=== PATIENT | female | born 1935 | race Caucasian/White ===

== ENCOUNTER 2020-02-12 12:56 | Outpatient (CLI) | payer MEDICARE, SELFPAY ==
--- NOTE | 2020-02-12 13:07 | CT_ITS ---
WS: [id number] CT HEAD TECHNIQUE: Noncontrast CT of the head obtained from the skullbase to the vertex. CLINICAL INFORMATION: ACUTE WEAKNESS, CHRONIC HEADACHE, ARM NUMBNESS COMPARISON: June 16, 2018 DLP: 992.[address] scans at [facility] use at least one of these dose optimization techniques: automat ed exposure control; mA and/or kV adjustment per patient size (includes targeted exams where dose is matched to clinical indication); or iterative reconstruction. FINDINGS: No evidence of intracranial hemorrhage or mass effect. Ventricular system and basal cisterns are pierce nt. Moderate small vessel changes with moderate parenchymal volume loss. Chronic lacunar infarcts in basal ganglia bilaterally. No extra-axial fluid collections. No evidence of mass or mass effect. Norm al hernandez-white differentiation. Opacification right mastoid air cells. Opacification right middle ear. Left mastoid air cells are wel l aerated. Paranasal sinuses are well aerated. CT/CT head wo con* [id number] IMPRESSION: 1. No evidence of intracranial hemorrhage or mass effect. 2. Rllo-ka-eawybgse small vessel changes moderate parenchymal volume loss. 3. Opacification right mastoid air cells and right middle ear.
== END 2020-02-12 12:57 | disposition home or self-care (01) ==
LOC: RADWPI 13:03
PROVIDERS: Family Provider Nurse Practitioner; PCP Nurse Practitioner; Visit Provider Nurse Practitioner
DX: R53.1 Weakness (principal); R51 Headache; R20.0 Anesthesia of skin
CPT/HCPCS: 70450

== ENCOUNTER 2020-04-07 09:48 | Outpatient (CLI) | payer MEDICARE, SELFPAY ==
--- NOTE | 2020-04-07 09:54 | XR_ITS ---
WS: [id number] CERVICAL SPINE 3 VIEWS HISTORY: NUMBNESS OF FINGER COMPARISON: None available. Normal posterior cervical alignment. Moderate disc space narrowing at C5-6 and C6-7. Endplate osteoph ytes throughout the cervical spine. Lateral masses of C1 and C2 are aligned and the odontoid is intac t. Bilateral facet joint arthritis, most significant at the C5-6 and C6-7 levels. Soft tissues are normal. XR/XR cervical spine 3V* [id number] IMPRESSION: Advanced spondylosis, most significant at C5-6 and C6-7.
== END 2020-04-07 09:49 | disposition home or self-care (01) ==
PROVIDERS: PCP Nurse Practitioner; Visit Provider Radiology Diagnostic Radiology
DX: R20.0 Anesthesia of skin (principal); M47.892 Other spondylosis, cervical region
CPT/HCPCS: 72040

== ENCOUNTER 2020-04-14 18:22 | Inpatient (IN) | payer MEDICARE, SELFPAY ==
[2020-04-14] VITALS (7 sets, daily range): BP systolic 133–151; BP diastolic 65–77; PULSE 16–78; RESP 16–18; TEMP 36.8; O2SAT 93–97; BMI 25.4
--- NOTE | 2020-04-14 18:25 | XRR_ITS ---
PROCEDURE INFORMATION: Exam: XR Chest, 1 View Exam date and time: 04/14/2020 7:25 PM Age: 85 years old Clinical indication: Injury or trauma; Initial encounter; Blunt trauma (contusions or hematomas); Injury date: 04/14/20; Prior surgery; Surgery date: 6+ months; Surgery type: Pacemaker; Patient HX: Fall; C/O RT hip pain TECHNIQUE: Imaging protocol: XR of the chest Views: 1 view. COMPARISON: CR Chest 1 [place] [id number] 07/09/2019 2:17 PM FINDINGS: Lungs: Calcified granuloma in the right upper lobe. Pleural space: No pleural effusion or pneumothorax. Heart/Mediastinum: The cardiac silhouette is not enlarged. The mediastinal contours are normal. Calcified lymph nodes in the right hilum from prior granulomatous disease. Vasculature: There is a left subclavian dual chamber pacemaker. Bones/joints: No acute osseous abnormality. XR/XR chest 1V portable [id number] IMPRESSION: No acute abnormality.
--- NOTE | 2020-04-14 18:25 | XRR_ITS ---
PROCEDURE INFORMATION: Exam: XR Right Hip with Pelvis when Performed Exam date and time: 04/14/2020 7:29 PM Age: 85 years old Clinical indication: Injury or trauma; Initial encounter; Blunt trauma (contusions or hematomas); Right; Injury date: 04/14/20; Patient HX: Fall; RT hip pain injury; Additional info: Fall/injury TECHNIQUE: Imaging protocol: XR Right hip with pelvis when performed. Views: 1 view. COMPARISON: CT abdomen pelvis w con* [id number] 07/09/2019 6:00 PM FINDINGS: Bones/joints: No fracture. No dislocation. No hip joint space narrowing. Soft tissues: There are surgical clips in the right groin. XR/XR hip RT 2-3V wo/w pel* [id number] IMPRESSION: No acute osseous abnormality.
--- NOTE | 2020-04-14 18:45 | CTR_ITS ---
PROCEDURE INFORMATION: Exam: CT Head Without Contrast Exam date and time: 04/14/2020 6:54 PM Age: 85 years old Clinical indication: Injury or trauma; Fall; Initial encounter; Injury details: Passed out and fell. Loc. PT down for 7 hrs; Additional info: Trauma fall TECHNIQUE: Imaging protocol: Computed tomography of the head without contrast. Radiation optimization: All CT scans at this facility use at least one of these dose optimization techniques: automated exposure control; mA and/or kV adjustment per patient size (includes targeted exams where dose is matched to clinical indication); or iterative reconstruction. COMPARISON: CT head wo con* [id number] 02/12/2020 1:50 PM RADIATION DOSE METRICS: Total DLP (mGy-cm): 826.42 FINDINGS: Brain: Mild atrophy and mild white matter chronic microvascular changes are noted. No hemorrhage or CT evidence of acute infarction is seen. Ventricles: Normal. No ventriculomegaly. Bones/joints: Unremarkable. No acute fracture. Sinuses: Visualized sinuses are unremarkable. No fluid levels. 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 Soft tissues: Mild soft tissue swelling is present in the left occipital scalp CT/CT head wo con* [id number] IMPRESSION: No acute intracranial abnormality. 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
--- NOTE | 2020-04-14 18:52 | CTR_ITS ---
PROCEDURE INFORMATION: Exam: CT Cervical Spine Without Contrast Exam date and time: 04/14/2020 6:54 PM Age: 85 years old Clinical indication: Injury or trauma; Fall; Injury details: Loc. PT down for 7 hrs; Additional info: Fall/trauma/injury TECHNIQUE: Imaging protocol: Computed tomography images of the cervical spine without contrast. Radiation optimization: All CT scans at this facility use at least one of these dose optimization techniques: automated exposure control; mA and/or kV adjustment per patient size (includes targeted exams where dose is matched to clinical indication); or iterative reconstruction. COMPARISON: CT Cervical Spine wo* [id number] 06/16/2018 6:53 AM RADIATION DOSE METRICS: Total DLP (mGy-cm): 681.22 FINDINGS: Moderate to severe degenerative changes are observed in the cervical spine. Mild canal stenosis is present at C6-C7 secondary to chronic changes. No cervical spine fracture is seen. A 10 x 5 mm calcified extra-axial lesion is again seen at the T2 level, which is stable and may be a meningioma. Moderate canal stenosis is present at this level. Spinal alignment is normal. CT/CT cervical spin wo con* [id number] IMPRESSION: No cervical spine fracture. Radiation Dose CTDIVOL = (mGy): DLP = 681.22 (mGy-cm)
[2020-04-14] MEDS: sodium chloride 0.9% 1,000 ML 999 ML IV ×2 (19:29→22:12)
[2020-04-14] MEDS: morphine 4 mg/mL SDV 1 mL IVP (19:34)
[2020-04-14] MEDS: ondansetron 2 mg/ML SDV 2 mL 4 MG IVP (19:34)
--- NOTE | 2020-04-14 19:39 | ED_ITS ---
HPI - Extremity Problem General: Chief complaint: Extremity Injury, Lower Stated complaint: POSSIBLE FX R HIP Time Seen by Provider: 04/14/20 18:32 Source: patient Mode of arrival: ambulatory Limitations: no limitations History of Present Illness: HPI Narrative: Aide is a very nice 85-year-old female who comes in after she fell at home taking out the trash. The patient is uncertain what made her fall. She states she had pain in her right hip and so she was unable to get up. She was able to crawl to the shade and sat there for several hours before someone found her and was able to bring her to the hospital. When asked further she states it was really she just had weakness and pain all over more so than just isolated pain in her hip. The patient does not remember tripping or slipping she just knows that she woke up on the ground. She thinks it is very possible that she may have passed out. She believes that she was out for quite some time and then again she was unable to get up because of weakness and pain but was able to crawl into the shade and was there for several hours. She does not remember any preceding chest pain, shortness of breath, palpitations, lightheadedness or dizziness. She denies any preceding headache, back pain, abdominal pain or other type of pain. Patient denies taking any new medications and she denies any similar symptoms to this in the past. She does not remember a trip or losing balance causing a mechanical fall either. The patient states she just hurts all over but her greatest area of pain is her right hip. She states that her hip pain is minor and she is able to range of motion her hip without any increased pain. Associated symptoms: Deny chest pain, fever(s) or rash Review of Systems Const: Reports: body aches, fatigue and malaise; Denies: fever(s), chills or diaphoresis Eyes: Denies: change in vision, blurry vision, photophobia, eye discomfort, eye discharge or eye redness ENMT: Denies: throat pain, odynophagia, hoarseness, swelling of lips/tongue, ear or mastoid pain, ear discharge, change in hearing or nasal discharge Card: Denies: chest pain, palpitations, irregular heart rhythm, edema, lightheadedness, pre-syncope, dyspnea on exertion or orthopnea Resp: Denies: dyspnea, productive cough, non-productive cough, wheezing, hemoptysis or chest congestion GI: Denies: abdominal pain, nausea, vomiting, hematemesis, coffee ground emesis, heartburn, diarrhea, constipation, GI cramping, hematochezia or melena : Denies: flank pain, dysuria, urinary frequency, urinary urgency or hematuria Musc: Reports: extremity pain and joint pain; Denies: neck pain, back pain, extremity swelling, joint swelling, joint redness, joint warmth or joint stiffness Skin/Breast: Denies: rash, pruritus, erythema or skin tenderness Neuro: Denies: headache(s), numbness in extremities, weakness in extremities, sensory changes, lack of coordination, difficulty walking, dizziness, vertigo, confusion, Slurred speech present or seizure-like activity Jean-Claude/Lymph: Denies: easy bruising, easy bleeding, petechiae, purpura or enlarged lymph nodes All/Imm: Denies: urticaria, throat swelling, tongue swelling, facial swelling or acute wheezing PFSH ED PFSH: Medical History (Updated 04/14/20 @ 22:36 by Arabella Godoy) Anemia Aortic valve disease Bowel perforation CVA (cerebral vascular accident) Hypertension Hypothyroidism Pacemaker Surgical History (Updated 04/14/20 @ 22:36 by Arabella Godoy) H/O inguinal hernia repair H/O knee surgery History of esophagogastroduodenoscopy (EGD) S/P hernia surgery S/P TAVR (transcatheter aortic valve replacement) Social History (Updated 04/14/20 @ 18:34 by John Gil RN) Smoking and tobacco status: never smoked Alcohol intake: never Substance/Drug Use: never Physical Exam Const: COMMON NORMALS: no acute distress, patient oriented x3, no limitations, healthy appearing and well nourished GENERAL APPEARANCE: cooperative, well kempt and well developed HENMT: COMMON NORMALS: normocephalic, atraumatic, external ears normal, EAC's normal and Normal external nose present HEAD & SCALP: normal to inspection, normocephalic and atraumatic FACE & SINUS: normal facial exam and face symmetric NOSE: Normal external nose present and Normal nares present EXTERNAL EAR: Yes external ears normal EXTERNAL AUDITORY CANAL: EAC's normal MOUTH: Normal oral and palatal mucosa present, lip normal and tongue normal Eye: COMMON NORMALS: Equal, round and reactive pupils present and conjunctivae normal GENERAL EYE: appearance normal, both eyes and all related structures ALIGNMENT: Yes alignment normal PERIORBITAL: periorbital findings normal EYELID: eyelids normal CONJUNCTIVA: Yes conjunctivae normal SCLERA: sclerae normal PUPIL: Yes Equal, round and reactive pupils present Neck/C-Spine: COMMON NORMALS: full ROM, no lymphadenopathy, supple, no meningeal signs and no JVD GENERAL: Yes normal visual inspection and Yes trachea midline Chest: COMMONS NORMALS: normal inspection of the chest and normal palpation of entire chest wall Resp: COMMON NORMALS: normal respiratory effort, No retractions, No use of accessory muscles and clear to auscultation bilaterally EFFORT & INSPECTION: Yes able to speak in complete sentences and Yes symmetric chest movement AUSCULTATION: clear to auscultation bilaterally, no crackles, no rales, no rhonchi and no wheezes Cardio: COMMON NORMALS: no JVD, regular rate, regular rhythm, S1 normal heart sound present and S2 normal heart sound present RATE: regular rate RHYTHM: regular rhythm HEART SOUNDS: S1 normal heart sound present, S2 normal heart sound present, no click, no gallops, no murmurs, no rubs and abnormal split S2 GI: COMMON NORMALS: Soft to palpation and No hepatosplenomegaly present PALPATION: Yes Soft to palpation, No Tenderness to palpation present (GI), No Guarding due to palpation present (GI), No Rigid due to palpation, Yes No hepatosplenomegaly present, No Hernia present, No Palpable mass present and No Pulsatile mass present : COMMON NORMALS: Yes no CVA tenderness BLADDER/KIDNEY EXAM: Yes no CVA tenderness EXTERNAL FEMALE EXAM: No Hernia present Back/Pelvis: COMMON NORMALS: no CVA tenderness, thoracic and lumbar spine normal to inspection, no thoracic nor lumbar tenderness and thoraco-lumbar ROM normal Extremity: COMMON NORMALS: capillary refill normal, no joint enlargement, no clubbing, cyanosis or edema and no calf tenderness Neuro: COMMON NORMALS: patient oriented x3, CN's II-XII intact bilaterally, moves all extremities, no focal motor deficits and no sensory deficits noted MENINGEAL SIGNS: Yes no meningeal signs SPEECH: speech normal Psych: COMMON NORMALS: mental status grossly normal, Normal thought process present, cooperative, normal affect, speech normal and activity/motor behavior normal APPEARANCE: Yes well kempt SPEECH: Yes normal speech THOUGHT PROCESS: Normal thought process present Skin: COMMON NORMALS: no rashes or lesions noted, turgor normal, no jaundice, no petechiae and no mottling GENERAL SKIN EXAM: no rashes or lesions noted and turgor normal Course Vital Signs: Vital signs: Vital Signs Temperature 98.2 F 04/14/20 18:26 Pulse Rate 16 L 04/14/20 22:11 Respiratory Rate 18 04/14/20 19:34 Blood Pressure 142/70 04/14/20 22:10 Pulse Oximetry 93 04/14/20 22:11 MDM - Extremity (Nontraumatic) Lab Data: Labs: Lab Results 04/14/20 04/14/20 04/14/20 Range/Units 19:44 19:44 19:44 WBC 7.0 (4.0-10.0) 10^3/ uL RBC 3.96 L (4.1-5.3) 10^6/u L Hgb 11.8 (11.5-15.3) g/dL Hct 37.6 (37.0-47.0) % MCV 94.9 (81-99) fL MCH 29.8 (28.0-34.0) pg MCHC 31.4 (30.0-36.0) g/dL RDW 15.2 H (12.1-15.1) % Plt Count 161 (130-400) 10^3/c mm MPV 10.3 (7.4-10.4) fL Neut % (Auto) 77.4 % Lymph % (Auto) 13.9 % [place] % (Auto) 7.0 % Eos % (Auto) 1.0 % Baso % (Auto) 0.3 % Neut # (Auto) 5.40 (1.8-7.7) 10^3/u L Lymph # (Auto) 1.0 (0.8-4.8) 10^3/u L [place] # (Auto) 0.5 (0.2-0.9) 10^3/u L Eos # (Auto) 0.1 (0.0-0.8) 10^3/u L Baso # (Auto) 0.0 (0.0-0.1) 10^3/u L Nucleated RBC % (a uto) 0 % Nucleated RBCs # 0.0 /100WBC PT 14.00 (12.1-14.9) SECO NDS INR 1.05 (0.8-1.2) APTT 30.3 (23.9-36.7) SECO NDS Sodium 136 (136-145) mmol/L Potassium 2.9 L (3.5-5.1) mmol/L Chloride 101 (98-107) mmol/L Carbon Dioxide 26 (22-29) mmol/L Anion Gap 11.9 (5-19) BUN 12 (8-23) mg/dL Creatinine 0.4 L (0.5-0.9) mg/dL GFR Calculation Not Reportable Glucose 88 (65-115) mg/dL Calculated Osmolal ity 278 L (285-295) mOsm/k g Lactic Acid (0.5-2.2) mmol/L Calcium 8.6 (8.5-10.5) mg/dL Magnesium 1.5 L (1.7-2.3) mg/dL Total Bilirubin 0.5 (0.15-1.2) mg/dL AST 84 H (0-32) U/L ALT 76 H (0-33) U/L Alkaline Phosphata se 163 H (35-105) IU/L Creatine Kinase 136 (26-192) U/L Troponin T Baselin e (0-10) ng/L Total Protein 5.9 L (6.6-8.7) g/dL Albumin 3.5 (3.5-5.2) g/dL Globulin 2.4 (1.3-4.6) g/dL Urine Color (Yellow) Urine Appearance (CLEAR) Urine pH (5-7) Ur Specific Gravit y (1.005-1.030) Urine Protein (Negative) Urine Glucose (UA) (Normal) Urine Ketones (Negative) Urine Blood (Negative) Urine Nitrate (Negative) Urine Bilirubin (NEGATIVE) Urine Urobilinogen (Negative) mg/dL Ur Leukocyte Lanette ase (Negative) Urine RBC (0-2) /hpf Urine WBC (0-5) /hpf Ur Squamous Epith Cells (0-5) Ur Transition Epit h Cell /hpf Ur Renal Epithelia l Cell /hpf Amorphous Sediment Urine Bacteria (NONE) Serum Ketones Negative (Negative) 04/14/20 04/14/20 04/14/20 Range/Units 19:44 19:44 20:05 WBC (4.0-10.0) 10^3/ uL RBC (4.1-5.3) 10^6/u L Hgb (11.5-15.3) g/dL Hct (37.0-47.0) % MCV (81-99) fL MCH (28.0-34.0) pg MCHC (30.0-36.0) g/dL RDW (12.1-15.1) % Plt Count (130-400) 10^3/c mm MPV (7.4-10.4) fL Neut % (Auto) % Lymph % (Auto) % [place] % (Auto) % Eos % (Auto) % Baso % (Auto) % Neut # (Auto) (1.8-7.7) 10^3/u L Lymph # (Auto) (0.8-4.8) 10^3/u L [place] # (Auto) (0.2-0.9) 10^3/u L Eos # (Auto) (0.0-0.8) 10^3/u L Baso # (Auto) (0.0-0.1) 10^3/u L Nucleated RBC % (a uto) % Nucleated RBCs # /100WBC PT (12.1-14.9) SECO NDS INR (0.8-1.2) APTT (23.9-36.7) SECO NDS Sodium (136-145) mmol/L Potassium (3.5-5.1) mmol/L Chloride (98-107) mmol/L Carbon Dioxide (22-29) mmol/L Anion Gap (5-19) BUN (8-23) mg/dL Creatinine (0.5-0.9) mg/dL GFR Calculation Glucose (65-115) mg/dL Calculated Osmolal ity (285-295) mOsm/k g Lactic Acid 0.9 (0.5-2.2) mmol/L Calcium (8.5-10.5) mg/dL Magnesium (1.7-2.3) mg/dL Total Bilirubin (0.15-1.2) mg/dL AST (0-32) U/L ALT (0-33) U/L Alkaline Phosphata se (35-105) IU/L Creatine Kinase (26-192) U/L Troponin T Baselin e 21 H (0-10) ng/L Total Protein (6.6-8.7) g/dL Albumin (3.5-5.2) g/dL Globulin (1.3-4.6) g/dL Urine Color Yellow (Yellow) Urine Appearance Clear (CLEAR) Urine pH 5 (5-7) Ur Specific Gravit y 1.015 (1.005-1.030) Urine Protein Neg (Negative) Urine Glucose (UA) Norm (Normal) Urine Ketones Negative (Negative) Urine Blood Neg (Negative) Urine Nitrate Negative (Negative) Urine Bilirubin Neg (NEGATIVE) Urine Urobilinogen Norm (Negative) mg/dL Ur Leukocyte Lanette ase Negative (Negative) Urine RBC None (0-2) /hpf Urine WBC None (0-5) /hpf Ur Squamous Epith Cells None (0-5) Ur Transition Epit h Cell None /hpf Ur Renal Epithelia l Cell N /hpf Amorphous Sediment Not Reportable Urine Bacteria Trace (NONE) Serum Ketones (Negative) Imaging Data^: CT Head: Radiologist's impression: [place] [address] CT Scan Report Signed Patient: Aide Mitchell Unit #: [id number] : 1935 Age/Sex: 85 / F ADM Date: 04/14/20 Loc: ER Room/Bed: Attending Dr: Ordering Provider/Ordering MD: Arabella Godoy DO Date of Service: 04/14/20 Procedure(s): CT head wo con* [id number] Accession Number(s): [id number] Report Number: [id number] PROCEDURE INFORMATION: Exam: CT Head Without Contrast Exam date and time: 04/14/2020 6:54 PM Age: 85 years old Clinical indication: Injury or trauma; Fall; Initial encounter; Injury details: Passed out and fell. Loc. PT down for 7 hrs; Additional info: Trauma fall TECHNIQUE: Imaging protocol: Computed tomography of the head without contrast. Radiation optimization: All CT scans at this facility use at least one of these dose optimization techniques: automated exposure control; mA and/or kV adjustment per patient size (includes targeted exams where dose is matched to clinical indication); or iterative reconstruction. COMPARISON: CT head wo con* [id number] 02/12/2020 1:50 PM RADIATION DOSE METRICS: Total DLP (mGy-cm): 826.42 FINDINGS: Brain: Mild atrophy and mild white matter chronic microvascular changes are noted. No hemorrhage or CT evidence of acute infarction is seen. Ventricles: Normal. No ventriculomegaly. Bones/joints: Unremarkable. No acute fracture. Sinuses: Visualized sinuses are unremarkable. No fluid levels. 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 Soft tissues: Mild soft tissue swelling is present in the left occipital scalp CT/CT head wo con* [id number] IMPRESSION: No acute intracranial abnormality. 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 Radiation Dose CTDIVOL = (mGy): DLP = 826.42 (mGy-cm) Dictated By: Demetrio Brandon MD Signed By: Demetrio Brandon MD Signed Date/Time: 04/14/201925 DD/ 23 CT Cervical Spine: Radiologist's impression: [address] [address] [address] Scan Report Signed Patient: Aide Mitchell Unit #: [id number] : 1935 Age/Sex: 85 / F ADM Date: 04/14/20 Loc: ER Room/Bed: Attending Dr: Ordering Provider/Ordering MD: Arabella Godoy DO Date of Service: 04/14/20 Procedure(s): CT cervical spin wo con* [id number] Accession Number(s): [id number] Report Number: [id number] PROCEDURE INFORMATION: Exam: CT Cervical Spine Without Contrast Exam date and time: 04/14/2020 6:54 PM Age: 85 years old Clinical indication: Injury or trauma; Fall; Injury details: Loc. PT down for 7 hrs; Additional info: Fall/trauma/injury TECHNIQUE: Imaging protocol: Computed tomography images of the cervical spine without contrast. Radiation optimization: All CT scans at this facility use at least one of these dose optimization techniques: automated exposure control; mA and/or kV adjustment per patient size (includes targeted exams where dose is matched to clinical indication); or iterative reconstruction. COMPARISON: CT Cervical Spine wo* [id number] 06/16/2018 6:53 AM RADIATION DOSE METRICS: Total DLP (mGy-cm): 681.22 FINDINGS: Moderate to severe degenerative changes are observed in the cervical spine. Mild canal stenosis is present at C6-C7 secondary to chronic changes. No cervical spine fracture is seen. A 10 x 5 mm calcified extra-axial lesion is again seen at the T2 level, which is stable and may be a meningioma. Moderate canal stenosis is present at this level. Spinal alignment is normal. CT/CT cervical spin wo con* [id number] IMPRESSION: No cervical spine fracture. Radiation Dose CTDIVOL = (mGy): DLP = 681.22 (mGy-cm) Dictated By: Demetrio Brandon MD Signed By: Demetrio Brandon MD Signed Date/Time: 04/14/201928 DD/ 27 CXR: Attestation: I personally reviewed and interpreted this imaging study as follows: My impression: No acute cardiopulmonary findings. Implantable cardiac device with appropriate placement. Mediastinum normal. No pneumothorax, no hemothorax, no infiltrates. Pelvis: Attestation: I personally reviewed and interpreted this imaging study as follows: My impression: No acute fractures or dislocations Right Hip: Attestation: I personally reviewed and interpreted this imaging study as follows: My impression: No acute fractures or dislocations US: My impression: Ultrasound abdomen, technologist interpretation -gallbladder normal. Fatty liver present. No free fluid. No abdominal aortic aneurysm. All other findings unremarkable. EKG Data^: EKG 1: Attestation: I personally reviewed and interpreted this EKG as follows: EKG interpretation date: 04/14/20 EKG interpretation time: 21:40 Interpretation: Ventricular paced rhythm at 63 beats a minute, appropriate discordance. No acute findings. Discharge Plan Discharge Prescriptions: No Action levothyroxine 175 mcg tablet 175 mcg PO DAILY RF: 0 potassium chloride 20 mEq tablet,ER particles/crystals 20 meq PO BID RF: 0 magnesium oxide 400 mg (241.3 mg magnesium) tablet 400 mg PO DAILY RF: 0 cyanocobalamin (vitamin B-12) 1,000 mcg/mL solution See Rx Instructions .ROUTE .COMPLEX RF: 0 furosemide 20 mg tablet 20 mg PO DAILY RF: 0 fluticasone propionate 50 mcg/actuation spray,suspension 2 spray INTRANASAL DAILY RF: 0 Multiple Vitamin, Womens Tablet 1 tab PO DAILY RF: 0 Coding Level of Care Code ED Respiratory Care Instructor for Chg Fwd Exam Comprehensive
[2020-04-14 20:00] LABS: Basophils % 0.3 %; Eosinophils # 0.1 10^3/uL (0.0-0.8); Hematocrit 37.6 % (37.0-47.0); Hemoglobin 11.8 g/dL (11.5-15.3); Lymphocytes % 13.9 %; Mean Corpuscular HGB Conc 31.4 g/dL (30.0-36.0); Mean Corpuscular Hemoglobin 29.8 pg (28.0-34.0); Mean Corpuscular Volume 94.9 fL (81-99); Mean Platelet Volume 10.3 fL (7.4-10.4); Monocytes # 0.5 10^3/uL (0.2-0.9); Neutrophils % 77.4 %; Nucleated Red Blood Cells % 0 %; Platelet Count 161 10^3/cmm (130-400); Red Blood Count 3.96 10^6/uL (4.1-5.3); Red Cell Distribution Width 15.2 % (12.1-15.1)
[2020-04-14 20:12] LABS: INR 1.05 (0.8-1.2)
[2020-04-14 20:13] LABS: Ketone (Acetest) Serum Negative (Negative); Partial Thromboplastin Time 30.3 SECONDS (23.9-36.7)
[2020-04-14 20:20] LABS: Lactic Sepsis W/Reflex 0.9 mmol/L (0.5-2.2)
[2020-04-14 20:21] LABS: Albumin Level 3.5 g/dL (3.5-5.2); Alkaline Phosphatase 163 IU/L (35-105); Blood Urea Nitrogen 12 mg/dL (8-23); Calcium 8.6 mg/dL (8.5-10.5); Carbon Dioxide 26 mmol/L (22-29); Chloride 101 mmol/L (98-107); Creatine Phosphokinase 136 U/L (26-192); Globulin 2.4 g/dL (1.3-4.6); Glucose 88 mg/dL (65-115); Magnesium 1.5 mg/dL (1.7-2.3); Osmolality Calculated 278 mOsm/kg (285-295); Sodium 136 mmol/L (136-145); Total Bilirubin 0.5 mg/dL (0.15-1.2); Total Protein 5.9 g/dL (6.6-8.7)
[2020-04-14 20:59] LABS: Anion Gap 11.9 (5-19)
[2020-04-14 21:00] LABS: Alanine Aminotransferase 76 U/L (0-33); Aspartate Amino Transferase 84 U/L (0-32); Potassium 2.9 mmol/L (3.5-5.1)
[2020-04-14 21:04] LABS: Bilirubin Urine Neg (NEGATIVE); Blood Urine Neg (Negative); Glucose Urine UA Norm (Normal); Ketones Urine Negative (Negative); Leukocyte Esterase Urine Negative (Negative); Nitrate Urine Negative (Negative); Protein Urine Neg (Negative); Specific Gravity, Urine 1.015 (1.005-1.030); Urine Appearance Clear (CLEAR); Urine Color Yellow (Yellow); Urobilinogen Urine Norm (Negative); pH Urine 5 (5-7)
[2020-04-14 21:06] LABS: Add Urine Culture? No; Bacteria Urine TRACE; Renal Epithelial Cells Urine N /hpf
--- NOTE | 2020-04-14 21:11 | US_ITS ---
WS: [id number] ULTRASOUND ABDOMEN LIMITED CLINICAL INFORMATION: Abdominal Pain COMPARISON: None. FINDINGS: Liver Size: Normal. Craniocaudal length: 12.2 cm. Echogenicity: Fatty infiltration Surface nodularity: None. Mass (size and location): None. Bile ducts Intrahepatic ducts: Normal. Common bile duct diameter: 1.0 cm. Gallbladder Normal. Gallstones: None. Gallbladder sludge: None. Gallbladder wall thickening: None. Pericholecystic fluid: None. Sonographic Marina sign: Absent. Pancreas Not well seen Right kidney: Normal. Hydronephrosis: None. Size: 10.4 cm x 5.5 cm x 6.3 cm. Abdominal aorta and IVC Visualized portions are normal. Ascites: None. US/US gall bladder [id number] IMPRESSION: 1. Mild diffuse fatty infiltration of the liver. 2. Gallbladder is normal. 3. No hydronephrosis in right kidney.
[2020-04-14] MEDS: magnesium sulfate premix 2 GM/50 ML PIGGYBACK IV (21:31)
[2020-04-14] MEDS: potassium chloride oral liq 20 mEq/15 mL UDC 40 MEQ PO (21:31)
--- NOTE | 2020-04-14 21:35 | ECG_ITS ---
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 Measurements Intervals [place] Rate: 63 P: 236 NV: 262 QRS: -90 QRSD: 208 T: 70 QT: 500 QTc: 512 Interpretive Statements ELECTRONIC VENTRICULAR PACEMAKER ABNORMAL RHYTHM ECG Compared to ECG 07/09/2019 17:01:56 No significant changes Electronically Signed On 04-15-2020 20:31:26 CDT by Rachel Up M.D. [id number] f
[2020-04-14 21:58] LABS: Troponin(5th) Baseline 21 ng/L (0-10)
[2020-04-14 22:34] LABS: Troponin 5 2HR 18.28 ng/L (0-10)
[2020-04-14 22:35] LABS: Troponin 5 2HR Delta -2.72 ABS# (0-10)
--- NOTE | 2020-04-14 22:51 | XRR_ITS ---
PROCEDURE INFORMATION: Exam: XR Right Ankle Exam date and time: 04/14/2020 11:13 PM Age: 85 years old Clinical indication: Injury or trauma; Fall; Initial encounter; Blunt trauma; Ankle; Right; Additional info: Pain/fall TECHNIQUE: Imaging protocol: XR Right ankle. Views: 3 or more views. COMPARISON: CR Foot 3 views, RIGHT* [id number] 06/16/2018 6:56 AM FINDINGS: Bones/joints: The bones are osteoporotic. No fracture is detected a. Mild superior subluxation of the navicular bone is seen at the talonavicular joint. Tiny dorsal and plantar calcaneal spurs are noted. Tiny calcifications are also seen in the plantar soft tissues. Soft tissues: Mild soft tissue swelling is seen in the ankle. Arterial calcifications are noted. XR/XR ankle RT min 3V* [id number] IMPRESSION: 1. Osteoporosis. No fracture is seen. 2. Atherosclerosis.
--- NOTE | 2020-04-14 23:22 | XRR_ITS ---
PROCEDURE INFORMATION: Exam: XR Right Foot Complete Exam date and time: 04/15/2020 12:03 AM Age: 85 years old Clinical indication: Injury or trauma; Fall; Initial encounter; Blunt trauma; Foot; Right TECHNIQUE: Imaging protocol: XR Right foot. Views: 3 or more views. COMPARISON: CR Foot 3 views, RIGHT* [id number] 06/16/2018 6:56 AM FINDINGS: The bones are osteoporotic. [id number] degenerative changes are observed at the 1st metatarsophalangeal and multiple interphalangeal joints in the right foot. No acute fracture or dislocation. XR/XR foot RT min 3V* [id number] IMPRESSION: No acute fracture or dislocation.
--- NOTE | 2020-04-14 23:22 | XR_ITS ---
WS: [id number] Right leg including the tibia and fibula, 04/14/2020 Clinical Data: Injury Comparison: None. Findings: No fractures or dislocations are seen. The tibia and fibula are intact. The soft tissues show minimal vascular calcification.. The right knee arthroplasty components remain in good position. XR/XR tibia fibula RT 2V [id number] Impression: Negative for fracture.
--- NOTE | 2020-04-14 23:42 | ED_ITS ---
HPI - Extremity Problem General: Chief complaint: Extremity Injury, Lower Stated complaint: POSSIBLE FX R HIP Time Seen by Provider: 04/14/20 18:32 Source: patient Mode of arrival: ambulatory Limitations: no limitations History of Present Illness: HPI Narrative: Ms. Mitchell is a nice 85-year-old female who came in after she fell while taking her trash out this morning. The patient does not remember slipping, tripping or losing her balance to fall. She states that she was walking in the next thing she knew she was waking up on the ground. She feels like a good deal of time had passed from the time she was unconscious until she woke up. Since awakening she has had generalized weakness and diffuse pain although some increased pain in her right lower extremity. Because the patient was so weak she was only able to crawl and sit underneath a tree mostly scooting on her bottom during that time. The patient was there for several hours before she was found. She still feels weak, tired and has generalized discomfort. The patient specifically denies any preceding headache, neck pain, chest pain, shortness of breath, palpitations, abdominal pain or back pain. Patient denies any chest pain or shortness of breath at this time. The patient denies having any similar symptoms like this in the past. Associated symptoms: Deny chest pain, fever(s) or rash Review of Systems Const: Reports: body aches, fatigue and malaise; Denies: fever(s), chills or diaphoresis Eyes: Denies: change in vision, blurry vision, photophobia, eye discomfort, eye discharge or eye redness ENMT: Denies: throat pain, odynophagia, hoarseness, swelling of lips/tongue, ear or mastoid pain, ear discharge, change in hearing or nasal discharge Card: Reports: syncope; Denies: chest pain, palpitations, irregular heart rhythm, edema, lightheadedness, pre-syncope, dyspnea on exertion or orthopnea Resp: Denies: dyspnea, productive cough, non-productive cough, wheezing, hemoptysis or chest congestion GI: Denies: abdominal pain, nausea, vomiting, hematemesis, coffee ground emesis, heartburn, diarrhea, constipation, GI cramping, hematochezia or melena : Denies: flank pain, dysuria, urinary frequency, urinary urgency or hematuria Musc: Reports: extremity pain; Denies: neck pain, back pain, extremity swelling, joint pain, joint swelling, joint redness, joint warmth or joint stiffness Skin/Breast: Denies: rash, pruritus, erythema or skin tenderness Neuro: Reports: weakness in extremities; Denies: headache(s), numbness in extremities, sensory changes, lack of coordination, difficulty walking, dizziness, vertigo, confusion, Slurred speech present or seizure-like activity Jean-Claude/Lymph: Denies: easy bruising, easy bleeding, petechiae, purpura or enlarged lymph nodes All/Imm: Denies: urticaria, throat swelling, tongue swelling, facial swelling or acute wheezing PFSH ED PFSH: Medical History (Updated 04/15/20 @ 01:21 by Arabella Godoy) Anemia Aortic valve disease Bowel perforation CVA (cerebral vascular accident) Hypertension Hypothyroidism Pacemaker Surgical History (Updated 04/14/20 @ 22:36 by Arabella Godoy) H/O inguinal hernia repair H/O knee surgery History of esophagogastroduodenoscopy (EGD) S/P hernia surgery S/P TAVR (transcatheter aortic valve replacement) Social History (Updated 04/14/20 @ 18:34 by John Gil RN) Smoking and tobacco status: never smoked Alcohol intake: never Substance/Drug Use: never Physical Exam Const: COMMON NORMALS: no acute distress, patient oriented x3, no limitations, healthy appearing and well nourished GENERAL APPEARANCE: cooperative, well kempt and well developed HENMT: COMMON NORMALS: normocephalic, atraumatic, external ears normal, EAC's normal and Normal external nose present HEAD & SCALP: normal to inspection, normocephalic and atraumatic FACE & SINUS: normal facial exam and face symmetric NOSE: Normal external nose present and Normal nares present EXTERNAL EAR: Yes external ears normal EXTERNAL AUDITORY CANAL: EAC's normal MOUTH: Normal oral and palatal mucosa present, lip normal and tongue normal Eye: COMMON NORMALS: Equal, round and reactive pupils present and conjunctivae normal GENERAL EYE: appearance normal, both eyes and all related structures ALIGNMENT: Yes alignment normal PERIORBITAL: periorbital findings normal EYELID: eyelids normal CONJUNCTIVA: Yes conjunctivae normal SCLERA: sclerae normal PUPIL: Yes Equal, round and reactive pupils present Neck/C-Spine: COMMON NORMALS: full ROM, no lymphadenopathy, supple, no meningeal signs and no JVD GENERAL: Yes normal visual inspection and Yes trachea midline Chest: COMMONS NORMALS: normal inspection of the chest and normal palpation of entire chest wall Resp: COMMON NORMALS: normal respiratory effort, No retractions, No use of accessory muscles and clear to auscultation bilaterally EFFORT & INSPECTION: Yes able to speak in complete sentences and Yes symmetric chest movement AUSCULTATION: clear to auscultation bilaterally, no crackles, no rales, no rhonchi and no wheezes Cardio: COMMON NORMALS: no JVD, regular rate, regular rhythm, S1 normal heart sound present and S2 normal heart sound present RATE: regular rate RHYTHM: regular rhythm HEART SOUNDS: S1 normal heart sound present, S2 normal heart sound present, no click, no gallops, no murmurs, no rubs and abnormal split S2 GI: COMMON NORMALS: Soft to palpation and No hepatosplenomegaly present PALPATION: Yes Soft to palpation, No Tenderness to palpation present (GI), No Guarding due to palpation present (GI), No Rigid due to palpation, Yes No hepatosplenomegaly present, No Hernia present, No Palpable mass present and No Pulsatile mass present : COMMON NORMALS: Yes no CVA tenderness BLADDER/KIDNEY EXAM: Yes no CVA tenderness EXTERNAL FEMALE EXAM: No Hernia present Back/Pelvis: COMMON NORMALS: no CVA tenderness, thoracic and lumbar spine normal to inspection, no thoracic nor lumbar tenderness and thoraco-lumbar ROM normal Extremity: COMMON NORMALS: normal to inspection, full ROM, capillary refill normal, no joint enlargement, no clubbing, cyanosis or edema and no calf tenderness Neuro: COMMON NORMALS: patient oriented x3, CN's II-XII intact bilaterally, moves all extremities, no focal motor deficits and no sensory deficits noted MENINGEAL SIGNS: Yes no meningeal signs SPEECH: speech normal Psych: COMMON NORMALS: mental status grossly normal, Normal thought process present, cooperative, normal affect, speech normal and activity/motor behavior normal APPEARANCE: Yes well kempt SPEECH: Yes normal speech THOUGHT PROCESS: Normal thought process present Skin: COMMON NORMALS: no rashes or lesions noted, turgor normal, no jaundice, no petechiae and no mottling GENERAL SKIN EXAM: no rashes or lesions noted and turgor normal Course Vital Signs: Vital signs: Vital Signs Temperature 98.2 F 04/14/20 18:26 Pulse Rate 61 04/15/20 01:10 Respiratory Rate 18 04/14/20 19:34 Blood Pressure 129/63 04/15/20 01:10 Pulse Oximetry 95 04/15/20 01:10 MDM - Extremity (Nontraumatic) MDM Narrative: Medical decision making narrative: The case is reviewed with Dr. Xiong she is agreeable to admission. The patient had a syncopal spell while taking her trash out this morning. Pacemaker interrogation reveals she had a sinus tachycardia at that time but no evidence of bradycardia dysrhythmia, ventricular tachycardia or pauses. The patient since then has been too weak and had too much diffuse pain to get up and care for herself. It is possible a seizure could have caused her symptoms. Her radiologic work appears been unremarkable. Her laboratory work-up is not tremendously revealing either. The concern now is the patient cannot stand and bear weight for any length of time without becoming near syncopal again. We are hydrating her gently and will continue to do so. Further care be dictated by Dr. Xiong. Lab Data: Attestation: I reviewed the patient's lab results. Labs: Lab Results 04/14/20 04/14/20 04/14/20 Range/Units 19:44 19:44 19:44 WBC 7.0 (4.0-10.0) 10^3/ uL RBC 3.96 L (4.1-5.3) 10^6/u L Hgb 11.8 (11.5-15.3) g/dL Hct 37.6 (37.0-47.0) % MCV 94.9 (81-99) fL MCH 29.8 (28.0-34.0) pg MCHC 31.4 (30.0-36.0) g/dL RDW 15.2 H (12.1-15.1) % Plt Count 161 (130-400) 10^3/c mm MPV 10.3 (7.4-10.4) fL Neut % (Auto) 77.4 % Lymph % (Auto) 13.9 % Pershing % (Auto) 7.0 % Eos % (Auto) 1.0 % Baso % (Auto) 0.3 % Neut # (Auto) 5.40 (1.8-7.7) 10^3/u L Lymph # (Auto) 1.0 (0.8-4.8) 10^3/u L Pershing # (Auto) 0.5 (0.2-0.9) 10^3/u L Eos # (Auto) 0.1 (0.0-0.8) 10^3/u L Baso # (Auto) 0.0 (0.0-0.1) 10^3/u L Nucleated RBC % (a uto) 0 % Nucleated RBCs # 0.0 /100WBC PT 14.00 (12.1-14.9) SECO NDS INR 1.05 (0.8-1.2) APTT 30.3 (23.9-36.7) SECO NDS Sodium 136 (136-145) mmol/L Potassium 2.9 L (3.5-5.1) mmol/L Chloride 101 (98-107) mmol/L Carbon Dioxide 26 (22-29) mmol/L Anion Gap 11.9 (5-19) BUN 12 (8-23) mg/dL Creatinine 0.4 L (0.5-0.9) mg/dL GFR Calculation Not Reportable Glucose 88 (65-115) mg/dL Calculated Osmolal ity 278 L (285-295) mOsm/k g Lactic Acid (0.5-2.2) mmol/L Calcium 8.6 (8.5-10.5) mg/dL Magnesium 1.5 L (1.7-2.3) mg/dL Total Bilirubin 0.5 (0.15-1.2) mg/dL AST 84 H (0-32) U/L ALT 76 H (0-33) U/L Alkaline Phosphata se 163 H (35-105) IU/L Creatine Kinase 136 (26-192) U/L Troponin T Baselin e (0-10) ng/L Troponin T 120 Min yuhaaviatam (0-10) ng/L Delta Troponin T (0-10) ABS# Total Protein 5.9 L (6.6-8.7) g/dL Albumin 3.5 (3.5-5.2) g/dL Globulin 2.4 (1.3-4.6) g/dL Urine Color (Yellow) Urine Appearance (CLEAR) Urine pH (5-7) Ur Specific Gravit y (1.005-1.030) Urine Protein (Negative) Urine Glucose (UA) (Normal) Urine Ketones (Negative) Urine Blood (Negative) Urine Nitrate (Negative) Urine Bilirubin (NEGATIVE) Urine Urobilinogen (Negative) mg/dL Ur Leukocyte Lanette ase (Negative) Urine RBC (0-2) /hpf Urine WBC (0-5) /hpf Ur Squamous Epith Cells (0-5) Ur Transition Epit h Cell /hpf Ur Renal Epithelia l Cell /hpf Amorphous Sediment Urine Bacteria (NONE) Serum Ketones Negative (Negative) 04/14/20 04/14/20 04/14/20 Range/Units 19:44 19:44 20:05 WBC (4.0-10.0) 10^3/ uL RBC (4.1-5.3) 10^6/u L Hgb (11.5-15.3) g/dL Hct (37.0-47.0) % MCV (81-99) fL MCH (28.0-34.0) pg MCHC (30.0-36.0) g/dL RDW (12.1-15.1) % Plt Count (130-400) 10^3/c mm MPV (7.4-10.4) fL Neut % (Auto) % Lymph % (Auto) % Pershing % (Auto) % Eos % (Auto) % Baso % (Auto) % Neut # (Auto) (1.8-7.7) 10^3/u L Lymph # (Auto) (0.8-4.8) 10^3/u L Pershing # (Auto) (0.2-0.9) 10^3/u L Eos # (Auto) (0.0-0.8) 10^3/u L Baso # (Auto) (0.0-0.1) 10^3/u L Nucleated RBC % (a uto) % Nucleated RBCs # /100WBC PT (12.1-14.9) SECO NDS INR (0.8-1.2) APTT (23.9-36.7) SECO NDS Sodium (136-145) mmol/L Potassium (3.5-5.1) mmol/L Chloride (98-107) mmol/L Carbon Dioxide (22-29) mmol/L Anion Gap (5-19) BUN (8-23) mg/dL Creatinine (0.5-0.9) mg/dL GFR Calculation Glucose (65-115) mg/dL Calculated Osmolal ity (285-295) mOsm/k g Lactic Acid 0.9 (0.5-2.2) mmol/L Calcium (8.5-10.5) mg/dL Magnesium (1.7-2.3) mg/dL Total Bilirubin (0.15-1.2) mg/dL AST (0-32) U/L ALT (0-33) U/L Alkaline Phosphata se (35-105) IU/L Creatine Kinase (26-192) U/L Troponin T Baselin e 21 H (0-10) ng/L Troponin T 120 Min yuhaaviatam (0-10) ng/L Delta Troponin T (0-10) ABS# Total Protein (6.6-8.7) g/dL Albumin (3.5-5.2) g/dL Globulin (1.3-4.6) g/dL Urine Color Yellow (Yellow) Urine Appearance Clear (CLEAR) Urine pH 5 (5-7) Ur Specific Gravit y 1.015 (1.005-1.030) Urine Protein Neg (Negative) Urine Glucose (UA) Norm (Normal) Urine Ketones Negative (Negative) Urine Blood Neg (Negative) Urine Nitrate Negative (Negative) Urine Bilirubin Neg (NEGATIVE) Urine Urobilinogen Norm (Negative) mg/dL Ur Leukocyte Lanette ase Negative (Negative) Urine RBC None (0-2) /hpf Urine WBC None (0-5) /hpf Ur Squamous Epith Cells None (0-5) Ur Transition Epit h Cell None /hpf Ur Renal Epithelia l Cell N /hpf Amorphous Sediment Not Reportable Urine Bacteria Trace (NONE) Serum Ketones (Negative) 04/14/20 Range/Units 22:04 WBC (4.0-10.0) 10^3/ uL RBC (4.1-5.3) 10^6/u L Hgb (11.5-15.3) g/dL Hct (37.0-47.0) % MCV (81-99) fL MCH (28.0-34.0) pg MCHC (30.0-36.0) g/dL RDW (12.1-15.1) % Plt Count (130-400) 10^3/c mm MPV (7.4-10.4) fL Neut % (Auto) % Lymph % (Auto) % Pershing % (Auto) % Eos % (Auto) % Baso % (Auto) % Neut # (Auto) (1.8-7.7) 10^3/u L Lymph # (Auto) (0.8-4.8) 10^3/u L Pershing # (Auto) (0.2-0.9) 10^3/u L Eos # (Auto) (0.0-0.8) 10^3/u L Baso # (Auto) (0.0-0.1) 10^3/u L Nucleated RBC % (a uto) % Nucleated RBCs # /100WBC PT (12.1-14.9) SECO NDS INR (0.8-1.2) APTT (23.9-36.7) SECO NDS Sodium (136-145) mmol/L Potassium (3.5-5.1) mmol/L Chloride (98-107) mmol/L Carbon Dioxide (22-29) mmol/L Anion Gap (5-19) BUN (8-23) mg/dL Creatinine (0.5-0.9) mg/dL GFR Calculation Glucose (65-115) mg/dL Calculated Osmolal ity (285-295) mOsm/k g Lactic Acid (0.5-2.2) mmol/L Calcium (8.5-10.5) mg/dL Magnesium (1.7-2.3) mg/dL Total Bilirubin (0.15-1.2) mg/dL AST (0-32) U/L ALT (0-33) U/L Alkaline Phosphata se (35-105) IU/L Creatine Kinase (26-192) U/L Troponin T Baselin e (0-10) ng/L Troponin T 120 Min yuhaaviatam 18.28 H (0-10) ng/L Delta Troponin T -2.72 L (0-10) ABS# Total Protein (6.6-8.7) g/dL Albumin (3.5-5.2) g/dL Globulin (1.3-4.6) g/dL Urine Color (Yellow) Urine Appearance (CLEAR) Urine pH (5-7) Ur Specific Gravit y (1.005-1.030) Urine Protein (Negative) Urine Glucose (UA) (Normal) Urine Ketones (Negative) Urine Blood (Negative) Urine Nitrate (Negative) Urine Bilirubin (NEGATIVE) Urine Urobilinogen (Negative) mg/dL Ur Leukocyte Lanette ase (Negative) Urine RBC (0-2) /hpf Urine WBC (0-5) /hpf Ur Squamous Epith Cells (0-5) Ur Transition Epit h Cell /hpf Ur Renal Epithelia l Cell /hpf Amorphous Sediment Urine Bacteria (NONE) Serum Ketones (Negative) Imaging Data^: CXR: My impression: No acute cardiopulmonary findings CT Head: Radiologist's impression: [address] [address] [address] Scan Report Signed Patient: Aide Mitchell Unit #: [id number] : 1935 1173 Age/Sex: 85 / F ADM Date: 04/14/20 Loc: ER Room/Bed: Attending Dr: Ordering Provider/Ordering MD: Arabella Godoy DO Date of Service: 04/14/20 Procedure(s): CT head wo con* [id number] Accession Number(s): [id number] Report Number: [id number] PROCEDURE INFORMATION: Exam: CT Head Without Contrast Exam date and time: 04/14/2020 6:54 PM Age: 85 years old Clinical indication: Injury or trauma; Fall; Initial encounter; Injury details: Passed out and fell. Loc. PT down for 7 hrs; Additional info: Trauma fall TECHNIQUE: Imaging protocol: Computed tomography of the head without contrast. Radiation optimization: All CT scans at this facility use at least one of these dose optimization techniques: automated exposure control; mA and/or kV adjustment per patient size (includes targeted exams where dose is matched to clinical indication); or iterative reconstruction. COMPARISON: CT head wo con* [id number] 02/12/2020 1:50 PM RADIATION DOSE METRICS: Total DLP (mGy-cm): 826.42 FINDINGS: Brain: Mild atrophy and mild white matter chronic microvascular changes are noted. No hemorrhage or CT evidence of acute infarction is seen. Ventricles: Normal. No ventriculomegaly. Bones/joints: Unremarkable. No acute fracture. Sinuses: Visualized sinuses are unremarkable. No fluid levels. 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 Soft tissues: Mild soft tissue swelling is present in the left occipital scalp CT/CT head wo con* [id number] IMPRESSION: No acute intracranial abnormality. 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 Radiation Dose CTDIVOL = (mGy): DLP = 826.42 (mGy-cm) Dictated By: Demetrio Brandon MD Signed By: Demetrio Brandon MD Signed Date/Time: 04/14/201925 DD/ 23 CT Cervical Spine: Radiologist's impression: [place] [address] CT Scan Report Signed Patient: Aide Mitchell Unit #: [id number] : 1935 Age/Sex: 85 / F ADM Date: 04/14/20 Loc: ER Room/Bed: Attending Dr: Ordering Provider/Ordering MD: Arabella Goody DO Date of Service: 04/14/20 Procedure(s): CT cervical spin wo con* [id number] Accession Number(s): [id number] Report Number: [id number] PROCEDURE INFORMATION: Exam: CT Cervical Spine Without Contrast Exam date and time: 04/14/2020 6:54 PM Age: 85 years old Clinical indication: Injury or trauma; Fall; Injury details: Loc. PT down for 7 hrs; Additional info: Fall/trauma/injury TECHNIQUE: Imaging protocol: Computed tomography images of the cervical spine without contrast. Radiation optimization: All CT scans at this facility use at least one of these dose optimization techniques: automated exposure control; mA and/or kV adjustment per patient size (includes targeted exams where dose is matched to clinical indication); or iterative reconstruction. COMPARISON: CT Cervical Spine wo* [id number] 06/16/2018 6:53 AM RADIATION DOSE METRICS: Total DLP (mGy-cm): 681.22 FINDINGS: Moderate to severe degenerative changes are observed in the cervical spine. Mild canal stenosis is present at C6-C7 secondary to chronic changes. No cervical spine fracture is seen. A 10 x 5 mm calcified extra-axial lesion is again seen at the T2 level, which is stable and may be a meningioma. Moderate canal stenosis is present at this level. Spinal alignment is normal. CT/CT cervical spin wo con* [id number] IMPRESSION: No cervical spine fracture. Radiation Dose CTDIVOL = (mGy): DLP = 681.22 (mGy-cm) Dictated By: Demetrio Brandon MD Signed By: Demetrio Brandon MD Signed Date/Time: 04/14/201928 DD/ 27 Pelvis: Attestation: I personally reviewed and interpreted this imaging study as follows: My impression: No acute fractures or dislocations Right Hip: Attestation: I personally reviewed and interpreted this imaging study as follows: My impression: No acute fractures or dislocations US: My impression: Ultrasound abdomen, technologist interpretation -gallbladder normal. Fatty liver. No free fluid. No AAA. Please see full formal report. Right tib-fib: Attestation: I personally reviewed and interpreted this imaging study as follows: My impression: No acute fractures dislocations Right ankle: Attestation: I personally reviewed and interpreted this imaging study as follows: My impression: Questionable distal to be a fracture Right foot: My impression: No acute fractures dislocations Discharge Plan Discharge Patient Disposition: Placed in Observation Clinical Impression: Syncope, Generalized weakness Condition: Stable Prescriptions: No Action levothyroxine 175 mcg tablet 175 mcg PO DAILY RF: 0 potassium chloride 20 mEq tablet,ER particles/crystals 20 meq PO BID RF: 0 magnesium oxide 400 mg (241.3 mg magnesium) tablet 400 mg PO DAILY RF: 0 cyanocobalamin (vitamin B-12) 1,000 mcg/mL solution See Rx Instructions .ROUTE .COMPLEX RF: 0 furosemide 20 mg tablet 20 mg PO DAILY RF: 0 fluticasone propionate 50 mcg/actuation spray,suspension 2 spray INTRANASAL DAILY RF: 0 Multiple Vitamin, Womens Tablet 1 tab PO DAILY RF: 0 Referrals: Chasity Cruz FNP [Primary Care Provider] - Coding Level of Care Code ED Independent Producer for Chg Fwd Exam Comprehensive
[2020-04-15] VITALS (10 sets, daily range): BP systolic 110–147; BP diastolic 59–80; PULSE 60–72; RESP 13–20; TEMP 36.4–36.9; O2SAT 93–98
[2020-04-15] MEDS: sodium chloride 0.9% 1,000 ML 100 ML IV (00:35)
--- NOTE | 2020-04-15 02:08 | P.HP_ITS ---
Providers/Chief Complaint Admitting Physician: Shirley Xiong MD Primary Care Provider: LEAH Sims Chief Complaint: POSSIBLE FX R HIP History of Present Illness Aide Mitchell is a 85 year old female who presented to the emergency room via EMS with pain in her right hip after a fall today. She went to take the trash out around 9 AM on 14 April. She was feeling fine and had no complaints. Next thing she knows she woke up on the ground. She thinks she landed on the right side. She had pain and weakness in her right lower extremity. She has chronic numbness and weakness in her left hand. She was unable to get up despite multiple attempts. She does recall that she had not urinated on herself at that time. She knows that she lost consciousness and thinks that she was out for a while though exactly how long is not certain. [place] and there was nobody else at home at the time. Her daughter had gone to work for the day. Mrs. Mitchell was able to scoot herself into the shade of a tree and laid there for the rest of the day. She had her Chihuahua's with her who stated right by her side throughout the day. When her daughter came home and found her, she continued to have difficulty getting up. There was concern for possibility of a right hip fracture and she was brought in for further evaluation. Patient denies any chest pain, palpitations, dizziness, nausea, diaphoresis or other prodromal symptoms. She denies any mechanical fall. The 2 plastic wastebaskets she was carrying out to the trash were on the ground right beside her with contents sprayed around. She has never had anything like this. He does have a history of a TAVR but denies episodes of syncope even before her aortic valve issues were identified. She did have transient ischemic attacks that led to that diagnosis and procedure but denies any similar symptoms recently beyond the numbness and weakness in her left hand. She has had x-ray of the cervical spine as well as CT of the head within the last couple of months to evaluate because of the left hand. Patient denies any headaches, ringing in her ears, vision changes. She does not recall any trauma to her head. She did sustain some scratches trying to move around today. She was on the ground for about 7 hours. She did eventually urinate on herself out of necessity but denies any other episodes of loss of consciousness throughout the day. History is obtained entirely from her. Also reviewed records from [facility] office, Dr Homero Alicea in [place]. Review of Systems Const: Reports: body aches (today after fall only) and change in weight (50# wt loss in last year after changed diet to gluten free); Denies: fever(s), chills, change in appetite, fatigue or change in sleep pattern Eyes: Denies: change in vision, blurry vision or photophobia ENMT: Reports: change in hearing (poor hearinig in right ear); Denies: throat pain, oral sores, dry mouth, ear or mastoid pain, ear discharge, tinnitus, disequilibrium, nasal congestion or sinus pain Card: Reports: swelling of feet/ankles and syncope; Denies: chest pain, palpitations, edema, lightheadedness, pre-syncope, dyspnea on exertion or orthopnea Resp: Denies: dyspnea, productive cough, non-productive cough, wheezing or pain on inspiration GI: Denies: abdominal pain, nausea, vomiting, diarrhea, constipation, change in bowel habits, hematochezia or melena : Denies: difficulty voiding or urinary frequency Musc: Denies: back pain or extremity pain Skin/Breast: Denies: rash or pruritus Neuro: Denies: headache(s), numbness in extremities, weakness in extremities or dizziness Psych: Denies: anxiety or depression Jean-Claude/Lymph: Denies: easy bruising or easy bleeding All/Imm: Reports: other (Patient has removed a few adherent ticks from her skin this summer) Medications/Allergies Home Medications Medication Instructions Recorded Confirmed Last Taken Type cyanocobalamin (vitamin B-12) See Rx Instructions .ROUTE .COMPLEX 04/14/20 04/14/20 Unknown History fluticasone propionate 2 spray INTRANASAL DAILY 04/14/20 04/14/20 04/14/20 History furosemide 20 mg PO DAILY 04/14/20 04/14/20 04/12/20 History levothyroxine 175 mcg PO DAILY 04/14/20 04/14/20 04/13/20 History magnesium oxide 400 mg PO DAILY 04/14/20 04/14/20 04/13/20 History qsfjnrwhtipy-Hn-qizw-minerals 1 tab PO DAILY 08/08/2204/14/20 04/13/20 History [Multiple Vitamin, Womens] potassium chloride 20 meq PO BID 04/14/20 04/14/20 04/13/20 History Allergies Allergy/AdvReac Type Severity Reaction Status Date / Time codeine Allergy ADR-Agitate Verified 04/14/20 19:36 d PFSH Acute PFSH: Medical History (Updated 04/15/20 @ 04:59 by Shirley Xiong MD) Anemia iron deficiency, has been on iron injections in past, history of acute blood loss anemia also Aortic valve disease Bowel perforation History of recurrent pneumoperitoneum without symptoms, from unclear source Edema of left lower leg wears compression stocking History of echocardiogram (~10/2019) EF 55% with peak gradient 26 mmHg History of TIAs Prior to aortic valve replacement Hypertension Hypothyroidism 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 Surgical History (Updated 04/15/20 @ 04:44 by Shirley Xiong MD) H/O inguinal hernia repair bilateral H/O knee surgery (~2007) bilateral total knee replacement History of cataract surgery (~2017) bilateral History of esophagogastroduodenoscopy (EGD) History of laparoscopy to eval for source of pneumoperitoneum History of umbilical hernia repair 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, 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) due to aortic stenosis in 2016 23mm [place] Brooks 3 Family History (Updated 04/15/20 @ 03:58 by Shirley Xiong MD) Daughter Cancer Breast Social History (Updated 04/15/20 @ 03:59 by Shirley Xiong MD) Smoking and tobacco status: never smoked Alcohol intake: never Substance/Drug Use: never Household members: family Housing: House 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 Vitals/I&O/Wt Last Vital Signs Temp 98.2 F 04/14/20 18:26 Pulse 61 04/15/20 01:10 Resp 18 04/14/20 19:34 BP 129/63 04/15/20 01:10 Pulse Ox 95 04/15/20 01:10 04/14/20 04/14/20 04/15/20 14:59 22:59 06:59 Intake Total 1000 / 1000 Output Total 1100 / 1100 Balance 1000 / 1000 -1100 / -100 Weight last 48 hrs Weight 71.668 kg Physical Exam Const: OTHER: Alert, oriented x3, cooperative HENMT: OTHER: Normocephalic atraumatic, no posterior auricular tenderness, redness or other visual abnormality, mucous membranes dry, oropharynx is clear, no tongue lesions noted Eye: OTHER: Pupils equally round and reactive to light, extraocular movements are intact Neck/C-Spine: OTHER: Supple, nontender Resp: OTHER: Clear to auscultation bilaterally no rales rhonchi or wheezes noted, no accessory muscle use noted Cardio: OTHER: Regular rate and rhythm, 2/6 systolic murmur, no gallops or rubs. Pulses 2+ and equal at both feet. GI: OTHER: Abdomen soft, nontender, nondistended, positive bowel sounds : OTHER: Normal external genitalia, Solis catheter in place Extremity: NARRATIVE EXTREMITY EXAM: Patient was swelling in the right ankle without warmth or erythema. Ankle is tender to palpation but she can move it around okay. Both lower extremities have some mild pitting edema. Evidence of prior knee replacements noted. There is a bruise over the left knee laterally that appears acute and a wee bit of bogginess in the left knee but no redness or erythema noted. Neuro: OTHER: Face symmetric, speech clear, uvula midline, handgrip equal, strength equal both feet, gait and weightbearing were not currently assessed Psych: COMMON NORMALS: mental status grossly normal, Normal thought process present, cooperative and normal affect Skin: NARRATIVE SKIN EXAM: Patient with some abrasions to upper extremities most notable on the left which I suspect are from the fall. She has evidence of significant sun exposure this summer. Urinary Catheter Management^: Solis: Cath Placed During This Visit: yes Reason for Continuing Indwelling Catheter: Accurate Measurement of Urinary Output in Critically Ill Patients Urinary Catheter Date of Insertion: 04/14/20 Urinary Catheter Time of Insertion: 20:09 Data : 04/15/20 03:35 04/14/20 19:44 A&P Assessment and plan (1) Syncope: Exactly what happened today is not clear. Differential diagnosis includes syncope associated with recurrent valvular abnormality, arrhythmia, acute cardiac ischemia, acute WEB SITE ADMINISTRATOR ischemia, seizure, mechanical fall with closed head injury and associated transient amnesia. Patient does have some electrolyte abnormalities that could certainly contribute to an acute event. Elevated transaminases could point to viral or tickborne process in early stages. Has normal white count, normal differential and no reported fevers or other symptoms prior to this event. Pacemaker interrogation done in the emergency room interestingly revealed an episode of sinus tachycardia up to 110 bpm not driven by the pacemaker itself occurring right around the time that she states she took the trash out. Rhythm not significant enough I would think to cause her symptoms and suspect it is instead secondary to what ever caused her to pass out. Reportedly this lasted only a short timeframe. Patient does describe awakening and does sound like she lost consciousness. How long this was is unclear. She did see her top cleaner in January of this year and at that time was doing well with no further testing or evaluation needed from standpoint of her TAVR. Echocardiogram from October of this year showed an ejection fraction of 55% with a peak gradient of 26 mmHg. Status: Acute Qualifiers: Syncope type: unspecified Qualified Code(s): R55 - Syncope and collapse (2) Generalized weakness: Patient was not able to get up without assistance when she came around from her fall. Instead she laid on the ground for about 7 hours under a tree. Electrolyte abnormalities can certainly contribute to muscular weakness. Imaging studies in the emergency room did not reveal evidence of fracture. Patient's pain is primarily with bearing of weight. Brings up the possibility fracture in the pelvic area that we just cannot see presently. With the prolonged period of time that she was not able to get up and laid on the ground, concerned about potential developing rhabdomyolysis in the setting as well although current CK level is within normal limits and there was no blood noted on urine dipstick. Status: Acute (3) Hypokalemia: Despite chronic potassium replacement Status: Acute (4) Hypomagnesemia: Despite chronic magnesium replacement Status: Acute (5) Transaminitis: Mild Status: Acute (6) Right ankle injury: With edema in the ankle, suspect sprain, no evidence of fracture on x- rays. Also complained of right hip pain and has not been able to bear weight or take a step though after arrival to the floor was able to pivot a wee bit. 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 on CT of the head Inpatient admission Serial neuro checks Telemetry monitoring Check echo cardiogram Carotid ultrasound Serial cardiac enzymes Magnesium and potassium replacement IV fluids Recheck CK level in the morning Recheck electrolytes and LFTs in the morning If LFTs continue to be elevated or trend upward may consider additional studies Follow-up official report from gallbladder ultrasound performed in the emergency room Follow-up official report from all radiological images obtained in the emergency room Physical therapy evaluation If continues to have inability to bear weight, will need to consider CT imaging of the pelvis clinical services assistant for disposition planning Hold home Lasix, continue levothyroxine Check TSH SCDs for DVT prophylaxis presently Solis catheter was placed in the emergency room. Will reevaluate in the morning and hopefully be able to remove if she is able to stand and move around any better Supportive care otherwise Plans discussed with patient and she was given an opportunity to ask questions Full code Attestations Medical Necessity Statement*: Anticipated stay greater than 2 midnights in th is 85-year-old lady who had a fall that is concerning for an acute neurological or cardiovascular event and that she has no recall of what happened and was evidently unresponsive for a while. Differential is as noted above. She lives with her daughter but [place] She is currently not able to bear weight and ambulate safely due to weakness. She does have some electrolyte abnormalities as indicated. With her comorbid conditions, advanced age, and unclear etiology of the events today she will require monitoring for at least another night (extending beyond 2 midnights for total stay) to ensure no recurrent and ongoing symptoms and ability to safely disch arge home versus need for consideration of alternative disposition plan. Coding Level of Care Code Acute Flake Or Shred Roll Operator for Magda Phelps Diagnoses Syncope R55 Syncope type: unspecified Generalized weakness R53.1 Hypokalemia E87.6 Hypomagnesemia E83.42 Transaminitis R74.0 Right ankle injury S99.911A Encounter type: initial encounter Pacemaker Z95.0 S/P TAVR (transcatheter aortic valve replacement) Z95.2 Hypertension I10 Hypothyroidism E03.9
--- NOTE | 2020-04-15 02:53 | USCV_ITS ---
Stephen Aide Age: 85 Gender: F : 1935 Exam Date: 04/15/2020 09:03 Ordering Phys: Shirley Xiong MD Technologist: Guillermo Mays [place] [facility] [place]ication: CHEST PAIN BP: 134 / 74 HR: 60 Rhythm: Other Technical Quality: Adequate MEASUREMENTS (Male / Female) Normal Values 2D ECHO LV Diastolic Diameter PLAX 4.7 cm 4.2 - 5.9 / 3.9 - 5.3 cm LV Systolic Diameter PLAX 2.5 cm IVS Diastolic Thickness 1.3 cm 0.6 - 1.0 / 0.6 - 0.9 cm IVS Systolic Thickness 1.3 cm LVPW Diastolic Thickness 1.2 cm 0.6 - 1.0 / 0.6 - 0.9 cm LVPW Systolic Thickness 1.4 cm LVOT Diameter 2.1 cm LV Ejection Fraction 2D Teich 79.1 % LV Ejection Fraction MOD 2C 80.9 % LV Ejection Fraction 2C AL 81.4 % LA Diameter 4.7 cm LA Width 4.6 cm LA Height 4.6 cm RA Width 3.8 cm RA Height 4.8 cm Aorta at Sinotubular Diameter 0.9 cm M-MODE Aortic Annulus Diameter 3.0 cm LA Ao Ratio MM 1.6 MV E Point Septal Separation 0.8 cm DOPPLER AV Peak Velocity 347.0 cm/s LVOT Peak Velocity 123.0 cm/s AV Area Cont Eq vti 1.3 cm squared AV Area Cont Eq pk 1.2 cm squared MV Area PHT 5.0 cm squared Mitral E to A Ratio 0.7 MV E' Velocity 7.0 cm/s Mitral E to MV E' Ratio 15.1 Mitral E to LV E' Lateral Ratio 14.1 Mitral E to LV E' Septal Ratio 16.3 TR Peak Velocity 260.0 cm/s TR Peak Gradient 27.0 mmHg TV Peak E Velocity 84.0 cm/s Right Atrial Pressure 3.0 mmHg Pulmonary Artery Systolic Pressu 30.0 mmHg PV Peak Velocity 151.0 cm/s FINDINGS Left Ventricle Normal left ventricular size systolic function. LVEF of 55 to 60%. Septal motion is consistent with paced rhythm. Moderate LVH is noted. Diastolic function is abnormal. Right Ventricle The right ventricle is normal in size and function. RV pacemaker lead is noted. Right Atrium The right atrium is normal in size. Left Atrium The left atrium is normal in size. Mitral Valve Structurally normal mitral valve without significant stenosis or prolapse. There is mild MR. Aortic Valve Bioprosthetic aortic valve is seen. There is moderate aortic stenosis with aortic valve area of 1.4 and a mean gradient of 20 mmHg. There is no aortic regurgitation. Tricuspid Valve Structurally normal tricuspid valve without significant stenosis. There is mild TR. RVSP is at least 27 mmHg. Pulmonic Valve Structurally normal pulmonic valve without significant stenosis. There is no pulmonic regurgitation. Pericardium Normal pericardium without effusion. Aorta Normal ascending aorta dimension. CONCLUSIONS Normal LV systolic function with EF 55 to 60%. Diastolic function is abnormal. Moderate LVH is present Bioprosthetic aortic valve is seen in aortic position. There is moderate aortic stenosis with aortic valve area of 1.4 and a mean gradient of 20 mmHg Brett Hampton MD (Electronically Signed) Final Date: 15 April 2020 16:42 S
--- NOTE | 2020-04-15 02:53 | USCV_ITS ---
Stephen Aide Age: 85 Gender: F : 1935 Exam Date: 04/15/2020 08:30 Ordering Phys: Shirley Xiong MD Technologist: Hodan Rossi [place]am [place] [facility] [place]ication: SYNCOPE Risk Factors: Unknown Previous Vascular Surgery: None Right Brachial BP: / Left Brachial BP: / Right Left Velocity (cm/s) Spectral Plaque Velocity (cm/s) Spectral Plaque Syst/Diast Broadening Syst/Diast Broadening 78.00/ 10.10 Prox CCA 76.70 / 10.40 53.90/ 11.30 Mid CCA 85.40 / 14.50 55.90/ 14.00 Distal CCA 73.50 / 10.30 80.20/ 19.20 Prox ICA 56.30 / 12.20 82.70/ 26.50 Mid ICA 68.30 / 17.50 94.80/ 23.20 Distal ICA 67.00 / 19.60 108.10 ECA 97.00 1.76 ICA/CCA 0.80 Antegrade Vertebral Antegrade 81.60/ 11.00 cm/s 79.40/ 20.90 cm/s Tri Subclavian Bi 111.0 84.10 0 CONCLUSIONS Right ICA stenosis <50%. Mild atheromatous plaque right carotid bulb/ICA. Left ICA stenosis <50%. Moderate atheromatous plaque left carotid bulb/ICA. Normal antegrade Doppler flow noted in the right vertebral artery. Normal antegrade Doppler flow noted in the left vertebral artery. Teodoro Garcia MD (Electronically Signed) Final Date: 15 April 2020 12:35 S
[2020-04-15] MEDS: D5-NS 0.45% + KCL 20 mEq 20 MEQ/1,000 ML BAG 75 MEQ IV (03:11)
--- NOTE | 2020-04-15 03:35 | ECG_ITS ---
[facility] Test Date: 2020-04-15 Pat Name: Aide Mitchell Department: Room: 267 Gender: Female Shell Coremaker: : 1935 Requested By: Arabella eJronimo Order Number: [id number] Tamanna MD: Rachel Up M.D. Measurements Intervals [place] Rate: 61 P: AK: -1 QRS: -88 QRSD: 198 T: 66 QT: 503 QTc: 507 Interpretive Statements ELECTRONIC VENTRICULAR PACEMAKER ABNORMAL RHYTHM ECG Compared to ECG 04/14/2020 21:40:15 No significant changes Electronically Signed On 04-15-2020 20:49:37 CDT by Rachel Up M.D. [email or web address]
[2020-04-15 03:52] LABS: Basophils % 0.4 %; Eosinophils # 0.1 10^3/uL (0.0-0.8); Hematocrit 35.3 % (37.0-47.0); Hemoglobin 11.5 g/dL (11.5-15.3); Lymphocytes # 0.9 10^3/uL (0.8-4.8); Lymphocytes % 17.8 %; Mean Corpuscular HGB Conc 32.6 g/dL (30.0-36.0); Mean Corpuscular Hemoglobin 29.6 pg (28.0-34.0); Mean Platelet Volume 10.6 fL (7.4-10.4); Monocytes # 0.3 10^3/uL (0.2-0.9); Monocytes % 6.7 %; Neutrophils # 3.67 10^3/uL (1.8-7.7); Neutrophils % 72.7 %; Nucleated Red Blood Cells % 0 %; Platelet Count 140 10^3/cmm (130-400); Red Blood Count 3.88 10^6/uL (4.1-5.3); Red Cell Distribution Width 15.3 % (12.1-15.1); White Blood Count 5.1 10^3/uL (4.0-10.0)
[2020-04-15 04:11] LABS: Troponin 5 6HR 14.47 ng/L (0-10)
[2020-04-15 04:41] LABS: Alanine Aminotransferase 62 U/L (0-33); Albumin Level 3.1 g/dL (3.5-5.2); Alkaline Phosphatase 156 IU/L (35-105); Anion Gap 12.1 (5-19); Aspartate Amino Transferase 65 U/L (0-32); Blood Urea Nitrogen 10 mg/dL (8-23); Calcium 7.6 mg/dL (8.5-10.5); Carbon Dioxide 25 mmol/L (22-29); Chloride 106 mmol/L (98-107); Globulin 2.1 g/dL (1.3-4.6); Glucose 83 mg/dL (65-115); Osmolality Calculated 285 mOsm/kg (285-295); Potassium 3.1 mmol/L (3.5-5.1); Sodium 140 mmol/L (136-145); Total Bilirubin 0.4 mg/dL (0.15-1.2); Total Protein 5.2 g/dL (6.6-8.7)
[2020-04-15 05:08] LABS: Creatine Phosphokinase 107 U/L (26-192); Thyroid Stimulating Hormone 8.16 uIU/mL (0.27-4.20)
[2020-04-15 05:29] LABS: Magnesium 1.8 mg/dL (1.7-2.3); Phosphorus 3.1 mg/dL (2.5-4.5)
[2020-04-15] MEDS: levothyroxine 150 mcg Tablet PO (09:25)
[2020-04-15] MEDS: magnesium oxide 400 mg tablet PO ×2 (09:25→16:43)
[2020-04-15] MEDS: potassium chloride ER 10 mEq Tablet 20 MEQ PO (09:25)
[2020-04-15] MEDS: fluticasone nasal spray 16gm Btl 2 SPRAY INTRANASAL (09:28)
--- NOTE | 2020-04-15 10:13 | PC.CHAP ---
Pastoral Care Encounter/Spiritual Assessment Type of Contact [] Declined compensation specialist visit [] Patient/Family/Request visit [] Outpatient visit [] Follow-up visit [] Physician referral [] Code/Alert [x] Routine visit [] Staff referral [] Actively dying [] Patient sleeping [] Family support [] [] Out of room [] Palliative care [] [] Receiving care in room [] Pre-surgical visit [] Trauma [] Long length of stay [] ICU visit [] Other: Relational/Emotional Strength [x] Patient feels connected with others/family/visitors/staff [] Distress [] Loneliness/isolation [] Abandonment Spirituality of Patient [x] Person of Deidre [] Attends Zoroastrian of their Deidre [x] Believes in Prayer [x] Reads Bible or Hoahaoism materials [] There are Spiritual issues to be addressed Silk Screen Etcher Interventions [x] Prayer [x] Active listening [x] Non-anxious presence [x] Spiritual/emotional support [] Crisis/trauma care [] Spiritual counseling [] Bereavement support [] Provided bereavement packet [] Provided Bible/devotional materials [] Provided toy/stuffed animal, coloring book to patient or family member [] Provided Communion [] Anointing/[place] [] Salvation [x] Completed spiritual assessment [] Other: Impact on Illness or Injury [] Angry [] Fearful [x] Anxious [] Often cries [] Exhaustion [] Unable to work [] Unable to attend yazidism [] Unable to walk/stand [] Unable to read [] Unable to drive [] Unable to eat/drink [] Unable to sleep [] Unable to be with family [] Patient intubated [] Other: Summary Patient is faithful to the [place] of [place] in her life. Patient is questioning the right coarse of action she should take regarding her treatment options. Patient was encouraged to seek counseling director from the [facility] Counselor Himself, Lord Stephenson. Patient's daughter Mirian came in to visit. Time spent with patient 15 minutes.
--- NOTE | 2020-04-15 10:19 | PC.CHAP ---
Pastoral Care Encounter/Spiritual Assessment Type of Contact [] Declined hand cloth folder visit [] Patient/Family/Request visit [] Outpatient visit [] Follow-up visit [] Physician referral [] Code/Alert [x] Routine visit [] Staff referral [] Actively dying [] Patient sleeping [] Family support [] [] Out of room [] Palliative care [] [] Receiving care in room [] Pre-surgical visit [] Trauma [] Long length of stay [] ICU visit [] Other: Relational/Emotional Strength [x] Patient feels connected with others/family/visitors/staff [] Distress [] Loneliness/isolation [] Abandonment Spirituality of Patient [x] Person of Deidre [x] Attends Sabianist of their Deidre [x] Believes in Prayer [x] Reads Bible or Worship materials [] There are Spiritual issues to be addressed Networks Software Consultant Interventions [x] Prayer [x] Active listening [x] Non-anxious presence [x] Spiritual/emotional support [] Crisis/trauma care [x] Spiritual counseling [] Bereavement support [] Provided bereavement packet [] Provided Bible/devotional materials [] Provided toy/stuffed animal, coloring book to patient or family member [] Provided Communion [] Anointing/[facility] [] Salvation [x] Completed spiritual assessment [] Other: Impact on Illness or Injury [] Angry [] Fearful [] Anxious [] Often cries [] Exhaustion [] Unable to work [] Unable to attend pentecostal [] Unable to walk/stand [] Unable to read [] Unable to drive [] Unable to eat/drink [] Unable to sleep [] Unable to be with family [] Patient intubated [x] Other: Summary Please disregard previous Pastoral Review; The summary information in that review was for another patient. This patient is a professed believer in [employer] and attends fellowship in [place]. Patient lives with one of her adult daughters who works and is away from home while at work during the day. Time spent with patient
--- NOTE | 2020-04-15 12:18 | PM.PN ---
Subjective Subjective: Interval history: She states that currently she is doing well. She says has not had any lightheadedness or presyncope. Denies any chest pain, pressure or shortness of breath. Has gotten up with physical therapy. Says that her right hip and right ankle are not really bothering her. With regards to the right ear denies any pain in or around the ear. Says that she has been having some trouble hearing, and says that she had seen ENT previously who had given her a steroid nasal spray. Vitals/I&O/Wt Last Vital Signs Temp 97.5 F L 04/15/20 11:08 Pulse 60 04/15/20 11:08 Resp 16 04/15/20 11:08 BP 110/67 04/15/20 11:08 Pulse Ox 98 04/15/20 11:08 04/14/20 04/15/20 04/15/20 22:59 06:59 14:59 Intake Total 1000 / 1000 240 / 1240 120 / 120 Output Total 1800 / 1800 Balance 1000 / 1000 -1560 / -560 120 / 120 Weight last 48 hrs Weight 71.668 kg Physical Exam Const: COMMON NORMALS: no acute distress, patient oriented x3 and alert GENERAL APPEARANCE: comfortable OTHER: Slightly hard of hearing, but otherwise cooperative, conversant. Comfortable. HENMT: COMMON NORMALS: oropharynx normal Neck/C-Spine: COMMON NORMALS: no JVD Resp: COMMON NORMALS: normal respiratory effort and clear to auscultation bilaterally AUSCULTATION: clear to auscultation bilaterally Cardio: COMMON NORMALS: no JVD, regular rhythm, S1 normal heart sound present, S2 normal heart sound present and No murmurs present (Cardio) RHYTHM: regular rhythm HEART SOUNDS: S1 normal heart sound present and S2 normal heart sound present GI: COMMON NORMALS: Normal to inspection, nondistended, normoactive bowel sounds present, Soft to palpation and non-tender PALPATION: Yes Soft to palpation Extremity: COMMON NORMALS: no joint enlargement GENERAL: Yes edema (2+ bilateral LE edema) OTHER: No tenderness on R ankle palpation. No redness. Bilateral swelling noted. Neuro: COMMON NORMALS: patient oriented x3 and moves all extremities SENSORIUM/ORIENTATION: Yes alert Skin: COMMON NORMALS: no rashes or lesions noted GENERAL SKIN EXAM: no rashes or lesions noted Urinary Catheter Management^: [facility]: Cath Placed During This Visit: yes Reason for Continuing Indwelling Catheter: Acute Urinary Retention or Obstruction Urinary Catheter Date of Insertion: 04/14/20 Urinary Catheter Time of Insertion: 20:09 Data : 04/15/20 03:35 04/15/20 03:30 A&P Assessment and plan (1) Syncope: There is no suggestion of acute cardiac ischemia. She has had no chest pain. There is minimal troponin elevation, no ischemic changes on EKG. Continue to monitor on telemetry. Pending TTE. Pending carotid Doppler results. We will go ahead and repeat orthostatic blood pressures, as it appears yesterday's were normal, but were done perhaps in the process of receiving a fluid bolus. Today she remains asymptomatic. Discussed with her regarding her symptoms, current work-up, discussed also regarding hypothyroidism, and we will adjust her levothyroxine dose, although doubt that this would contribute to her syncope. 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 There is no signs of sepsis, she has no pain, no sign of acute/malignant mastoiditis, and so doubt that this contributes her symptoms as well. She says she has seen ENT previously and was given steroid nasal spray in the past, and is agreeable to follow-up with them again after discharge. With some transaminase elevation, ultrasound appears to be showing fatty liver disease, perhaps responsible for the laboratory abnormalities. There is no abdominal tenderness. No sign of acute hepatobiliary infection. Tick panel had been ordered, although is afebrile, without other symptoms, and syncope would not be a very likely presentation. Results will need to be followed up. She does take Lasix, does have significant peripheral edema, with some transaminitis, right side heart failure may need to be considered, perhaps contributing to congestive hepatopathy, lower extremity edema, and perhaps causing syncopal episode with diuresis. She denies mechanical fall. Status: Acute Qualifiers: Syncope type: unspecified Qualified Code(s): R55 - Syncope and collapse (2) Generalized weakness: This appears to be better. Does need adjustment of levothyroxine dose, and so perhaps this may have contributed. Otherwise generalized weakness may have been after staying down for a while. CK is not elevated. She is not on medications that should contribute to myopathy, although if persistent, perhaps rare adverse effect of intranasal steroid contributing to steroid myopathy may need to be considered. Replace hypokalemia and hypomagnesemia. Phosphorus is normal. PT assessment. Status: Acute (3) Hypokalemia: Replace. Recheck. Status: Acute (4) Hypomagnesemia: Received replacement. Recheck. Status: Acute (5) Transaminitis: Mild. Not entirely clear cause, but perhaps secondary to fatty liver infiltration is noted on ultrasound. No indication of acute hepatobiliary infection. Tickborne illness is probably unlikely but to exclude tick panel has been sent. Status: Acute (6) Right ankle injury: With edema in the ankle, suspect sprain, no evidence of fracture on x-rays. Also complained of right hip pain and has not been able to bear weight or take a step though after arrival to the floor was able to pivot a wee bit. Status: Acute Qualifiers: Encounter type: initial encounter Qualified Code(s): S99.911A - Unspecified injury of right ankle, initial encounter (7) Pacemaker: Interrogated showing episode of sinus tachycardia, no other arrhythmia. Follow-up with cardiology in office. Status: Chronic (8) S/P TAVR (transcatheter aortic valve replacement): Follow-up TTE. Status: Chronic (9) Hypertension: Blood pressures have been at goal, in fact somewhat on the soft side. Will check orthostatic blood pressures. Status: Chronic (10) Hypothyroidism: Will need levothyroxine dose adjusted up as TSH is elevated at 8.16. We will go up to 187.5. Will need to follow-up to recheck TSH with PCP in 3 weeks. Status: Chronic Attestations Medical Necessity Statement*: Continue admission for assessment and management of syncope with concern for cardiac etiology with underlying cardiac disease, prior valve replacement, pacemaker, possible right side congestive heart failure in a lady with advanced age, as well as need for electrolyte replacement, physical therapy assessment, and disposition planning. Coding Level of Care Code Acute Computer Systems Technician for [facility] Fwd Diagnoses Syncope R55 Syncope type: unspecified Generalized weakness R53.1 Hypokalemia E87.6 Hypomagnesemia E83.42 Transaminitis R74.0 Right ankle injury S99.911A Encounter type: initial encounter Pacemaker Z95.0 S/P TAVR (transcatheter aortic valve replacement) Z95.2 Hypertension I10 Hypothyroidism E03.9
--- NOTE | 2020-04-15 18:32 | XRR_ITS ---
PROCEDURE INFORMATION: Exam: XR Abdomen, 2 Views Exam date and time: 04/15/2020 7:38 PM Age: 85 years old Clinical indication: Patient HX: C/O abdominal pain TECHNIQUE: Imaging protocol: XR of the abdomen. Views: 2 Views. COMPARISON: CT abdomen pelvis w con* [id number] 07/09/2019 6:00 PM FINDINGS: Tubes, catheters and devices: Pacemaker is present via a left subclavian approach. Heart/Mediastinum: Cardiomegaly. Gastrointestinal tract: Numerous loops of air-filled small bowel some of which are mildly prominent/dilated. Air-filled large bowel. Consider correlation with CT. Intraperitoneal space: Normal. No free air. Bones/joints: Unremarkable for age. XR/XR acute abdomen series [id number] IMPRESSION: Findings are suspicious for a bowel obstruction. Correlate with CT
[2020-04-15] MEDS: simethicone 80 mg Chew 120 MG PO (18:48)
[2020-04-16 04:00] VITALS: BP 113/70; PULSE 71; RESP 18; TEMP 36.4; O2SAT 95
[2020-04-16 04:05] LABS: Basophils % 0.4 %; Eosinophils # 0.1 10^3/uL (0.0-0.8); Eosinophils % 2.4 %; Hematocrit 34.3 % (37.0-47.0); Hemoglobin 10.8 g/dL (11.5-15.3); Lymphocytes % 22.4 %; Mean Corpuscular HGB Conc 31.5 g/dL (30.0-36.0); Mean Corpuscular Hemoglobin 28.8 pg (28.0-34.0); Mean Corpuscular Volume 91.5 fL (81-99); Mean Platelet Volume 10.8 fL (7.4-10.4); Monocytes # 0.4 10^3/uL (0.2-0.9); Neutrophils # 2.99 10^3/uL (1.8-7.7); Neutrophils % 66.6 %; Nucleated Red Blood Cells % 0 %; Platelet Count 158 10^3/cmm (130-400); Red Blood Count 3.75 10^6/uL (4.1-5.3); Red Cell Distribution Width 15.4 % (12.1-15.1); White Blood Count 4.5 10^3/uL (4.0-10.0)
[2020-04-16 04:31] LABS: Alanine Aminotransferase 58 U/L (0-33); Albumin Level 2.9 g/dL (3.5-5.2); Alkaline Phosphatase 122 IU/L (35-105); Anion Gap 7.1 (5-19); Aspartate Amino Transferase 56 U/L (0-32); Blood Urea Nitrogen 7 mg/dL (8-23); Calcium 7.5 mg/dL (8.5-10.5); Carbon Dioxide 33 mmol/L (22-29); Chloride 104 mmol/L (98-107); Glucose 88 mg/dL (65-115); Magnesium 1.6 mg/dL (1.7-2.3); Osmolality Calculated 287 mOsm/kg (285-295); Potassium 3.1 mmol/L (3.5-5.1); Sodium 141 mmol/L (136-145); Total Bilirubin 0.4 mg/dL (0.15-1.2); Total Protein 4.9 g/dL (6.6-8.7)
[2020-04-16 07:55] VITALS: BP 153/87; PULSE 72; RESP 18; TEMP 36.8; O2SAT 96
[2020-04-16] MEDS: fluticasone nasal spray 16gm Btl 2 SPRAY INTRANASAL (08:12)
[2020-04-16] MEDS: potassium chloride ER 10 mEq Tablet 20 MEQ PO (08:12)
[2020-04-16] MEDS: magnesium oxide 400 mg tablet PO ×2 (08:13→18:23)
[2020-04-16] MEDS: potassium chloride oral liq 20 mEq/15 mL UDC PO (08:13)
[2020-04-16] MEDS: levothyroxine 88 mcg Tablet PO (08:13)
[2020-04-16] MEDS: magnesium sulfate premix 4 GM/100 ML PREMIX IV (08:14)
[2020-04-16] MEDS: levothyroxine 100 mcg Tablet PO (08:14)
[2020-04-16 11:28] VITALS: BP 131/78; PULSE 60; RESP 18; TEMP 36.9; O2SAT 95
--- NOTE | 2020-04-16 12:44 | PC.NURSE ---
Right foot dressing Patient stood on side of bed to use urinal, placing pressure on right foot. Dressing saturated with blood. Dressing changed by charge nurse. Patient again instruction not to get up without assistance and call light use. Call light in pt hand. Pt AAOx3.
--- NOTE | 2020-04-16 13:06 | PC.CHAP ---
Pastoral Care Encounter/Spiritual Assessment Type of Contact [] Declined drop man visit [] Patient/Family/Request visit [] Outpatient visit [] Follow-up visit [] Physician referral [] Code/Alert [X] Routine visit [] Staff referral [] Actively dying [] Patient sleeping [] Family support [] [] Out of room [] Palliative care [] [] Receiving care in room [] Pre-surgical visit [] Trauma [] Long length of stay [] ICU visit [] Other: Relational/Emotional Strength [X] Patient feels connected with others/family/visitors/staff [] Distress [] Loneliness/isolation [] Abandonment Spirituality of Patient [X] Person of [place] [X] Attends Catholic of their [place] [X] Believes in Prayer [X] Reads Bible or Adventism materials [] There are Spiritual issues to be addressed Donor Services Specialist Interventions [X] Prayer [X] Active listening [X] Non-anxious presence [] Spiritual/emotional support [] Crisis/trauma care [] Spiritual counseling [] Bereavement support [] Provided bereavement packet [X] Provided Bible/devotional materials [] Provided toy/stuffed animal, coloring book to patient or family member [] Provided Communion [] Anointing/[place] [] Salvation [X] Completed spiritual assessment [] Other: Impact on Illness or Injury [] Angry [] Fearful [X] Anxious [] Often cries [] Exhaustion [] Unable to work [] Unable to attend druze [] Unable to walk/stand [] Unable to read [] Unable to drive [] Unable to eat/drink [] Unable to sleep [] Unable to be with family [] Patient intubated [] Other: Summary PT IS OLDER PERSON WHO LIVES WITH HER DAUGHTER. SHE FELL OUTSIDE AND LAY THERE UNTIL DAUGHTER GOT HOME FROM WORK SEVERAL HOURS LATER. SHE SSTATED GOD TOOK CARE OF HER AND IS APPARENTLY NOT FINISHED WITH HER YET AND STILL HAS WORK FOR HER TO DO. SHE WANTS TO LEAVE [facility] BUT UNDERSTANDS NEED TO STAY UNTIL DOCTORS HAVE FULLY EXAMINED HER AND PRONOUNCED HER FIT TO RETURN HOME. PT PLEASANT AND EASY TO TALK WITH. Time spent with patient 9 MINUTES CNC MACHINIST JENNIFER ROSENTHAL
[2020-04-16 13:30] LABS: Lyme AB Screen <0.90 index
--- NOTE | 2020-04-16 13:56 | CT_ITS ---
WS: [id number] CT scan of the abdominal aorta. Additional two-dimensional coronal and sagittal reconstruction was pe rformed. MIP images were also performed. 04/16/2020 Clinical Data: recurrent abdominal pain Comparison: CT abdomen and pelvis, 07/09/2019. DLP: 755.[address] scans at [facility] use at least one of these dose optimization techniques: automat ed exposure control; mA and/or kV adjustment per patient size (includes targeted exams where dose is matched to clinical indication); or iterative reconstruction. Findings: The abdominal aorta is normal in size with no aneurysm. The renal arteries, superior mesenteric arter y, celiac and inferior mesenteric arteries are not remarkable. The common iliac vessels are normal in size. They branch into the internal and external iliac arteries. Common femoral arteries are normal. Abdomen and pelvic findings: Lower lungs show no nodules, masses or effusions. Pacemaker wires are seen. The heart, especially the left atrium is enlarged. The liver shows fatty infiltration. The gallbladder is distended but there are no stones. The spleen, pancreas and adrenal glands are seen. The left adrenal gland shows a proba ble adenoma. The kidneys demonstrate excellent bilateral excretion with no cysts, masses, hydronephro sis or renal calculi. The stomach is not remarkable. The small bowel shows no dilatation. There is fl uid in the small bowel. The colon is not dilated but has a large amount of fecal material throughout. No abscess, adenopathy, mass, obstruction or free air is seen. The bladder is distended with a thick wall. The uterus is absent. There is subcutaneous edema and mesenteric edema throughout the abdomen. The bones of the lower thorax show arthritic change of the thoracic spine. Degenerative changes of t he lumbar vertebral bodies with disc space narrowing at L4-L5 and L5-S1 can be seen. CT/CT angio abdomen pelvis [id number] Impression: 1. No evidence of abdominal aortic aneurysm. 2. Dilatation of the colon but no free air is seen. 3. Subcutaneous and mesenteric edema is seen throughout the abdomen and pelvis. 4. Negative for small bowel or colon obstruction.
[2020-04-16 14:52] LABS: Blood Urine 3+ (Negative); Glucose Urine UA Norm (Normal); Ketones Urine Negative (Negative); Protein Urine Neg (Negative); Specific Gravity, Urine 1.005 (1.005-1.030); Urine Appearance Clear (CLEAR); Urine Color Straw (Yellow); pH Urine 7 (5-7)
[2020-04-16 14:53] LABS: Add Urine Microscopic? YES; Bilirubin Urine Neg (NEGATIVE); Leukocyte Esterase Urine 1+ (Negative); Nitrate Urine Negative (Negative); Urobilinogen Urine Norm (Negative)
[2020-04-16] MEDS: iohexol 350 mg/mL 100 mL Btl IV (15:03)
[2020-04-16 15:11] LABS: Bacteria Urine 2+; RBC Urine 0-4 /hpf (0-2); Squamous Epithelial Cell Urine 0-4 (0-5); WBC Urine 25-40 /hpf (0-5)
[2020-04-16 15:12] LABS: Add Urine Culture? Yes
[2020-04-16 16:00] VITALS: BP 146/77; PULSE 61; RESP 18; TEMP 36.8; O2SAT 99
[2020-04-16] MEDS: FUROsemide 10 mg/mL SDV 4mL 40 MG IVP (16:41)
[2020-04-16] MEDS: ciprofloxacin 500 mg Tablet PO (16:42)
[2020-04-16 19:20] VITALS: BP 113/63; PULSE 60; RESP 18; TEMP 37.1; O2SAT 96
--- NOTE | 2020-04-16 19:34 | P.PN_ITS ---
Subjective Subjective: Interval history: Currently no abdominal pain. Has had no vomiting. Persistent swelling in lower extremities. Denies any chest pain or pressure. No syncopal or presyncopal episodes in the hospital. Vitals/I&O/Wt Last Vital Signs Temp 98.8 F 04/16/20 19:20 Pulse 60 04/16/20 19:20 Resp 18 04/16/20 19:20 BP 113/63 04/16/20 19:20 Pulse Ox 96 04/16/20 19:20 04/16/20 04/16/20 04/16/20 06:59 14:59 22:59 Intake Total 240 / 240 60 / 300 Output Total 1500 / 2600 1400 / 1400 Balance -1500 / -2120 -1160 / -1160 60 / -1100 Physical Exam Const: COMMON NORMALS: no acute distress, patient oriented x3 and alert GENERAL APPEARANCE: comfortable OTHER: Slightly hard of hearing, but otherwise cooperative, conversant. Comfortable. HENMT: COMMON NORMALS: oropharynx normal Neck/C-Spine: COMMON NORMALS: no JVD Resp: COMMON NORMALS: normal respiratory effort and clear to auscultation génesis aterally AUSCULTATION: clear to auscultation bilaterally Cardio: COMMON NORMALS: no JVD, regular rhythm, S1 normal heart sound present, S2 normal heart sound present and No murmurs present (Cardio) RHYTHM: regular rhythm HEART SOUNDS: S1 normal heart sound present and S2 normal heart sound present GI: COMMON NORMALS: Normal to inspection, nondistended, normoactive bowel sounds present, Soft to palpation and non-tender PALPATION: Yes Soft to palpation Extremity: COMMON NORMALS: no joint enlargement GENERAL: Yes edema (2+ bilateral LE edema) OTHER: No tenderness on R ankle palpation. No redness. Bilateral swelling noted. Neuro: COMMON NORMALS: patient oriented x3 and moves all extremities SENSORIUM/ORIENTATION: Yes alert Skin: COMMON NORMALS: no rashes or lesions noted GENERAL SKIN EXAM: no rashes or lesions noted Urinary Catheter Management^: [facility]: Cath Placed During This Visit: yes, but has since been removed by the nurse Reason for Continuing Indwelling Catheter: Decision to DC Catheter Urinary Catheter Date of Insertion: 04/14/20 Urinary Catheter Time of Insertion: 20:09 Date Urinary Catheter Removed: 04/16/20 Time Urinary Catheter Discontinued: 14:46 Data : 04/16/20 03:40 04/16/20 03:40 A&P Assessment and plan (1) Anasarca: Persistent bilateral lower extremity edema, yesterday on x-ray concern for possible signs of obstruction, recommendations follow-up with CT. Symptomatically she does not have signs of obstruction, but with history of recurrent abdominal cramping and pain, recurrent intraperitoneal gas, CTA of abdomen pelvis was obtained to assess for any mesenteric vessel occlusion, this appeared to be unremarkable on imaging, she does have some colon dilation, but also noted to have significant subcutaneous as well as mesenteric edema. Edema continues through the legs. Discussed anasarca with her and her daughter. Right ventricular function appears to be normal on echocardiogram. Pulmonary arterial pressure is 30 mmHg, not extremely elevated. Consideration given perhaps to liver causes like cirrhosis, although despite fatty liver infiltration seen on ultrasound, otherwise not suggestive of cirrhosis. AST and ALT appear to have been normal in July 2019. Currently trending down. I am not sure we have a very good explanation for the edema, although this may explain her hypothyroidism, perhaps not absorbing levothyroxine. Due to concern for absorption of other medications discussed with her we will initiate diuresis with IV diuretics here in the hospital. Start IV Lasix 40 mg twice daily. Monitor I&O. Discussed with her and her daughter, both are agreeable with assessment and plan. Status: Acute (2) Syncope: TTE with noted moderate aortic stenosis, gradient is moderate severity 20 mmHg, although this prescription with on-call operator maintainer would be expected following TAVR given how the valve is replaced. Should not under normal circumstances because syncope. Noted also on telemetry heart rates do occasionally go down to 40s, and I do see pacing spikes, although her pacemaker prescription with daughter normally should be set at 60. For now we will continue telemetry monitoring. Is noted to be mildly orthostatic, with systolic blood pressure decreasing from 132mmHg lying to 116 mmHg on standing. Discussed with her and her daughter with regards to orthostatic precautions. With peripheral edema, anasarca, may need to also consider possibly CHF, possibly pacemaker syndrome. Encouraged her to follow-up with her operator maintainer for additional reassessment of pacemaker, possibly adjustment of basal rates. There is no suggestion of acute cardiac ischemia. She has had no chest pain. There is minimal troponin elevation, no ischemic changes on EKG. Continue to monitor on telemetry. Pending TTE. Pending carotid Doppler results. Her urine was noted to be cloudy and was resent. Appears she does have a UTI. Discussed with her and daughter. We will start her on ciprofloxacin for this. Discussed also regarding hypothyroidism, and we will adjust her levothyroxine do se, although doubt that this would contribute to her syncope. 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 There is no signs of sepsis, she has no pain, no sign of acute/malignant mastoiditis, and so doubt that this contributes her symptoms as well. She says she has seen ENT previously and was given steroid nasal spray in the past, and is agreeable to follow-up with them again after discharge. With some transaminase elevation, ultrasound appears to be showing fatty liver disease, perhaps responsible for the laboratory abnormalities. There is no abdominal tenderness. No sign of acute hepatobiliary infection. Tick panel had been ordered, although is afebrile, without other symptoms, and syncope would not be a very likely presentation. Results will need to be followed up. She denied mechanical fall. Status: Acute Qualifiers: Syncope type: unspecified Qualified Code(s): R55 - Syncope and collapse (3) Generalized weakness: This appears to be better. Does need adjustment of levothyroxine dose, and so perhaps this may have contributed. Otherwise generalized weakness may have been after staying down for a while. CK is not elevated. She is not on medications that should contribute to myopathy, although if persistent, perhaps rare adverse effect of intranasal steroid contributing to steroid myopathy may need to be considered. Replace hypokalemia and hypomagnesemia. Phosphorus is normal. PT assessment. Did well. Once ready will return home with home exercise program. Status: Acute (4) Hypokalemia: Replace. Recheck. Status: Acute (5) Hypomagnesemia: Received replacement. Recheck. Status: Acute (6) Transaminitis: Mild. Not entirely clear cause, but perhaps secondary to fatty liver infiltration is noted on ultrasound. No indication of acute hepatobiliary infection. Tickborne illness is probably unlikely but to exclude tick panel has been sent. Status: Acute (7) Right ankle injury: With edema in the ankle, suspect sprain, no evidence of fracture on x- rays. Has been bearing weight. Pain resolving. Status: Acute Qualifiers: Encounter type: initial encounter Qualified Code(s): S99.911A - Unspecified injury of right ankle, initial encounter (8) Pacemaker: Interrogated showing episode of sinus tachycardia, no other arrhythmia. Follow-up with cardiology in office. Monitor on telemetry for now given episodes of bradycardia noted down to 40s. Pacemaker appears to be firing. Status: Chronic (9) S/P TAVR (transcatheter aortic valve replacement): Follow-up TTE. Status: Chronic (10) Hypertension: Blood pressures have been at goal, in fact somewhat on the soft side. Mild orthostasis, although not significant drop. Status: Chronic (11) Hypothyroidism: Levothyroxine dose adjusted up as TSH is elevated at 8.16. Discussed with her concern is this may be secondary to malabsorption due to anasarca, with noted subcutaneous and mesenteric edema, suspected intestinal edema. Diuresis for now. Levothyroxine dose was increased to 188 mcg. Will need to follow-up to recheck TSH with PCP in 3 weeks. Status: Chronic Attestations 2 Medical Necessity Statement*: Continue admission for assessment management of anasarca, concern for right heart failure, concern for lack of absorption of oral medications, bradycardia despite pacemaker, syncopal episode. Coding Level of Care Code Acute Production Superintendent for [facility] Fwd Diagnoses Anasarca R60.1 Syncope R55 Syncope type: unspecified Generalized weakness R53.1 Hypokalemia E87.6 Hypomagnesemia E83.42 Transaminitis R74.0 Right ankle injury S99.911A Encounter type: initial encounter Pacemaker Z95.0 S/P TAVR (transcatheter aortic valve replacement) Z95.2 Hypertension I10 Hypothyroidism E03.9
[2020-04-17] VITALS (8 sets, daily range): BP systolic 107–125; BP diastolic 64–74; PULSE 57–63; RESP 18–20; TEMP 36.6–37; O2SAT 93–96
[2020-04-17 04:18] LABS: Basophils % 0.2 %; Eosinophils # 0.1 10^3/uL (0.0-0.8); Eosinophils % 2.6 %; Hematocrit 35.4 % (37.0-47.0); Hemoglobin 11.2 g/dL (11.5-15.3); Lymphocytes % 22.2 %; Mean Corpuscular HGB Conc 31.6 g/dL (30.0-36.0); Mean Corpuscular Hemoglobin 28.8 pg (28.0-34.0); Mean Platelet Volume 10.6 fL (7.4-10.4); Monocytes # 0.4 10^3/uL (0.2-0.9); Monocytes % 8.6 %; Nucleated Red Blood Cells % 0 %; Platelet Count 154 10^3/cmm (130-400); Red Blood Count 3.89 10^6/uL (4.1-5.3); Red Cell Distribution Width 15.4 % (12.1-15.1); White Blood Count 4.6 10^3/uL (4.0-10.0)
[2020-04-17 04:37] LABS: Alanine Aminotransferase 51 U/L (0-33); Albumin Level 2.8 g/dL (3.5-5.2); Alkaline Phosphatase 120 IU/L (35-105); Anion Gap 8.5 (5-19); Aspartate Amino Transferase 41 U/L (0-32); Blood Urea Nitrogen 9 mg/dL (8-23); Calcium 8.1 mg/dL (8.5-10.5); Carbon Dioxide 33 mmol/L (22-29); Chloride 101 mmol/L (98-107); Globulin 2.4 g/dL (1.3-4.6); Glucose 96 mg/dL (65-115); Osmolality Calculated 284 mOsm/kg (285-295); Potassium 3.5 mmol/L (3.5-5.1); Sodium 139 mmol/L (136-145); Total Bilirubin 0.5 mg/dL (0.15-1.2); Total Protein 5.2 g/dL (6.6-8.7)
[2020-04-17] MEDS: FUROsemide 10 mg/mL SDV 4mL 40 MG IVP (05:21)
[2020-04-17] MEDS: ciprofloxacin 500 mg Tablet PO ×2 (05:31→15:12)
[2020-04-17] MEDS: fluticasone nasal spray 16gm Btl 2 SPRAY INTRANASAL (08:31)
[2020-04-17] MEDS: magnesium oxide 400 mg tablet PO (08:33)
[2020-04-17] MEDS: levothyroxine 100 mcg Tablet PO (08:33)
[2020-04-17] MEDS: potassium chloride ER 10 mEq Tablet 20 MEQ PO (08:33)
[2020-04-17] MEDS: levothyroxine 88 mcg Tablet PO (08:33)
--- NOTE | 2020-04-17 13:16 | P.DS_ITS ---
Discharge Providers Date of Admission: 04/15/20 01:13 Date of Discharge: April 17, 2020 Attending Provider at Admission: Shirley Xiong MD Attending Provider at Discharge: Everett Caceres Primary Care Provider: LEAH Sims Diagnoses at Discharge Discharge Diagnosis (1) Anasarca: Status: Acute (2) Syncope: Status: Acute Qualifiers: Syncope type: unspecified Qualified Code(s): R55 - Syncope and collapse (3) Generalized weakness: Status: Acute (4) Hypokalemia: Status: Acute (5) Hypomagnesemia: Status: Acute (6) Transaminitis: Status: Acute (7) Right ankle injury: Status: Acute Qualifiers: Encounter type: initial encounter Qualified Code(s): S99.911A - Unspecified injury of right ankle, initial encounter (8) Pacemaker: Status: Chronic Problem details: due to complete heart block, dual chamber (9) S/P TAVR (transcatheter aortic valve replacement): Status: Chronic Problem details: due to aortic stenosis in 2016 23mm [place] 3 (10) Hypertension: Status: Chronic (11) Hypothyroidism: Status: Chronic Reason for Visit Reason for Visit: POSSIBLE FX R HIP Hospital Course Hospital Course: Very pleasant 85-year-old lady with history of aortic stenosis status post TAVR, history of complete heart block status post PPM several years ago, hypothyroidism, other chronic medical problems, was admitted for assessment of management following a syncope, evaluated and patient due to multiple comorbidities, advanced age, and underlying cardiac problems. No recur rence of syncope was noted in the hospital. She did not complain of any prodromal symptoms. There was no suggestion of seizure. Cardiac work-up did not suggest acute myocardial infarction. Telemetry monitoring showed a few episodes of bradycardia, but not lower than 60. Echocardiogram showed moderate stenosis of aortic valve, with TAVR in place, but with a valve gradient of 20 mmHg. Orthostatic blood pressures initially noted normal, but appears were done during receiving a bolus, subsequently with slight decrease when checked the next day, 132 systolic down to 116 systolic from laying to standing. Systolic heart function otherwise found normal, however, on examination with signs of congestive heart failure, with severe peripheral edema, during hospitalization also with noted abdominal cramping, which appears to be recurrent issue for her over the last several years, for which she seen a GI doctor, back in 2013, however, had an episode of intra-abdominal free air, although without finding of intestinal perforation, subsequently with finding of small intestine diverticulosis. Intermittently gets treated with Xifaxan per recommendation of her cytometry technologist. Restarted treatment with Xifaxan, started her on simethicone. Due to noted urinary tract infection will complete a course of ciprofloxacin, so far with gram-negative rods growing in urine. Final culture will need to be followed up. CTA abdomen pelvis obtained due to recurrence of abdominal pain and cramping, and with history of free air, however, without finding of mesenteric stenosis, no signs of bowel ischemia, no signs of perforation. Was noted to have significant subcutaneous and mesenteric edema. Due to anasarca with also severe lower extremity edema, concern is that she also may not be absorbing medications very well, as she is noted hypothyroid, with TSH elevated at 8.16. Levothyroxine dose increased to 188 mcg, and while in the hospital also initiated on IV Lasix with very good urine output. Other etiologies of edema considered, however, does not appear to have liver cirrhosis. Does have some transaminitis and mild elevation of alkaline phosphatase will which will need to be followed up. Is noted to have fatty liver infiltration on ultrasonography. Longitudinal follow-up is recommended due to risk of progression to fibrosis/cirrhosis. As acute diastolic congestive heart failure is still suspected, she is referred for follow-up with her financial advocate. Today she is feeling much better and requesting to return home. We will increase her Lasix dose at home to 40 mg daily, worse previously was taking it as needed. Follow-up in the pacemaker (which was noted functioning well in the hospital), is recommended with her financial advocate, as well as consideration of possible pacemaker syndrome, perhaps leading to congestive heart failure. Head CT without contrast on presentation was unremarkable without any fracture or bleeding. Carotid Dopplers unremarkable. Imaging of hi p, ankle, foot, tibia-fibula, cervical spine CT, were also performed. On CT C- spine noted to have chronic stable 10 x 5 mm calcified extra-axial lesion at T2, possibly a meningioma. She has a history of chronic neck problems, also noted mild canal stenosis C6-C7, and she has been seeking evaluation by a neurosurgeon. Tick panel was obtained on admission, and Lyme antibody is negative, but other studies are still pending and will need to be followed up. Please see full imaging, laboratory studies and progress notes for details.Please feel free to call with any questions. Physical Exam Const: COMMON NORMALS: no acute distress, patient oriented x3 and alert GENERAL APPEARANCE: comfortable OTHER: She is awake, alert, comfortable, conversant, in good spirits. Feeling well, and wanting to return home. HENMT: COMMON NORMALS: oropharynx normal Neck/C-Spine: COMMON NORMALS: no JVD Resp: COMMON NORMALS: normal respiratory effort and clear to auscultation bilaterally AUSCULTATION: clear to auscultation bilaterally Cardio: COMMON NORMALS: no JVD, regular rhythm, S1 normal heart sound present, S2 normal heart sound present and No murmurs present (Cardio) RHYTHM: regular rhythm HEART SOUNDS: S1 normal heart sound present and S2 normal heart sound present GI: COMMON NORMALS: Normal to inspection, nondistended, normoactive bowel sounds present, Soft to palpation and non-tender PALPATION: Yes Soft to palpation Extremity: COMMON NORMALS: no joint enlargement GENERAL: Yes edema (2+ bilateral LE edema) OTHER: No tenderness on R ankle palpation. No redness. Bilateral swelling noted. Neuro: COMMON NORMALS: patient oriented x3 and moves all extremities SENSORIUM/ORIENTATION: Yes alert Skin: COMMON NORMALS: no rashes or lesions noted GENERAL SKIN EXAM: no rashes or lesions noted Urinary Catheter Management^: Solis: Cath Placed During This Visit: yes, but has since been removed by the nurse Reason for Continuing Indwelling Catheter: Decision to DC Catheter Urinary Catheter Date of Insertion: 04/14/20 Urinary Catheter Time of Insertion: 20:09 Date Urinary Catheter Removed: 04/16/20 Time Urinary Catheter Discontinued: 14:46 Discharge Data Data Completed and Pending: Completed Studies During Hospitalization Category Date Time Status CT angio abdomen pelvis 24867 Routi ne Cat Scan 04/16/20 13:[address] cervical spin wo con* [id number] Urge nt Cat Scan 04/14/20 18:[address] head wo con* 7 0450 Stat Cat Scan 04/14/20 18:45 Completed XR acute abdomen series 20524 Routi ne Exams 04/15/20 18:32 Completed XR ankle RT min 3 V* [id number] Stat Exams 04/14/20 22:51 Completed XR chest 1V almita ble [id number] Stat Exams 04/14/20 18:25 Completed XR foot RT min 3V * [id number] Stat Exams 04/14/20 23:22 Completed XR hip RT 2-3V wo /w pel* [id number] Stat Exams 04/14/20 18:25 Completed XR tibia fibula R T 2V [id number] Stat Exams 04/14/20 23:22 Completed CV carotid duplex BI* [id number] Routine Ultrasound 04/15/20 02:53 Completed CV echo complete* [id number] Routine Ultrasound 04/15/20 02:53 Completed US gall bladder 7 6705 Urgent Ultrasound 04/14/20 21:11 Completed Pending at discharge Category Date Time Status Complete Blood Co unt w/Auto AM LABS Lab 04/18/20 04:00 Ordered Comprehensive Met abolic Panel AM LA BS Lab 04/18/20 04:00 Ordered Comprehensive Met abolic Panel AM LA BS Lab 04/19/20 04:00 Ordered Tick Panel Routin e Lab 04/15/20 12:48 Results Urine Culture Rou juarez Lab 04/16/20 14:25 Results Labs from last 24 hours 04/17/20 04/17/20 04/16/20 04:04 04:04 14:25 WBC 4.6 RBC 3.89 L Hgb 11.2 L Hct 35.4 L MCV 91.0 MCH 28.8 MCHC 31.6 RDW 15.4 H Plt Count 154 MPV 10.6 H Neut % (Auto) 66.0 Lymph % (Auto) 22.2 Roane % (Auto) 8.6 Eos % (Auto) 2.6 Baso % (Auto) 0.2 Neut # (Auto) 3.00 Lymph # (Auto) 1.0 Roane # (Auto) 0.4 Eos # (Auto) 0.1 Baso # (Auto) 0.0 Nucleated RBC % (a uto) 0 Nucleated RBCs # 0.0 Sodium 139 Potassium 3.5 Chloride 101 Carbon Dioxide 33 H Anion Gap 8.5 BUN 9 Creatinine 0.4 L GFR Calculation Not Reportable Glucose 96 Calculated Osmolal ity 284 L Calcium 8.1 L Total Bilirubin 0.5 AST 41 H ALT 51 H Alkaline Phosphata se 120 H Total Protein 5.2 L Albumin 2.8 L Globulin 2.4 Urine Color Straw Urine Appearance Clear Urine pH 7 Ur Specific Gravit y 1.005 Urine Protein Neg Urine Glucose (UA) Norm Urine Ketones Negative Urine Blood 3+ H Urine Nitrate Negative Urine Bilirubin Neg Urine Urobilinogen Norm Ur Leukocyte Lanette ase 1+ H Urine RBC 0-4 H Urine WBC 25-40 H Ur Squamous Epith Cells 0-4 H Amorphous Sediment Not Reportable Urine Bacteria 2+ H Lyme Ab (Western B lot) 04/15/20 12:48 WBC RBC Hgb Hct MCV MCH MCHC RDW Plt Count MPV Neut % (Auto) Lymph % (Auto) Roane % (Auto) Eos % (Auto) Baso % (Auto) Neut # (Auto) Lymph # (Auto) Roane # (Auto) Eos # (Auto) Baso # (Auto) Nucleated RBC % (a uto) Nucleated RBCs # Sodium Potassium Chloride Carbon Dioxide Anion Gap BUN Creatinine GFR Calculation Glucose Calculated Osmolal ity Calcium Total Bilirubin AST ALT Alkaline Phosphata se Total Protein Albumin Globulin Urine Color Urine Appearance Urine pH Ur Specific Gravit y Urine Protein Urine Glucose (UA) Urine Ketones Urine Blood Urine Nitrate Urine Bilirubin Urine Urobilinogen Ur Leukocyte Lanette ase Urine RBC Urine WBC Ur Squamous Epith Cells Amorphous Sediment Urine Bacteria Lyme Ab (Western B lot) <0.90 Vitals: Last Vital Signs Temp 98.6 F 04/17/20 12:00 Pulse 63 04/17/20 12:00 Resp 18 04/17/20 12:00 BP 118/70 04/17/20 12:00 Pulse Ox 96 04/17/20 11:41 Discharge Plan Discharge Patient Disposition: Home Condition: Stable Prescriptions: New ciprofloxacin HCl 500 mg Tablet 500 mg PO Q12H Qty: 10 RF: 0 simethicone 80 mg Tablet,Chewable 120 mg PO QID PRN (Reason: Flatulence) Qty: 42 RF: 0 Xifaxan 550 mg Tablet 550 mg PO TID Qty: 36 RF: 0 Levoxyl 100 mcg Tablet 100 mcg PO DAILY Qty: 30 RF: 0 levothyroxine 88 mcg Tablet 88 mcg PO DAILY Qty: 30 RF: 0 Continued potassium chloride 20 mEq tablet,ER particles/crystals 20 meq PO BID RF: 0 magnesium oxide 400 mg (241.3 mg magnesium) tablet 400 mg PO DAILY RF: 0 cyanocobalamin (vitamin B-12) 1,000 mcg/mL solution See Rx Instructions .ROUTE .COMPLEX RF: 0 fluticasone propionate 50 mcg/actuation spray,suspension 2 spray INTRANASAL DAILY RF: 0 Multiple Vitamin, Womens Tablet 1 tab PO DAILY RF: 0 Changed furosemide 20 mg tablet 40 mg PO DAILY Qty: 30 RF: 0 Discontinued levothyroxine 175 mcg tablet 175 mcg PO DAILY RF: 0 Discharge Orders: Discharge Order (Routine); Ordered 04/17/20 Ordered By: Everett Caceres Referrals: Your, financial advocate [Other] - 1 week (CHF/anasarca (mesenteric edema, peripheral edema). Pacemaker syndrome?) Chasity Cruz FNP [Primary Care Provider] - 04/23/20 8:30 am (You have an appointment on April 23 at 8:30am) Discharge Diet: Usual diet and Cardiac Discharge Activity: Increase activity as tolerated and Limit activity as instructed Patient Instructions: Ciprofloxacin (By mouth), Levothyroxine (By mouth), Simethicone (By mouth), Rifaximin (By mouth) Activity Restrictions/Additional Instructions: Please consider purchasing a life alert button. Otherwise have your phone handy with you. Maintain fall precautions. Rise slowly from laying to sitting and sitting to standing, be prepared to sit down or lie down in case get dizzy or feel like you may faint. Your blood pressure does get a little bit lower when you stand up (132 systolic laying, 116 systolic standing). Please follow-up with your heart doctor to reevaluate the pacemaker, as well as evaluate due to lower extremity and subcutaneous and mesenteric edema with concern for possible heart failure, and to evaluate for possible pacemaker syndrome. Please follow-up with your cytometry technologist with regards to recurrent symptoms of abdominal discomfort. Finish the course of antibiotic for urinary tract infection. Please discuss with your primary care doctor with regards to finding of liver parameter elevation and fatty liver infiltration, follow-up regularly with them as long-term this condition may cause risk of progression to liver fibrosis or cirrhosis. Maintain low-cholesterol diet. Avoid any alcohol. If you experience recurrence of syncope, any chest pain pressure, shortness of breath, any severe abdominal pain, or other abnormal symptoms, please seek medical attention. Please discuss with your primary care doctor regarding hypothyroidism. Your dose of levothyroxine for now is increased up to 188 mcg, although in part this may have been secondary to decreased absorption of the tablets due to intra- abdominal edema. Please discuss with your primary care doctor with regards to follow-up of thyroid function. Discharge Attestations Time Spent in Discharge Care*: greater than 30 min Quality Metrics Clinical Quality Measures During this hospital stay, did patient experience: None Coding Level of Care Code Acute Director Clinical Information Services for Chg Fwd Diagnoses Anasarca R60.1 Syncope R55 Syncope type: unspecified Generalized weakness R53.1 Hypokalemia E87.6 Hypomagnesemia E83.42 Transaminitis R74.0 Right ankle injury S99.911A Encounter type: initial encounter Pacemaker Z95.0 S/P TAVR (transcatheter aortic valve replacement) Z95.2 Hypertension I10 Hypothyroidism E03.9
[2020-04-18 16:06] LABS: E. Chaffeensis AB IGG <1:64; E. Chaffeensis AB IGM <1:20
[2020-04-21 16:44] LABS: RMSF IGG NOT DETECTED; RMSF IGM NOT DETECTED
--- NOTE | 2020-04-22 08:53 | PC.SOCIAL ---
Prior Auth obtained on Xifaxin for Diverticular disease. approved. Time Period: 08/21/2019- 09/02/2020. Ref number: [id number]. Pharmacy notified yesterday that script can be resubmitted for approval.
== END 2020-04-17 16:40 | disposition home or self-care (01) | DRG 312 ==
LOC: ER 04-15 01:21 → MEDSURG 04-15 02:22
PROVIDERS: Emergency Medicine; Admitting Provider Hospitalist; PCP Nurse Practitioner; Visit Provider Internal Medicine
DX: R55 Syncope and collapse (principal); N39.0 Urinary tract infection, site not specified; S93.411A Sprain of calcaneofibular ligament of right ankle, initial encounter; W18.39XA Other fall on same level, initial encounter; M25.551 Pain in right hip; D50.9 Iron deficiency anemia, unspecified; Z86.73 Personal history of transient ischemic attack (TIA), and cerebral infarction without residual deficits; Z95.2 Presence of prosthetic heart valve; I10 Essential (primary) hypertension; E03.9 Hypothyroidism, unspecified; Z96.653 Presence of artificial knee joint, bilateral; Z95.0 Presence of cardiac pacemaker; E87.6 Hypokalemia; E83.42 Hypomagnesemia; H70.11 Chronic mastoiditis, right ear; K76.0 Fatty (change of) liver, not elsewhere classified; R60.1 Generalized edema; R53.1 Weakness; R00.1 Bradycardia, unspecified; M48.02 Spinal stenosis, cervical region; K57.10 Diverticulosis of small intestine without perforation or abscess without bleeding
CPT/HCPCS: 12345; 36415; 51702; 70450; 71045; 72125; 73502; 73590; 73610; 73630; 74022; 74174; 76705; 80053; 81001; 82009; 82550; 83605; 83735; 84100; 84443; 84484; 85025; 85610; 85730; 86618; 86666; 86757; 87077; 87086; 87186; 93005; 93306; 93880; 96375; 97110; 97116; 97161; 99284; J0131; J1940; J2270; J2405; J3475; J7030; Q9967

== ENCOUNTER 2020-11-01 14:05 | Inpatient (IN) | payer MEDICARE, SELFPAY ==
[2020-11-01] VITALS (7 sets, daily range): BP systolic 89–114; BP diastolic 51–76; PULSE 69–82; RESP 14–20; TEMP 36.2–36.6; O2SAT 96–99; BMI 25.9
--- NOTE | 2020-11-01 14:41 | XRR_ITS ---
PROCEDURE INFORMATION: Exam: XR Chest Exam date and time: 11/01/2020 2:55 PM Age: 85 years old Clinical indication: Condition or disease; Lung condition and disease; Other: Chf TECHNIQUE: Imaging protocol: XR of the chest Views: 1 view. COMPARISON: CR XR chest 1V portable [id number] 04/14/2020 7:15 PM FINDINGS: Tubes, catheters and devices: Atrioventricular pacemaker. Lungs: Chronic granulomatous disease and mild interstitial prominence. Bronchial calcification. Pleural spaces: No pneumothorax or pleural effusion. Heart/Mediastinum: Epicardial fat, without cardiomegaly. Bones/joints: Osteopenia and degenerative change. XR/XR chest 1V portable [id number] IMPRESSION: No acute airspace or pleural disease.
--- NOTE | 2020-11-01 14:47 | ECG_ITS ---
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 Measurements Intervals Cougar Rate: 77 P: 249 IL: 239 QRS: -80 QRSD: 185 T: 87 QT: 447 QTc: 509 Interpretive Statements ELECTRONIC VENTRICULAR PACEMAKER ABNORMAL RHYTHM ECG Compared to ECG 04/15/2020 02:20:56 No significant changes Electronically Signed On 11-01-2020 18:50:17 VISION MIXER by Brett Hampton M.D. [id number]
--- NOTE | 2020-11-01 14:49 | USCV_ITS ---
Stephen Aide Age: 85 Gender: F : 1935 Exam Date: 11/01/2020 16:06 Ordering Phys: Finn Umaña MD Technologist: Jayleen Laughlin Exam Location: [facility] [place]_ Indication: BLE SWELLING HISTORY: Lower extremity swelling. PROCEDURES: Venous duplex imaging was performed in bilateral lower extremities. The following venous structures were evaluated: common femoral vein, profunda vein, proximal portion of the greater saphenous vein, superficial femoral vein, and the popliteal vein. In addition, the posterior tibial veins were evaluated. Serial compression, augmentation maneuvers, and spectral Doppler flow evaluation were performed. FINDINGS: Normal 2-D Doppler and augmentation and compressibility throughout the lower extremity venous structures. Additional imaging through the proximal calf veins also reveals no thrombus. Limited evaluation of the greater saphenous vein is patent with no thrombus.. CONCLUSIONS No DVT bilateral lower extremities. Bilateral subcutaneous edema. Dr. Beulah Nagy DO (Electronically Signed) Final Date: 02 November 2020 09:15 S
--- NOTE | 2020-11-01 14:49 | W.ED.GENADLT ---
HPI - General Adult General: Chief complaint: General Medical Stated complaint: SENT BY PCP//BLE SWELLING Time Seen by Provider: 11/01/20 14:30 History of Present Illness: HPI narrative: The patient is an 85-year-old female with CHF and pacer who comes to the ED complaining of increased swelling of bilateral lower extremities. She says they are always swollen but she was sent by her primary because they are increasing in size. She denies shortness of breath but admits her belly is distended. She has very large lower extremities with 3+ pitting edema bilaterally. Approximately a month ago she was started on 20 mg of Lasix once a day and increased to 40 daily. In the past week they have doubled the dose to 40 twice daily and her legs continue to swell. They called their physician who sent them to the ER for evaluation Onset (ago): day(s) (30) Severity: severe Relieving factors: none Exacerbating factors: none Associated symptoms: Reports no associated symptoms; Deny chest pain, confusion, dyspnea, headache(s), rash or palpitations Review of Systems General: Reports: 10 or more systems reviewed and unremarkable except in HPI and below Const: Denies: fatigue Eyes: Denies: change in vision, blurry vision or eye redness ENMT: Denies: throat pain, swelling of lips/tongue, ear or mastoid pain or nasal congestion Card: Reports: swelling of feet/ankles; Denies: chest pain, palpitations, irregular heart rhythm, edema, dyspnea on exertion or orthopnea Resp: Denies: dyspnea, productive cough or non-productive cough GI: Reports: other (Abdominal distention); Denies: abdominal pain, diarrhea or GI cramping : Denies: flank pain, difficulty voiding, urinary frequency or urinary urgency Musc: Denies: neck pain, back pain, extremity pain, joint pain, joint redness, limited range of motion or muscle weakness Skin/Breast: Denies: rash, pruritus, erythema, skin pain or skin tenderness Neuro: Denies: headache(s), numbness in extremities, weakness in extremities, sensory changes, difficulty walking, dizziness, confusion or Slurred speech present Psych: Denies: anxiety or depression Endo: Denies: polyuria All/Imm: Denies: urticaria, throat swelling or tongue swelling PFS ED PFSH: Medical History Anemia iron deficiency, has been on iron injections in past, history of acute blood loss anemia also Aortic valve disease Bowel perforation History of recurrent pneumoperitoneum without symptoms, from unclear source Edema of left lower leg wears compression stocking History of echocardiogram (~10/2019) EF 55% with peak gradient 26 mmHg History of TIAs Prior to aortic valve replacement Hypertension Hypothyroidism 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 Surgical History H/O inguinal hernia repair bilateral H/O knee surgery (~2007) bilateral total knee replacement History of cataract surgery (~2017) bilateral History of esophagogastroduodenoscopy (EGD) History of laparoscopy to eval for source of pneumoperitoneum History of umbilical hernia repair 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, 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) due to aortic stenosis in 2015 23mm Lowe Brooks 3 Family History Daughter Cancer Breast Social History Smoking and tobacco status: never smoked Alcohol intake: never Household members: family Housing: House 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 Physical Exam Const: COMMON NORMALS: no acute distress, average body habitus, patient oriented x3, no limitations, healthy appearing, alert and well nourished GENERAL APPEARANCE: cooperative, comfortable, well kempt, well developed and Edematous ORIENTATION/CONSCIOUSNESS: Yes awake, Yes oriented to person, Yes oriented to place and Yes oriented to time HENMT: COMMON NORMALS: normocephalic, external ears normal and Normal external nose present HEAD & SCALP: normal to inspection and normocephalic NOSE: Normal external nose present EXTERNAL EAR: Yes external ears normal MOUTH: Normal oral and palatal mucosa present THROAT: posterior oropharynx normal Eye: COMMON NORMALS: Equal, round and reactive pupils present and EOMs intact bilaterally GENERAL EYE: appearance normal, both eyes and all related structures PUPIL: Yes Equal, round and reactive pupils present Neck/C-Spine: COMMON NORMALS: full ROM, no lymphadenopathy, no meningeal signs and no JVD GENERAL: Yes normal visual inspection Lymph: LYMPHATIC: no lymphadenopathy noted Chest: COMMONS NORMALS: normal inspection of the chest and normal palpation of entire chest wall Resp: COMMON NORMALS: normal respiratory effort, No retractions, No use of accessory muscles, clear to auscultation bilaterally and percussion normal EFFORT & INSPECTION: Yes able to speak in complete sentences AUSCULTATION: clear to auscultation bilaterally PERCUSSION: percussion normal Cardio: COMMON NORMALS: no JVD, regular rate, regular rhythm, S1 normal heart sound present, S2 normal heart sound present and Peripheral pulses 2+ throughout RATE: regular rate RHYTHM: regular rhythm HEART SOUNDS: S1 normal heart sound present and S2 normal heart sound present PERIPHERAL PULSES: Peripheral pulses 2+ throughout GI: COMMON NORMALS: Soft to palpation, non-tender and no masses INSPECTION: Yes normal to inspection PALPATION: Yes Soft to palpation OTHER: Mild abdominal distention. Soft, nontender. : COMMON NORMALS: Yes no CVA tenderness BLADDER/KIDNEY EXAM: Yes no CVA tenderness Back/Pelvis: COMMON NORMALS: no CVA tenderness, thoracic and lumbar spine normal to inspection, no thoracic nor lumbar tenderness and thoraco-lumbar ROM normal Extremity: COMMON NORMALS: full ROM, capillary refill normal and no joint enlargement NARRATIVE EXTREMITY EXAM: 3+ pitting edema bilateral lower extremities to above the knees. Abdominal distention. Soft nontender. GENERAL: Yes normal exam except as noted Neuro: COMMON NORMALS: patient oriented x3, CN's II-XII intact bilaterally, moves all extremities, no focal motor deficits, no sensory deficits noted and gait normal SENSORIUM/ORIENTATION: Yes alert, Yes oriented to person, Yes oriented to place and Yes oriented to time MENINGEAL SIGNS: Yes no meningeal signs Psych: COMMON NORMALS: mental status grossly normal, Normal thought process present, cooperative, normal affect and speech normal APPEARANCE: Yes well kempt ATTITUDE: Yes calm SPEECH: Yes normal speech THOUGHT PROCESS: Normal thought process present Skin: COMMON NORMALS: no rashes or lesions noted GENERAL SKIN EXAM: no rashes or lesions noted Course Vital Signs: Vital signs: Vital Signs Temperature 97.5 F L 11/01/20 20:00 Pulse Rate 71 11/01/20 20:00 Respiratory Rate 18 11/01/20 20:00 Blood Pressure 100/55 11/01/20 20:23 Pulse Oximetry 96 11/01/20 20:00 MDM - General Adult MDM Narrative: Medical decision making narrative: The patient has failed outpatient treatment with oral Lasix with multiple dosage increases. She continues to have worsening lower extremity edema and now abdominal swelling. Discussed with Dr. Up who recommended keeping for IV Lasix. Discussed with Dr. Guallpa who accepts as inpatient. Lab Data: Labs: Lab Results 11/01/20 11/01/20 11/01/20 Range/Units 15:22 15:22 15:22 WBC 5.7 (4.0-10.0) 10^3/ uL RBC 3.53 L (4.1-5.3) 10^6/u L Hgb 10.7 L (11.5-15.3) g/dL Hct 36.0 L (37.0-47.0) % MCV 102.0 H (81-99) fL MCH 30.3 (28.0-34.0) pg MCHC 29.7 L (30.0-36.0) g/dL RDW 14.7 (12.1-15.1) % Plt Count 282 (130-400) 10^3/c mm MPV 9.7 (7.4-10.4) fL Neut % (Auto) 70.2 % Lymph % (Auto) 19.1 % [place] % (Auto) 8.8 % Eos % (Auto) 0.7 % Baso % (Auto) 0.5 % Neut # (Auto) 3.96 (1.8-7.7) 10^3/u L Lymph # (Auto) 1.1 (0.8-4.8) 10^3/u L [place] # (Auto) 0.5 (0.2-0.9) 10^3/u L Eos # (Auto) 0.0 (0.0-0.8) 10^3/u L Baso # (Auto) 0.0 (0.0-0.1) 10^3/u L Nucleated RBC % (a uto) 0 % Nucleated RBCs # 0.0 /100WBC D-Dimer 3.30 H (0-0.59) ug/mIFE U Sodium 136 (136-145) mmol/L Potassium 3.6 (3.5-5.1) mmol/L Chloride 98 (98-107) mmol/L Carbon Dioxide 26 (22-29) mmol/L Anion Gap 15.6 (5-19) BUN 24 H (8-23) mg/dL Creatinine 0.5 (0.5-0.9) mg/dL GFR Calculation Not Reportable Glucose 78 (65-115) mg/dL Calculated Osmolal ity 285 (285-295) mOsm/k g Calcium 7.3 L (8.5-10.5) mg/dL Total Bilirubin 0.3 (0.15-1.2) mg/dL AST 24 (0-32) U/L ALT 22 (0-33) U/L Alkaline Phosphata se 129 H (35-105) IU/L Troponin T Baselin e (0-10) ng/L Troponin T 120 Min [place] (0-10) ng/L Delta Troponin T (0-10) ABS# NT-Pro-B Natriuret Pep 610 H (0-450) pg/mL Total Protein 5.4 L (6.6-8.7) g/dL Albumin 3.1 L (3.5-5.2) g/dL Globulin 2.3 (1.3-4.6) g/dL Urine Color (Yellow) Urine Appearance (CLEAR) Urine pH (5-7) Ur Specific Gravit y (1.005-1.030) Urine Protein (Negative) Urine Glucose (UA) (Normal) Urine Ketones (Negative) Urine Blood (Negative) Urine Nitrate (Negative) Urine Bilirubin (Negative) Urine Urobilinogen (Negative) mg/dL Ur Leukocyte Lanette ase (Negative) 11/01/20 11/01/20 11/01/20 Range/Units 15:22 15:22 16:40 WBC (4.0-10.0) 10^3/ uL RBC (4.1-5.3) 10^6/u L Hgb (11.5-15.3) g/dL Hct (37.0-47.0) % MCV (81-99) fL MCH (28.0-34.0) pg MCHC (30.0-36.0) g/dL RDW (12.1-15.1) % Plt Count (130-400) 10^3/c mm MPV (7.4-10.4) fL Neut % (Auto) % Lymph % (Auto) % [place] % (Auto) % Eos % (Auto) % Baso % (Auto) % Neut # (Auto) (1.8-7.7) 10^3/u L Lymph # (Auto) (0.8-4.8) 10^3/u L [place] # (Auto) (0.2-0.9) 10^3/u L Eos # (Auto) (0.0-0.8) 10^3/u L Baso # (Auto) (0.0-0.1) 10^3/u L Nucleated RBC % (a uto) % Nucleated RBCs # /100WBC D-Dimer (0-0.59) ug/mIFE U Sodium (136-145) mmol/L Potassium (3.5-5.1) mmol/L Chloride (98-107) mmol/L Carbon Dioxide (22-29) mmol/L Anion Gap (5-19) BUN (8-23) mg/dL Creatinine (0.5-0.9) mg/dL GFR Calculation Glucose (65-115) mg/dL Calculated Osmolal ity (285-295) mOsm/k g Calcium (8.5-10.5) mg/dL Total Bilirubin (0.15-1.2) mg/dL AST (0-32) U/L ALT (0-33) U/L Alkaline Phosphata se (35-105) IU/L Troponin T Baselin e 15 H (0-10) ng/L Troponin T 120 Min [place] 15.71 H (0-10) ng/L Delta Troponin T 0.71 (0-10) ABS# NT-Pro-B Natriuret Pep (0-450) pg/mL Total Protein (6.6-8.7) g/dL Albumin (3.5-5.2) g/dL Globulin (1.3-4.6) g/dL Urine Color Dark yellow (Yellow) Urine Appearance Clear (CLEAR) Urine pH 5 (5-7) Ur Specific Gravit y 1.010 (1.005-1.030) Urine Protein Neg (Negative) Urine Glucose (UA) Norm (Normal) Urine Ketones Negative (Negative) Urine Blood Neg (Negative) Urine Nitrate Negative (Negative) Urine Bilirubin 1+ H (Negative) Urine Urobilinogen Norm (Negative) mg/dL Ur Leukocyte Lanette ase Negative (Negative) Discharge Plan Discharge Patient Disposition: Admitted As Inpatient Admit Provider: Everett Caceres Clinical Impression: CHF (congestive heart failure), NYHA class III Condition: Stable Coding Level of Care Code ED Paper Baling Machine Operator for Chg Fwd Exam Comprehensive
[2020-11-01 15:57] LABS: Basophils % 0.5 %; Eosinophils % 0.7 %; Hemoglobin 10.7 g/dL (11.5-15.3); Lymphocytes # 1.1 10^3/uL (0.8-4.8); Lymphocytes % 19.1 %; Mean Corpuscular HGB Conc 29.7 g/dL (30.0-36.0); Mean Corpuscular Hemoglobin 30.3 pg (28.0-34.0); Mean Platelet Volume 9.7 fL (7.4-10.4); Monocytes # 0.5 10^3/uL (0.2-0.9); Monocytes % 8.8 %; Neutrophils # 3.96 10^3/uL (1.8-7.7); Neutrophils % 70.2 %; Nucleated Red Blood Cells % 0 %; Platelet Count 282 10^3/cmm (130-400); Red Blood Count 3.53 10^6/uL (4.1-5.3); Red Cell Distribution Width 14.7 % (12.1-15.1); White Blood Count 5.7 10^3/uL (4.0-10.0)
[2020-11-01 16:19] LABS: Troponin(5th) Baseline 15 ng/L (0-10)
[2020-11-01 16:27] LABS: Alanine Aminotransferase 22 U/L (0-33); Albumin Level 3.1 g/dL (3.5-5.2); Alkaline Phosphatase 129 IU/L (35-105); Anion Gap 15.6 (5-19); Aspartate Amino Transferase 24 U/L (0-32); Blood Urea Nitrogen 24 mg/dL (8-23); Calcium 7.3 mg/dL (8.5-10.5); Carbon Dioxide 26 mmol/L (22-29); Chloride 98 mmol/L (98-107); Creatinine Clr Calc Pharmacy 53.4528; Globulin 2.3 g/dL (1.3-4.6); Glucose 78 mg/dL (65-115); NT Pro B Type Natriuretic Pept 610 pg/mL (0-450); Osmolality Calculated 285 mOsm/kg (285-295); Potassium 3.6 mmol/L (3.5-5.1); Sodium 136 mmol/L (136-145); Total Bilirubin 0.3 mg/dL (0.15-1.2); Total Protein 5.4 g/dL (6.6-8.7)
[2020-11-01] MEDS: FUROsemide 10 mg/mL SDV 4mL 40 MG IVP (16:44)
--- NOTE | 2020-11-01 16:47 | ECG_ITS ---
[facility] Test Date: 2020-11-01 Pat Name: Aide Mitchell Department: Room: Gender: Female Property Assistant: : 1935 Requested By: Finn Umaña Order Number: [id number] Tamanna MD: Brett Hampton M.D. Measurements Intervals Ridge Rate: 70 P: 230 FL: 233 QRS: -86 QRSD: 201 T: 79 QT: 483 QTc: 523 Interpretive Statements ELECTRONIC VENTRICULAR PACEMAKER Compared to ECG 11/01/2020 14:58:23 No significant changes Electronically Signed On 11-01-2020 18:58:44 STAFF DEVELOPER by Brett Hampton M.D. [id number]
--- NOTE | 2020-11-01 16:57 | PC.PHAR ---
PTS FAMILY STATES THE PT HAS BEEN TAKING A EXTRA LASIX DAILY AND THEN WILL TAKE A EXTRA KCL WHEN THE PT TAKES A LASIX-PTS FAMILY STATES THE PT HASNT STARTED TAKING THE TYLENOL #3 YET STATES THE CODEINE HURTS HER STOMACH-PTS FAMILY STATES THE PT TOOK METOLAZONE FOR 3 DAYS AND IT DIDNT HELP
--- NOTE | 2020-11-01 17:05 | PC.NURSE ---
pcp made aware pt bp 107/62, pcp advised to reduce lasix dose to 20mg IVP and monitor.
[2020-11-01 17:11] LABS: Add Urine Microscopic? NO
[2020-11-01 17:19] LABS: Urine Appearance Clear (CLEAR); Urine Color Dark Yellow (Yellow); pH Urine 5 (5-7)
[2020-11-01 17:20] LABS: Bilirubin Urine 1+ (Negative); Blood Urine Neg (Negative); Glucose Urine UA Norm (Normal); Ketones Urine Negative (Negative); Leukocyte Esterase Urine Negative (Negative); Nitrate Urine Negative (Negative); Protein Urine Neg (Negative); Urobilinogen Urine Norm (Negative)
[2020-11-01 17:30] LABS: Troponin 5 2HR 15.71 ng/L (0-10); Troponin 5 2HR Delta 0.71 ABS# (0-10)
--- NOTE | 2020-11-01 19:44 | PM.HP ---
Providers/Chief Complaint Admitting Physician: Everett Caceres Primary Care Provider: LEAH Sims Chief Complaint: SENT BY PCP//BLE SWELLING History of Present Illness Very pleasant 85-year-old lady with history of CHF, bioprosthetic aortic valve replacement, PPM, chronic edema lower extremities, which over the last month has been much more progressive, with worsening swelling despite repeat attempts at escalation of diuretic therapy by patient's primary provider and buyer liaison most recently up to 40 mg twice daily. She denies any chest pain or pressure. Denies any shortness of breath. She does state that she has been having difficulty walking due to swelling in lower extremities, and if swollen to the extent that she is having difficult time lifting them up into the bed. In ER she is noted with blood pressure 100/60. Afebrile, without leukocytosis. She denies any cough or hemoptysis. Troponin is 15-15.71, with paced rhythm on EKG. D-dimer noted abnormal at 3.3, which was followed up with lower extremity duplex which per preliminary assessment was negative for VTE, pending final interpretation. She received a dose of 20 mg IV push Lasix. Review of Systems Const: Denies: fever(s), chills, body aches or malaise Eyes: Denies: change in vision or eye redness ENMT: Denies: throat pain, oral sores or ear or mastoid pain Card: Reports: edema; Denies: chest pain, pre-syncope or dyspnea on exertion Resp: Denies: dyspnea, productive cough, change in phlegm color or hemoptysis GI: Denies: abdominal pain, nausea, vomiting, diarrhea, constipation, hematochezia or melena : Denies: flank pain, urinary frequency or hematuria Musc: Denies: back pain, joint swelling or joint redness Skin/Breast: Denies: rash, sores or new lesions Neuro: Denies: headache(s), numbness in extremities, weakness in extremities, dizziness, confusion or seizure-like activity Endo: Denies: polyuria or polydipsia [place]/Lymph: Denies: easy bleeding or purpura All/Imm: Denies: urticaria, throat swelling or tongue swelling Medications/Allergies Home Medications Medication Instructions Recorded Confirmed Last Taken Type Multiple Vitamin, Womens 1 tab PO QAM 04/14/20 11/01/2004/13/20 History cyanocobalamin (vitamin B-12) 1,000 mcg IM Q30D 04/14/20 11/01/20 Unknown History fluticasone propionate 2 spray INTRANASAL QAM 04/14/20 11/01/20 04/14/20 History magnesium oxide 400 mg PO QPM 04/14/20 11/01/20 04/13/20 History aspirin 81 mg tablet,delayed 81 mg PO QPM 05/17/20 11/01/20 Unknown History release pantoprazole 40 mg tablet,delayed 40 mg PO QAM 08/18/20 11/01/20 Unknown History release dicyclomine 10 mg capsule 10 mg PO TID PRN 09/24/20 11/01/20 Unknown History donepezil 5 mg tablet 5 mg PO BEDTIME 09/24/20 11/01/20 Unknown History furosemide 40 mg tablet See Rx Instructions .ROUTE 09/27/20 11/01/20 Unknown Rx .COMPLEX #90 tab Zinc Orotate 60 mg PO QPM 11/01/20 11/01/20 Unknown History acetaminophen-codeine 1 tab PO Q6H PRN 11/01/20 11/01/20 Unknown History calcium acetate 1 tab PO BID 11/01/20 11/01/20 Unknown History levothyroxine 100 mcg PO QAM 11/01/20 11/01/20 11/01/20 History potassium chloride See Rx Instructions .ROUTE .COMPLEX 11/01/20 11/01/20 Unknown History Allergies Allergy/AdvReac Type Severity Reaction Status Date / Time codeine Allergy ADR-Abdominal Verified 11/01/20 16:44 Pain PFSH Acute PFSH: Medical History Anemia iron deficiency, has been on iron injections in past, history of acute blood loss anemia also Aortic valve disease Bowel perforation History of recurrent pneumoperitoneum without symptoms, from unclear source Edema of left lower leg wears compression stocking History of echocardiogram (~10/2019) EF 55% with peak gradient 26 mmHg History of TIAs Prior to aortic valve replacement Hypertension Hypothyroidism 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 Surgical History H/O inguinal hernia repair bilateral H/O knee surgery (~2007) bilateral total knee replacement History of cataract surgery (~2017) bilateral History of esophagogastroduodenoscopy (EGD) History of laparoscopy to eval for source of pneumoperitoneum History of umbilical hernia repair 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, 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) due to aortic stenosis in 2016 23mm Lowe [place] 3 Family History Daughter Cancer Breast Social History Smoking and tobacco status: never smoked Alcohol intake: never Household members: family Housing: House 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 Vitals/I&O/Wt Last Vital Signs Temp 97.1 F L 11/01/20 14:14 Pulse 82 11/01/20 19:34 Resp 16 11/01/20 19:34 BP 100/60 11/01/20 19:34 Pulse Ox 98 11/01/20 19:34 11/01/20 11/01/20 11/01/20 06:59 14:59 22:59 Output Total 1100 / 1100 Balance -1100 / -1100 Weight last 48 hrs Weight 72.756 kg Physical Exam Const: COMMON NORMALS: no acute distress and patient oriented x3 HENMT: COMMON NORMALS: oropharynx normal Neck/C-Spine: COMMON NORMALS: no JVD Resp: COMMON NORMALS: normal respiratory effort and clear to auscultation bilaterally AUSCULTATION: clear to auscultation bilaterally Cardio: COMMON NORMALS: no JVD, regular rhythm, S1 normal heart sound present, S2 normal heart sound present and No murmurs present (Cardio) RHYTHM: regular rhythm HEART SOUNDS: S1 normal heart sound present and S2 normal heart sound present GI: COMMON NORMALS: Normal to inspection, nondistended, normoactive bowel sounds present, Soft to palpation and non-tender PALPATION: Yes Soft to palpation Extremity: COMMON NORMALS: no joint enlargement GENERAL: Yes edema (3+) Neuro: COMMON NORMALS: patient oriented x3 and moves all extremities Skin: COMMON NORMALS: no rashes or lesions noted GENERAL SKIN EXAM: no rashes or lesions noted Urinary Catheter Management^: [facility]: Cath Placed During This Visit: yes Urinary Catheter Date of Insertion: 11/01/20 Urinary Catheter Time of Insertion: 19:36 Data : 11/01/20 15:22 11/01/20 15:22 A&P Assessment and plan (1) CHF (congestive heart failure), NYHA class III: Diastolic acute CHF, with bioprosthetic aortic valve, with moderate aortic valve stenosis back in April. Progressive CHF with worsening lower extremity edema. Possible right-sided heart failure. Denies chest pain. Will complete EKG and troponin series, although so far does not appear to have acute ischemic heart disease. Check TSH. Assess TTE. As tolerating we will continue with diuresis. For now request 40 mg IV twice daily, although blood pressure soft. Monitor renal function. Symptomatology does not appear to correspond to pacemaker syndrome. Appreciate cardiology assessment and recommendations regarding progressive heart failure despite outpatient treatment, in the setting of aortic stenosis, soft blood pressure. Status: Acute Qualifiers: Congestive heart failure type: diastolic Congestive heart failure chronicity: chronic Qualified Code(s): I50.32 - Chronic diastolic (congestive) heart failure (2) Alkaline phosphatase elevation: Incidentally noted alkaline phosphatase elevation, at least since April, appears about similar. Will check GGT. no abdominal pain. No right upper quadrant discomfort. Status: Acute (3) D-dimer, elevated: Incidentally noted D-dimer elevation, denies chest pain, no cough, no tachypnea, no tachycardia. Saturating well on room air. No signs of VTE. Preliminary lower extremity duplex negative, pending official interpretation. Status: Acute Additional A&P Information PPM GERD History of TIA History of HTN Hypothyroidism Pseudoaneurysm of femoral artery Anemia Mild dementia Attestations Medical Necessity Statement*: Admission of over 2 midnights is going to be needed for assessment management of progressively worsening acute diastolic congestive heart failure unresponsive to outpatient treatment, in the setting of aortic stenosis with history of aortic valve replacement, pacemaker, in a lady with advanced age. Coding Level of Care Code Acute Sr. Manager Corporate Communications for Chg Fwd Diagnoses CHF (congestive heart failure), NYHA class III I50.32 Congestive heart failure type: diastolic Congestive heart failure chronicity: chronic Alkaline phosphatase elevation R74.8 D-dimer, elevated R79.89
[2020-11-01 21:38] LABS: Thyroid Stimulating Hormone 12.86 uIU/mL (0.27-4.20)
[2020-11-01] MEDS: donepezil 5 MG Tablet PO (21:48)
[2020-11-01] MEDS: heparin 5,000 unit/mL INJ 1 mL 5000 UNIT SUBCUT (21:48)
[2020-11-01] MEDS: acetaminophen 325 mg Tablet PO (21:49)
[2020-11-01 22:03] LABS: Troponin 5 6HR 16.35 ng/L (0-10); Troponin 5 6HR Delta 1.35 ng/L (0-12)
[2020-11-01 22:56] LABS: Gamma Glutamyl Transferase 7 U/L (5-36)
[2020-11-02] VITALS (7 sets, daily range): BP systolic 90–118; BP diastolic 55–68; PULSE 59–65; RESP 15–18; TEMP 35.8–36.4; O2SAT 94–96
[2020-11-02] MEDS: pneumococcal (23 valent) SDV 0.5 mL IM (00:07)
[2020-11-02] MEDS: acetaminophen 500 mg Tablet PO ×3 (00:38→17:18)
[2020-11-02] MEDS: oxyCODONE 5 mg IR Tab/Cap PO (01:50)
[2020-11-02] MEDS: fluticasone nasal spray 16gm Btl 2 SPRAY INTRANASAL (05:33)
[2020-11-02] MEDS: heparin 5,000 unit/mL INJ 1 mL 5000 UNIT SUBCUT ×3 (05:33→21:52)
[2020-11-02] MEDS: pantoprazole DR 40 mg Tablet PO (05:36)
[2020-11-02] MEDS: levothyroxine 100 mcg Tablet PO (05:36)
[2020-11-02 07:31] LABS: Alanine Aminotransferase 19 U/L (0-33); Albumin Level 2.7 g/dL (3.5-5.2); Alkaline Phosphatase 120 IU/L (35-105); Anion Gap 11.7 (5-19); Aspartate Amino Transferase 24 U/L (0-32); Blood Urea Nitrogen 22 mg/dL (8-23); Carbon Dioxide 31 mmol/L (22-29); Chloride 97 mmol/L (98-107); Globulin 1.9 g/dL (1.3-4.6); Glucose 78 mg/dL (65-115); Osmolality Calculated 286 mOsm/kg (285-295); Sodium 137 mmol/L (136-145); Total Bilirubin 0.3 mg/dL (0.15-1.2); Total Protein 4.6 g/dL (6.6-8.7)
[2020-11-02 07:45] LABS: Potassium 2.7 mmol/L (3.5-5.1)
--- NOTE | 2020-11-02 08:11 | PC.OT ---
OT note: From chart review noted critically low potassium. Will hold at this time.
[2020-11-02] MEDS: FUROsemide 10 mg/mL SDV 4mL 40 MG IVP ×2 (08:13→21:49)
[2020-11-02] MEDS: potassium chloride ER 20 mEq Tablet PO ×4 (08:13→21:53)
--- NOTE | 2020-11-02 09:50 | PM.CONSULT ---
Providers/Reason For Consult Consulting Physican/Specialty*: Dr. Up, Cardiology Reason for Consult*: CHF Attending Physician: Everett Caceres Primary Care Provider: LEAH Sims History of Present Illness History of Present Illness Aide Mitchell is a 85 year old female with PMHx of s/p TAVR 23 mm Brooks valve in [place] at [facility] [place] [facility] [place] [employer] PPM placement in 2018, HEpEF and left leg chronic edema. She came in with worsening lower extremity swelling in spite of increasing dose of Lasix. No chest pain or pressure or dyspnea on exertion. She complains of heaviness and has difficulty walking due to swelling in lower extremities. Blood pressure on arrival to the ER was 114/76 mmHg, heart rate 82 bpm and saturating well on room air. She received Lasix and has diuresed about 2100 mL overnight. I have been asked to assist in evaluating further management of congestive heart failure. Review of Systems General: Reports: 10 or more systems reviewed and unremarkable except in HPI and below Const: Denies: fever(s), chills, body aches or malaise Eyes: Denies: change in vision ENMT: Denies: throat pain or oral sores Card: Reports: edema; Denies: chest pain, pre-syncope or dyspnea on exertion Resp: Denies: dyspnea, productive cough, change in phlegm color or hemoptysis GI: Denies: abdominal pain, nausea, vomiting, diarrhea, constipation, hematochezia or melena : Denies: flank pain, urinary frequency or hematuria Musc: Denies: back pain, joint swelling or joint redness Skin/Breast: Denies: rash, sores or new lesions Neuro: Denies: headache(s), numbness in extremities, weakness in extremities, dizziness, confusion or seizure-like activity Jean-Claude/Lymph: Denies: easy bleeding or purpura All/Imm: Denies: urticaria, throat swelling or tongue swelling Meds/Allergies Home Medications and Allergies Home Medications Medication Instructions Recorded Confirmed Last Taken Type Multiple Vitamin, Womens 1 tab PO QAM 04/14/20 11/01/20 04/13/20 History cyanocobalamin (vitamin B-12) 1,000 mcg IM Q30D 04/14/20 11/01/20 Unknown History fluticasone propionate 2 spray INTRANASAL QAM 04/14/20 11/01/20 04/14/20 History magnesium oxide 400 mg PO QPM 04/14/20 11/01/20 04/13/20 History aspirin 81 mg tablet,delayed 81 mg PO QPM 05/17/20 11/01/20 Unknown History release pantoprazole 40 mg tablet,delayed 40 mg PO QAM 08/18/20 11/01/20 Unknown History release dicyclomine 10 mg capsule 10 mg PO TID PRN 09/24/20 11/01/20 Unknown History donepezil 5 mg tablet 5 mg PO BEDTIME 09/24/20 11/01/20 Unknown History furosemide 40 mg tablet See Rx Instructions .ROUTE 09/27/20 11/01/20 Unknown Rx .COMPLEX #90 tab Zinc Orotate 60 mg PO QPM 11/01/20 11/01/20 Unknown History acetaminophen-codeine 1 tab PO Q6H PRN 11/01/20 11/01/20 Unknown History calcium acetate 1 tab PO BID 11/01/20 11/01/20 Unknown History levothyroxine 100 mcg PO QAM 11/01/20 11/01/20 11/01/20 History potassium chloride See Rx Instructions .ROUTE .COMPLEX 11/01/20 11/01/20 Unknown History Allergies Allergy/AdvReac Type Severity Reaction Status Date / Time codeine Allergy ADR-Abdominal Verified 11/01/20 16:44 Pain Current Medications Current Medications Generic Name Dose Route Start Last Admin Trade Name Freq PRN Reason Stop Dose Admin Acetaminophen 0 mg 11/02/20 00:29 11/02/20 07:50 Acetaminophen 500 Mg Tablet PO 1,000 mg Q6H PRN Administration MILD PAIN OR INCREASE TEMP Donepezil HCl 5 mg 11/01/20 21:03 11/01/20 21:48 Donepezil 5 Mg Tablet PO 5 mg BEDTIME LINDSAY Administration Fluticasone Propionate 2 spray 11/02/20 06:00 11/02/20 05:33 Fluticasone Nasal [place] 16gm Btl INTRANASAL 2 spray QAM LINDSAY Administration Furosemide 40 mg 11/02/20 09:00 11/02/20 08:13 Furosemide 10 Mg/Ml Sdv 4ml IVP 40 mg Q12H LINDSAY Administration Heparin Sodium (Beef Lung) 5,000 unit 11/01/20 21:03 11/02/20 05:33 Heparin 5,000 Unit/Ml Inj 1 Ml SUBCUT 5,000 unit Q8H LINDSAY Administration Levothyroxine Sodium 100 mcg 11/02/20 06:00 11/02/20 05:36 Levothyroxine 100 Mcg Tablet PO 100 mcg QAM LINDSAY Administration Non-Formulary Medication 1 tab 11/02/20 09:00 11/02/20 08:13 Calcium Acetate PO Not Given BID LINDSAY Pantoprazole Sodium 40 mg 11/02/20 06:00 11/02/20 05:[address] 40 Mg Tablet PO 40 mg QAM LINDSAY Administration Potassium Chloride 20 meq 11/02/20 09:00 11/02/20 08:13 Potassium Chloride Er 20 Meq Tablet PO 20 meq BID LINDSAY Administration PFSH Acute PFSH: Medical History Anemia iron deficiency, has been on iron injections in past, history of acute blood loss anemia also Aortic valve disease Bowel perforation History of recurrent pneumoperitoneum without symptoms, from unclear source Edema of left lower leg wears compression stocking History of echocardiogram (~10/2019) EF 55% with peak gradient 26 mmHg History of TIAs Prior to aortic valve replacement Hypertension Hypothyroidism 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 Surgical History H/O inguinal hernia repair bilateral H/O knee surgery (~2007) bilateral total knee replacement History of cataract surgery (~2017) bilateral History of esophagogastroduodenoscopy (EGD) History of laparoscopy to eval for source of pneumoperitoneum History of umbilical hernia repair 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, 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) due to aortic stenosis in 2016 23mm Lowe Brooks 3 Family History Daughter Cancer Breast Social History Smoking and tobacco status: never smoked Alcohol intake: never Household members: family Housing: House 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 NECK: central trachea, elevated JVD, No carotid bruit. CARDIOVASCULAR SYSTEM: S1-S2 regular. No S3 or S4 present. No murmur rubs or gallops. RESPIRATORY SYSTEM: Chest clear to auscultation. No wheezes rhonchi or rubs heard. No use of accessory muscles. ABDOMEN: Soft, nontender and nondistended. Normal bowel sounds present. EXTREMITIES: No cyanosis or clubbing. 2+ bilateral edema. No signs of chronic venous insufficiency. ROLL PICKER: Patient is alert oriented ?3. No focal neurological deficits. SKIN: Normal turgor and temperature. No breakdown, rash or nail changes noted. PSYCH: Normal insight and judgment. Urinary Catheter Management^: [facility]: Cath Placed During This Visit: yes Reason for Continuing Indwelling Catheter: Other Urinary Catheter Date of Insertion: 11/01/20 Urinary Catheter Time of Insertion: 19:36 Data Labs: Other Labs: Troponin without any significant delta change Other Data: Other data: TTE (04/15/20) CONCLUSIONS Normal LV systolic function with EF 55 to 60%. Diastolic function is abnormal. Moderate LVH is present Bioprosthetic aortic valve is seen in aortic position. There is moderate aortic stenosis with aortic valve area of 1.4 and a mean gradient of 20 mmHg 04/15/20 CAROTID US CONCLUSIONS Right ICA stenosis <50%. Mild atheromatous plaque right carotid bulb/ICA. Left ICA stenosis <50%. Moderate atheromatous plaque left carotid bulb/ICA. Normal antegrade Doppler flow noted in the right vertebral artery. Normal antegrade Doppler flow noted in the left vertebral artery. Rest x-ray with no acute abnormality. EKG with a sensed V paced rhythm. A&P Assessment and plan (1) CHF (congestive heart failure), NYHA class III: Patient is diuresing well with IV Lasix. -Continue Lasix 40 mg IV every 12 hr. -Replace electrolytes as needed Status: Acute Qualifiers: Congestive heart failure type: diastolic Congestive heart failure chronicity: acute on chronic Qualified Code(s): I50.33 - Acute on chronic diastolic (congestive) heart failure (2) S/P TAVR (transcatheter aortic valve replacement): Concern for prosthetic valve stenosis; -Repeat echo pending Status: Chronic (3) Pacemaker: Functioning well; patient is pacemaker dependent Status: Chronic Additional A&P Information Hypertension History of TIAs Anemia Dementia Chronic lower extremity swelling Hypokalemia Hypomagnesemia Hypothyroidism: Thank you for allowing me to participate in patient's care. 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
--- NOTE | 2020-11-02 09:55 | PC.CHAP ---
Pastoral Care Encounter/Spiritual Assessment Type of Contact [] Declined computer systems manager visit [] Patient/Family/Request visit [] Outpatient visit [] Follow-up visit [] Physician referral [] Code/Alert [x] Routine visit [] Staff referral [] Actively dying [x] Patient sleeping [] Family support [] [] Out of room [] Palliative care [] [] Receiving care in room [] Pre-surgical visit [] Trauma [] Long length of stay [] ICU visit [] Other: Relational/Emotional Strength [] Patient feels connected with others/family/visitors/staff [] Distress [] Loneliness/isolation [] Abandonment Spirituality of Patient [] Person of Deidre [] Attends Amish of their [place] [] Believes in Prayer [] Reads Bible or Presybeterian materials [] There are Spiritual issues to be addressed Car Whacker Interventions [] Prayer [] Active listening [] Non-anxious presence [] Spiritual/emotional support [] Crisis/trauma care [] Spiritual counseling [] Bereavement support [] Provided bereavement packet [] Provided Bible/devotional materials [] Provided toy/stuffed animal, coloring book to patient or family member [] Provided Communion [] Anointing/[place] [] Salvation [] Completed spiritual assessment [] Other: Impact on Illness or Injury [] Angry [] Fearful [] Anxious [] Often cries [] Exhaustion [] Unable to work [] Unable to attend roman catholic [] Unable to walk/stand [] Unable to read [] Unable to drive [] Unable to eat/drink [] Unable to sleep [] Unable to be with family [] Patient intubated [] Other: Summary Time spent with patient [id number]
[2020-11-02 10:10] LABS: Basophils % 0.6 %; Eosinophils % 0.2 %; Hemoglobin 10.4 g/dL (11.5-15.3); Lymphocytes # 1.2 10^3/uL (0.8-4.8); Lymphocytes % 24.4 %; Mean Corpuscular HGB Conc 32.5 g/dL (30.0-36.0); Mean Corpuscular Hemoglobin 30.9 pg (28.0-34.0); Mean Platelet Volume 9.9 fL (7.4-10.4); Monocytes # 0.5 10^3/uL (0.2-0.9); Monocytes % 9.7 %; Neutrophils # 3.09 10^3/uL (1.8-7.7); Neutrophils % 64.1 %; Nucleated Red Blood Cells % 0 %; Platelet Count 299 10^3/cmm (130-400); Red Blood Count 3.37 10^6/uL (4.1-5.3); Red Cell Distribution Width 14.5 % (12.1-15.1); White Blood Count 4.8 10^3/uL (4.0-10.0)
[2020-11-02] MEDS: magnesium sulfate premix 2 GM/50 ML PIGGYBACK IV ×2 (10:28→21:50)
[2020-11-02] MEDS: ALPRAZolam 0.25 mg Tablet 0.125 MG PO (11:24)
[2020-11-02] MEDS: HYDROcodone-acetaminophen 5-325 mg Tablet 1 TAB PO (11:24)
[2020-11-02] MEDS: magnesium oxide 400 mg tablet PO (17:18)
[2020-11-02] MEDS: aspirin 81 mg EC Tablet PO (17:18)
--- NOTE | 2020-11-02 18:36 | PC.NURSE ---
SHIFT SUMMARY PATIENT HAS DONE WELL TODAY. PATIENT STILL HAS SIGNIFICANT EDEMA BUT IS IMPROVING. PAIN IN HANDS NOW CONTROLLED. EXCELLENT URINE OUTPUT. GOOD PO INTAKE. CONTINUE TO MONITOR.
--- NOTE | 2020-11-02 18:41 | PC.PT ---
From chart review noted critically low potassium. Will hold at this time.
[2020-11-02 19:03] LABS: Magnesium 1.5 mg/dL (1.7-2.3); Potassium 3.4 mmol/L (3.5-5.1)
--- NOTE | 2020-11-02 21:00 | PM.PN ---
Subjective Subjective: Interval history: Today she was having some cramping, paresthesia in her hands, worse on the left side. She says that this may be a chronic symptom that has been getting worse over time. She says her friend had told her she may have been developing carpal tunnel syndrome. This appears to been worse today with her edema, as well as electrolyte abnormalities. Vitals/I&O/Wt Last Vital Signs Temp 97.5 F L 11/02/20 20:00 Pulse 65 11/02/20 20:00 Resp 16 11/02/20 20:00 BP 104/68 11/02/20 20:00 Pulse Ox 94 11/02/20 20:00 11/02/20 11/02/20 11/02/20 06:59 14:59 22:59 Intake Total 462 / 462 Output Total 1000 / 2100 2350 / 2350 300 / 2650 Balance -1000 / -2100 -1888 / -1888 -300 / -2188 Weight last 48 hrs Weight 71.758 kg Weight 72.756 kg Physical Exam Const: COMMON NORMALS: no acute distress and patient oriented x3 HENMT: COMMON NORMALS: oropharynx normal Neck/C-Spine: COMMON NORMALS: no JVD Resp: COMMON NORMALS: normal respiratory effort and clear to auscultation bilaterally AUSCULTATION: clear to auscultation bilaterally Cardio: COMMON NORMALS: no JVD, regular rhythm, S1 normal heart sound present, S2 normal heart sound present and No murmurs present (Cardio) RHYTHM: regular rhythm HEART SOUNDS: S1 normal heart sound present and S2 normal heart sound present GI: COMMON NORMALS: Normal to inspection, nondistended, normoactive bowel sounds present, Soft to palpation and non-tender PALPATION: Yes Soft to palpation Extremity: COMMON NORMALS: no joint enlargement GENERAL: Yes edema (3+) OTHER: Mild swelling of her hands, worse on the left side. Some noted paresthesia. Appears well perfused. Warm. Neuro: COMMON NORMALS: patient oriented x3 and moves all extremities Skin: COMMON NORMALS: no rashes or lesions noted GENERAL SKIN EXAM: no rashes or lesions noted Urinary Catheter Management^: [facility]: Cath Placed During This Visit: yes Reason for Continuing Indwelling Catheter: Other Urinary Catheter Date of Insertion: 11/01/20 Urinary Catheter Time of Insertion: 19:36 Data : 11/02/20 06:00 11/02/20 17:50 A&P Assessment and plan (1) CHF (congestive heart failure), NYHA class III: So far she is tolerating diuresis well. Blood pressure appears to be maintaining. Continue diuresis. Replace severe hypokalemia, severe hypomagnesemia. Monitor I&O, renal function, volume status. Possible AVR restenosis. Appreciate cardiology assessment and recommendations. Diastolic acute CHF, with bioprosthetic aortic valve, with moderate aortic valve stenosis back in April. Progressive CHF with worsening lower extremity edema. Possible right-sided heart failure. Denies chest pain. Will complete EKG and troponin series, although so far does not appear to have acute ischemic heart disease. Elevated TSH. We will adjust levothyroxine. Pending TTE. As tolerating we will continue with diuresis. For now request 40 mg IV twice daily, although blood pressure soft. Monitor renal function. Symptomatology does not appear to correspond to pacemaker syndrome. Appreciate cardiology assessment and recommendations regarding progressive heart failure despite outpatient treatment, in the setting of aortic stenosis, soft blood pressure. Status: Acute Qualifiers: Congestive heart failure type: diastolic Congestive heart failure chronicity: acute on chronic Qualified Code(s): I50.33 - Acute on chronic diastolic (congestive) heart failure (2) Alkaline phosphatase elevation: Incidentally noted alkaline phosphatase elevation, at least since April, appears about similar. Will check GGT. no abdominal pain. No right upper quadrant discomfort. Status: Acute (3) D-dimer, elevated: Incidentally noted D-dimer elevation, denies chest pain, no cough, no tachypnea, no tachycardia. Saturating well on room air. No signs of VTE. Preliminary lower extremity duplex negative, pending official interpretation. Status: Acute (4) Hypothyroidism: TSH 12.86. On 100 mcg levothyroxine at home. Will increase dose to 112 Status: Chronic Additional A&P Information PPM GERD History of TIA History of HTN Pseudoaneurysm of femoral artery Anemia Mild dementia Attestations Medical Necessity Statement*: Continue admission for assessment management of congestive heart failure, with severe lower extremity edema, limiting function, with no response to outpatient therapy. 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
--- NOTE | 2020-11-02 21:03 | USCV_ITS ---
Aide Mitchell Age: 85 Gender: F : 1935 Exam Date: 11/02/2020 14:25 Ordering Phys: Everett Caceres MD Technologist: Guillermo Mays Exam Location: [facility] – [place] Indication: Congestive heart failure, s/p transcatheter aortic valve replacement BP: 127 / 67 HR: 63 Rhythm: Sinus Technical Quality: Fair MEASUREMENTS (Male / Female) Normal Values 2D ECHO LV Diastolic Diameter PLAX 4.0 cm 4.2 - 5.9 / 3.9 - 5.3 cm LV Systolic Diameter PLAX 2.5 cm IVS Diastolic Thickness 0.9 cm 0.6 - 1.0 / 0.6 - 0.9 cm IVS Systolic Thickness 0.9 cm LVPW Diastolic Thickness 1.1 cm 0.6 - 1.0 / 0.6 - 0.9 cm LVPW Systolic Thickness 1.0 cm LVOT Diameter 2.0 cm LV Ejection Fraction 2D Teich 69.4 % LV Ejection Fraction MOD 2C 64.8 % LV Ejection Fraction 2C AL 64.7 % LA Diameter 4.0 cm Aorta at Sinotubular Diameter 2.9 cm M-MODE LV Diastolic Diameter MM 5.3 cm 4.2 - 5.9 / 3.9 - 5.3 cm LV Systolic Diameter MM 3.8 cm LV Ejection Fraction MM Teich 52.7 % IVS Diastolic Thickness MM 0.8 cm 0.6 - 1.0 / 0.6 - 0.9 cm IVS Systolic Thickness MM 1.3 cm LVPW Diastolic Thickness MM 1.0 cm 0.6 - 1.0 / 0.6 - 0.9 cm LVPW Systolic Thickness MM 1.4 cm RV Diastolic Diameter MM 0.9 cm MV E Point Septal Separation 1.2 cm DOPPLER AV Peak Velocity 327.0 cm/s LVOT Peak Velocity 83.0 cm/s AV Area Cont Eq vti 0.8 cm squared AV Area Cont Eq pk 0.8 cm squared MV Area PHT 5.0 cm squared Mitral E to A Ratio 0.7 MV E' Velocity 50.5 cm/s Mitral E to MV E' Ratio 12.2 Mitral E to LV E' Lateral Ratio 9.5 Mitral E to LV E' Septal Ratio 17.4 TR Peak Velocity 226.0 cm/s TR Peak Gradient 20.4 mmHg TV Peak E Velocity 94.0 cm/s Right Atrial Pressure 3.0 mmHg Pulmonary Artery Systolic Pressu 23.4 mmHg PV Peak Velocity 108.0 cm/s FINDINGS Left Ventricle Normal left ventricular cavity size. Increased left ventricular wall thickness. Normal left ventricular systolic function. Left ventricular ejection fraction is estimated at 55 %. Grade I diastolic dysfunction (abnormal relaxation filling pattern), normal to mildly elevated filling pressures. Abnormal septal motion consistent with pacemaker. Right Ventricle Right ventricle not well visualized. Probably normal right ventricular size and systolic function. Right ventricular systolic pressure 31 mmHg (assuming right atrial pressure of 8 mmHg). Pacemaker wire visualized in the right ventricle. Right Atrium Normal right atrial size. Left Atrium Severely increased left atrial size. Mitral Valve Severe mitral annular calcification. Moderately thickened mitral valve. Mild mitral valve regurgitation. Aortic Valve Aortic valve not well visualized. TAVR bioprosthesis in situ. Peak prosthetic aortic jet velocity of 2.7 m/s, dimensionless valve index of 0.32 and AT 78 msec. Peak gradient of 31 and mean gradient of 18 mmHg. No significant prosthesis aortic valve stenosis. Tricuspid Valve Structurally normal tricuspid valve. Mild tricuspid valve regurgitation. Pulmonic Valve Pulmonic valve not well visualized. Pericardium No pericardial effusion. Aorta Inferior vena cava not visualized. CONCLUSIONS 1. This is a technically difficult study. 2. Normal left ventricular cavity size. Increased left ventricular wall thickness. Normal left ventricular systolic function. Left ventricular ejection fraction is estimated at 55 %. Grade I diastolic dysfunction (abnormal relaxation filling pattern), normal to mildly elevated filling pressures. 3. TAVR bioprosthesis in situ. Peak prosthetic aortic jet velocity of 2.7 m/s, dimensionless valve index of 0.32 and AT 78 msec. Peak gradient of 31 and mean gradient of 18 mmHg. No significant prosthesis aortic valve stenosis. 4. Mild mitral and tricuspid valve regurgitation. Rachel Up MD (Electronically Signed) Final Date: 03 November 2020 17:53 S
[2020-11-02] MEDS: donepezil 5 MG Tablet PO (21:52)
--- NOTE | 2020-11-02 22:49 | PC.NURSE ---
Patient has an indwelling catheter to manage proper recording of urine output while diurising
[2020-11-03] VITALS (7 sets, daily range): BP systolic 95–108; BP diastolic 53–68; PULSE 60–67; RESP 16–18; TEMP 36.3–36.7; O2SAT 93–99
[2020-11-03] MEDS: acetaminophen 500 mg Tablet PO (02:10)
[2020-11-03] MEDS: heparin 5,000 unit/mL INJ 1 mL 5000 UNIT SUBCUT ×3 (05:08→20:06)
[2020-11-03] MEDS: pantoprazole DR 40 mg Tablet PO (05:08)
[2020-11-03] MEDS: fluticasone nasal spray 16gm Btl 2 SPRAY INTRANASAL (05:08)
[2020-11-03 05:30] LABS: Basophils % 0.4 %; Hematocrit 31.9 % (37.0-47.0); Hemoglobin 10.4 g/dL (11.5-15.3); Lymphocytes # 0.9 10^3/uL (0.8-4.8); Mean Corpuscular HGB Conc 32.6 g/dL (30.0-36.0); Mean Corpuscular Hemoglobin 30.6 pg (28.0-34.0); Mean Corpuscular Volume 93.8 fL (81-99); Mean Platelet Volume 9.4 fL (7.4-10.4); Monocytes # 0.4 10^3/uL (0.2-0.9); Monocytes % 4.8 %; Neutrophils # 6.14 10^3/uL (1.8-7.7); Neutrophils % 82.5 %; Nucleated Red Blood Cells % 0 %; Platelet Count 308 10^3/cmm (130-400); Red Cell Distribution Width 14.4 % (12.1-15.1); White Blood Count 7.4 10^3/uL (4.0-10.0)
[2020-11-03 05:53] LABS: Alanine Aminotransferase 19 U/L (0-33); Albumin Level 2.4 g/dL (3.5-5.2); Alkaline Phosphatase 118 IU/L (35-105); Aspartate Amino Transferase 25 U/L (0-32); Blood Urea Nitrogen 16 mg/dL (8-23); Calcium 7.2 mg/dL (8.5-10.5); Carbon Dioxide 34 mmol/L (22-29); Chloride 95 mmol/L (98-107); Globulin 2.4 g/dL (1.3-4.6); Glucose 76 mg/dL (65-115); Osmolality Calculated 282 mOsm/kg (285-295); Sodium 136 mmol/L (136-145); Total Bilirubin 0.3 mg/dL (0.15-1.2); Total Protein 4.8 g/dL (6.6-8.7)
[2020-11-03 05:56] LABS: Magnesium 1.9 mg/dL (1.7-2.3)
[2020-11-03 05:57] LABS: Anion Gap 10.5 (5-19); Potassium 3.5 mmol/L (3.5-5.1)
[2020-11-03] MEDS: levothyroxine 112 mcg Tablet PO (08:39)
[2020-11-03] MEDS: potassium chloride ER 20 mEq Tablet PO ×2 (08:39→17:16)
[2020-11-03] MEDS: magnesium oxide 400 mg tablet PO (17:16)
[2020-11-03] MEDS: aspirin 81 mg EC Tablet PO (17:16)
--- NOTE | 2020-11-03 18:23 | PC.NURSE ---
SHIFT SUMMARY PATIENT HAS DONE WELL TODAY. AMBULATING WITH STAND-BY ASSISTANCE. EDEMA IS GREATLY IMPROVED. MINIMAL COMPLAINTS OF PAIN. GOOD URINE OUTPUT. URINE IS DARK IN COLOR. BP ON THE SOFTER SIDE TODAY, PATIENT ASYMPTOMATIC. NO COMPLAINTS AT THIS TIME.
[2020-11-03] MEDS: dicyclomine 10 mg Capsule PO (20:06)
[2020-11-03] MEDS: donepezil 5 MG Tablet PO (20:06)
--- NOTE | 2020-11-03 20:35 | PM.PN ---
Subjective Subjective: Interval history: She has been diuresing well. Left hand feels little bit better, but still feels somewhat swollen and with paresthesia. Vitals/I&O/Wt Last Vital Signs Temp 97.5 F L 11/03/20 15:17 Pulse 66 11/03/20 15:17 Resp 18 11/03/20 15:17 BP 105/64 11/03/20 15:17 Pulse Ox 96 11/03/20 15:17 11/03/20 11/03/20 11/03/20 06:59 14:59 22:59 Intake Total 50 / 872 840 / 840 Output Total 2200 / 4850 430 / 430 200 / 630 Balance -2150 / -3978 410 / 410 -200 / 210 Weight last 48 hrs Weight 69.082 kg Weight 71.758 kg Physical Exam Const: COMMON NORMALS: no acute distress and patient oriented x3 HENMT: COMMON NORMALS: oropharynx normal Neck/C-Spine: COMMON NORMALS: no JVD Resp: COMMON NORMALS: normal respiratory effort and clear to auscultation bilaterally AUSCULTATION: clear to auscultation bilaterally Cardio: COMMON NORMALS: no JVD, regular rhythm, S1 normal heart sound present, S2 normal heart sound present and No murmurs present (Cardio) RHYTHM: regular rhythm HEART SOUNDS: S1 normal heart sound present and S2 normal heart sound present GI: COMMON NORMALS: Normal to inspection, nondistended, normoactive bowel sounds present, Soft to palpation and non-tender PALPATION: Yes Soft to palpation Extremity: COMMON NORMALS: no joint enlargement GENERAL: Yes edema (3+) OTHER: Minimal swelling of her hands, worse on the left side. Hands and digits well perfused. Neuro: COMMON NORMALS: patient oriented x3 and moves all extremities Skin: COMMON NORMALS: no rashes or lesions noted GENERAL SKIN EXAM: no rashes or lesions noted Urinary Catheter Management^: [facility]: Cath Placed During This Visit: yes Reason for Continuing Indwelling Catheter: Other Urinary Catheter Date of Insertion: 11/01/20 Urinary Catheter Time of Insertion: 19:36 Data : 11/03/20 05:20 11/03/20 05:20 A&P Assessment and plan (1) CHF (congestive heart failure), NYHA class III: She is diuresing very well, although this morning blood pressure soft. We held diuretic temporarily. She overall is gradually improving. Edema is slowly coming down. If blood pressure stabilizes will resume diuretic. Continue to replace electrolytes as needed. Discussed echocardiography results with cardiology. Appreciate assessment. Status: Acute Qualifiers: Congestive heart failure type: diastolic Congestive heart failure chronicity: acute on chronic Qualified Code(s): I50.33 - Acute on chronic diastolic (congestive) heart failure (2) Alkaline phosphatase elevation: Incidentally noted alkaline phosphatase elevation, at least since April, appears about similar. Normal GGT. possibly secondary to congestive hepatopathy. No abdominal pain. No right upper quadrant discomfort. Status: Acute (3) D-dimer, elevated: Incidentally noted D-dimer elevation, denies chest pain, no cough, no tachypnea, no tachycardia. Saturating well on room air. No signs of VTE. Lower extremity duplex negative for DVT. Status: Acute (4) Hypothyroidism: TSH 12.86. Increased levothyroxine dose to 112 Status: Chronic Additional A&P Information PPM GERD History of TIA History of HTN Pseudoaneurysm of femoral artery Anemia Mild dementia Attestations Medical Necessity Statement*: Continue admission for assessment of management of CHF exacerbation, anasarca, in the setting of advanced age, aortic stenosis. 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
--- NOTE | 2020-11-03 21:42 | PM.PN ---
Subjective Subjective: Interval history: She feels much better, UO pretty robust overnight Medications: Reviewed: Yes Vitals/I&O/Wt Last Vital Signs Temp 97.7 F 11/03/20 20:35 Pulse 60 11/03/20 20:35 Resp 18 11/03/20 20:35 BP 104/58 11/03/20 20:35 Pulse Ox 95 11/03/20 20:35 11/03/20 11/03/20 11/03/20 06:59 14:59 22:59 Intake Total 50 / 872 840 / 840 Output Total 2200 / 4850 430 / 430 200 / 630 Balance -2150 / -3978 410 / 410 -200 / 210 Weight last 48 hrs Weight 152 lb 4.8 oz Weight 158 lb 3.2 oz Physical Exam Narrative: EXAM NARRATIVE: GENERAL: Averagely built and averagely nourished in no acute distress HEENT: No pallor or icterus. NECK: central trachea, elevated JVD, No carotid bruit. CARDIOVASCULAR SYSTEM: S1-S2 regular. No S3 or S4 present. No murmur rubs or gallops. RESPIRATORY SYSTEM: Chest clear to auscultation. No wheezes rhonchi or rubs heard. No use of accessory muscles. ABDOMEN: Soft, nontender and nondistended. Normal bowel sounds present. EXTREMITIES: No cyanosis or clubbing. 2+ bilateral edema. No signs of chronic venous insufficiency. SENIOR PROJECT MANAGER ENGINEERING: Patient is alert oriented ?3. No focal neurological deficits. SKIN: Normal turgor and temperature. No breakdown, rash or nail changes noted. PSYCH: Normal insight and judgment. Urinary Catheter Management^: [facility]: Cath Placed During This Visit: yes Reason for Continuing Indwelling Catheter: Other Urinary Catheter Date of Insertion: 11/01/20 Urinary Catheter Time of Insertion: 19:36 Data : 11/03/20 05:20 11/03/20 05:20 Attestation for Other Data: I personally reviewed and interpreted the following: Other data: TTE (11/02/20) CONCLUSIONS 1. This is a technically difficult study. 2. Normal left ventricular cavity size. Increased left ventricular wall thickness. Normal left ventricular systolic function. Left ventricular ejection fraction is estimated at 55 %. Grade I diastolic dysfunction (abnormal relaxation filling pattern), normal to mildly elevated filling pressures. 3. TAVR bioprosthesis in situ. Peak prosthetic aortic jet velocity of 2.7 m/s, dimensionless valve index of 0.32 and AT 78 msec. Peak gradient of 31 and mean gradient of 18 mmHg. No significant prosthesis aortic valve stenosis. 4. Mild mitral and tricuspid valve regurgitation. A&P Assessment and plan (1) CHF (congestive heart failure), NYHA class III: Normal RV function and no significant prosthetic aortic valve stenosis. -low normal LV function with markedly dyssynchronus septal motion d/t RV pacing .With recurrent episodes may consider RANCH HAND SUPERVISOR upgrade. Patient is pacemaker dependant. -Patient is diuresing well with IV Lasix. Lasix held this morning by primary team - Recommend resuming Lasix 40 mg IV every 12 hr for another day. -Replace electrolytes as needed. Status: Acute Qualifiers: Congestive heart failure type: diastolic Congestive heart failure chronicity: acute on chronic Qualified Code(s): I50.33 - Acute on chronic diastolic (congestive) heart failure (2) S/P TAVR (transcatheter aortic valve replacement): No significant prosthetic valve stenosis; Status: Chronic (3) Pacemaker: Functioning well; patient is pacemaker dependent Status: Chronic Additional A&P Information Hypertension History of TIAs Anemia Dementia Chronic lower extremity swelling Hypokalemia Hypomagnesemia Hypothyroidism: Thank you for allowing me to participate in patient's care. Please feel free to call with questions or concerns Attestations Medical Necessity Statement*: As per primary team Time Spent in Patient Care: 16 - 35 minutes (>than 50% of time spent in counselling and/or direct pt care on unit). Coding Level of Care Code Acute Accounting Machine Servicer for Magda Phelps Diagnoses CHF (congestive heart failure), NYHA class III I50.33 Congestive heart failure type: diastolic Congestive heart failure chronicity: acute on chronic S/P TAVR (transcatheter aortic valve replacement) Z95.2 Pacemaker Z95.0
[2020-11-04 05:05] VITALS: BP 110/56; PULSE 64; RESP 17; TEMP 36.5; O2SAT 96
[2020-11-04] MEDS: pantoprazole DR 40 mg Tablet PO (06:19)
[2020-11-04] MEDS: heparin 5,000 unit/mL INJ 1 mL 5000 UNIT SUBCUT ×3 (06:26→21:54)
[2020-11-04 06:29] LABS: Basophils % 0.6 %; Eosinophils % 0.6 %; Hematocrit 30.5 % (37.0-47.0); Hemoglobin 9.8 g/dL (11.5-15.3); Lymphocytes # 0.9 10^3/uL (0.8-4.8); Lymphocytes % 27.8 %; Mean Corpuscular HGB Conc 32.1 g/dL (30.0-36.0); Mean Corpuscular Hemoglobin 30.3 pg (28.0-34.0); Mean Corpuscular Volume 94.4 fL (81-99); Mean Platelet Volume 9.9 fL (7.4-10.4); Monocytes # 0.3 10^3/uL (0.2-0.9); Monocytes % 7.4 %; Neutrophils # 2.13 10^3/uL (1.8-7.7); Nucleated Red Blood Cells % 0 %; Platelet Count 286 10^3/cmm (130-400); Red Blood Count 3.23 10^6/uL (4.1-5.3); Red Cell Distribution Width 14.5 % (12.1-15.1); White Blood Count 3.4 10^3/uL (4.0-10.0)
[2020-11-04 06:53] LABS: Alanine Aminotransferase 16 U/L (0-33); Albumin Level 2.2 g/dL (3.5-5.2); Alkaline Phosphatase 101 IU/L (35-105); Anion Gap 8.6 (5-19); Aspartate Amino Transferase 19 U/L (0-32); Blood Urea Nitrogen 12 mg/dL (8-23); Calcium 7.4 mg/dL (8.5-10.5); Carbon Dioxide 35 mmol/L (22-29); Chloride 100 mmol/L (98-107); Globulin 2.3 g/dL (1.3-4.6); Glucose 74 mg/dL (65-115); Osmolality Calculated 288 mOsm/kg (285-295); Potassium 3.6 mmol/L (3.5-5.1); Sodium 140 mmol/L (136-145); Total Bilirubin 0.2 mg/dL (0.15-1.2); Total Protein 4.5 g/dL (6.6-8.7)
[2020-11-04 07:20] LABS: Magnesium 1.7 mg/dL (1.7-2.3)
[2020-11-04 08:00] VITALS: BP 95/57; PULSE 66; RESP 17; TEMP 36.6; O2SAT 97
[2020-11-04] MEDS: levothyroxine 112 mcg Tablet PO (08:59)
[2020-11-04] MEDS: potassium chloride ER 20 mEq Tablet PO ×2 (08:59→17:40)
[2020-11-04] MEDS: FUROsemide 10 mg/mL SDV 4mL 40 MG IVP ×2 (08:59→21:54)
--- NOTE | 2020-11-04 09:26 | PC.CHAP ---
Pastoral Care Encounter/Spiritual Assessment Type of Contact [] Declined sexual health physician visit [] Patient/Family/Request visit [] Outpatient visit [] Follow-up visit [] Physician referral [] Code/Alert [x] Routine visit [] Staff referral [] Actively dying [] Patient sleeping [] Family support [] [] Out of room [] Palliative care [] [] Receiving care in room [] Pre-surgical visit [] Trauma [] Long length of stay [] ICU visit [] Other: Relational/Emotional Strength [x] Patient feels connected with others/family/visitors/staff [] Distress [] Loneliness/isolation [] Abandonment Spirituality of Patient [x] Person of [place] [x] Attends [facility] of their [place] [x] Believes in Prayer [] Reads Bible or Spiritism materials [] There are Spiritual issues to be addressed Drug Room Operator Interventions [x] Prayer [x] Active listening [] Non-anxious presence [] Spiritual/emotional support [] Crisis/trauma care [] Spiritual counseling [] Bereavement support [] Provided bereavement packet [] Provided Bible/devotional materials [] Provided toy/stuffed animal, coloring book to patient or family member [] Provided Communion [] Anointing/[place] [] Salvation [x] Completed spiritual assessment [] Other: Impact on Illness or Injury [] Angry [] Fearful [] Anxious [] Often cries [] Exhaustion [] Unable to work [] Unable to attend religious [] Unable to walk/stand [] Unable to read [] Unable to drive [] Unable to eat/drink [] Unable to sleep [] Unable to be with family [] Patient intubated [] Other: Summary Time spent with patient 10 min
[2020-11-04 12:00] VITALS: BP 107/60; PULSE 68; RESP 17; TEMP 36.4; O2SAT 100
--- NOTE | 2020-11-04 12:51 | PC.NURSE ---
Phone Daughter Kim was updated about patient getting lasix and wanting to keep her again for another day.
--- NOTE | 2020-11-04 13:40 | PC.SOCIAL ---
*IMM UPDATE* manager baby gave patient IMM update and provided copy of page 2. 11/04/20 @ 1006 Initialed, dated, timed and placed in chart.
--- NOTE | 2020-11-04 14:57 | P.PN_ITS ---
Subjective Subjective: Interval history: She is doing all right today. Denies shortness breath or chest pain. Says her left hand is little better. Was wearing a brace for a while, but she can no for now. Legs are feeling perhaps less heavy, although still feels somewhat weak getting in and out of bed. Vitals/I&O/Wt Last Vital Signs Temp 97.5 F L 11/04/20 12:00 Pulse 68 11/04/20 12:00 Resp 17 11/04/20 12:00 BP 107/60 11/04/20 12:00 Pulse Ox 100 11/04/20 12:00 11/03/20 11/04/20 11/04/20 22:59 06:59 14:59 Intake Total 260 / 1100 600 / 600 Output Total 350 / 780 650 / 1430 1000 / 1000 Balance -90 / 320 -650 / -330 -400 / -400 Weight last 48 hrs Weight 68.946 kg Weight 69.082 kg Physical Exam Const: COMMON NORMALS: no acute distress and patient oriented x3 HENMT: COMMON NORMALS: oropharynx normal Neck/C-Spine: COMMON NORMALS: no JVD Resp: COMMON NORMALS: normal respiratory effort and clear to auscultation bilaterally AUSCULTATION: clear to auscultation bilaterally Cardio: COMMON NORMALS: no JVD, regular rhythm, S1 normal heart sound present, S2 normal heart sound present and No murmurs present (Cardio) RHYTHM: regular rhythm HEART SOUNDS: S1 normal heart sound present and S2 normal heart sound present GI: COMMON NORMALS: Normal to inspection, nondistended, normoactive bowel sounds present, Soft to palpation and non-tender PALPATION: Yes Soft to palpation Extremity: COMMON NORMALS: no joint enlargement GENERAL: Yes edema (3+, improving) OTHER: Minimal swelling of her hands, worse on the left side. Hands and digits well perfused. Neuro: COMMON NORMALS: patient oriented x3 and moves all extremities Skin: COMMON NORMALS: no rashes or lesions noted GENERAL SKIN EXAM: no rashes or lesions noted Urinary Catheter Management^: [facility]: Cath Placed During This Visit: yes Reason for Continuing Indwelling Catheter: Other Urinary Catheter Date of Insertion: 11/01/20 Urinary Catheter Time of Insertion: 19:36 Data : 11/04/20 05:55 11/04/20 05:55 A&P Assessment and plan (1) CHF (congestive heart failure), NYHA class III: Still significant edema, although showing improvement from quite severe on presentation. Blood pressure improved. Resume IV diuretic. Appreciate cardiology recommendations. Continue to diurese through the day. Reassess tomorrow. If continues to improve, doing well, tentatively plan to return home tomorrow. Mobilize. Continue PT and OT. Status: Acute Qualifiers: Congestive heart failure type: diastolic Congestive heart failure chronicity: acute on chronic Qualified Code(s): I50.33 - Acute on chronic diastolic (congestive) heart failure (2) Alkaline phosphatase elevation: Alkaline phosphatase elevation appears to be resolving with diuresis. Incidentally noted alkaline phosphatase elevation, at least since April, appears about similar. Normal GGT. Suspect secondary to congestive hepatopathy. No abdominal pain. No right upper quadrant discomfort. Status: Acute (3) D-dimer, elevated: Incidentally noted D-dimer elevation, denies chest pain, no cough, no tachypnea, no tachycardia. Saturating well on room air. No signs of VTE. Lower extremity duplex negative for DVT. Status: Acute (4) Hypothyroidism: TSH 12.86. Increased levothyroxine dose to 112 Status: Chronic Additional A&P Information PPM GERD History of TIA History of HTN Pseudoaneurysm of femoral artery Anemia Mild dementia Attestations Medical Necessity Statement*: Continue admission for management of CHF exacerbation unresponsive to outpatient therapy, gradually improving, complicated by low blood pressures, continue mobilization in preparation for discharge home, disposition planning. Coding Level of Care Code Acute Sofa Cover Inspector for Magda Phelps Diagnoses CHF (congestive heart failure), NYHA class III I50.33 Congestive heart failure type: diastolic Congestive heart failure chronicity: acute on chronic Alkaline phosphatase elevation R74.8 D-dimer, elevated R79.89 Hypothyroidism E03.9
[2020-11-04 16:00] VITALS: BP 112/74; PULSE 65; RESP 18; TEMP 36.6; O2SAT 98
[2020-11-04] MEDS: aspirin 81 mg EC Tablet PO (17:40)
[2020-11-04] MEDS: magnesium oxide 400 mg tablet PO (17:40)
--- NOTE | 2020-11-04 18:45 | PM.PN ---
Subjective Subjective: Interval history: She feels well. She was sitting in chair at the time of examination. Length of stay -7 L, urine output 9.7 L . --300 mL yesterday, urine output 1400 mL TODAY so far. She is eager to go home and get Solis catheter removed. Medications: Reviewed: Yes Medication Review Details: Current Medications Acetaminophen (Acetaminophen 500 Mg Tablet) 0 mg PO Q6H PRN PRN Reason: MILD PAIN OR INCREASE TEMP Last Admin: 11/03/20 02:10 Dose: 1,000 mg Documented by: Aspirin (Aspirin 81 Mg Ec Tablet) 81 mg PO QPM REPLACED BY [facility] Last Admin: 11/04/20 17:40 Dose: 81 mg Documented by: Dicyclomine HCl (Dicyclomine 10 Mg Capsule) 10 mg PO TID PRN PRN Reason: Abdominal Discomfort Last Admin: 11/03/20 20:06 Dose: 10 mg Documented by: Donepezil HCl (Donepezil 5 Mg Tablet) 5 mg PO BEDTIME REPLACED BY [facility] Last Admin: 11/03/20 20:06 Dose: 5 mg Documented by: Fluticasone Propionate (Fluticasone Nasal [place] 16gm Btl) 2 [facility] [place] Last Admin: 11/04/20 06:28 Dose: Not Given Documented by: Furosemide (Furosemide 10 Mg/Ml Sdv 4ml) 40 mg IVP Q12H REPLACED BY [facility] Last Admin: 11/04/20 08:59 Dose: 40 mg Documented by: Heparin Sodium (Beef Lung) (Heparin 5,000 Unit/Ml Inj 1 Ml) 5,000 unit SUBCUT Q8H REPLACED BY [facility] Last Admin: 11/04/20 12:41 Dose: 5,000 unit Documented by: Levothyroxine Sodium (Levothyroxine 112 Mcg Tablet) 112 mcg PO DAILY REPLACED BY [facility] Last Admin: 11/04/20 08:59 Dose: 112 mcg Documented by: Magnesium Oxide (Magnesium Oxide 400 Mg Tablet) 400 mg PO QPM REPLACED BY [facility] Last Admin: 11/04/20 17:40 Dose: 400 mg Documented by: Non-Formulary Medication (Calcium Acetate) 1 tab PO BID REPLACED BY [facility] Last Admin: 11/04/20 17:40 Dose: Not Given Documented by: Pantoprazole Sodium (Pantoprazole Dr 40 Mg Tablet) 40 mg PO QAM REPLACED BY [facility] Last Admin: 11/04/20 06:19 Dose: 40 mg Documented by: Potassium Chloride (Potassium Chloride Er 20 Meq Tablet) 20 meq PO BID [facility] Last Admin: 11/04/20 17:40 Dose: 20 meq Documented by: Vitals/I&O/Wt Last Vital Signs Temp 97.8 F 11/04/20 16:00 Pulse 65 11/04/20 16:00 Resp 18 11/04/20 16:00 BP 112/74 11/04/20 16:00 Pulse Ox 98 11/04/20 16:00 11/04/20 11/04/20 11/04/20 06:59 14:59 22:59 Intake Total 600 / 600 120 / 720 Output Total 650 / 1430 1000 / 1000 400 / 1400 Balance -650 / -330 -400 / -400 -280 / -680 Weight last 48 hrs Weight 152 lb Weight 152 lb 4.8 oz Physical Exam Narrative: EXAM NARRATIVE: GENERAL: Averagely built and averagely nourished in no acute distress HEENT: No pallor or icterus. NECK: central trachea, elevated JVD, No carotid bruit. CARDIOVASCULAR SYSTEM: S1-S2 regular. No S3 or S4 present. No murmur rubs or gallops. RESPIRATORY SYSTEM: Chest clear to auscultation. No wheezes rhonchi or rubs heard. No use of accessory muscles. ABDOMEN: Soft, nontender and nondistended. Normal bowel sounds present. EXTREMITIES: No cyanosis or clubbing. 2+ bilateral lower leg edema. No signs of chronic venous insufficiency. SLOPE TENDER: Patient is alert oriented ?3. No focal neurological deficits. SKIN: Normal turgor and temperature. No breakdown, rash or nail changes noted. PSYCH: Normal insight and judgment. Urinary Catheter Management^: [facility]: Cath Placed During This Visit: yes Reason for Continuing Indwelling Catheter: Other Urinary Catheter Date of Insertion: 11/01/20 Urinary Catheter Time of Insertion: 19:36 Data : 11/04/20 05:55 11/04/20 05:55 A&P Assessment and plan (1) CHF (congestive heart failure), NYHA class III: Normal RV function and no significant prosthetic aortic valve stenosis. 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 Patient is pacemaker dependant. -Patient is diuresing well with IV Lasix. Lasix held this morning by primary team - continue Lasix 40 mg IV every 12 hr today. -Transition to lasix 80 mg daily and potassium 20 meq BID on discharge. -She may be discharged tomorrow late morning, DC Solis catheter tomorrow morning. -Follow-up with me in 1 week and [facility]. Follow-up BMP in 1 week. -Replace electrolytes as needed. -He was advised on compliance with medications, fluid restriction and use of compression socks knee high (30-40 mm Hg) Status: Acute Qualifiers: Congestive heart failure type: diastolic Congestive heart failure chronicity: acute on chronic Qualified Code(s): I50.33 - Acute on chronic diastolic (congestive) heart failure (2) S/P TAVR (transcatheter aortic valve replacement): No significant prosthetic valve stenosis; Status: Chronic (3) Pacemaker: Functioning well; patient is pacemaker dependent Status: Chronic Additional A&P Information History of TIAs Anemia Dementia Chronic lower extremity swelling Hypokalemia Hypomagnesemia Hypothyroidism: Thank you for allowing me to participate in patient's care. Please feel free to call with questions or concerns Attestations Medical Necessity Statement*: As per primary team Time Spent in Patient Care: Greater than 35 minutes (>than 50% of time spent in counselling and/or direct pt care on unit). Coding Level of Care Code Acute Digital Press Operator for Magda Phelps Diagnoses CHF (congestive heart failure), NYHA class III I50.33 Congestive heart failure type: diastolic Congestive heart failure chronicity: acute on chronic S/P TAVR (transcatheter aortic valve replacement) Z95.2 Pacemaker Z95.0
[2020-11-04 19:40] VITALS: BP 103/66; PULSE 60; RESP 18; TEMP 36.3; O2SAT 97
[2020-11-04] MEDS: donepezil 5 MG Tablet PO (21:54)
[2020-11-05] VITALS: BP 98/62; PULSE 63; RESP 18; TEMP 36.6; O2SAT 96
[2020-11-05 04:00] VITALS: BP 110/70; PULSE 70; RESP 18; TEMP 36.9; O2SAT 93
[2020-11-05] MEDS: pantoprazole DR 40 mg Tablet PO (06:06)
[2020-11-05] MEDS: heparin 5,000 unit/mL INJ 1 mL 5000 UNIT SUBCUT ×2 (06:06→12:36)
[2020-11-05] MEDS: fluticasone nasal spray 16gm Btl 2 SPRAY INTRANASAL (06:06)
[2020-11-05 06:38] LABS: Basophils % 0.6 %; Eosinophils % 0.3 %; Hemoglobin 10.1 g/dL (11.5-15.3); Lymphocytes % 29.6 %; Mean Corpuscular HGB Conc 31.6 g/dL (30.0-36.0); Mean Corpuscular Hemoglobin 30.2 pg (28.0-34.0); Mean Corpuscular Volume 95.8 fL (81-99); Mean Platelet Volume 9.6 fL (7.4-10.4); Monocytes # 0.3 10^3/uL (0.2-0.9); Monocytes % 9.5 %; Neutrophils # 2.07 10^3/uL (1.8-7.7); Neutrophils % 59.4 %; Nucleated Red Blood Cells % 0 %; Platelet Count 294 10^3/cmm (130-400); Red Blood Count 3.34 10^6/uL (4.1-5.3); Red Cell Distribution Width 14.6 % (12.1-15.1); White Blood Count 3.5 10^3/uL (4.0-10.0)
[2020-11-05 07:12] LABS: Blood Urea Nitrogen 11 mg/dL (8-23); Calcium 7.7 mg/dL (8.5-10.5); Carbon Dioxide 35 mmol/L (22-29); Chloride 98 mmol/L (98-107); Glucose 72 mg/dL (65-115); Osmolality Calculated 286 mOsm/kg (285-295); Sodium 139 mmol/L (136-145)
[2020-11-05 07:51] VITALS: BP 103/63; PULSE 68; RESP 18; TEMP 36.4; O2SAT 97
[2020-11-05] MEDS: FUROsemide 10 mg/mL SDV 4mL 40 MG IVP (10:08)
[2020-11-05] MEDS: levothyroxine 112 mcg Tablet PO (10:09)
[2020-11-05] MEDS: potassium chloride ER 20 mEq Tablet PO (10:09)
[2020-11-05 11:00] VITALS: BP 113/76; PULSE 70; RESP 18; TEMP 36.6; O2SAT 98
[2020-11-05 15:39] VITALS: BP 115/72; PULSE 73; RESP 18; TEMP 37; O2SAT 98
--- NOTE | 2020-11-05 17:14 | P.DS_ITS ---
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 Was admitted for assessment management of failed to respond to outpatient treatment congestive heart failure exacerbation. On admission also with noted soft blood pressure, 100/60, due to which was assessed by echocardiography to reassess aortic valve for possible restenosis. Was assessed by cardiology. She is found to have normal ejection fraction, 55%, grade 1 diastolic dysfunction, with noted TAVR bioprosthesis in situ, peak prosthetic aortic jet velocity 2.7 m/s, dimensionless valve index of 0.32 and AT 78 ms. Peak gradient 31 and mean gradient 18. Without noted significant prosthesis that should not affect her blood pressures. Mild MVR and TVR. She was treated while in hospital with IV diuretics, with 40 mg IV Lasix every 12 hours. On presentation she was found to have elevated D-dimer, although without signs of PE, without respiratory symptoms of any kind, no chest pain or discomfort, no tachypnea, cough, hemoptysis. No tachycardia. Was assessed by lower extremity duplex which was negative for DVT. D-dimer elevation may be related to TAVR. Incidentally noted mild elevation of alkaline phosphatase relationally, resolved with diuresis, and it appears may have been secondary to congestive hepatopathy. Please follow-up alkaline phosphatase for resolution. Consider follow-up on D-dimer. Hypothyroidism also assessed with TSH elevated at 12.86. Levothyroxine dose increased from 100 to 112 mcg. Please follow-up thyroid function. On reassessment by cardiology she was found to have significant improvement in CHF symptoms, lower extremity edema with diuresis and was cleared for discharge with instructions to continue 80 mg of Lasix daily for now until follow-up. Renal function remained stable. Blood pressure remains soft but stable, 115/72. Subjectively she is feeling much better, and cannot wait to go home, requesting several times to be discharged. 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 She has no chest pain or pressure. No shortness of breath. She ambulated very well with physical therapy. He is to continue home exercise program. Physical Exam Const: COMMON NORMALS: no acute distress and patient oriented x3 HENMT: COMMON NORMALS: oropharynx normal Neck/C-Spine: COMMON NORMALS: no JVD Resp: COMMON NORMALS: normal respiratory effort and clear to auscultation bilaterally AUSCULTATION: clear to auscultation bilaterally Cardio: COMMON NORMALS: no JVD, regular rhythm, S1 normal heart sound present, S2 normal heart sound present and No murmurs present (Cardio) RHYTHM: regular rhythm HEART SOUNDS: S1 normal heart sound present and S2 normal heart sound present GI: COMMON NORMALS: Normal to inspection, nondistended, normoactive bowel sounds present, Soft to palpation and non-tender PALPATION: Yes Soft to palpation Extremity: COMMON NORMALS: no joint enlargement GENERAL: Yes edema (3+, improving) OTHER: Minimal swelling of her hands, worse on the left side. Hands and digits well perfused. Neuro: COMMON NORMALS: patient oriented x3 and moves all extremities Skin: COMMON NORMALS: no rashes or lesions noted GENERAL SKIN EXAM: no rashes or lesions noted Urinary Catheter Management^: [facility]: Cath Placed During This Visit: yes, but has since been removed by the nurse Reason for Continuing Indwelling Catheter: Decision to DC Catheter Urinary Catheter Date of Insertion: 11/01/20 Urinary Catheter Time of Insertion: 19:36 Date Urinary Catheter Removed: 11/05/20 Time Urinary Catheter Discontinued: 09:40 Discharge Data Data Completed and Pending: Completed Studies During Hospitalization Category Date Time Status XR chest 1V almita ble [id number] Urgent Exams 11/01/20 14:41 Completed CV echo complete* [id number] Routine Ultrasound 11/02/20 21:03 [place] [id number] Urgent Ultrasound 11/01/20 14:49 Completed Pending at discharge Category Date Time Status Basic Metabolic P marta AM LABS Lab 11/06/20 04:00 Ordered Basic Metabolic P marta AM LABS Lab 11/07/20 04:00 Ordered Complete Blood Co unt w/Auto AM LABS Lab 11/06/20 04:00 Ordered Complete Blood Co unt w/Auto AM LABS Lab 11/07/20 04:00 Ordered Labs from last 24 hours 11/05/20 11/05/20 05:48 05:48 WBC 3.5 L RBC 3.34 L Hgb 10.1 L Hct 32.0 L MCV 95.8 MCH 30.2 MCHC 31.6 RDW 14.6 Plt Count 294 MPV 9.6 Neut % (Auto) 59.4 Lymph % (Auto) 29.6 [place] % (Auto) 9.5 Eos % (Auto) 0.3 Baso % (Auto) 0.6 Neut # (Auto) 2.07 Lymph # (Auto) 1.0 [place] # (Auto) 0.3 Eos # (Auto) 0.0 Baso # (Auto) 0.0 Nucleated RBC % (a uto) 0 Nucleated RBCs # 0.0 Sodium 139 Potassium 4.0 Chloride 98 Carbon Dioxide 35 H Anion Gap 10.0 BUN 11 Creatinine 0.4 L GFR Calculation Not Reportable Glucose 72 Calculated Osmolal ity 286 Calcium 7.7 L Vitals: Last Vital Signs Temp 98.6 F 11/05/20 15:39 Pulse 73 11/05/20 15:39 Resp 18 11/05/20 15:39 BP 115/72 11/05/20 15:39 Pulse Ox 98 11/05/20 15:39 Discharge Plan Discharge Patient Disposition: Home Condition: Stable Prescriptions: New levothyroxine 112 mcg Tablet 112 mcg PO DAILY Qty: 30 RF: 0 Continued aspirin [Adult Aspirin Regimen] 81 mg tablet,delayed release (DR/EC) 81 mg PO QPM RF: 0 dicyclomine 10 mg capsule 10 mg PO TID PRN (Reason: Abdominal Discomfort) RF: 0 donepezil 5 mg tablet 5 mg PO BEDTIME RF: 0 pantoprazole 40 mg tablet,delayed release (DR/EC) 40 mg PO QAM RF: 0 magnesium oxide 400 mg (241.3 mg magnesium) tablet 400 mg PO QPM RF: 0 cyanocobalamin (vitamin B-12) 1,000 mcg/mL solution 1,000 mcg IM Q30D RF: 0 fluticasone propionate 50 mcg/actuation spray,suspension 2 spray INTRANASAL QAM RF: 0 Multiple Vitamin, Womens Tablet 1 tab PO QAM RF: 0 acetaminophen-codeine 300-30 mg tablet 1 tab PO Q6H PRN (Reason: Pain) RF: 0 Zinc Orotate 60 mg PO QPM RF: 0 calcium acetate 1 tab PO BID RF: 0 potassium chloride 20 mEq tablet,ER particles/crystals See Rx Instructions .ROUTE .COMPLEX RF: 0 Changed furosemide 40 mg tablet 80 mg PO QAM Qty: 60 RF: 0 Discontinued levothyroxine 100 mcg tablet 100 mcg PO QAM RF: 0 Discharge Orders: Discharge Order (Routine); Ordered 11/05/20 Ordered By: Everett Caceres Referrals: Sneha Gilman FNP [Nurse Practitioner] - 1 week (Call on Sunday to make an appointment to be seen in a week.) Rachel Up MD [Physician] - 1 month (Call on Sunday to make an appointment to be seen in a month.) Chasity Cruz FNP [Primary Care Provider] - 4-7 days (Call on Sunday to make an appointment to be seen within 4 to 7 days for a hospital follow-up.) Discharge Diet: Cardiac Discharge Activity: Increase activity as tolerated and As per PT/OT instructions Patient Instructions: Heart Failure (GEN), Hypothyroidism (GEN) Activity Restrictions/Additional Instructions: Please 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 Continue Lasix as recommended by cardiology. Monitor your blood pressure 3 times daily. Record values. If your blood pressure starts becoming low, less than 100 top number, or 60 bottom number, hold your diuretic, and contact your cardiology office for additional instructions. If your blood pressure is very low, 80 or less top number, or 40 or less bottom number, please call 911. Please be aware that you are found to have hypothyroidism, due to which you are levothyroxine dose is increased up to 112 mcg. Please discuss with your primary care doctor to follow-up thyroid function. Discuss with your primary doctor regarding pain in your hands with possible carpal tunnel syndrome, so they can follow up and reassess more closely. Please discuss with your primary doctor regarding elevated ddimer incidentally seen. 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
[2020-11-05 17:50] VITALS: BP 115/72; PULSE 73; RESP 18; TEMP 37; O2SAT 98
--- NOTE | 2020-11-05 17:53 | PC.NURSE ---
went over discharge instructions with daughter of patient, the daughter verbalized understanding of those instructions. patient was taken by wheelchair to daughters private vehicle and left.
== END 2020-11-05 15:30 | disposition home or self-care (01) | DRG 293 ==
LOC: ER 14:30 → MEDSURG 17:44
PROVIDERS: Admitting Provider Internal Medicine; Emergency Provider Family Medicine; PCP Nurse Practitioner; Visit Provider Internal Medicine
DX: I11.0 Hypertensive heart disease with heart failure (principal); I50.33 Acute on chronic diastolic (congestive) heart failure; Z95.0 Presence of cardiac pacemaker; Z95.2 Presence of prosthetic heart valve; E03.9 Hypothyroidism, unspecified; Z79.82 Long term (current) use of aspirin; Z86.73 Personal history of transient ischemic attack (TIA), and cerebral infarction without residual deficits; K21.9 Gastro-esophageal reflux disease without esophagitis; F03.90 Unspecified dementia, unspecified severity, without behavioral disturbance, psychotic disturbance, mood disturbance, and anxiety; I35.0 Nonrheumatic aortic (valve) stenosis; E87.6 Hypokalemia; E83.42 Hypomagnesemia; D64.9 Anemia, unspecified
CPT/HCPCS: 36415; 51702; 71045; 80048; 80053; 81003; 82977; 83735; 83880; 84132; 84443; 84484; 85025; 85378; 90471; 90732; 93005; 93306; 93970; 96372; 96374; 97110; 97116; 97161; 97166; 97530; 97535; 99285; J1644; J1940; J3475

== ENCOUNTER 2021-02-26 15:00 | Outpatient (CLI) | payer MEDICARE, SELFPAY ==
--- NOTE | 2021-02-26 | XRR_ITS ---
PROCEDURE INFORMATION: Exam: XR Abdomen Exam date and time: 02/26/2021 12:00 AM Age: 86 years old Clinical indication: Abdominal pain; Generalized; Additional info: Back and hip pain TECHNIQUE: Imaging protocol: XR of the abdomen. Views: Frontal supine view of the abdomen. 1 View. COMPARISON: CR XR acute abdomen series [id number] 04/15/2020 7:19 PM FINDINGS: Gastrointestinal tract: Multiple dilated bowel loops consistent with moderate ileus Bones/joints: Unremarkable. XR/XR KUB [id number] IMPRESSION: Moderate ileus
--- NOTE | 2021-02-26 | XRR_ITS ---
PROCEDURE INFORMATION: Exam: XR Lumbosacral Spine Exam date and time: 02/26/2021 12:00 AM Age: 86 years old Clinical indication: Low back pain; Additional info: Low back and hip pain TECHNIQUE: Imaging protocol: XR of the lumbosacral spine. Views: 2 or 3 views. COMPARISON: CR XR hip RT 2-3V wo/w pel* [id number] 04/14/2020 7:17 PM FINDINGS: Bones/joints: No acute fracture. There is 1st degree spondylolisthesis L4-L5. Osteopenia and osteoarthritis is seen. The pedicles are unremarkable Soft tissues: Unremarkable. XR/XR lumbar spine 2-3V* [id number] IMPRESSION: 1. No acute findings. 2. First degree spondylolisthesis L4-L5. 3. Moderate osteoarthritis the
--- NOTE | 2021-02-26 | XRR_ITS ---
PROCEDURE INFORMATION: Exam: XR Bilateral Hips Exam date and time: 02/26/2021 12:00 AM Age: 86 years old Clinical indication: Hip pain; Bilateral TECHNIQUE: Imaging protocol: XR bilateral hips. Views: 2 views of hips with pelvis when performed. COMPARISON: CR XR hip RT 2-3V wo/w pel* [id number] 04/14/2020 7:17 PM FINDINGS: Bones/joints: Unremarkable. No acute fracture. Soft tissues: Metallic surgical clips right groin XR/XR hip BI m 5V wo/w pel* [id number] IMPRESSION: 1. Negative bilateral hip examination. 2. Metallic clips right groin
== END 2021-02-26 15:01 | disposition home or self-care (01) ==
LOC: RAD 15:17
PROVIDERS: PCP Nurse Practitioner; Visit Provider Nurse Practitioner
DX: M25.551 Pain in right hip (principal); M25.552 Pain in left hip; M54.5 Low back pain; M43.16 Spondylolisthesis, lumbar region; R10.9 Unspecified abdominal pain; K56.7 Ileus, unspecified
CPT/HCPCS: 72100; 73523; 74018

== ENCOUNTER 2021-02-27 08:52 | Inpatient (IN) | payer MEDICARE, SELFPAY ==
[2021-02-27] VITALS (10 sets, daily range): BP systolic 102–116; BP diastolic 65–77; PULSE 78–88; RESP 14–18; TEMP 36.3–36.9; O2SAT 90–97; BMI 24.5
--- NOTE | 2021-02-27 09:47 | CTR_ITS ---
PROCEDURE INFORMATION: Exam: CT Abdomen And Pelvis With Contrast Exam date and time: 02/27/2021 9:47 AM Age: 86 years old Clinical indication: Pain; Other: Low back and hip; Additional info: Bilateral low back pain, bloating, HX of diverticulitis TECHNIQUE: Imaging protocol: Computed tomography of the abdomen and pelvis with contrast. Radiation optimization: All CT scans at this facility use at least one of these dose optimization techniques: automated exposure control; mA and/or kV adjustment per patient size (includes targeted exams where dose is matched to clinical indication); or iterative reconstruction. Contrast material: VISI 320; Contrast volume: 95 ml; Contrast route: INTRAVENOUS (IV); COMPARISON: CT abdomen pelvis w con* [id number] 07/09/2019 6:00 PM RADIATION DOSE METRICS: Total DLP (mGy-cm): 1206.23 FINDINGS: Heart: Possible mitral valve replacement versus high density calcification in the mitral valve annulus. Liver: Normal. No mass. Gallbladder and bile ducts: Enlarged 13.0 x 4.8 cm gallbladder which does not quite fit the criteria for gallbladder hydrops. Pancreas: Normal. No ductal dilation. Spleen: Normal. No splenomegaly. Adrenal glands: Normal. No mass. Kidneys and ureters: Multiple right renal simple cysts with the largest measuring > 1.0 cm . Bilateral nonobstructing renal calyceal stones. Stomach and bowel: Moderate retained feces throughout the colon. Air-filled loops of small bowel up to the 4.7 cm in diameter with possible transition point in an area of rotational volvulus about the superior mesenteric vessels, axial series 2, images 31-48. The narrowed small bowel is identified on image 37. Abnormal small bowel loops in the right abdomen with bowel wall thickening and inflammation in surrounding fat suggesting infectious enteritis versus ischemic enteritis, probably in the distal ileum. Axial series 2, image 29-44. Appendix: No evidence of appendicitis. Intraperitoneal space: Unremarkable. No free air. No significant fluid collection. Vasculature: Calcification of the abdominal aorta and/or iliac arteries consistent with atherosclerotic vessel disease. Calcification of the abdominal aorta and/or iliac arteries consistent with atherosclerotic vessel disease. Arteries: Aortic valve replacement which could be endoscopic replacement. No sternotomy wires. Lymph nodes: Unremarkable. No enlarged lymph nodes. Urinary bladder: Unremarkable as visualized. Reproductive: Unremarkable as visualized. Bones/joints: Moderate to severe multilevel spine degenerative changes including degenerative disc disease, spondylosis and facet degenerative changes. Soft tissues: Unremarkable. CT/CT abdomen pelvis w con* [id number] IMPRESSION: 1. Possible mitral valve replacement versus high density calcification in the mitral valve annulus. 2. Enlarged 13.0 x 4.8 cm gallbladder which does not quite fit the criteria for gallbladder hydrops. 3. Moderate retained feces throughout the colon. 4. Air-filled loops of small bowel up to the 4.7 cm in diameter with possible transition point in an area of rotational volvulus about the superior mesenteric vessels, axial series 2, images 31-48. The narrowed small bowel is identified on image 37. 5. Abnormal small bowel loops in the right abdomen with bowel wall thickening and inflammation in surrounding fat suggesting infectious enteritis versus ischemic enteritis, probably in the distal ileum. Axial series 2, image 29-44. COMMENTS: Consistent with the [employer]'s Incidental Findings Committee white paper (J Am Maximiliano Radiol 2018): Any incidental renal lesion less than 1 cm or classified as too small to characterize, or any incidental cystic renal lesion characterized as simple-appearing, is likely benign. No follow-up imaging is recommended for these lesions per consensus recommendations based on imaging criteria. Radiation Dose CTDIVOL = (mGy): DLP = 1206.23 (mGy-cm)
--- NOTE | 2021-02-27 09:49 | ED_ITS ---
Documented by User: LEAH Soto 02/27/21 13:21 HPI - General Adult General: Chief complaint: General Medical Stated complaint: BACK PAIN Time Seen by Provider: 02/27/21 09:41 History of Present Illness: HPI narrative: Complains about bilateral low back pain/flank pain last few days. Recently treated for urinary tract infection. Had lumbar spine films KUB and hips yesterday which not reveal any significant problem except for small ileus in the bowel. Patient says it hurts to lay in bed to move. She says she is urinating frequently and that her lower extremities are swelling. She has a history of CHF also. Denies nausea vomiting fever chills cough shortness of breath. Onset (ago): day(s) Location: back Severity: moderate Severity scale (1-10): 5 Quality: aching Pain Consistency: constant Exacerbating factors: movement Associated symptoms: Reports no associated symptoms; Deny chest pain, dyspnea, headache(s), nausea, rash or vomiting Review of Systems Const: Denies: fever(s), chills or body aches Eyes: Denies: change in vision or blurry vision ENMT: Denies: throat pain or nasal congestion Card: Reports: swelling of feet/ankles; Denies: chest pain or dyspnea on exertion Resp: Denies: dyspnea, productive cough or non-productive cough GI: Denies: abdominal pain, nausea or vomiting Musc: Reports: back pain; Denies: extremity pain Skin/Breast: Denies: rash Neuro: Denies: headache(s) Psych: Denies: anxiety or depression Jean-Claude/Lymph: Denies: easy bruising PFS ED PFSH: Medical History Anemia iron deficiency, has been on iron injections in past, history of acute blood loss anemia also Aortic valve disease Bowel perforation History of recurrent pneumoperitoneum without symptoms, from unclear source Edema of left lower leg wears compression stocking History of echocardiogram (~10/2019) EF 55% with peak gradient 26 mmHg History of TIAs Prior to aortic valve replacement Hypertension Hypothyroidism 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 Surgical History H/O inguinal hernia repair bilateral H/O knee surgery (~2007) bilateral total knee replacement History of cataract surgery (~2017) bilateral History of esophagogastroduodenoscopy (EGD) History of laparoscopy to eval for source of pneumoperitoneum History of umbilical hernia repair 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, 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) due to aortic stenosis in 2016 23mm Lowe Brooks 3 Family History Daughter Cancer Breast Social History Smoking and tobacco status: never smoked Alcohol intake: never Household members: family Housing: House 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 Physical Exam Const: COMMON NORMALS: no acute distress, average body habitus and patient oriented x3 HENMT: COMMON NORMALS: normocephalic HEAD & SCALP: normal to inspection and normocephalic FACE & SINUS: normal facial exam Eye: COMMON NORMALS: conjunctivae normal GENERAL EYE: appearance normal, both eyes and all related structures CONJUNCTIVA: Yes conjunctivae normal Neck/C-Spine: COMMON NORMALS: no JVD Chest: COMMONS NORMALS: normal inspection of the chest Resp: COMMON NORMALS: normal respiratory effort and clear to auscultation bilaterally AUSCULTATION: clear to auscultation bilaterally Cardio: COMMON NORMALS: no JVD, regular rate and regular rhythm RATE: regular rate RHYTHM: regular rhythm OTHER: 2+ bilateral pitting edema to mid joya GI: COMMON NORMALS: Soft to palpation INSPECTION: Yes abdominal distension AUSCULTATION: Yes Hypoactive bowel sounds present PALPATION: Yes Soft to palpation PERCUSSION: tympanic to percussion : BLADDER/KIDNEY EXAM: Yes CVA tenderness bilateral Back/Pelvis: GENERAL BACK: Yes CVA tenderness Extremity: COMMON NORMALS: normal to inspection and full ROM Neuro: COMMON NORMALS: patient oriented x3 Course Vital Signs: Vital signs: Vital Signs Temperature 98.5 F 02/27/21 09:35 Pulse Rate 88 02/27/21 12:11 Respiratory Rate 15 02/27/21 11:12 Blood Pressure 103/68 02/27/21 09:39 Pulse Oximetry 97 02/27/21 10:17 MDM - General Adult MDM Narrative: Medical decision making narrative: I spoke with Dr. Ashley and then gave Dr. Llanos call. Dr. Meier agrees accept patient is consult mid to hospitalist. I shared labs history and radiology report Dr. Llanos. He asked that we put a NG tube and admit to the hospitalist. Lab Data: Labs: Lab Results 02/27/21 02/27/21 02/27/21 Range/Units 10:24 10:24 11:05 WBC 8.0 (4.0-10.0) 10^3/ uL RBC 4.01 L (4.1-5.3) 10^6/u L Hgb 11.7 (11.5-15.3) g/dL Hct 36.6 L (37.0-47.0) % MCV 91.3 (81-99) fL MCH 29.2 (28.0-34.0) pg MCHC 32.0 (30.0-36.0) g/dL RDW 15.0 (12.1-15.1) % Plt Count 304 (130-400) 10^3/c mm MPV 9.7 (7.4-10.4) fL Neut % (Auto) 78.1 % Lymph % (Auto) 13.2 % Haralson % (Auto) 6.1 % Eos % (Auto) 0.5 % Baso % (Auto) 0.9 % Neut # (Auto) 6.28 (1.8-7.7) 10^3/u L Lymph # (Auto) 1.1 (0.8-4.8) 10^3/u L Haralson # (Auto) 0.5 (0.2-0.9) 10^3/u L Eos # (Auto) 0.0 (0.0-0.8) 10^3/u L Baso # (Auto) 0.1 (0.0-0.1) 10^3/u L Nucleated RBC % (a uto) 0 % Nucleated RBCs # 0.0 /100WBC Sodium 141 (136-145) mmol/L Potassium 3.1 L (3.5-5.1) mmol/L Chloride 93 L (98-107) mmol/L Carbon Dioxide 34 H (22-29) mmol/L Anion Gap 17.1 (5-19) BUN 15 (8-23) mg/dL Creatinine 0.4 L (0.5-0.9) mg/dL GFR Calculation Not Reportable Glucose 102 (65-115) mg/dL Calculated Osmolal ity 293 (285-295) mOsm/k g Calcium 8.7 (8.5-10.5) mg/dL Total Bilirubin 0.3 (0.15-1.2) mg/dL AST 23 (0-32) U/L ALT 13 (0-33) U/L Alkaline Phosphata se 137 H (35-105) IU/L NT-Pro-B Natriuret Pep 671 H (0-450) pg/mL Total Protein 6.4 L (6.6-8.7) g/dL Albumin 3.0 L (3.5-5.2) g/dL Globulin 3.4 (1.3-4.6) g/dL Urine Color Yellow (Yellow) Urine Appearance Clear (CLEAR) Urine pH 5 (5-7) Ur Specific Gravit y 1.020 (1.005-1.030) Urine Protein Neg (Negative) Urine Glucose (UA) Norm (Normal) Urine Ketones Negative (Negative) Urine Blood Neg (Negative) Urine Nitrate Negative (Negative) Urine Bilirubin 1+ H (Negative) Urine Urobilinogen Norm (Negative) mg/dL Ur Leukocyte Lanette ase Negative (Negative) Discharge Plan Discharge Patient Disposition: Admitted As Inpatient Clinical Impression: Hypokalemia, Protein deficiency, Volvulus of intestine Back pain Qualifiers: Back pain location: low back pain Chronicity: chronic Back pain laterality: bilateral Sciatica presence: without sciatica Qualified Code(s): M54.5 - Low back pain Condition: Stable Discharge Diet: As Directed Discharge Activity: Increase activity as tolerated Coding Level of Care Code ED Setter Cold Rolling Machine for g Fwd Exam Comprehensive Documented by User: Mick Carty MD 02/27/21 13:33 HPI - General Adult General: Chief complaint: General Medical Stated complaint: BACK PAIN Time Seen by Provider: 02/27/21 09:41 PFSH ED PFSH: Medical History Anemia iron deficiency, has been on iron injections in past, history of acute blood loss anemia also Aortic valve disease Bowel perforation History of recurrent pneumoperitoneum without symptoms, from unclear source Edema of left lower leg wears compression stocking History of echocardiogram (~10/2019) EF 55% with peak gradient 26 mmHg History of TIAs Prior to aortic valve replacement Hypertension Hypothyroidism 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 Surgical History H/O inguinal hernia repair bilateral H/O knee surgery (~2007) bilateral total knee replacement History of cataract surgery (~2017) bilateral History of esophagogastroduodenoscopy (EGD) History of laparoscopy to eval for source of pneumoperitoneum History of umbilical hernia repair 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 Harvey. He is accepted this patient for admission. Patient was also consulted with Dr. Llanos he was seen as a consult and abdominal volvulus. Time: 13:27 Vital Signs: Vital signs: Vital Signs Temperature 98.5 F 02/27/21 09:35 Pulse Rate 88 02/27/21 12:11 Respiratory Rate 15 02/27/21 11:12 Blood Pressure 103/68 02/27/21 09:39 Pulse Oximetry 97 02/27/21 10:17 [facility] - General Adult Medical Records: Attestation: I reviewed the patient's medical records. Lab Data: Attestation: I reviewed the patient's lab results. Labs: Lab Results 02/27/21 02/27/21 02/27/21 Range/Units 10:24 10:24 11:05 WBC 8.0 (4.0-10.0) 10^3/ uL RBC 4.01 L (4.1-5.3) 10^6/u L Hgb 11.7 (11.5-15.3) g/dL Hct 36.6 L (37.0-47.0) % MCV 91.3 (81-99) fL MCH 29.2 (28.0-34.0) pg MCHC 32.0 (30.0-36.0) g/dL RDW 15.0 (12.1-15.1) % Plt Count 304 (130-400) 10^3/c mm MPV 9.7 (7.4-10.4) fL Neut % (Auto) 78.1 % Lymph % (Auto) 13.2 % Haralson % (Auto) 6.1 % Eos % (Auto) 0.5 % Baso % (Auto) 0.9 % Neut # (Auto) 6.28 (1.8-7.7) 10^3/u L Lymph # (Auto) 1.1 (0.8-4.8) 10^3/u L Haralson # (Auto) 0.5 (0.2-0.9) 10^3/u L Eos # (Auto) 0.0 (0.0-0.8) 10^3/u L Baso # (Auto) 0.1 (0.0-0.1) 10^3/u L Nucleated RBC % (a uto) 0 % Nucleated RBCs # 0.0 /100WBC Sodium 141 (136-145) mmol/L Potassium 3.1 L (3.5-5.1) mmol/L Chloride 93 L (98-107) mmol/L Carbon Dioxide 34 H (22-29) mmol/L Anion Gap 17.1 (5-19) BUN 15 (8-23) mg/dL Creatinine 0.4 L (0.5-0.9) mg/dL GFR Calculation Not Reportable Glucose 102 (65-115) mg/dL Calculated Osmolal ity 293 (285-295) mOsm/k g Calcium 8.7 (8.5-10.5) mg/dL Total Bilirubin 0.3 (0.15-1.2) mg/dL AST 23 (0-32) U/L ALT 13 (0-33) U/L Alkaline Phosphata se 137 H (35-105) IU/L NT-Pro-B Natriuret Pep 671 H (0-450) pg/mL Total Protein 6.4 L (6.6-8.7) g/dL Albumin 3.0 L (3.5-5.2) g/dL Globulin 3.4 (1.3-4.6) g/dL Urine Color Yellow (Yellow) Urine Appearance Clear (CLEAR) Urine pH 5 (5-7) Ur Specific Gravit y 1.020 (1.005-1.030) Urine Protein Neg (Negative) Urine Glucose (UA) Norm (Normal) Urine Ketones Negative (Negative) Urine Blood Neg (Negative) Urine Nitrate Negative (Negative) Urine Bilirubin 1+ H (Negative) Urine Urobilinogen Norm (Negative) mg/dL Ur Leukocyte Lanette ase Negative (Negative) Imaging Data^: CT Abd/Pel: Attestation: I personally reviewed and interpreted this imaging study as follows: Radiologist's impression: Appears to have a small intestinal volvulus. Please see CT report for full evaluation the patient Discharge Plan Discharge Patient Disposition: Admitted As Inpatient Clinical Impression: Hypokalemia, Protein deficiency, Volvulus of intestine Back pain Qualifiers: Back pain location: low back pain Chronicity: chronic Back pain laterality: bilateral Sciatica presence: without sciatica Qualified Code(s): M54.5 - Low back pain Condition: Stable Discharge Diet: As Directed Discharge Activity: Increase activity as tolerated Coding Level of Care Code ED Setter Cold Rolling Machine for Magda Fwd Exam Comprehensive
[2021-02-27] MEDS: ondansetron 2 mg/ML SDV 2 mL 4 MG IVP (10:17)
[2021-02-27] MEDS: morphine 4 mg/mL SDV 1 mL 2 MG IVP (10:17)
[2021-02-27 10:33] LABS: Basophils # 0.1 10^3/uL (0.0-0.1); Basophils % 0.9 %; Eosinophils % 0.5 %; Hematocrit 36.6 % (37.0-47.0); Hemoglobin 11.7 g/dL (11.5-15.3); Lymphocytes # 1.1 10^3/uL (0.8-4.8); Lymphocytes % 13.2 %; Mean Corpuscular Hemoglobin 29.2 pg (28.0-34.0); Mean Corpuscular Volume 91.3 fL (81-99); Mean Platelet Volume 9.7 fL (7.4-10.4); Monocytes # 0.5 10^3/uL (0.2-0.9); Monocytes % 6.1 %; Neutrophils # 6.28 10^3/uL (1.8-7.7); Neutrophils % 78.1 %; Nucleated Red Blood Cells % 0 %; Platelet Count 304 10^3/cmm (130-400); Red Blood Count 4.01 10^6/uL (4.1-5.3)
[2021-02-27 11:11] LABS: Alanine Aminotransferase 13 U/L (0-33); Alkaline Phosphatase 137 IU/L (35-105); Blood Urea Nitrogen 15 mg/dL (8-23); Calcium 8.7 mg/dL (8.5-10.5); Carbon Dioxide 34 mmol/L (22-29); Chloride 93 mmol/L (98-107); Globulin 3.4 g/dL (1.3-4.6); Glucose 102 mg/dL (65-115); NT Pro B Type Natriuretic Pept 671 pg/mL (0-450); Osmolality Calculated 293 mOsm/kg (285-295); Sodium 141 mmol/L (136-145); Total Bilirubin 0.3 mg/dL (0.15-1.2); Total Protein 6.4 g/dL (6.6-8.7)
[2021-02-27 11:15] LABS: Anion Gap 17.1 (5-19); Aspartate Amino Transferase 23 U/L (0-32); Potassium 3.1 mmol/L (3.5-5.1)
[2021-02-27 11:17] LABS: Add Urine Microscopic? NO; Charge for UA Resulting for Rev
[2021-02-27 11:20] LABS: Bilirubin Urine 1+ (Negative); Blood Urine Neg (Negative); Glucose Urine UA Norm (Normal); Ketones Urine Negative (Negative); Nitrate Urine Negative (Negative); Protein Urine Neg (Negative); Urine Appearance Clear (CLEAR); Urine Color Yellow (Yellow); pH Urine 5 (5-7)
[2021-02-27 11:21] LABS: Leukocyte Esterase Urine Negative (Negative); Urobilinogen Urine Norm (Negative)
[2021-02-27] MEDS: iodixanol 320 mg/mL 100mL Btl IV (11:27)
[2021-02-27] MEDS: potassium chloride ER 20 mEq Tablet 40 MEQ PO (11:55)
[2021-02-27] MEDS: CELEcoxib 200 mg Capsule 400 MG PO (12:54)
--- NOTE | 2021-02-27 13:40 | XRR_ITS ---
PROCEDURE INFORMATION: Exam: XR Chest Exam date and time: 02/27/2021 1:40 PM Age: 86 years old Clinical indication: Device placement; Ng tube; Additional info: Ng tube placement TECHNIQUE: Imaging protocol: XR of the chest. Views: 1 view. Total images: 1 COMPARISON: CR XR chest 1V portable [id number] 11/01/2020 2:54 PM FINDINGS: Tubes, catheters and devices: Interval placement of a nasogastric tube tip below the diaphragm just distal to the gastroesophageal junction. Recommend advancing. Pacemaker. Lungs: No visible active interstitial or alveolar airspace disease. Calcified granulomas of antecedent disease. Suspected mild component of COPD/chronic bronchitis. Mild senile fibrosis. Pleural spaces: Unremarkable. No pleural effusion. No pneumothorax. Heart/Mediastinum: Cardiac structures and configuration with mild cardiomegaly. Arteriosclerosis. Bones/joints: Unremarkable for age. XR/XR chest 1V portable [id number] IMPRESSION: Interval placement of a nasogastric tube tip below the diaphragm just distal to the gastroesophageal junction. Recommend advancing. Pacemaker.
[2021-02-27 14:23] LABS: Lactic Sepsis W/Reflex 0.9 mmol/L (0.5-2.2)
--- NOTE | 2021-02-27 15:59 | PM.CONSULT ---
Providers/Reason For Consult Consulting Physician/Specialty*: General Surgery Dr. Llanos Reason for Consult*: Constipation, possible volvulus requiring continued inpatient stay for monitoring Attending Physician: Markel Harvey MD Primary Care Provider: LEAH Sims History of Present Illness History of Present Illness Aide Mitchell is a 86 year old female who presented to the ER mainly with complaints of back pain for the last few days.. Patient had also recently been treated for UTI. She states that she has no abdominal pain, denies any nausea or vomiting and has been having diarrhea for the last few days. She denies any bleeding per rectum. No prior abdominal surgeries. As per patient but in the chart it states that she had laparoscopy for pneumoperitoneum of from unknown origin and umbilical hernia repair Review of Systems General: Reports: 10 or more systems reviewed and unremarkable except in HPI and below Meds/Allergies Home Medications and Allergies Home Medications Medication Instructions Recorded Confirmed Last Taken Type Multiple Vitamin, Womens 1 tab PO QAM 04/14/20 02/27/21 02/26/21 History cyanocobalamin (vitamin B-12) 1,000 mcg IM Q30D 04/14/20 02/27/21 Unknown History fluticasone propionate 2 spray INTRANASAL QAM 04/14/20 02/27/21 04/14/20 History magnesium oxide 400 mg PO QPM 04/14/20 02/27/21 02/26/21 History aspirin 81 mg tablet,delayed 81 mg PO DAILY 05/17/20 02/27/21 02/26/21 History release pantoprazole 40 mg tablet,delayed 40 mg PO QAM 08/18/20 02/27/21 02/26/21 History release dicyclomine 10 mg capsule 10 mg PO TID PRN 09/24/20 02/27/21 Unknown History donepezil 5 mg tablet 5 mg PO BEDTIME 09/24/20 02/27/21 02/26/21 History Zinc Orotate 60 mg PO QPM 11/01/20 02/27/21 02/26/21 History acetaminophen-codeine 1 tab PO Q6H PRN 11/01/20 02/27/21 Unknown History calcium acetate 1 tab PO BID 11/01/20 02/27/21 02/26/21 History furosemide 80 mg PO QAM #60 tab 11/05/20 02/27/21 02/26/21 Rx levothyroxine 112 mcg PO DAILY #30 tab 11/05/20 02/27/21 02/26/21 Rx potassium chloride 20 mEq 20 meq PO BID tab 01/13/21 02/27/21 02/26/21 History tablet,extended release(part/cryst) duloxetine 30 mg PO DAILY 02/27/21 02/27/21 02/26/21 History gabapentin 100 mg PO TID 02/27/21 02/27/21 02/26/21 History Allergies Allergy/AdvReac Type Severity Reaction Status Date / Time codeine Allergy ADR-Abdominal Verified 01/13/21 10:14 Pain PFSH Acute PFSH: Medical History Anemia iron deficiency, has been on iron injections in past, history of acute blood loss anemia also Aortic valve disease Bowel perforation History of recurrent pneumoperitoneum without symptoms, from unclear source History of echocardiogram (~10/2019) EF 55% with peak gradient 26 mmHg History of TIAs Prior to aortic valve replacement Hypertension Hypothyroidism 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 Surgical History H/O inguinal hernia repair bilateral H/O knee surgery (~2007) bilateral total knee replacement History of cataract surgery (~2017) bilateral History of esophagogastroduodenoscopy (EGD) History of laparoscopy to eval for source of pneumoperitoneum History of umbilical hernia repair 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, 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) due to aortic stenosis in 2016 23mm Lowe Brooks 3 Family History Daughter Cancer Breast Social History Smoking and tobacco status: never smoked Alcohol intake: never Household members: family Housing: House 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 Vitals/I&O/Wt Last Vital Signs Temp 97.5 F L 02/27/21 14:00 Pulse 81 02/27/21 14:00 Resp 16 02/27/21 14:00 BP 106/69 02/27/21 14:00 Pulse Ox 92 02/27/21 14:00 Weight last 48 hrs Weight 145 lb Physical Exam Narrative: EXAM NARRATIVE: HEENT: Normocephalic Eye: Sclera /conjunctiva normal Respiratory and chest: Bilateral clear breath sounds on auscultation Cardiovascular: Normal S1 and S2 heart sounds Abdomen: Soft to palpation, nontender, distended, no guarding or rigidity, bloody output from the NG tube Neurological: Oriented to place person and time Skin: Intact, no lesions appreciated on gross exam A&P Assessment and plan (1) Constipation: 86-year-old female who presents with back pain but on CT scan she has significant amount of stool throughout the entire colon even though she states that she has been having diarrhea. Milk of molasses enema x2 bottle of magnesium citrate x2 Abdominal series in the morning Senna S, lactulose twice daily Status: Acute (2) Volvulus of intestine: CT abdomen pelvis had shown air-fluid levels up to 4.7 cm with possible rotational volvulus. Patient does not have any abdominal pain, nausea or vomiting. Her abdominal exam is benign except for distention, her lactate is 0.9 and WBC is 8. We will therefore manage her conservatively with bowel rest, NG tube Protonix for GI prophylaxis Lovenox for DVT prophylaxis Status: Acute Consult Attestations Medical Necessity Statement: As per attending physician Coding Level of Care Code Acute Mid Level Java Developer for Magda Phelps Diagnoses Constipation K59.00 Volvulus of intestine K56.2
[2021-02-27] MEDS: magnesium citrate Btl 296 mL PO ×2 (18:26→22:05)
[2021-02-27] MEDS: enoxaparin 40 mg/0.4 mL Syringe SUBCUT (18:26)
[2021-02-27] MEDS: lactulose oral liq 20 gm/30 mL UDC 10 GM PO (18:27)
[2021-02-27] MEDS: sennosides-docusate Tablet 1 TAB PO (18:27)
--- NOTE | 2021-02-27 20:39 | P.HP_ITS ---
Providers/Chief Complaint Admitting Physician: Markel Harvey MD Primary Care Provider: LEAH Sims Chief Complaint: BACK PAIN History of Present Illness 85 year old female with PMHx of s/p TAVR 23 mm Brooks valve in 2016 at [facility] in [facility], s/p [employer] PPM placement in 2018, HEpEF and left leg chronic edema. presented to the ER mainly with complaints of back pain for the last few days.. Patient had also recently been treated for UTI. She states that she has no abdominal pain, denies any nausea or vomiting and has been having diarrhea for the last few days.She denies any bleeding per rectum.Past Surgical history includes laparoscopy for pneumoperitoneum of from unknown origin and umbilical hernia repair. She was worked up for above-mentioned complaint in the ER: Imaging studies C.T abdomen and pelvis without contrast: Air-filled loops of small bowel up to the 4.7 cm in diameter with possible transition point in an area of rotational volvulus about the superior mesenteric vessels. X-ray chest: No visible active interstitial or alveolar airspace diseas e.nasogastric tube tip below the diaphragm just distal to the gastroesophageal junction. Review of Systems General: Reports: 10 or more systems reviewed and unremarkable except in HPI and below Const: Denies: fever(s), chills, body aches, change in appetite or diaphoresis Card: Denies: palpitations, edema, swelling of feet/ankles or leg pain with exertion Resp: Denies: dyspnea, productive cough, wheezing or pain on inspiration GI: Denies: abdominal pain, nausea or vomiting : Denies: flank pain Musc: Denies: extremity swelling Neuro: Denies: headache(s) Medications/Allergies Home Medications Medication Instructions Recorded Confirmed Last Taken Type Multiple Vitamin, Womens 1 tab PO QAM 04/14/20 02/27/21 02/26/21 History cyanocobalamin (vitamin B-12) 1,000 mcg IM Q30D 04/14/20 02/27/21 Unknown History fluticasone propionate 2 spray INTRANASAL QAM 04/14/20 02/27/21 04/14/20 History magnesium oxide 400 mg PO QPM 04/14/20 02/27/21 02/26/21 History aspirin 81 mg tablet,delayed 81 mg PO DAILY 05/17/20 02/27/21 02/26/21 History release pantoprazole 40 mg tablet,delayed 40 mg PO QAM 08/18/20 02/27/21 02/26/21 Histor y release dicyclomine 10 mg capsule 10 mg PO TID PRN 09/24/20 02/27/21 Unknown History donepezil 5 mg tablet 5 mg PO BEDTIME 09/24/20 02/27/21 02/26/21 History Zinc Orotate 60 mg PO QPM 11/01/20 02/27/21 02/26/21 History acetaminophen-codeine 1 tab PO Q6H PRN 11/01/20 02/27/21 Unknown History calcium acetate 1 tab PO BID 11/01/20 02/27/21 02/26/21 History furosemide 80 mg PO QAM #60 tab 11/05/20 02/27/21 02/26/21 Rx levothyroxine 112 mcg PO DAILY #30 tab 11/05/20 02/27/21 02/26/21 Rx potassium chloride 20 mEq 20 meq PO BID tab 01/13/21 02/27/21 02/26/21 History tablet,extended release(part/cryst) duloxetine 30 mg PO DAILY 02/27/21 02/27/21 02/26/21 History gabapentin 100 mg PO TID 02/27/21 02/27/21 02/26/21 History Allergies Allergy/AdvReac Type Severity Reaction Status Date / Time codeine Allergy ADR-Abdominal Verified 01/13/21 10:14 Pain PFSH Acute PFSH: Medical History Anemia iron deficiency, has been on iron injections in past, history of acute blood loss anemia also Aortic valve disease Bowel perforation History of recurrent pneumoperitoneum without symptoms, from unclear source History of echocardiogram (~10/2019) EF 55% with peak gradient 26 mmHg History of TIAs Prior to aortic valve replacement Hypertension Hypothyroidism 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 Surgical History H/O inguinal hernia repair bilateral H/O knee surgery (~2007) bilateral total knee replacement History of cataract surgery (~2017) bilateral History of esophagogastroduodenoscopy (EGD) History of laparoscopy to eval for source of pneumoperitoneum History of umbilical hernia repair 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, 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) due to aortic stenosis in 2016 23mm Lowe Brooks 3 Family History Daughter Cancer Breast Social History Smoking and tobacco status: never smoked Alcohol intake: never Household members: family Housing: House 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 Vitals/I&O/Wt Last Vital Signs Temp 97.4 F L 02/27/21 20:00 Pulse 85 02/27/21 20:00 Resp 16 02/27/21 20:00 BP 112/77 02/27/21 20:00 Pulse Ox 94 02/27/21 20:00 Weight last 48 hrs Weight 65.771 kg Physical Exam HENMT: COMMON NORMALS: normocephalic and atraumatic HEAD & SCALP: no rmocephalic and atraumatic Chest: CHEST: Yes Symmetrical chest wall rise Resp: COMMON NORMALS: clear to auscultation bilaterally EFFORT & INSPECTION: Yes symmetric chest movement AUSCULTATION: clear to auscultation bilaterally Cardio: COMMON NORMALS: regular rate, regular rhythm, S1 normal heart sound present, S2 normal heart sound present, No gallops present (Cardio), No murmurs present (Cardio), No rub (Cardio) and Peripheral pulses 2+ throughout RATE: regular rate RHYTHM: regular rhythm HEART SOUNDS: S1 normal heart sound present and S2 normal heart sound present PERIPHERAL PULSES: Peripheral pulses 2+ throughout GI: COMMON NORMALS: Normal to inspection, nondistended, normoactive bowel sounds present, Soft to palpation, non-tender, No hepatosplenomegaly present and no masses AUSCULTATION: Yes normoactive bowel sounds PALPATION: Yes Soft to palpation and Yes No hepatosplenomegaly present RECTAL EXAM: deferred Extremity: NARRATIVE EXTREMITY EXAM: 2+ bilateral edema. Neuro: COMMON NORMALS: patient oriented x3 Data : 02/27/21 10:24 02/27/21 10:24 A&P Assessment and plan (1) Volvulus of intestine: CT abdomen pelvis had shown air-fluid levels up to 4.7 cm with possible rotational volvulus. Patient deny any abdominal pain, nausea or vomiting. Benign abdominal exam except for distention lactate : 0.9 WBC is 8 Plan is to manage the patient conservatively NG tube, bowel rest conservatively with bowel rest, NG tube Status: Acute (2) Constipation: Milk of molasses enema x2 bottle of magnesium citrate x2 Abdominal series in the morning Senna S, lactulose twice daily. Appreciate surgery input. Status: Acute (3) CHF (congestive heart failure), NYHA class III: Currently compensated: Intake output charting Daily weight Mg>2, k>4 Status: Acute Qualifiers: Congestive heart failure type: diastolic Congestive heart failure chronicity: acute on chronic Qualified Code(s): I50.33 - Acute on chronic diastolic (congestive) heart failure (4) Back pain: Status: Acute Qualifiers: Back pain laterality: bilateral Back pain location: low back pain Chronicity: chronic Sciatica presence: without sciatica Qualified Code(s): M54.5 - Low back pain; G89.29 - Other chronic pain (5) Hypokalemia: Status: Acute (6) Hypertension: Status: Chronic Qualifiers: Hypertension type: essential hypertension Qualified Code(s): I10 - Essential (primary) hypertension (7) Hypothyroidism: Status: Chronic Attestations Medical Necessity Statement*: Patient needs to be in hospital for management of volvulus of intestine.Anticipated length of stay greater than 2 midnight. Coding Level of Care Code Acute Technical Developer for [facility] Cassandra Diagnoses 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
[2021-02-28] VITALS (7 sets, daily range): BP systolic 97–110; BP diastolic 65–72; PULSE 64–89; RESP 16–18; TEMP 36.3–36.6; O2SAT 86–99
--- NOTE | 2021-02-28 03:28 | PC.NURSE ---
NG TUBE Patient pulled NG tube out at 0300. This RN explained the importance of replacing tube and patient was adamant that she will not allow it. Doctor notified, no new orders received at this time.
[2021-02-28 05:48] LABS: Basophils # 0.1 10^3/uL (0.0-0.1); Basophils % 0.8 %; Eosinophils # 0.1 10^3/uL (0.0-0.8); Eosinophils % 0.7 %; Hematocrit 34.9 % (37.0-47.0); Hemoglobin 11.1 g/dL (11.5-15.3); Lymphocytes # 0.9 10^3/uL (0.8-4.8); Lymphocytes % 10.7 %; Mean Corpuscular HGB Conc 31.8 g/dL (30.0-36.0); Mean Corpuscular Hemoglobin 28.8 pg (28.0-34.0); Mean Corpuscular Volume 90.6 fL (81-99); Monocytes # 0.5 10^3/uL (0.2-0.9); Monocytes % 5.6 %; Neutrophils # 6.98 10^3/uL (1.8-7.7); Neutrophils % 81.3 %; Nucleated Red Blood Cells % 0 %; Platelet Count 296 10^3/cmm (130-400); Red Blood Count 3.85 10^6/uL (4.1-5.3); Red Cell Distribution Width 14.9 % (12.1-15.1); White Blood Count 8.6 10^3/uL (4.0-10.0)
--- NOTE | 2021-02-28 06:00 | XRR_ITS ---
PROCEDURE INFORMATION: Exam: XR Abdomen Exam date and time: 02/28/2021 6:00 AM Age: 86 years old Clinical indication: Condition or disease; Intestinal condition; Obstruction; Additional info: Sbo TECHNIQUE: Imaging protocol: XR of the abdomen. Views: 2 Views. Upright and supine views. COMPARISON: 1. CT abdomen pelvis w con* [id number] 02/27/2021 11:23 AM 2. CR (ABDOMEN, ) 02/26/2021 3:39:26 PM FINDINGS: Gastrointestinal tract: There are multiple loops of moderately dilated bowel with air-fluid levels throughout the abdomen. This has mildly improved since the previous radiograph from 02/26/2021. Intraperitoneal space: Normal. No free air. Bones/joints: Unremarkable for age. XR/XR abdomen min 2V [id number] IMPRESSION: Multiple loops of dilated bowel with air-fluid levels consistent with obstruction. The dilatation has mildly improved since previous study.
[2021-02-28 06:15] LABS: Alanine Aminotransferase 12 U/L (0-33); Albumin Level 2.6 g/dL (3.5-5.2); Alkaline Phosphatase 120 IU/L (35-105); Aspartate Amino Transferase 19 U/L (0-32); Blood Urea Nitrogen 15 mg/dL (8-23); Calcium 8.2 mg/dL (8.5-10.5); Carbon Dioxide 39 mmol/L (22-29); Chloride 94 mmol/L (98-107); Globulin 2.6 g/dL (1.3-4.6); Glucose 76 mg/dL (65-115); Osmolality Calculated 292 mOsm/kg (285-295); Sodium 141 mmol/L (136-145); Total Bilirubin 0.3 mg/dL (0.15-1.2); Total Protein 5.2 g/dL (6.6-8.7)
[2021-02-28] MEDS: lactulose oral liq 20 gm/30 mL UDC 10 GM PO (06:18)
[2021-02-28 06:20] LABS: Anion Gap 11.5 (5-19); Potassium 3.5 mmol/L (3.5-5.1)
[2021-02-28] MEDS: magnesium citrate Btl 296 mL PO ×2 (06:21→14:44)
[2021-02-28] MEDS: pantoprazole 40 mg SDV IVP (07:58)
[2021-02-28] MEDS: sennosides-docusate Tablet 1 TAB PO ×2 (07:59→19:33)
[2021-02-28] MEDS: acetaminophen 325 mg Tablet 650 MG PO ×2 (07:59→14:54)
--- NOTE | 2021-02-28 12:47 | PM.PN ---
Subjective Subjective: Interval history: This morning patient was examined, she is up with physical therapy, she is had a bowel movement, patient refused NG tube reinsertion, but no nausea, no vomiting, her abdomen is distended, she tells me that her only concern is that she has not eaten in 2 days, that is why she is a bit upset this morning, she does not use oxygen at home but she is on 3 L here, she does not have any complaint shortness of breath, but she does have bilateral lower extremity edema, she normally takes a water pill at home she is not getting it here she tells me Vitals/I&O/Wt Last Vital Signs Temp 97.5 F L 02/28/21 08:00 Pulse 84 02/28/21 11:40 Resp 17 02/28/21 08:00 BP 108/70 02/28/21 08:00 Pulse Ox 86 L 02/28/21 11:40 02/27/21 02/28/21 02/28/21 22:59 06:59 14:59 Output Total 1170 / 1170 Balance -1170 / -1170 Weight last 48 hrs Weight 65.771 kg Physical Exam Const: COMMON NORMALS: no acute distress and patient oriented x3 HENMT: COMMON NORMALS: normocephalic HEAD & SCALP: normocephalic Neck/C-Spine: COMMON NORMALS: no JVD Resp: COMMON NORMALS: normal respiratory effort, No retractions and No use of accessory muscles AUSCULTATION: crackles Cardio: COMMON NORMALS: no JVD, regular rate, regular rhythm, S1 normal heart sound present and S2 normal heart sound present RATE: regular rate RHYTHM: regular rhythm HEART SOUNDS: S1 normal heart sound present and S2 normal heart sound present GI: COMMON NORMALS: Soft to palpation INSPECTION: Yes normal to inspection and Yes abdominal distension AUSCULTATION: Yes Hypoactive bowel sounds present PALPATION: Yes Soft to palpation and Yes Tenderness to palpation present (GI) (Minimal generalized tenderness) Extremity: COMMON NORMALS: capillary refill normal and no calf tenderness NARRATIVE EXTREMITY EXAM: 3+ pitting edema bilaterally Neuro: COMMON NORMALS: patient oriented x3 Psych: COMMON NORMALS: mental status grossly normal Data : 02/28/21 05:07 02/28/21 05:07 A&P Assessment and plan (1) Volvulus of intestine: CT abdomen pelvis had shown air-fluid levels up to 4.7 cm with possible rotational volvulus. Patient deny any abdominal pain, nausea or vomiting. This morning continues to have abdominal distention, generalized tenderness lactate : 0.9 WBC is 8.6 Gastric drainage over a liter, brown, feculent Plan General surgery on consult Keep n.p.o. Have strongly advised of NG tube placement, for now she wants to hold off, advised the risks, she voiced understanding Continue to monitor Status: Acute (2) Constipation: Milk of molasses enema x2 bottle of magnesium citrate x2 Abdominal series in the morning Senna S, lactulose twice daily. Appreciate surgery input. Status: Acute (3) CHF (congestive heart failure), NYHA class III: Currently fluid overloaded on 3 L, 3+ pitting edema Discontinue fluids 1 dose of Lasix, monitor respiratory status Intake output charting Daily weight Mg>2, k>4 Status: Acute Qualifiers: Congestive heart failure type: diastolic Congestive heart failure chronicity: acute on chronic Qualified Code(s): I50.33 - Acute on chronic diastolic (congestive) heart failure (4) Back pain: Status: Acute Qualifiers: Back pain laterality: bilateral Back pain location: low back pain Chronicity: chronic Sciatica presence: without sciatica Qualified Code(s): M54.5 - Low back pain; G89.29 - Other chronic pain (5) Hypokalemia: Status: Acute (6) Hypertension: Status: Chronic Qualifiers: Hypertension type: essential hypertension Qualified Code(s): I10 - Essential (primary) hypertension (7) Hypothyroidism: Status: Chronic Attestations Medical Necessity Statement*: Patient requires hospitalization for constipation, volvulus, fluid overload Coding Level of Care Code Acute Committee Member for [facility] Fwd Diagnoses 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
--- NOTE | 2021-02-28 13:11 | PC.CHAP ---
Pastoral Care Encounter/Spiritual Assessment Type of Contact [] Declined link assembler visit [] Patient/Family/Request visit [] Outpatient visit [] Follow-up visit [] Physician referral [] Code/Alert [] Routine visit [] Staff referral [] Actively dying [] Patient sleeping [] Family support [] [] Out of room [] Palliative care [] [] Receiving care in room [] Pre-surgical visit [] Trauma [] Long length of stay [] ICU visit [] Other: Relational/Emotional Strength [] Patient feels connected with others/family/visitors/staff [] Distress [] Loneliness/isolation [] Abandonment Spirituality of Patient [x] Person of [place] [x] Attends Taoism of their [place] [x] Believes in Prayer [x] Reads Bible or Rastafari materials [] There are Spiritual issues to be addressed Tie Sawyer Interventions [x] Prayer [] Active listening [] Non-anxious presence [] Spiritual/emotional support [] Crisis/trauma care [] Spiritual counseling [] Bereavement support [] Provided bereavement packet [] Provided Bible/devotional materials [] Provided toy/stuffed animal, coloring book to patient or family member [] Provided Communion [] Anointing/[place] [] Salvation [] Completed spiritual assessment [] Other: Impact on Illness or Injury [] Angry [] Fearful [] Anxious [] Often cries [] Exhaustion [] Unable to work [] Unable to attend latter-day [] Unable to walk/stand [] Unable to read [] Unable to drive [] Unable to eat/drink [] Unable to sleep [] Unable to be with family [] Patient intubated [] Other: Summary Time spent with patient
--- NOTE | 2021-02-28 13:59 | PM.PN ---
Subjective Subjective: Interval history: Patient moved her NG tube today, significant NG output yesterday, denies any abdominal pain, nausea or vomiting, feels hungry and thirsty, had multiple loose bowel movements today Vitals/I&O/Wt Last Vital Signs Temp 97.7 F 02/28/21 12:00 Pulse 83 02/28/21 12:00 Resp 18 02/28/21 12:00 BP 103/70 02/28/21 12:00 Pulse Ox 99 02/28/21 12:00 02/27/21 02/28/21 02/28/21 22:59 06:59 14:59 Output Total 1170 / 1170 Balance -1170 / -1170 Weight last 48 hrs Weight 145 lb Physical Exam Narrative: EXAM NARRATIVE: HEENT: Normocephalic Eye: Sclera /conjunctiva normal Abdomen: Soft to palpation, nontender, less distended Neurological: Oriented to place person and time Skin: Intact, no lesions appreciated on gross exam Data : 02/28/21 05:07 02/28/21 05:07 A&P Assessment and plan (1) Constipation: 86-year-old female who presents with back pain but on CT scan she has significant amount of stool throughout the entire colon even though she states that she has been having diarrhea. Abdominal x-ray shows multiple dilated small bowel loops. Magnesium citrate today Status: Acute (2) Volvulus of intestine: CT abdomen pelvis had shown air-fluid levels up to 4.7 cm with possible rotational volvulus. Patient does not have any abdominal pain, nausea or vomiting. 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
[2021-02-28] MEDS: FUROsemide 10 mg/mL SDV 4mL 40 MG IVP (14:22)
[2021-02-28] MEDS: lidocaine 1% 5 ML in potassium chloride premix 100 ML 50 ML IV (14:43)
[2021-02-28] MEDS: enoxaparin 40 mg/0.4 mL Syringe SUBCUT (19:33)
[2021-03-01] VITALS (9 sets, daily range): BP systolic 94–122; BP diastolic 48–68; PULSE 60–73; RESP 16–18; TEMP 36.3–36.8; O2SAT 91–98
--- NOTE | 2021-03-01 06:00 | XRR_ITS ---
PROCEDURE INFORMATION: Exam: XR Abdomen Exam date and time: 03/01/2021 6:00 AM Age: 86 years old Clinical indication: Condition or disease; Intestinal condition; Obstruction; Additional info: Sbo TECHNIQUE: Imaging protocol: XR of the abdomen. Views: 2 Views. Upright and supine views. COMPARISON: Chest x-ray dated 04/15/2020. FINDINGS: Tubes, catheters and devices: A cardiac pacing device is again seen projecting over the left chest. Heart/Mediastinum: Stable cardiomediastinal silhouette. Gastrointestinal tract: Air is seen throughout the small bowel and colon. There is prominent air distended loops of small bowel in the right upper quadrant. No air-fluid levels. Intraperitoneal space: Normal. No free air. Bones/joints: Degenerative changes of the spine seen. XR/XR acute abdomen series [id number] IMPRESSION: 1. No evidence of active cardiopulmonary disease. 2. Air distended loops of small bowel without clear evidence of obstruction.
[2021-03-01] MEDS: lactulose oral liq 20 gm/30 mL UDC 10 GM PO ×2 (06:17→17:10)
[2021-03-01] MEDS: oxyCODONE-APAP 5-325 mg Tablet 1 TAB PO ×2 (06:21→17:11)
[2021-03-01 07:08] LABS: Basophils # 0.1 10^3/uL (0.0-0.1); Basophils % 0.5 %; Eosinophils # 0.1 10^3/uL (0.0-0.8); Eosinophils % 0.7 %; Hematocrit 39.3 % (37.0-47.0); Hemoglobin 12.3 g/dL (11.5-15.3); Lymphocytes % 9.2 %; Mean Corpuscular HGB Conc 31.3 g/dL (30.0-36.0); Mean Corpuscular Volume 92.7 fL (81-99); Mean Platelet Volume 10.6 fL (7.4-10.4); Monocytes # 0.7 10^3/uL (0.2-0.9); Monocytes % 6.4 %; Neutrophils # 9.32 10^3/uL (1.8-7.7); Neutrophils % 82.2 %; Nucleated Red Blood Cells % 0 %; Platelet Count 264 10^3/cmm (130-400); Red Blood Count 4.24 10^6/uL (4.1-5.3); Red Cell Distribution Width 15.2 % (12.1-15.1); White Blood Count 11.3 10^3/uL (4.0-10.0)
[2021-03-01 07:22] LABS: Alanine Aminotransferase 9 U/L (0-33); Albumin Level 2.6 g/dL (3.5-5.2); Alkaline Phosphatase 116 IU/L (35-105); Aspartate Amino Transferase 21 U/L (0-32); Blood Urea Nitrogen 13 mg/dL (8-23); Calcium 7.9 mg/dL (8.5-10.5); Carbon Dioxide 40 mmol/L (22-29); Chloride 91 mmol/L (98-107); Globulin 2.7 g/dL (1.3-4.6); Glucose 64 mg/dL (65-115); NT Pro B Type Natriuretic Pept 291 pg/mL (0-450); Osmolality Calculated 278 mOsm/kg (285-295); Phosphorus 3.3 mg/dL (2.5-4.5); Sodium 135 mmol/L (136-145); Total Bilirubin 0.3 mg/dL (0.15-1.2); Total Protein 5.3 g/dL (6.6-8.7)
[2021-03-01 07:23] LABS: Anion Gap 7.6 (5-19); Potassium 3.6 mmol/L (3.5-5.1)
[2021-03-01] MEDS: pantoprazole 40 mg SDV IVP (08:28)
[2021-03-01] MEDS: sennosides-docusate Tablet 1 TAB PO ×2 (10:58→17:11)
--- NOTE | 2021-03-01 15:20 | P.PN_ITS ---
Subjective Subjective: Interval history: Patient denies any nausea or vomiting, tolerating full liquid diet, had multiple bowel movements Vitals/I&O/Wt Last Vital Signs Temp 98.1 F 03/02/21 12:00 Pulse 71 03/02/21 12:00 Resp 18 03/02/21 12:12 BP 102/60 03/02/21 12:00 Pulse Ox 94 03/02/21 12:00 03/02/21 03/02/21 03/02/21 06:59 14:59 22:59 Intake Total 200 / 1160 600 / 600 Output Total 600 / 600 Balance -400 / 560 600 / 600 Physical Exam Narrative: EXAM NARRATIVE: Abdomen: Soft, nontender, nondistended Data : 03/02/21 06:16 03/02/21 06:16 A&P Assessment and plan (1) Constipation: 86-year-old female who presents with back pain but on CT scan she has significant amount of stool throughout the entire colon even though she states that she has been having diarrhea. 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
--- NOTE | 2021-03-01 15:23 | P.PN_ITS ---
Subjective Subjective: Interval history: Patient was seen this morning, she tells me that she is a bit irritable as she has not eaten in over a few days, she tells me she did have a bowel movement yesterday, but it was quite small, her belly still distended, she tells me that it is growling, because she is hungry, no nausea, no vomiting, no fevers, she is off oxygen Vitals/I&O/Wt Last Vital Signs Temp 97.4 F L 03/01/21 12:00 Pulse 60 03/01/21 12:00 Resp 17 03/01/21 12:00 BP 122/48 03/01/21 12:00 Pulse Ox 92 03/01/21 12:00 03/01/21 03/01/21 03/01/21 06:59 14:59 22:59 Intake Total 600 / 945 480 / 480 Output Total 300 / 600 Balance 300 / 345 480 / 480 Physical Exam Const: COMMON NORMALS: no acute distress and patient oriented x3 Resp: COMMON NORMALS: normal respiratory effort, No retractions, No use of accessory muscles and clear to auscultation bilaterally AUSCULTATION: clear to auscultation bilaterally Cardio: COMMON NORMALS: regular rate, regular rhythm, S1 normal heart sound present and S2 normal heart sound present RATE: regular rate RHYTHM: regular rhythm HEART SOUNDS: S1 normal heart sound present and S2 normal heart sound present GI: COMMON NORMALS: Normal to inspection, nondistended, normoactive bowel sounds present and Soft to palpation INSPECTION: Yes abdominal distension AUSCULTATION: Yes Hyperactive bowel sounds present PALPATION: Yes Soft to palpation and Yes Tenderness to palpation present (GI) (Minimal generalized tenderness) Extremity: COMMON NORMALS: no pedal edema Neuro: COMMON NORMALS: patient oriented x3 Psych: COMMON NORMALS: mental status grossly normal Data : 03/01/21 05:56 03/01/21 05:56 A&P Assessment and plan (1) Volvulus of intestine: CT abdomen pelvis had shown air-fluid levels up to 4.7 cm with possible rotational volvulus. Patient has minimal abdominal pain, no nausea, no vomiting This morning continues to have abdominal distention, generalized tenderness but improved, small bowel movement overnight lactate : 0.9 WBC is 11.3 Gastric drainage over a liter, brown, feculent, NG tube removed by patient Plan General surgery on consult Currently on clears Have strongly advised of NG tube placement, for now she wants to hold off, advised the risks, she voiced understanding Continue to monitor Continue to monitor for bowel movement, continue bowel regimen, monitor not for nausea, monitor for vomiting, monitor for fluid overload, hopefully can be discharged next 4 hours Status: Acute (2) Constipation: Milk of molasses enema x2 bottle of magnesium citrate x2 Abdominal series in the morning Senna S, lactulose twice daily. Appreciate surgery input. Status: Acute (3) CHF (congestive heart failure), NYHA class III: Currently fluid has improved, on room air, 1+ pitting edema Discontinue fluids Status post 1 dose of Lasix, continue to monitor Intake output charting Daily weight Mg>2, k>4 Status: Acute Qualifiers: Congestive heart failure type: diastolic Congestive heart failure chronicity: acute on chronic Qualified Code(s): I50.33 - Acute on chronic diastolic (congestive) heart failure (4) Back pain: Status: Acute Qualifiers: Back pain laterality: bilateral Back pain location: low back pain Chronicity: chronic Sciatica presence: without sciatica Qualified Code(s): M54.5 - Low back pain; G89.29 - Other chronic pain (5) Hypokalemia: Status: Acute (6) Hypertension: Status: Chronic Qualifiers: Hypertension type: essential hypertension Qualified Code(s): I10 - Essential (primary) hypertension (7) Hypothyroidism: Status: Chronic Attestations Medical Necessity Statement*: Patient requires hospitalization for constipation, volvulus of intestine, and fluid overload Coding Level of Care Code Acute Food And Nutrition Professor for [facility] Fwd Diagnoses 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
[2021-03-01] MEDS: enoxaparin 40 mg/0.4 mL Syringe SUBCUT (17:10)
[2021-03-02] VITALS (8 sets, daily range): BP systolic 91–109; BP diastolic 53–74; PULSE 61–72; RESP 14–18; TEMP 36.3–36.8; O2SAT 93–97
--- NOTE | 2021-03-02 | XR_ITS ---
WS: [id number] Bilateral hips, AP and frog-leg views, 03/02/2021 Clinical Data: back pain, hip pain Comparison: AP pelvis and bilateral hips. Findings: Right hip: No fractures or dislocations are seen. There is now significant arthritic change. There are surgical clips adjacent to the lesser trochanter. The soft tissues are normal. Left hip: No fractures or dislocations are seen. The soft tissues are normal. There is minimal spurring of the femoral head and acetabular lip indicating minimal osteoarthritis. XR/XR hip BI 3-4V wo/w pel [id number] Impression: 1. Negative for fracture or dislocation of either hip. 2. Osteoarthritis of the left hip.
[2021-03-02] MEDS: oxyCODONE-APAP 5-325 mg Tablet 1 TAB PO ×2 (02:10→12:12)
[2021-03-02] MEDS: lactulose oral liq 20 gm/30 mL UDC 10 GM PO ×2 (05:41→18:13)
[2021-03-02 06:36] LABS: Basophils # 0.1 10^3/uL (0.0-0.1); Basophils % 0.6 %; Eosinophils % 0.4 %; Hematocrit 36.8 % (37.0-47.0); Hemoglobin 11.9 g/dL (11.5-15.3); Lymphocytes # 1.1 10^3/uL (0.8-4.8); Lymphocytes % 14.3 %; Mean Corpuscular HGB Conc 32.3 g/dL (30.0-36.0); Mean Corpuscular Volume 89.8 fL (81-99); Monocytes # 0.5 10^3/uL (0.2-0.9); Monocytes % 6.5 %; Neutrophils # 6.12 10^3/uL (1.8-7.7); Neutrophils % 77.7 %; Nucleated Red Blood Cells % 0 %; Platelet Count 295 10^3/cmm (130-400); Red Cell Distribution Width 14.9 % (12.1-15.1); White Blood Count 7.9 10^3/uL (4.0-10.0)
[2021-03-02 07:00] LABS: Alanine Aminotransferase 14 U/L (0-33); Alkaline Phosphatase 143 IU/L (35-105); Blood Urea Nitrogen 12 mg/dL (8-23); Calcium 7.8 mg/dL (8.5-10.5); Carbon Dioxide 32 mmol/L (22-29); Chloride 88 mmol/L (98-107); Globulin 2.4 g/dL (1.3-4.6); Glucose 63 mg/dL (65-115); Magnesium 2.3 mg/dL (1.7-2.3); NT Pro B Type Natriuretic Pept 535 pg/mL (0-450); Osmolality Calculated 274 mOsm/kg (285-295); Phosphorus 3.1 mg/dL (2.5-4.5); Sodium 133 mmol/L (136-145); Total Bilirubin 0.4 mg/dL (0.15-1.2); Total Protein 5.4 g/dL (6.6-8.7)
[2021-03-02 07:03] LABS: Anion Gap 17.5 (5-19); Aspartate Amino Transferase 24 U/L (0-32); Potassium 4.5 mmol/L (3.5-5.1)
[2021-03-02] MEDS: sennosides-docusate Tablet 1 TAB PO ×2 (08:45→18:13)
[2021-03-02] MEDS: pantoprazole 40 mg SDV IVP (08:45)
--- NOTE | 2021-03-02 09:29 | XR_ITS ---
WS: [id number] Bilateral hips, AP and frog-leg views, 03/02/2021 Clinical Data: back pain, hip pain Comparison: AP pelvis and bilateral hips. Findings: Right hip: No fractures or dislocations are seen. There is now significant arthritic change. There are surgical clips adjacent to the lesser trochanter. The soft tissues are normal. Left hip: No fractures or dislocations are seen. The soft tissues are normal. There is minimal spurring of the femoral head and acetabular lip indicating minimal osteoarthritis.
--- NOTE | 2021-03-02 09:30 | CT_ITS ---
WS: [id number] CT LUMBAR SPINE TECHNIQUE: Noncontrast CT of the lumbar spine with coronal and sagittal reformatted images. CLINICAL INFORMATION: low back pain COMPARISON: None. DLP: 2172.[address] scans at [facility] use at least one of these dose optimization techniques: automat ed exposure control; mA and/or kV adjustment per patient size (includes targeted exams where dose is matched to clinical indication); or iterative reconstruction. FINDINGS: Mild lumbar curve. Grade 1 anterolisthesis L4 on L5. Disc space narrowing L4-L5 and L5-S1 with vacuum disc phenomenon. Moderate compression inferior endplate L3 has an acute appearance and is progressed compared to CT abdomen pelvis February 27, 2021. Loss of approximately 30% inferior endplate height. L1-L2: Mild disc bulging with slight effacement of ventral thecal sac. Moderate facet arthropathy. Sp inal canal and foramen are patent. L2-L3: Mild annular bulging with moderate facet arthropathy. Mild central canal stenosis. Ligamentum flavum hypertrophy. Mild bilateral foraminal narrowing. L3-L4: Mild disc bulging with osteophytic ridging. Moderate central canal stenosis. Moderate facet ar thropathywith ligamentum flavum hypertrophy. Moderate bilateral foraminal narrowing. L4-L5: Mild disc bulging with osteophytic ridging. Slight anterolisthesis. Moderate central canal brenda nosis. Advanced facet arthropathy with ligament flavum hypertrophy. Mild to moderate bilateral forami nal narrowing. L5-S1: Disc osteophyte complex with endplate ridging. Moderate left L5-S1 bony foraminal narrowing. R ight foramen is patent. Moderate to advanced arthropathy. Right renal cyst measuring 1.5 cm. 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 Evidence of chronic sacroiliitis. E vidence of bilateral sacral insufficiency fractures which appear chronic appearance. Recommend correl ation for low back pain. Subchondral cystic change along the sacroiliac joints. Evidence of chronic f racture at the sacrococcygeal junction with callus formation. CT/CT lumbar spine wo con* [id number] IMPRESSION: 1. Acute compression inferior endplate L3 measuring approximately 30% progress ed since February 28, 2020 CT abdomen pelvis. 2. Evidence of sacral insufficiency fractures with sclerosis along the sacral ala. This appears chronic. Recommend correlation for low sacral pain 3. Evidence of chronic appearing fracture of the sacrococcygeal junction with callus formation. 4. Moderate central canal stenosis L3-L4 and L4-L5 described above. 5. Moderate to advanced spondylitic changes described above.
[2021-03-02] MEDS: FUROsemide 10 mg/mL SDV 4mL 40 MG IVP ×2 (12:12→22:54)
--- NOTE | 2021-03-02 13:22 | PC.SOCIAL ---
IMM UPDATE Gave patient IMM update. Provided copy of page 2. Verbalized understanding 03/02/21 @ 2074 Initialed, dated, timed and placed in chart.
--- NOTE | 2021-03-02 15:16 | PM.PN ---
Subjective Subjective: Interval history: She had 3 bowel movements yesterday but no bowel movements today. Denies any abdominal pain, nausea or vomiting. Tolerating regular diet. She still continues to complain of back pain Vitals/I&O/Wt Last Vital Signs Temp 98.1 F 03/02/21 12:00 Pulse 71 03/02/21 12:00 Resp 18 03/02/21 12:12 BP 102/60 03/02/21 12:00 Pulse Ox 94 03/02/21 12:00 03/02/21 03/02/21 03/02/21 06:59 14:59 22:59 Intake Total 200 / 1160 600 / 600 Output Total 600 / 600 Balance -400 / 560 600 / 600 Physical Exam Narrative: EXAM NARRATIVE: Abdomen: Soft, slightly distended, nontender Data : 03/02/21 06:16 03/02/21 06:16 A&P Assessment and plan (1) Constipation: 86-year-old female who presents with back pain but on CT scan she has significant amount of stool throughout the entire colon even though she states that she has been having diarrhea. She is tolerating regular diet continue with bowel regimen Status: Acute (2) Volvulus of intestine: At this point we will continue to observe, will obtain abdominal series today to ensure no further obstruction. 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
--- NOTE | 2021-03-02 15:16 | XR_ITS ---
WS: [id number] Abdomen series, Flat and upright 03/02/2021 Clinical Data: constipation ? sbo Comparison: Acute abdomen series, 03/01/2021 Findings: No free air is seen beneath the diaphragms. No abnormal intra-abdominal masses or calcifica tions are seen. There is small bowel air and colon gas throughout the abdomen. The loops are only mod estly dilated in the left upper quadrant. There is a permanent pacemaker in good position. XR/XR abdomen min 2V [id number] Impression: Probable severe generalized ileus rather than bowel obstruction.
[2021-03-02] MEDS: calcitonin nasal 200 unit/spray 3.7 mL Btl 1 SPRAY NOSTRIL-AL (15:38)
--- NOTE | 2021-03-02 16:55 | P.PN_ITS ---
Subjective Subjective: Interval history: Patient was seen this morning, she tells me that she is feeling better, is off oxygen, she is tolerating a regular diet well, abdomen is still slightly distended, had bowel movement yesterday, still having back pain, no falls, no injuries, no trauma Vitals/I&O/Wt Last Vital Signs Temp 98.1 F 03/02/21 12:00 Pulse 71 03/02/21 12:00 Resp 18 03/02/21 12:12 BP 102/60 03/02/21 12:00 Pulse Ox 94 03/02/21 12:00 03/02/21 03/02/21 03/02/21 06:59 14:59 22:59 Intake Total 200 / 1160 600 / 600 Output Total 600 / 600 Balance -400 / 560 600 / 600 Physical Exam Const: COMMON NORMALS: no acute distress and patient oriented x3 HENMT: COMMON NORMALS: normocephalic HEAD & SCALP: normocephalic Resp: COMMON NORMALS: normal respiratory effort, No retractions, No use of accessory muscles and clear to auscultation bilaterally AUSCULTATION: clear to auscultation bilaterally Cardio: COMMON NORMALS: regular rate, regular rhythm, S1 normal heart sound present and S2 normal heart sound present RATE: regular rate RHYTHM: regular rhythm HEART SOUNDS: S1 normal heart sound present and S2 normal heart sound present GI: COMMON NORMALS: Normal to inspection, nondistended, normoactive bowel sounds present INSPECTION: Yes abdominal distension Extremity: NARRATIVE EXTREMITY EXAM: 2+ pitting edema Neuro: COMMON NORMALS: patient oriented x3 Psych: COMMON NORMALS: mental status grossly normal Data : 03/02/21 06:16 03/02/21 06:16 A&P Assessment and plan (1) Volvulus of intestine: CT abdomen pelvis had shown air-fluid levels up to 4.7 cm with possible rotational volvulus. Patient has minimal abdominal pain, no nausea, no vomiting This morning continues slight abdominal distention, no tenderness, had a bowel movement overnight, tolerating general diet well Plan General surgery on consult General diet Serial abdominal exams Continue to monitor Continue to monitor for bowel movement, continue bowel regimen, IV Lasix for fluid overload, pain control for back pain Status: Acute (2) Constipation: Senna S, lactulose twice daily. Appreciate surgery input. Status: Acute (3) CHF (congestive heart failure), NYHA class III: Currently fluid overloaded, 2+ pitting edema bilaterally Start Lasix 40 mg IV twice daily Intake output charting Daily weight Mg>2, k>4 Status: Acute Qualifiers: Congestive heart failure type: diastolic Congestive heart failure chronicity: acute on chronic Qualified Code(s): I50.33 - Acute on chronic diastolic (congestive) heart failure (4) Back pain: 1. Acute compression inferior endplate L3 measuring approximately 30% progressed since February 28, 2020 CT abdomen pelvis. 2. Evidence of sacral insufficiency fractures with sclerosis along the sacral ala. This appears chronic. Recommend correlation for low sacral pain 3. Evidence of chronic appearing fracture of the sacrococcygeal junction with callus formation. 4. Moderate central canal stenosis L3-L4 and L4-L5 described above. 5. Moderate to advanced spondylitic changes described above. Plan: -Conservatively managed with pain control, PT OT, follow-up with Dr. De Paz as outpatient, intranasal calcitonin Status: Acute Qualifiers: Back pain laterality: bilateral Back pain location: low back pain Chronicity: chronic Sciatica presence: without sciatica Qualified Code(s): M54.5 - Low back pain; G89.29 - Other chronic pain (5) Hypokalemia: Status: Acute (6) Hypertension: Status: Chronic Qualifiers: Hypertension type: essential hypertension Qualified Code(s): I10 - Essential (primary) hypertension (7) Hypothyroidism: Status: Chronic (8) Acute bilateral low back pain: Status: Acute Attestations Medical Necessity Statement*: Patient requires hospitalization for acute compression fracture of L3 vertebra, fluid overload, volvulus, constipation Coding Level of Care Code Acute Photograph Retoucher for [facility] Diagnoses 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
[2021-03-02] MEDS: enoxaparin 40 mg/0.4 mL Syringe SUBCUT (18:13)
[2021-03-03 03:30] VITALS: BP 99/61; PULSE 74; RESP 18; TEMP 36.8; O2SAT 98
[2021-03-03 06:27] LABS: Basophils % 0.4 %; Eosinophils % 0.4 %; Hematocrit 39.5 % (37.0-47.0); Hemoglobin 12.4 g/dL (11.5-15.3); Lymphocytes % 13.5 %; Mean Corpuscular HGB Conc 31.4 g/dL (30.0-36.0); Mean Corpuscular Hemoglobin 28.5 pg (28.0-34.0); Mean Corpuscular Volume 90.8 fL (81-99); Mean Platelet Volume 9.8 fL (7.4-10.4); Monocytes # 0.5 10^3/uL (0.2-0.9); Monocytes % 6.9 %; Neutrophils # 5.97 10^3/uL (1.8-7.7); Neutrophils % 78.1 %; Nucleated Red Blood Cells % 0 %; Platelet Count 302 10^3/cmm (130-400); Red Blood Count 4.35 10^6/uL (4.1-5.3); White Blood Count 7.6 10^3/uL (4.0-10.0)
[2021-03-03 06:43] VITALS: RESP 18
[2021-03-03] MEDS: lactulose oral liq 20 gm/30 mL UDC 10 GM PO (06:43)
[2021-03-03] MEDS: oxyCODONE-APAP 5-325 mg Tablet 1 TAB PO (06:43)
[2021-03-03 06:52] LABS: Alanine Aminotransferase 12 U/L (0-33); Albumin Level 2.7 g/dL (3.5-5.2); Alkaline Phosphatase 133 IU/L (35-105); Blood Urea Nitrogen 16 mg/dL (8-23); Calcium 7.5 mg/dL (8.5-10.5); Carbon Dioxide 32 mmol/L (22-29); Chloride 92 mmol/L (98-107); Globulin 2.5 g/dL (1.3-4.6); Glucose 80 mg/dL (65-115); Osmolality Calculated 280 mOsm/kg (285-295); Sodium 135 mmol/L (136-145); Total Bilirubin 0.4 mg/dL (0.15-1.2); Total Protein 5.2 g/dL (6.6-8.7)
[2021-03-03 06:55] LABS: Magnesium 1.9 mg/dL (1.7-2.3); NT Pro B Type Natriuretic Pept 490 pg/mL (0-450); Phosphorus 3.3 mg/dL (2.5-4.5)
[2021-03-03 06:57] LABS: Anion Gap 14.9 (5-19); Aspartate Amino Transferase 21 U/L (0-32); Potassium 3.9 mmol/L (3.5-5.1)
[2021-03-03 08:00] VITALS: BP 99/62; PULSE 79; RESP 19; TEMP 36.6; O2SAT 97
[2021-03-03] MEDS: pantoprazole 40 mg SDV IVP (08:39)
[2021-03-03] MEDS: sennosides-docusate Tablet 1 TAB PO (08:39)
[2021-03-03] MEDS: calcitonin nasal 200 unit/spray 3.7 mL Btl 1 SPRAY NOSTRIL-AL (08:39)
[2021-03-03] MEDS: FUROsemide 10 mg/mL SDV 4mL 40 MG IVP (11:30)
[2021-03-03 11:43] VITALS: BP 110/69; PULSE 76; RESP 19; TEMP 36.6; O2SAT 95
--- NOTE | 2021-03-03 12:56 | PM.DCS ---
Discharge Providers Date of Admission: 02/27/21 13:24 Date of Discharge: March 03, 2021 Attending Provider at Admission: Markel Harvey MD Attending Provider at Discharge: Solomon Prince MD Primary Care Provider: LEAH Sims Diagnoses at Discharge Discharge Diagnosis (1) Volvulus of intestine: Status: Acute (2) Constipation: Status: Acute (3) CHF (congestive heart failure), NYHA class III: Status: Acute Qualifiers: Congestive heart failure type: diastolic Congestive heart failure chronicity: acute on chronic Qualified Code(s): I50.33 - Acute on chronic diastolic (congestive) heart failure (4) Back pain: Status: Acute Qualifiers: Back pain laterality: bilateral Back pain location: low back pain Chronicity: chronic Sciatica presence: without sciatica Qualified Code(s): M54.5 - Low back pain; G89.29 - Other chronic pain (5) Hypokalemia: Status: Acute (6) Hypertension: Status: Chronic Qualifiers: Hypertension type: essential hypertension Qualified Code(s): I10 - Essential (primary) hypertension (7) Hypothyroidism: Status: Chronic (8) Acute bilateral low back pain: Status: Acute Reason for Visit Reason for Visit: BACK PAIN Hospital Course Hospital Course 85 year old female with PMHx of s/p TAVR, history of pacemaker placement, with heart failure with preserved ejection fraction, chronic lower extremity edema, GERD, who presented to the ER mainly with complaints of back pain for the last few days On admission patient was found to have a volvulus of the intestine, she did not really have any abdominal pain complaints, no nausea, no vomiting, CT scan did show significant constipation, general surgery was consulted, kept n.p.o., NG tube placed, received bowel regimen, had regular bowel movements, diet transitioned, tolerated it well, minimal abdominal complaints. Discharged on bowel regimen including Colace and lactulose. For her back pain, patient was found to have an acute compression fracture in the inferior endplate L3, evidence of sacral insufficiency fractures with sclerosis along the sacral ala which appears chronic, chronic appearing fracture of the sacrococcygeal junction with callus formation, moderate central canal stenosis L3-L4, L4-L5. After discussion with Dr. De Paz, decision was made to proceed conservatively including pain control with oxycodone, intranasal calcitonin, physical therapy. Patient will be discharged on pain control, intranasal calcitonin, with outpatient follow-up with Dr. De Paz. Patient did have fluid overload, bilateral extreme edema, exacerbation of her heart failure with preserved ejection fraction requiring inpatient diuresis. Discharged on home Lasix therapy. Physical Exam Const: COMMON NORMALS: no acute distress and patient oriented x3 Resp: COMMON NORMALS: normal respiratory effort, No retractions, No use of accessory muscles and clear to auscultation bilaterally AUSCULTATION: clear to auscultation bilaterally Cardio: COMMON NORMALS: regular rate, regular rhythm, S1 normal heart sound present and S2 normal heart sound present RATE: regular rate RHYTHM: regular rhythm HEART SOUNDS: S1 normal heart sound present and S2 normal heart sound present GI: COMMON NORMALS: Normal to inspection, nondistended, normoactive bowel sounds present, Soft to palpation and non-tender PALPATION: Yes Soft to palpation Extremity: COMMON NORMALS: no pedal edema Neuro: COMMON NORMALS: patient oriented x3 Psych: COMMON NORMALS: mental status grossly normal Discharge Data Data Completed and Pending: Completed Studies During Hospitalization Category Date Time Status CT abdomen pelvis w con* [id number] Urge nt Cat Scan 02/27/21 09:[address] lumbar spine w o con* [id number] Stat Cat Scan 03/02/21 09:30 Completed XR abdomen min 2V [id number] Routine Exams 02/28/21 06:00 Completed XR abdomen min 2V [id number] Routine Exams 03/02/21 15:16 Completed XR acute abdomen series [id number] Routi ne Exams 03/01/21 06:00 Completed XR chest 1V almita ble [id number] Stat Exams 02/27/21 13:40 Completed XR hip BI 3-4V wo /w pel [id number] Routi ne Exams 03/02/21 Completed Pending at discharge Category Date Time Status Complete Blood Co unt w/Auto AM LABS Lab 03/04/21 04:00 Ordered Complete Blood Co unt w/Auto AM LABS Lab 03/05/21 04:00 Ordered Comprehensive Met abolic Panel AM LA BS Lab 03/04/21 04:00 Ordered Comprehensive Met abolic Panel AM LA BS Lab 03/05/21 04:00 Ordered Labs from last 24 hours 03/03/21 03/03/21 03/03/21 06:17 06:17 06:17 WBC 7.6 RBC 4.35 Hgb 12.4 Hct 39.5 MCV 90.8 MCH 28.5 MCHC 31.4 RDW 15.0 Plt Count 302 MPV 9.8 Neut % (Auto) 78.1 Lymph % (Auto) 13.5 Brantley % (Auto) 6.9 Eos % (Auto) 0.4 Baso % (Auto) 0.4 Neut # (Auto) 5.97 Lymph # (Auto) 1.0 Brantley # (Auto) 0.5 Eos # (Auto) 0.0 Baso # (Auto) 0.0 Nucleated RBC % (a uto) 0 Nucleated RBCs # 0.0 Sodium 135 L Potassium 3.9 Chloride 92 L Carbon Dioxide 32 H Anion Gap 14.9 BUN 16 Creatinine 0.4 L GFR Calculation Not Reportable Glucose 80 Calculated Osmolal ity 280 L Calcium 7.5 L Phosphorus 3.3 Magnesium 1.9 Total Bilirubin 0.4 AST 21 ALT 12 Alkaline Phosphata se 133 H NT-Pro-B Natriuret Pep 490 H Total Protein 5.2 L Albumin 2.7 L Globulin 2.5 Vitals: Last Vital Signs Temp 97.9 F 03/03/21 11:43 Pulse 76 03/03/21 11:43 Resp 19 H 03/03/21 11:43 BP 110/69 03/03/21 11:43 Pulse Ox 95 03/03/21 11:43 Discharge Plan Discharge Patient Disposition: Home Condition: Stable Prescriptions: New oxycodone-acetaminophen 5-325 mg Tablet 1 tab PO Q4H PRN (Reason: Severe Pain) 7 Days Qty: 42 RF: 0 lactulose 20 gram/30 mL Solution 10 g PO Q12H PRN (Reason: consitpation) 30 Days Qty: 1200 RF: 0 sennosides-docusate sodium [Stool Softener-Laxative] 8.6-50 mg Tablet 1 tab PO BID 30 Days Qty: 60 RF: 0 calcitonin (salmon) 200 unit/actuation [place],Non-Aerosol 1 spray nostril-al DAILY 30 Days Qty: 3.7 RF: 0 Continued aspirin [Adult Aspirin Regimen] 81 mg tablet,delayed release (DR/EC) 81 mg PO DAILY RF: 0 dicyclomine 10 mg capsule 10 mg PO TID PRN (Reason: Abdominal Discomfort) RF: 0 donepezil 5 mg tablet 5 mg PO BEDTIME RF: 0 pantoprazole 40 mg tablet,delayed release (DR/EC) 40 mg PO QAM RF: 0 magnesium oxide 400 mg (241.3 mg magnesium) tablet 400 mg PO QPM RF: 0 cyanocobalamin (vitamin B-12) 1,000 mcg/mL solution 1,000 mcg IM Q30D RF: 0 fluticasone propionate 50 mcg/actuation spray,suspension 2 spray INTRANASAL QAM RF: 0 Multiple Vitamin, Womens Tablet 1 tab PO QAM RF: 0 Zinc Orotate 60 mg PO QPM RF: 0 calcium acetate 1 tab PO BID RF: 0 levothyroxine 112 mcg Tablet 112 mcg PO DAILY Qty: 30 RF: 0 furosemide 40 mg tablet 80 mg PO QAM Qty: 60 RF: 0 potassium chloride 20 mEq tablet,ER particles/crystals 20 meq PO BID RF: 0 duloxetine 30 mg capsule,delayed release(DR/EC) 30 mg PO DAILY RF: 0 gabapentin 100 mg Capsule 100 mg PO TID RF: 0 Discontinued acetaminophen-codeine 300-30 mg tablet 1 tab PO Q6H PRN (Reason: Pain) RF: 0 Discharge Orders: Discharge Order (Routine); Ordered 03/03/21 Ordered By: Solomon Prince Referrals: Brandon De Paz DO [Physician] - 1 week Chasity Cruz FNP [Primary Care Provider] - Discharge Diet: As Directed Discharge Activity: Increase activity as tolerated Patient Instructions: Hypokalemia (ED), Chronic Back Pain (ED), Opioid Safety Activity Restrictions/Additional Instructions: Follow-up with medical provider as directed. Take medications as prescribed. Return to the ER or your medical provider if condition worsens. Please read and understand discharge instructions. If any questions ask please. Increase potassium to 3 times a day. -Take Colace twice daily, lactulose as needed for constipation -For back pain use oxycodone sparingly for back pain, do not drive or operate heavy machinery while taking the medication, if you have lightheadedness or dizziness take the medication please stop, if you suffer respiratory depression from taking the medication please stop alcohol none none 1 -Please follow-up with Dr. 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
[2021-03-03 15:34] VITALS: BP 126/78; PULSE 76; RESP 18; TEMP 36.8; O2SAT 98
--- NOTE | 2021-03-03 16:56 | PC.NURSE ---
patient and daughter verbalized understanding of discharge instructions, home medications, and follow up appointments.
[2021-03-03 16:59] VITALS: BP 126/78; PULSE 76; RESP 18; TEMP 36.8; O2SAT 98
== END 2021-03-03 16:20 | disposition home or self-care (01) | DRG 388 ==
LOC: ER 13:28 → MEDSURG 13:43
PROVIDERS: Emergency Medicine; Admitting Provider Internal Medicine; Emergency Provider Nurse Practitioner Family; PCP Nurse Practitioner; Visit Provider Family Medicine
DX: K56.2 Volvulus (principal); I50.33 Acute on chronic diastolic (congestive) heart failure; S32.030A Wedge compression fracture of third lumbar vertebra, initial encounter for closed fracture; Z95.2 Presence of prosthetic heart valve; I11.0 Hypertensive heart disease with heart failure; Z87.440 Personal history of urinary (tract) infections; D50.9 Iron deficiency anemia, unspecified; Z86.73 Personal history of transient ischemic attack (TIA), and cerebral infarction without residual deficits; E03.9 Hypothyroidism, unspecified; Z96.653 Presence of artificial knee joint, bilateral; Z95.0 Presence of cardiac pacemaker; K59.00 Constipation, unspecified; G89.29 Other chronic pain; E87.6 Hypokalemia; X58.XXXA Exposure to other specified factors, initial encounter; M48.061 Spinal stenosis, lumbar region without neurogenic claudication; Z79.82 Long term (current) use of aspirin
CPT/HCPCS: 36415; 71045; 72100; 72131; 73521; 73522; 73523; 74018; 74019; 74022; 74177; 80053; 81003; 83605; 83735; 83880; 84100; 85025; 96372; 96374; 96375; 97116; 97161; 97166; 97530; 97535; 99285; C9113; J1650; J1940; J2270; J2405; J2930; J3480; Q9967

== ENCOUNTER 2021-03-14 18:53 | Inpatient (IN) | payer MEDICARE, SELFPAY ==
[2021-03-14 19:36] VITALS: BP 86/57; PULSE 84; RESP 14; TEMP 36.2; O2SAT 96; BMI 22.3
--- NOTE | 2021-03-14 20:52 | CTR_ITS ---
PROCEDURE INFORMATION: Exam: CT Abdomen And Pelvis Without Contrast Exam date and time: 03/14/2021 8:52 PM Age: 86 years old Clinical indication: Abdominal pain; Generalized; Prior surgery; Surgery type: Hernia; Additional info: Abdominal pain, distension, recent volvulus, diiarrhea TECHNIQUE: Imaging protocol: Computed tomography of the abdomen and pelvis without contrast. Radiation optimization: All CT scans at this facility use at least one of these dose optimization techniques: automated exposure control; mA and/or kV adjustment per patient size (includes targeted exams where dose is matched to clinical indication); or iterative reconstruction. COMPARISON: CT abdomen pelvis w con* [id number] 02/27/2021 11:23 AM RADIATION DOSE METRICS: Total DLP (mGy-cm): 1071.14 FINDINGS: Lungs: The lung bases are clear. No effusion Liver: There is fatty infiltration of the liver. Gallbladder and bile ducts: No wall thickening, pericholecystic fluid or stones. Pancreas: Normal. No ductal dilation. Spleen: Normal. No splenomegaly. Adrenal glands: Normal. No mass. Kidneys and ureters: Multiple nonobstructing right renal stones, largest measures 4 mm. 1.8 right renal cyst. Stomach and bowel: Mild amount of formed stool in the colon. There are few loops of gas and fluid-filled small bowel with a balanced amount of gas and fluid in the colon. There is thickening of the wall of the ascending colon with pericolonic fat stranding. Stable rotation of the mesenteric vessels with multiple loops of small bowel lateral to the colon within the right side of the abdomen. Appendix: No evidence of appendicitis. Intraperitoneal space: Unremarkable. No free air. No significant fluid collection. Vasculature: Unremarkable. No abdominal aortic aneurysm. Lymph nodes: Unremarkable. No enlarged lymph nodes. Urinary bladder: Unremarkable as visualized. Reproductive: Unremarkable as visualized. Bones/joints: Unremarkable. No acute fracture. Soft tissues: Unremarkable. CT/CT abdomen pelvis wo con [id number] IMPRESSION: 1. Ileus. 2. Colitis of the ascending colon. 3. Fatty infiltration of the liver. 4. Mild constipation. 5. Findings consistent with a right-sided internal abdominal hernia. COMMENTS: Consistent with the [employer]'s Incidental Findings Committee white paper (J Am Maximiliano Radiol 2018): Any incidental renal lesion less than 1 cm or classified as too small to characterize, or any incidental cystic renal lesion characterized as simple-appearing, is likely benign. No follow-up imaging is recommended for these lesions per consensus recommendations based on imaging criteria. Radiation Dose CTDIVOL = (mGy): DLP = 1071.14 (mGy-cm)
--- NOTE | 2021-03-14 21:01 | ED_ITS ---
Documented by User: Kaye Escobedo MD, [facility] [place] 03/15/21 11:15 HPI - Weakness General: Chief complaint: Weakness Stated complaint: Back pain, diarrhea Time Seen by Provider: 03/14/21 20:41 Source: patient, family and RN notes reviewed Mode of arrival: ambulatory Limitations: no limitations History of Present Illness: HPI Narrative: 86-year-old female patient who was brought into the emergency department by her daughter with complaints of generalized weakness. She was discharged 11 days ago from this facility and at that time she was managed as a case of intestinal volvulus that was managed nonsurgically. During that admission she had complained about back pain and on work-up she was noted to have some compression fractures. This evening when her daughter got home she found the patient on the toilet and the patient stated that she had been on the toilet for several hours. She apparently had significant amount of diarrhea with semiformed stool. No blood in her stool. No vomiting, no fever. Complaint: generalized weakness Onset (ago): hour(s) (4) Duration: constant Location: generalized Migration: none Relieving factors: none Exacerbating factors: none Context: recent illness Associated symptoms: Denies chest pain, chills, confusion, melena, decreased appetite, diaphoresis, dysuria, easy bruising, fever(s), headache(s), myalgias, nausea, rash, short of breath, syncope or vomiting Review of Systems General: Reports: 10 or more systems reviewed and unremarkable except in HPI and below Const: Denies: fever(s), chills or diaphoresis Card: Denies: chest pain or syncope GI: Denies: nausea, vomiting or melena : Denies: dysuria Neuro: Denies: headache(s) or confusion Jean-Claude/Lymph: Denies: easy bruising PFSH ED PFSH: Medical History Anemia iron deficiency, has been on iron injections in past, history of acute blood loss anemia also Aortic valve disease Bowel perforation History of recurrent pneumoperitoneum without symptoms, from unclear source History of echocardiogram (~10/2019) EF 55% with peak gradient 26 mmHg History of TIAs Prior to aortic valve replacement Hypertension Hypothyroidism 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 Surgical History H/O inguinal hernia repair bilateral H/O knee surgery (~2007) bilateral total knee replacement History of cataract surgery (~2017) bilateral History of esophagogastroduodenoscopy (EGD) History of laparoscopy to eval for source of pneumoperitoneum History of umbilical hernia repair 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, 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) due to aortic stenosis in 2016 23mm Lowe Brooks 3 Family History Daughter Cancer Breast Social History Smoking and tobacco status: never smoked Alcohol intake: never Household members: family Housing: House 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 Physical Exam Const: COMMON NORMALS: no acute distress, average body habitus, patient oriented x3, no limitations, healthy appearing, alert and well nourished HENMT: COMMON NORMALS: normocephalic, atraumatic and moist oral mucous membranes HEAD & SCALP: normocephalic and atraumatic Eye: COMMON NORMALS: Equal, round and reactive pupils present, EOMs intact bilaterally, conjunctivae normal and no scleral icterus CONJUNCTIVA: Yes conj unctivae normal PUPIL: Yes Equal, round and reactive pupils present Neck/C-Spine: COMMON NORMALS: no meningeal signs and no JVD Resp: COMMON NORMALS: normal respiratory effort, No retractions, No use of accessory muscles, clear to auscultation bilaterally and percussion normal AUSCULTATION: clear to auscultation bilaterally PERCUSSION: percussion normal Cardio: COMMON NORMALS: no JVD, regular rate, regular rhythm, S1 normal heart sound present, S2 normal heart sound present, No gallops present (Cardio), No clicks present (Cardio), No murmurs present (Cardio), No rub (Cardio) and Peripheral pulses 2+ throughout RATE: regular rate RHYTHM: regular rhythm HEART SOUNDS: S1 normal heart sound present and S2 normal heart sound present PERIPHERAL PULSES: Peripheral pulses 2+ throughout GI: COMMON NORMALS: Normal to inspection, nondistended, normoactive bowel sounds present, Soft to palpation, non-tender, No hepatosplenomegaly present, no masses and no bruits PALPATION: Yes Soft to palpation and Yes No hepatosplenomegaly present Extremity: COMMON NORMALS: normal to inspection, full ROM, capillary refill normal, no calf tenderness and no pedal edema Neuro: COMMON NORMALS: patient oriented x3 SENSORIUM/ORIENTATION: Yes alert MENINGEAL SIGNS: Yes no meningeal signs Skin: COMMON NORMALS: no rashes or lesions noted, no wounds, turgor normal, no jaundice, no petechiae and no mottling GENERAL SKIN EXAM: no rashes or lesions noted and turgor normal Course Vital Signs: Vital signs: Vital Signs Temperature 98.1 F 03/15/21 06:50 Pulse Rate 82 03/15/21 08:29 Respiratory Rate 19 H 03/15/21 06:50 Blood Pressure 106/68 03/15/21 06:50 Pulse Oximetry 93 03/15/21 08:29 MDM - Weakness MDM Narrative: Medical decision making narrative: 86-year-old female patient who presents to the emergency department for evaluation of generalized weakness and diarrhea. On evaluation so far her white cell count is significantly elevated and it is up from 7000 about 11 days ago. She is also hypotensive. CRP is significantly elevated at almost 300. Waiting on the results of her abdominal CT scan and she would likely be admitted to the hospital for further evaluation and management. Patient is signed out to Dr. Salmon to assume care. Medical Records: Attestation: I reviewed the patient's medical records. Lab Data: Attestation: I reviewed the patient's lab results. Labs: Lab Results 03/14/21 03/14/21 03/14/21 Range/Units 22:43 22:43 22:43 WBC 29.5 H (4.0-10.0) 10^3/ uL RBC 4.21 (4.1-5.3) 10^6/u L Hgb 12.2 (11.5-15.3) g/dL Hct 37.1 (37.0-47.0) % MCV 88.1 (81-99) fL MCH 29.0 (28.0-34.0) pg MCHC 32.9 (30.0-36.0) g/dL RDW 15.6 H (12.1-15.1) % Plt Count 208 (130-400) 10^3/c mm MPV 10.1 (7.4-10.4) fL Neut % (Auto) 88.5 % Lymph % (Auto) 2.4 % [place] % (Auto) 5.7 % Eos % (Auto) 0.0 % Baso % (Auto) 0.6 % Neut # (Auto) 26.08 H (1.8-7.7) 10^3/u L Lymph # (Auto) 0.7 L (0.8-4.8) 10^3/u L [place] # (Auto) 1.7 H (0.2-0.9) 10^3/u L Eos # (Auto) 0.0 (0.0-0.8) 10^3/u L Baso # (Auto) 0.2 H (0.0-0.1) 10^3/u L Nucleated RBC % (a uto) 0 % Nucleated RBCs # 0.0 /100WBC Sodium 130 L (136-145) mmol/L Potassium 3.2 L (3.5-5.1) mmol/L Chloride 91 L (98-107) mmol/L Carbon Dioxide 30 H (22-29) mmol/L Anion Gap 12.2 (5-19) BUN 18 (8-23) mg/dL Creatinine 0.4 L (0.5-0.9) mg/dL GFR Calculation Not Reportable Glucose 86 (65-115) mg/dL Calculated Osmolal ity 271 L (285-295) mOsm/k g Lactic Acid (0.5-2.2) mmol/L Calcium 8.1 L (8.5-10.5) mg/dL Total Bilirubin 1.0 (0.15-1.2) mg/dL AST 20 (0-32) U/L ALT 19 (0-33) U/L Alkaline Phosphata se 142 H (35-105) IU/L C-Reactive Protein 299.4 H (0.0-4.9) mg/L NT-Pro-B Natriuret Pep 2131 H (0-450) pg/mL Total Protein 5.6 L (6.6-8.7) g/dL Albumin 2.9 L (3.5-5.2) g/dL Globulin 2.7 (1.3-4.6) g/dL Lipase 10 L (13-60) U/L Urine Color (Yellow) Urine Appearance (CLEAR) Urine pH (5-7) Ur Specific Gravit y (1.005-1.030) Urine Protein (Negative) Urine Glucose (UA) (Normal) Urine Ketones (Negative) Urine Blood (Negative) Urine Nitrate (Negative) Urine Bilirubin (Negative) Urine Urobilinogen (Negative) mg/dL Ur Leukocyte Lanette ase (Negative) Ur Random Chloride mmol/L 03/15/21 03/15/21 03/15/21 Range/Units 01:27 02:10 02:10 WBC (4.0-10.0) 10^3/ uL RBC (4.1-5.3) 10^6/u L Hgb (11.5-15.3) g/dL Hct (37.0-47.0) % MCV (81-99) fL MCH (28.0-34.0) pg MCHC (30.0-36.0) g/dL RDW (12.1-15.1) % Plt Count (130-400) 10^3/c mm MPV (7.4-10.4) fL Neut % (Auto) % Lymph % (Auto) % [place] % (Auto) % Eos % (Auto) % Baso % (Auto) % Neut # (Auto) (1.8-7.7) 10^3/u L Lymph # (Auto) (0.8-4.8) 10^3/u L [place] # (Auto) (0.2-0.9) 10^3/u L Eos # (Auto) (0.0-0.8) 10^3/u L Baso # (Auto) (0.0-0.1) 10^3/u L Nucleated RBC % (a uto) % Nucleated RBCs # /100WBC Sodium (136-145) mmol/L Potassium (3.5-5.1) mmol/L Chloride (98-107) mmol/L Carbon Dioxide (22-29) mmol/L Anion Gap (5-19) BUN (8-23) mg/dL Creatinine (0.5-0.9) mg/dL GFR Calculation Glucose (65-115) mg/dL Calculated Osmolal ity (285-295) mOsm/k g Lactic Acid 2.2 (0.5-2.2) mmol/L Calcium (8.5-10.5) mg/dL Total Bilirubin (0.15-1.2) mg/dL AST (0-32) U/L ALT (0-33) U/L Alkaline Phosphata se (35-105) IU/L C-Reactive Protein (0.0-4.9) mg/L NT-Pro-B Natriuret Pep (0-450) pg/mL Total Protein (6.6-8.7) g/dL Albumin (3.5-5.2) g/dL Globulin (1.3-4.6) g/dL Lipase (13-60) U/L Urine Color Dark yellow (Yellow) Urine Appearance Clear (CLEAR) Urine pH 5 (5-7) Ur Specific Gravit y 1.010 (1.005-1.030) Urine Protein Neg (Negative) Urine Glucose (UA) Norm (Normal) Urine Ketones Negative (Negative) Urine Blood Neg (Negative) Urine Nitrate Negative (Negative) Urine Bilirubin 1+ H (Negative) Urine Urobilinogen Norm (Negative) mg/dL Ur Leukocyte Lanette ase Negative (Negative) Ur Random Chloride 12 mmol/L Discharge Plan Discharge Patient Disposition: Admitted As Inpatient Admit Provider: Valerie Whelan Clinical Impression: Colitis Sepsis Qualifiers: Sepsis type: sepsis due to unspecified organism Condition: Stable Coding Level of Care Code ED Supervisor Maintenance And Custodians for Chg Fwd Exam Comprehensive Documented by User: Misael Salmon MD 03/15/21 03:33 HPI - Weakness General: Chief complaint: Weakness Stated complaint: Back pain, diarrhea Time Seen by Provider: 03/14/21 20:41 PFS ED PFSH: Medical History Anemia iron deficiency, has been on iron injections in past, history of acute blood loss anemia also Aortic valve disease Bowel perforation History of recurrent pneumoperitoneum without symptoms, from unclear source History of echocardiogram (~10/2019) EF 55% with peak gradient 26 mmHg History of TIAs Prior to aortic valve replacement Hypertension Hypothyroidism 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 Surgical History H/O inguinal hernia repair bilateral H/O knee surgery (~2007) bilateral total knee replacement History of cataract surgery (~2017) bilateral History of esophagogastroduodenoscopy (EGD) History of laparoscopy to eval for source of pneumoperitoneum History of umbilical hernia repair 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, 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 Escobedo. Patient presents here with sepsis with elevated white count. CT shows colitis. Patient started on IV antibiotics and IV fluids and her blood pressure has improved here. Spoke to the hospitalist will admit to ICU. Lab Data: Labs: Lab Results 03/14/21 03/14/21 03/14/21 Range/Units 22:43 22:43 22:43 WBC 29.5 H (4.0-10.0) 10^3/ uL RBC 4.21 (4.1-5.3) 10^6/u L Hgb 12.2 (11.5-15.3) g/dL Hct 37.1 (37.0-47.0) % MCV 88.1 (81-99) fL MCH 29.0 (28.0-34.0) pg MCHC 32.9 (30.0-36.0) g/dL RDW 15.6 H (12.1-15.1) % Plt Count 208 (130-400) 10^3/c mm MPV 10.1 (7.4-10.4) fL Neut % (Auto) 88.5 % Lymph % (Auto) 2.4 % [place] % (Auto) 5.7 % Eos % (Auto) 0.0 % Baso % (Auto) 0.6 % Neut # (Auto) 26.08 H (1.8-7.7) 10^3/u L Lymph # (Auto) 0.7 L (0.8-4.8) 10^3/u L [place] # (Auto) 1.7 H (0.2-0.9) 10^3/u L Eos # (Auto) 0.0 (0.0-0.8) 10^3/u L Baso # (Auto) 0.2 H (0.0-0.1) 10^3/u L Nucleated RBC % (a uto) 0 % Nucleated RBCs # 0.0 /100WBC Sodium 130 L (136-145) mmol/L Potassium 3.2 L (3.5-5.1) mmol/L Chloride 91 L (98-107) mmol/L Carbon Dioxide 30 H (22-29) mmol/L Anion Gap 12.2 (5-19) BUN 18 (8-23) mg/dL Creatinine 0.4 L (0.5-0.9) mg/dL GFR Calculation Not Reportable Glucose 86 (65-115) mg/dL Calculated Osmolal ity 271 L (285-295) mOsm/k g Lactic Acid (0.5-2.2) mmol/L Calcium 8.1 L (8.5-10.5) mg/dL Total Bilirubin 1.0 (0.15-1.2) mg/dL AST 20 (0-32) U/L ALT 19 (0-33) U/L Alkaline Phosphata se 142 H (35-105) IU/L C-Reactive Protein 299.4 H (0.0-4.9) mg/L NT-Pro-B Natriuret Pep 2131 H (0-450) pg/mL Total Protein 5.6 L (6.6-8.7) g/dL Albumin 2.9 L (3.5-5.2) g/dL Globulin 2.7 (1.3-4.6) g/dL Lipase 10 L (13-60) U/L Urine Color (Yellow) Urine Appearance (CLEAR) Urine pH (5-7) Ur Specific Gravit y (1.005-1.030) Urine Protein (Negative) Urine Glucose (UA) (Normal) Urine Ketones (Negative) Urine Blood (Negative) Urine Nitrate (Negative) Urine Bilirubin (Negative) Urine Urobilinogen (Negative) mg/dL Ur Leukocyte Lanette ase (Negative) Ur Random Chloride mmol/L 03/15/21 03/15/21 03/15/21 Range/Units 01:27 02:10 02:10 WBC (4.0-10.0) 10^3/ uL RBC (4.1-5.3) 10^6/u L Hgb (11.5-15.3) g/dL Hct (37.0-47.0) % MCV (81-99) fL MCH (28.0-34.0) pg MCHC (30.0-36.0) g/dL RDW (12.1-15.1) % Plt Count (130-400) 10^3/c mm MPV (7.4-10.4) fL Neut % (Auto) % Lymph % (Auto) % [place] % (Auto) % Eos % (Auto) % Baso % (Auto) % Neut # (Auto) (1.8-7.7) 10^3/u L Lymph # (Auto) (0.8-4.8) 10^3/u L [place] # (Auto) (0.2-0.9) 10^3/u L Eos # (Auto) (0.0-0.8) 10^3/u L Baso # (Auto) (0.0-0.1) 10^3/u L Nucleated RBC % (a uto) % Nucleated RBCs # /100WBC Sodium (136-145) mmol/L Potassium (3.5-5.1) mmol/L Chloride (98-107) mmol/L Carbon Dioxide (22-29) mmol/L Anion Gap (5-19) BUN (8-23) mg/dL Creatinine (0.5-0.9) mg/dL GFR Calculation Glucose (65-115) mg/dL Calculated Osmolal ity (285-295) mOsm/k g Lactic Acid 2.2 (0.5-2.2) mmol/L Calcium (8.5-10.5) mg/dL Total Bilirubin (0.15-1.2) mg/dL AST (0-32) U/L ALT (0-33) U/L Alkaline Phosphata se (35-105) IU/L C-Reactive Protein (0.0-4.9) mg/L NT-Pro-B Natriuret Pep (0-450) pg/mL Total Protein (6.6-8.7) g/dL Albumin (3.5-5.2) g/dL Globulin (1.3-4.6) g/dL Lipase (13-60) U/L Urine Color Dark yellow (Yellow) Urine Appearance Clear (CLEAR) Urine pH 5 (5-7) Ur Specific Gravit y 1.010 (1.005-1.030) Urine Protein Neg (Negative) Urine Glucose (UA) Norm (Normal) Urine Ketones Negative (Negative) Urine Blood Neg (Negative) Urine Nitrate Negative (Negative) Urine Bilirubin 1+ H (Negative) Urine Urobilinogen Norm (Negative) mg/dL Ur Leukocyte Lanette ase Negative (Negative) Ur Random Chloride 12 mmol/L Imaging Data^: CT Abd/Pel: Attestation: I personally reviewed and interpreted this imaging study as follows: Radiologist's impression: [address] [address] [address] Scan Report Signed Patient: Aide Mitchell Unit #: [id number] : 1935 Age/Sex: 86 / F ADM Date: 03/14/21 Loc: ER Room/Bed: Attending Dr: Ordering Provider/Ordering MD: Kaye Escobedo MD, [facility] [place] Date of Service: 03/14/21 Procedure(s): CT abdomen pelvis wo con [id number] Accession Number(s): [id number] Report Number: [id number] PROCEDURE INFORMATION: Exam: CT Abdomen And Pelvis Without Contrast Exam date and time: 03/14/2021 8:52 PM Age: 86 years old Clinical indication: Abdominal pain; Generalized; Prior surgery; Surgery type: Hernia; Additional info: Abdominal pain, distension, recent volvulus, diiarrhea TECHNIQUE: Imaging protocol: Computed tomography of the abdomen and pelvis without contrast. Radiation optimization: All CT scans at this facility use at least one of these dose optimization techniques: automated exposure control; mA and/or kV adjustment per patient size (includes targeted exams where dose is matched to clinical indication); or iterative reconstruction. COMPARISON: CT abdomen pelvis w con* [id number] 02/27/2021 11:23 AM RADIATION DOSE METRICS: Total DLP (mGy-cm): 1071.14 FINDINGS: Lungs: The lung bases are clear. No effusion Liver: There is fatty infiltration of the liver. Gallbladder and bile ducts: No wall thickening, pericholecystic fluid or stones. Pancreas: Normal. No ductal dilation. Spleen: Normal. No splenomegaly. Adrenal glands: Normal. No mass. Kidneys and ureters: Multiple nonobstructing right renal stones, largest measures 4 mm. 1.8 right renal cyst. Stomach and bowel: Mild amount of formed stool in the colon. There are few loops of gas and fluid-filled small bowel with a balanced amount of gas and fluid in the colon. There is thickening of the wall of the ascending colon with pericolonic fat stranding. Stable rotation of the mesenteric vessels with multiple loops of small bowel lateral to the colon within the right side of the abdomen. Appendix: No evidence of appendicitis. Intraperitoneal space: Unremarkable. No free air. No significant fluid collection. Vasculature: Unremarkable. No abdominal aortic aneurysm. Lymph nodes: Unremarkable. No enlarged lymph nodes. Urinary bladder: Unremarkable as visualized. Reproductive: Unremarkable as visualized. Bones/joints: Unremarkable. No acute fracture. Soft tissues: Unremarkable. CT/CT abdomen pelvis wo con [id number] IMPRESSION: 1. Ileus. 2. Colitis of the ascending colon. 3. Fatty infiltration of the liver. 4. Mild constipation. 5. Findings consistent with a right-sided internal abdominal hernia. COMMENTS: Consistent with the [employer]'s Incidental Findings Committee white paper (J Am Maximiliano Radiol 2018): Any incidental renal lesion less than 1 cm or classified as too small to characterize, or any incidental cystic renal lesion characterized as simple-appearing, is likely benign. No follow-up imaging is recommended for these lesions per consensus recommendations based on imaging criteria. Radiation Dose CTDIVOL = (mGy): DLP = 1071.14 (mGy-cm) Dictated By: Viet Mcdaniel Signed By: Viet Mcdaniel Signed Date/Time: 03/15/21 0106 Critical Care Time Critical Care Time: Critical Care Time: Yes Total Critical Care Time: 36 Attestation: This case had a high probability of a clinically significant, sudden, or life threatening deterioration of this patient's condition which required my full and direct attention, intervention and personal management. Discharge Plan Discharge Patient Disposition: Admitted As Inpatient Admit Provider: Valerie Whelan Clinical Impression: Colitis Sepsis Qualifiers: Sepsis type: sepsis due to unspecified organism Condition: Stable Coding Level of Care Code ED Supervisor Maintenance And Custodians for Chg Fwd Exam Comprehensive
[2021-03-14 22:46] LABS: Basophils # 0.2 10^3/uL (0.0-0.1); Basophils % 0.6 %; Hematocrit 37.1 % (37.0-47.0); Hemoglobin 12.2 g/dL (11.5-15.3); Lymphocytes # 0.7 10^3/uL (0.8-4.8); Lymphocytes % 2.4 %; Mean Corpuscular HGB Conc 32.9 g/dL (30.0-36.0); Mean Corpuscular Volume 88.1 fL (81-99); Mean Platelet Volume 10.1 fL (7.4-10.4); Monocytes # 1.7 10^3/uL (0.2-0.9); Monocytes % 5.7 %; Neutrophils # 26.08 10^3/uL (1.8-7.7); Neutrophils % 88.5 %; Nucleated Red Blood Cells % 0 %; Platelet Count 208 10^3/cmm (130-400); Red Blood Count 4.21 10^6/uL (4.1-5.3); Red Cell Distribution Width 15.6 % (12.1-15.1); White Blood Count 29.5 10^3/uL (4.0-10.0)
[2021-03-14] MEDS: iohexol 300 mg/mL 100 mL Btl IV (22:59)
[2021-03-14 23:16] LABS: Alanine Aminotransferase 19 U/L (0-33); Albumin Level 2.9 g/dL (3.5-5.2); Alkaline Phosphatase 142 IU/L (35-105); Anion Gap 12.2 (5-19); Aspartate Amino Transferase 20 U/L (0-32); Blood Urea Nitrogen 18 mg/dL (8-23); C Reactive Protein 299.4 mg/L (0.0-4.9); Calcium 8.1 mg/dL (8.5-10.5); Carbon Dioxide 30 mmol/L (22-29); Chloride 91 mmol/L (98-107); Globulin 2.7 g/dL (1.3-4.6); Glucose 86 mg/dL (65-115); Lipase 10 U/L (13-60); Osmolality Calculated 271 mOsm/kg (285-295); Potassium 3.2 mmol/L (3.5-5.1); Sodium 130 mmol/L (136-145); Total Protein 5.6 g/dL (6.6-8.7)
[2021-03-15] VITALS (38 sets, daily range): BP systolic 81–112; BP diastolic 39–74; PULSE 60–86; RESP 0–24; TEMP 36.7–37.1; O2SAT 83–100
[2021-03-15 01:52] LABS: Lactic Sepsis W/Reflex 2.2 mmol/L (0.5-2.2)
[2021-03-15] MEDS: piperacillin-tazobactam 3.375 GM in sodium chloride 0.9% (plus) 50 ML IV ×3 (02:00→19:00)
[2021-03-15 02:32] LABS: Add Urine Microscopic? NO; Charge for UA Resulting for Rev
[2021-03-15] MEDS: vancomycin 1,000 MG in sodium chloride 0.9% 250 ML 250 MG IV (02:40)
[2021-03-15 02:41] LABS: Urine Appearance Clear (CLEAR); Urine Color Dark Yellow (Yellow); pH Urine 5 (5-7)
[2021-03-15 02:42] LABS: Bilirubin Urine 1+ (Negative); Blood Urine Neg (Negative); Glucose Urine UA Norm (Normal); Ketones Urine Negative (Negative); Leukocyte Esterase Urine Negative (Negative); Nitrate Urine Negative (Negative); Protein Urine Neg (Negative); Urobilinogen Urine Norm (Negative)
[2021-03-15] MEDS: sodium chloride 0.9% 1,000 ML 999 ML IV ×2 (03:00→04:32)
[2021-03-15 03:18] LABS: Reflex Lactate Order REFLEX LACTIC ORDERD
--- NOTE | 2021-03-15 05:20 | XRR_ITS ---
PROCEDURE INFORMATION: Exam: XR Chest Exam date and time: 03/15/2021 5:20 AM Age: 86 years old Clinical indication: Dyspnea; Prior surgery; Surgery date: 6+ months; Surgery type: Pacemaker TECHNIQUE: Imaging protocol: XR of the chest. Views: 1 view. COMPARISON: CR (CHEST, ) 02/27/2021 1:49 PM FINDINGS: Tubes, catheters and devices: There is left-sided pacemaker with intact leads overlying the right atrium and right ventricle. Lungs: Unremarkable. No consolidation. Pleural spaces: Unremarkable. No pleural effusion. No pneumothorax. Heart/Mediastinum: There is mild cardiomegaly. Vasculature: Aortic stent in place. Bones/joints: Unremarkable. XR/XR chest 1V portable [id number] IMPRESSION: Mild cardiomegaly.
--- NOTE | 2021-03-15 05:25 | ECG_ITS ---
[facility] Test Date: 2021-03-15 Pat Name: Aide Mitchell Department: Room: [facility] Gender: Female Technical Sme: : 1935 Requested By: Valerie Whelan Order Number: [id number] Reading MD: Ilir Simpson M.D. Measurements Intervals [place] Rate: 83 P: 210 ID: [id number] QRS: -83 QRSD: 205 T: 84 QT: 485 QTc: 571 Interpretive Statements Demand AV paced rhythm with a mode switch on WARNING: DATA QUALITY MAY AFFECT INTERPRETATION Compared to ECG 11/01/2020 16:48:53 No significant changes Electronically Signed On 03-16-2021 0:36:43 CDT by Ilir Simpson M.D. [id number]
--- NOTE | 2021-03-15 05:57 | P.CONIM_ITS ---
Providers/Reason For Consult Consulting Physician/Specialty*: Michael Dozier MD Reason for Consult*: Concerning for sepsis Attending Physician: Valerie Whelan MD Primary Care Provider: LEAH Sims History of Present Illness History of Present Illness Chief Complaint: My back hurts History of present illness: Aide Mitchell is a pleasant 86 year old female with associated medical comorbidities in the form of congestive heart failure, chronic back pain and history of hypertension. Patient also has history of TAVR for aortic stenosis and pacemaker placement in addition to history of chronic GERD. Presented to the emergency department with history of worsening back and hip pains. Patient reports that she does not have any nausea or vomiting, denies dysuria or hematuria yet she did have multiple nonbloody loose stools in nature. And she has been constipated the whole last week. Based on her daughter's concern she was brought to the emergency department for further evaluation and a CT scan of the abdomen and pelvis was done that showed colitis of the ascending colon and what seems to be a chronic malrotation of the bowel. Patient was admitted and hospitalized before couple of weeks and there was concern about volvulus, was treated conservatively at that time and she responded well. General surgery was consulted for further evaluation potential intervention, patient denies any current abdominal pain. History of diagnostic laparoscopy for unknown origin of pneumoperitoneum and umbilical hernia repair. CT scan of the abdomen and pelvis 03/14/2021 showed Lungs: The lung bases are clear. No effusion Liver: There is fatty infiltration of the liver. Gallbladder and bile ducts: No wall thickening, pericholecystic fluid or stones. Pancreas: Normal. No ductal dilation. Spleen: Normal. No splenomegaly. Adrenal glands: Normal. No mass. Kidneys and ureters: Multiple nonobstructing right renal stones, largest measures 4 mm. 1.8 right renal cyst. Stomach and bowel: Mild amount of formed stool in the colon. There are few loops of gas and fluid-filled small bowel with a balanced amount of gas and fluid in the colon. There is thickening of the wall of the ascending colon with pericolonic fat stranding. Stable rotation of the mesenteric vessels with multiple loops of small bowel lateral to the colon within the right side of the abdomen. Appendix: No evidence of appendicitis. Intraperitoneal space: Unremarkable. No free air. No significant fluid collection. Vasculature: Unremarkable. No abdominal aortic aneurysm. Lymph nodes: Unremarkable. No enlarged lymph nodes. Urinary bladder: Unremarkable as visualized. Reproductive: Unremarkable as visualized. Bones/joints: Unremarkable. No acute fracture. Soft tissues: Unremarkable. CT/CT abdomen pelvis wo con [id number] IMPRESSION: 1. Ileus. 2. Colitis of the ascending colon. 3. Fatty infiltration of the liver. 4. Mild constipation. 5. Findings consistent with a right-sided internal abdominal hernia. Previous CT scan of the abdomen and pelvis 02/27/2021 did show 1. Possible mitral valve replacement versus high density calcification in the mitral valve annulus. 2. Enlarged 13.0 x 4.8 cm gallbladder which does not quite fit the criteria for gallbladder hydrops. 3. Moderate retained feces throughout the colon. 4. Air-filled loops of small bowel up to the 4.7 cm in diameter with possible transition point in an area of rotational volvulus about the superior mesenteric vessels, axial series 2, images 31-48. The narrowed small bowel is identified on image 37. 5. Abnormal small bowel loops in the right abdomen with bowel wall thickening and inflammation in surrounding fat suggesting infectious enteritis versus ischemic enteritis, probably in the distal ileum. Axial series 2, image 29-44. Review of Systems General: Reports: 10 or more systems reviewed and unremarkable except in HPI and below Meds/Allergies Home Medications and Allergies Home Medications Medication Instructions Recorded Confirmed Last Taken Type Multiple Vitamin, Womens 1 tab PO DAILY 04/14/20 03/14/21 03/14/21 History cyanocobalamin (vitamin B-12) 1,000 mcg IM Q30D 04/14/20 03/14/21 Unknown History fluticasone propionate 2 spray INTRANASAL DAILY 04/14/20 03/14/21 03/14/21 History magnesium oxide 400 mg PO DAILY 04/14/20 03/14/21 03/13/21 History aspirin 81 mg tablet,delayed 81 mg PO DAILY 05/17/20 03/14/21 03/13/21 History release pantoprazole 40 mg tablet,delayed 40 mg PO DAILY 08/18/20 03/14/21 03/14/21 History release dicyclomine 10 mg capsule 10 mg PO TID PRN 09/24/20 03/14/21 03/14/21 History donepezil 5 mg tablet 5 mg PO BEDTIME 09/24/20 03/14/21 03/13/21 History Zinc Orotate 60 mg PO DAILY 11/01/20 03/14/21 03/13/21 History calcium acetate 1 tab PO BID 11/01/20 03/14/21 03/14/21 History furosemide 80 mg PO QAM #60 tab 11/05/20 03/14/21 03/14/21 Rx levothyroxine 112 mcg PO DAILY #30 tab 11/05/20 03/14/21 03/14/21 Rx potassium chloride 20 mEq 20 meq PO BID tab 01/13/21 03/14/21 03/14/21 History tablet,extended release(part/cryst) duloxetine 30 mg PO DAILY 02/27/21 03/14/21 03/13/21 History gabapentin 100 mg PO TID 02/27/21 03/14/21 02/26/21 History calcitonin (salmon) 1 spray NOSTRIL-AL DAILY 30 Days 03/03/21 03/14/21 03/14/21 Rx #3.7 ml lactulose 10 g PO Q12H PRN 30 Days #1200 ml 03/03/21 03/14/21 Unknown Rx sennosides-docusate sodium [Stool 1 tab PO BID 30 Days #60 tab 03/03/21 03/14/21 03/14/21 Rx Softener-Laxative] [id number] 2 drp OTIC (EAR) QID 03/14/21 03/14/21 Unknown History Allergies Allergy/AdvReac Type Severity Reaction Status Date / Time codeine Allergy ADR-Abdominal Verified 01/13/21 10:14 Pain PFSH Acute PFSH: Medical History Anemia iron deficiency, has been on iron injections in past, history of acute blood loss anemia also Aortic valve disease Bowel perforation History of recurrent pneumoperitoneum without symptoms, from unclear source History of echocardiogram (~10/2019) EF 55% with peak gradient 26 mmHg History of TIAs Prior to aortic valve replacement Hypertension Hypothyroidism 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 Surgical History H/O inguinal hernia repair bilateral H/O knee surgery (~2007) bilateral total knee replacement History of cataract surgery (~2017) bilateral History of esophagogastroduodenoscopy (EGD) History of laparoscopy to eval for source of pneumoperitoneum History of umbilical hernia repair 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, 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) due to aortic stenosis in 2016 23mm Lowe Brooks 3 Family History Daughter Cancer Breast Social History Smoking and tobacco status: never smoked Alcohol intake: never Household members: family Housing: House 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 Vitals/I&O/Wt Last Vital Signs Temp 97.1 F L 03/14/21 19:36 Pulse 84 03/14/21 19:36 Resp 24 H 03/15/21 01:43 BP 102/60 03/15/21 04:00 Pulse Ox 95 03/15/21 01:43 03/14/21 03/14/21 03/15/21 14:59 22:59 06:59 Intake Total 1050 / 1050 Balance 1050 / 1050 Weight last 48 hrs Weight 130 lb Physical Exam Narrative: EXAM NARRATIVE: Patient is conscious alert oriented, no apparent distress BMI 22.3 Head and neck examination PERRLA no masses no cervical lymphadenopathy no jaundice Cardiac examination audible S1-S2 no murmurs no gallops no arrhythmias Chest is clear bilateral,abscence of Rhonchi or wheezes,no surgical emphysema Abdomen nontender except towards the right side of the abdomen and pellets of hard stool can be appreciated in the right side of the colon clinically. Nondistended soft no organomegaly guarding or rigidity/no signs of peritonitis Solis catheter in place Data Micro: Micro: Microbiology 03/15/21 01:50 Blood Culture - Pr eliminary Blood SPECIMEN [facility] 03/15/21 01:27 Blood Culture - Pr eliminary Blood SPECIMEN [facility] A&P Assessment and plan (1) Colitis: After history taking physical examination and reviewing the chart and images with my personal interpretation I do believe that the patient does have a chronic malrotation of the bowel, I would like to review the images of the current CT scan and the previous one with our radiologist. Meanwhile highly recommend IV fluid hydration, repeated physical examination and pharmacologic DVT prophylaxis. We will continue updating the family Repeat labs Diarrhea work-up including C. difficile colitis 0800 am Discusse the images further with Dr Garcia Radilogist and compared the images of the current CT scan to the one done back in February and it does show resolution of the concern about the bowel obstruction/potential volvulus. In comparison to t he CT scan done back in 2019 it is a stable examination without evidence of acute radiological changes, no evidence of pneumatosis or free air yet there is evidence of ascending colitis. Also no evidence of internal herniation. From surgical standpoint of view we will continue conservative measures and monitor the patient closely in the ICU with coordination with the hospitalist service. Thank you for consulting general surgery to participate taking care Ms. Stovall Status: Acute Consult Attestations Medical Necessity Statement: Continue inpatient hospitalization for resuscitation and repeated clinical examination Time Spent in Patient Care: (>than 50% of time spent in counselling and/or direct pt care on unit) . Coding Level of Care Code Acute Automotive Professional for [facility] Diagnoses Colitis K52.9
[2021-03-15] MEDS: sodium chlor 0.9% + KCl 20 mEq 20 MEQ/1,000 ML BAG 100 MEQ IV ×2 (06:25→22:10)
[2021-03-15] MEDS: enoxaparin 40 mg/0.4 mL Syringe SUBCUT (06:26)
--- NOTE | 2021-03-15 06:37 | P.HP_ITS ---
Providers/Chief Complaint Admitting Physician: Valerie Whelan MD Primary Care Provider: LEAH Sims Chief Complaint: Back pain, diarrhea History of Present Illness Aide Mitchell is a 86 year old female PMHx of s/p TAVR, history of pacemaker placement, with heart failure with preserved ejection fraction, chronic lower extremity edema, GERD recently admitted to the hospital between February 27 to March 03 for SBO and possible rotational volvulus. She was managed conservatively, improved and discharged on March 03, 2021. She returned to the ER today complaining of increasing abdominal and right-sided back pain. Also had multiple episodes of diarrhea. Daughter was concerned when she could not get off the toilet today and brought her to the emergency room. Labs here were notable for leukocytosis of 29, systolic blood pressure in the 80s upon admission, improved with 2 L IV fluid resuscitation to [address] of the abdomen and pelvis is showing colitis of the ascending colon along with ileus and marked constipation. There is a note made for right-sided internal abdominal hernia. Denies any blood in stools. Denies any fever chills at home. Review of Systems General: Reports: 10 or more systems reviewed and unremarkable except in HPI and below Const: Denies: fever(s), chills or body aches Eyes: Denies: change in vision, blurry vision or photophobia ENMT: Reports: hoarseness; Denies: throat pain, enlarged tonsils, odynophagia or nasal congestion Card: Denies: chest pain, palpitations, irregular heart rhythm, edema, swelling of feet/ankles, lightheadedness, pre-syncope, dyspnea on exertion or orthopnea Resp: Denies: dyspnea, productive cough, non-productive cough, wheezing, stridor, pain on inspiration, change in phlegm color, hemoptysis or chest congestion GI: Denies: abdominal pain, nausea, vomiting, hematemesis, coffee ground emesis, dysphagia, heartburn, diarrhea, constipation, GI cramping, change in stool character, hematochezia or melena : Denies: flank pain, difficulty voiding, dysuria, urinary frequency, urinary urgency, urinary hesitancy or hematuria Musc: Denies: neck pain, back pain, extremity pain, joint swelling, joint warmth or deformity Neuro: Denies: headache(s), numbness in extremities, weakness in extremities, sensory changes, difficulty walking, frequent falls, dizziness, vertigo, behavi oral changes, Slurred speech present or seizure-like activity Psych: Denies: anxiety, depression, suicidal ideation or homicidal ideation Endo: Denies: polyuria, polydipsia, tired all the time, cold intolerance or hot flashes Jean-Claude/Lymph: Denies: easy bruising or easy bleeding Medications/Allergies Home Medications Medication Instructions Recorded Confirmed Last Taken Type Multiple Vitamin, Womens 1 tab PO DAILY 04/14/20 03/14/21 03/14/21 History cyanocobalamin (vitamin B-12) 1,000 mcg IM Q30D 04/14/20 03/14/21 Unknown History fluticasone propionate 2 spray INTRANASAL DAILY 04/14/20 03/14/21 03/14/21 History magnesium oxide 400 mg PO DAILY 04/14/20 03/14/21 03/13/21 History aspirin 81 mg tablet,delayed 81 mg PO DAILY 05/17/20 03/14/21 03/13/21 History release pantoprazole 40 mg tablet,delayed 40 mg PO DAILY 08/18/20 03/14/21 03/14/21 History release dicyclomine 10 mg capsule 10 mg PO TID PRN 09/24/20 03/14/21 03/14/21 History donepezil 5 mg tablet 5 mg PO BEDTIME 09/24/20 03/14/21 03/13/21 History Zinc Orotate 60 mg PO DAILY 11/01/20 03/14/21 03/13/21 History calcium acetate 1 tab PO BID 11/01/20 03/14/21 03/14/21 History furosemide 80 mg PO QAM #60 tab 11/05/20 03/14/21 03/14/21 Rx levothyroxine 112 mcg PO DAILY #30 tab 11/05/20 03/14/21 03/14/21 Rx potassium chloride 20 mEq 20 meq PO BID tab 01/13/21 03/14/21 03/14/21 History tablet,extended release(part/cryst) duloxetine 30 mg PO DAILY 02/27/21 03/14/21 03/13/21 History gabapentin 100 mg PO TID 02/27/21 03/14/21 02/26/21 History calcitonin (salmon) 1 spray NOSTRIL-AL DAILY 30 Days 03/03/21 03/14/21 03/14/21 Rx #3.7 ml lactulose 10 g PO Q12H PRN 30 Days #1200 ml 03/03/21 03/14/21 Unknown Rx sennosides-docusate sodium [Stool 1 tab PO BID 30 Days #60 tab 03/03/21 03/14/21 03/14/21 Rx Softener-Laxative] [id number]-CO 2 drp OTIC (EAR) QID 03/14/21 03/14/21 Unknown History Allergies Allergy/AdvReac Type Severity Reaction Status Date / Time codeine Allergy ADR-Abdominal Verified 01/13/21 10:14 Pain PFSH Acute PFSH: Medical History Anemia iron deficiency, has been on iron injections in past, history of acute blood loss anemia also Aortic valve disease Bowel perforation History of recurrent pneumoperitoneum without symptoms, from unclear source History of echocardiogram (~10/2019) EF 55% with peak gradient 26 mmHg History of TIAs Prior to aortic valve replacement Hypertension Hypothyroidism 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 Surgical History H/O inguinal hernia repair bilateral H/O knee surgery (~2007) bilateral total knee replacement History of cataract surgery (~2017) bilateral History of esophagogastroduodenoscopy (EGD) History of laparoscopy to eval for source of pneumoperitoneum History of umbilical hernia repair 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, 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) due to aortic stenosis in 2016 23mm [place] Brooks 3 Family History Daughter Cancer Breast Social History Smoking and tobacco status: never smoked Alcohol intake: never Household members: family Housing: House 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 Vitals/I&O/Wt Last Vital Signs Temp 97.1 F L 03/14/21 19:36 Pulse 84 03/14/21 19:36 Resp 24 H 03/15/21 01:43 BP 93/66 03/15/21 05:50 Pulse Ox 96 03/15/21 05:50 03/14/21 03/14/21 03/15/21 14:59 22:59 06:59 Intake Total 2300 / 2300 Balance 2300 / 2300 Weight last 48 hrs Weight 58.967 kg Physical Exam 2 Narrative: EXAM NARRATIVE: General: No acute distress, AO x3 HEENT: PERRLA, pupils bilaterally equal and reactive, pallors not present Chest: Normal vesicular breath sounds, no added sounds, equal good air entry bilaterally CVS: S1-S2 regular, no murmurs, no tachycardia, no gallops, no rubs Abdomen: Soft, tender to palpation in the right upper and lower quadrants, no organomegaly, bowel sounds present Neuro: No focal deficits, no facial deformity, AO x3, power 5/5 in all limbs Extremities: No edema clubbing or cyanosis Data : 03/14/21 22:43 03/14/21 22:43 Micro: Microbiology 03/15/21 01:50 Blood Culture - Preliminary Blood SPECIMEN COLLECTED 03/15/21 01:27 Blood Culture - Preliminary Blood SPECIMEN COLLECTED A&P Assessment and plan (1) Sepsis: Meet sepsis criteria by way of leukocytosis, tachypnea, hypotension, elevated lactate. Already received 2 L IV fluid bolus in the ER Blood pressure is improved after IV fluid resuscitation, continue normal saline with 20 KCl at 100 cc/h. Empiric antibiotic with piperacillin tazobactam CT abdomen with ascending colitis and signs of internal abdominal hernia Surgery consult with Dr. Dozier Check C. difficile PCR NPO until surgery eval Status: Acute Qualifiers: Sepsis type: sepsis due to unspecified organism (2) Colitis: Status: Acute (3) Hypertension: hold antihypertensives Status: Chronic Qualifiers: Hypertension type: essential hypertension Qualified Code(s): I10 - Essential (primary) hypertension (4) CHF (congestive heart failure), NYHA class III: currently euvolemic hold lasix for now given hypotension Status: Acute Qualifiers: Congestive heart failure type: diastolic Congestive heart failure chronicity: acute on chronic Qualified Code(s): I50.33 - Acute on chronic diastolic (congestive) heart failure Attestations Medical Necessity Statement*: >2midnight anticipated for management of sepsis, colitis and ileus Coding Level of Care Code Acute Petroleum Production Engineer for [facility] Fwd Diagnoses Sepsis A41.9 Sepsis type: sepsis due to unspecified organism Colitis K52.9 Hypertension I10 Hypertension type: essential hypertension CHF (congestive heart failure), NYHA class III I50.33 Congestive heart failure type: diastolic Congestive heart failure chronicity: acute on chronic
--- NOTE | 2021-03-15 07:47 | P.PN_ITS ---
Subjective Subjective: Interval history: The patient was seen while she was attempting to have a BM. She complains of right back pain and bilateral hip pain. She appears frustrated, and tells me that she was told that she does have fractures in her back, which are causing her back and hip pain, but she states that she does not recall falling and she does not know why she has these fractures. She denies any with denies any abdominal pain, nausea vomiting, fever, chills, CP, palpitations, shortness of breath, any other myalgias or arthralgias. Medications: Reviewed: Yes Vitals/I&O/Wt Last Vital Signs Temp 98.1 F 03/15/21 06:50 Pulse 84 03/15/21 06:50 Resp 19 H 03/15/21 06:50 BP 106/68 03/15/21 06:50 Pulse Ox 99 03/15/21 06:50 03/14/21 03/15/21 03/15/21 22:59 06:59 14:59 Intake Total 2300 / 2300 Balance 2300 / 2300 Weight last 48 hrs Weight 58.967 kg Physical Exam Const: COMMON NORMALS: alert GENERAL APPEARANCE: cooperative, comfortable and frail appearing NUTRITIONAL APPEARANCE: underweight ORIENTATION/CONSCIOUSNESS: Yes oriented to person HENMT: COMMON NORMALS: normocephalic, atraumatic, external ears normal and Normal external nose present HEAD & SCALP: normocephalic and atraumatic FACE & SINUS: normal facial exam NOSE: Normal external nose present EXTERNAL EAR: Yes external ears normal MOUTH: Normal oral and palatal mucosa present THROAT: posterior oropharynx normal Eye: COMMON NORMALS: Equal, round and reactive pupils present and conjunctivae normal CONJUNCTIVA: Yes conjunctivae normal PUPIL: Yes Equal, round and reactive pupils present EOM: No EOM abnormal Neck/C-Spine: COMMON NORMALS: Thyroid normal GENERAL: Yes trachea midline, No anterior neck swelling, No lymphadenopathy and No tender THYROID: Thyroid normal CAROTIDS: Yes normal carotid upstroke and No bruit Resp: COMMON NORMALS: clear to auscultation bilaterally EFFORT & INSPECTION: Yes able to speak in complete sentences AUSCULTATION: clear to auscultation bilaterally, crackles, no rales, no rhonchi and no wheezes Cardio: COMMON NORMALS: regular rate and regular rhythm RATE: regular rate RHYTHM: regular rhythm HEART SOUNDS: no click, no gallops, no murmurs and no rubs GI: COMMON NORMALS: Soft to palpation and No hepatosplenomegaly present AUS CULTATION: Yes normoactive bowel sounds PALPATION: Yes Soft to palpation, No Tenderness to palpation present (GI), No Guarding due to palpation present (GI), No Rigid due to palpation, Yes No hepatosplenomegaly present and No Rebound tenderness present : BLADDER/KIDNEY EXAM: Yes catheter in place Extremity: GENERAL: No clubbing, No cyanosis and Yes edema (2+ pedal edema to the b/l Lower tibia) Neuro: SENSORIUM/ORIENTATION: Yes alert and Yes oriented to person CRANIAL NERVES: Yes CN normal except as noted SPEECH: speech normal GAIT: Yes Unable to assess gait SENSORY EXAM: Yes Normal double simultaneous stimulation for sensation MOTOR EXAM: 5/5 motor strength present throughout Psych: COMMON NORMALS: speech normal ATTITUDE: Yes calm and Yes engaged ACTIVITY/MOTOR BEHAVIOR: Yes appropriate eye contact SPEECH: Yes normal speech MOOD & AFFECT: Yes euthymic mood Skin: COMMON NORMALS: no rashes or lesions noted GENERAL SKIN EXAM: no rashes or lesions noted Data : 03/14/21 22:43 03/14/21 22:43 Micro: Microbiology 03/15/21 01:50 Blood Culture - Preliminary Blood SPECIMEN COLLECTED 03/15/21 01:27 Blood Culture - Preliminary Blood SPECIMEN COLLECTED A&P Assessment and plan (1) Sepsis: Status: Acute Qualifiers: Sepsis type: sepsis due to unspecified organism (2) Colitis: Status: Acute (3) Hypertension: Status: Chronic Qualifiers: Hypertension type: essential hypertension Qualified Code(s): I10 - Essential (primary) hypertension (4) Hypothyroidism: Status: Chronic (5) Hypotension: Status: Acute (6) Hyponatremia: Status: Acute Ms. Mitchell is an 86yo woman w/ s/p TAVR in 2016, 3rd degree heart block s/p [place] Sci PPM in 2018,chronic HFpEF, HTN, GERD, Hx of a TIAs prior to aortic valve placment, Hx of recurrent pneumoperitoneum s/p laparoscopy, & Hypothyroidism, who presented to the ED on 03/14/2021 w/ complaints of generalized weakness, increasing abdominal & R. sided back pain as well as multiple episodes of diarrhea. 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 For her back pain, she was noted to have an acute L3 compression fractures as well as other chronic compression fractures w/ moderate L3-L5 spinal stenosis. The decision was made to manage her conservatively. On presentation, her CT abd/pelvis in the ED showe d Ileus, ascending colon colitis, and as noted on a previous CT abd/pelvis, a R. sided internal abdominal hernia. General surgery was consulted who noted the chronic malrotaion of the bowel. Her CXR was unremarkable. She received 2L IVF in the ED w/ improvement in her BP. #Ascending colon Colitis: F/u BCx. Continue Zosyn. 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 # Diarrhea: F/u C. diff and Enteric pathogen panel. # Hyponatremia: Likely hypovolemic. F/u repeat CMP. F/u urine studies. # HTN hx: Held meds due to hypotension. #Prolonged QTc of 571: Avoid QT prolonging agents # chronic HFpEF: Hold Lasix and other meds. # s/p TAVR and hx of 3rd degree AV block s/p [place] Sci PPM. - Continue telemonitoring. # Hypothyroidism: COntinue meds. # Dementia: Continue Donepezil # GERD: Continue PPI. # chronic b/l LE edema: Hold Lasix at this time. DVT ppx: Lovenox GI ppx: Pantoprazole Attestations Medical Necessity Statement*: The patient requires continuous hospitalization at this time due to ascending colitis, hypotension, diarrhea, hyponatremia, and other electrolyte abnormalities. Coding Level of Care Code Acute Billing Checker for [facility] Fw Diagnoses Sepsis A41.9 Sepsis type: sepsis due to unspecified organism Colitis K52.9 Hypertension I10 Hypertension type: essential hypertension Hypothyroidism E03.9 Hypotension I95.9 Hyponatremia E87.1
[2021-03-15 07:50] LABS: NT Pro B Type Natriuretic Pept 2131 pg/mL (0-450)
[2021-03-15] MEDS: aspirin 81 mg EC Tablet PO (08:56)
[2021-03-15] MEDS: duloxetine 30 mg Capsule PO (08:56)
[2021-03-15] MEDS: pantoprazole DR 40 mg Tablet PO (08:56)
[2021-03-15] MEDS: levothyroxine 112 mcg Tablet PO (08:56)
[2021-03-15] MEDS: gabapentin 100 mg Capsule PO ×3 (08:56→20:22)
[2021-03-15] MEDS: sodium chloride 0.9% 500 ML IV (09:02)
[2021-03-15] MEDS: calcitonin nasal 200 unit/spray 3.7 mL Btl 1 SPRAY NOSTRIL-AL (10:08)
--- NOTE | 2021-03-15 10:36 | PC.CHAP ---
Pastoral Care Encounter/Spiritual Assessment Type of Contact [] Declined assistant food service director visit [] Patient/Family/Request visit [] Outpatient visit [] Follow-up visit [] Physician referral [] Code/Alert [x] Routine visit [] Staff referral [] Actively dying [x] Patient sleeping [] Family support [] [] Out of room [] Palliative care [] [] Receiving care in room [] Pre-surgical visit [] Trauma [] Long length of stay [] ICU visit [] Other: Relational/Emotional Strength [] Patient feels connected with others/family/visitors/staff [] Distress [] Loneliness/isolation [] Abandonment Spirituality of Patient [] Person of Deidre [] Attends Yarsani of their [place]id[place] [] Believes in Prayer [] Reads Bible or Jehovah'S Witness materials [] There are Spiritual issues to be addressed Scoop Driver Interventions [] Prayer [] Active listening [] Non-anxious presence [] Spiritual/emotional support [] Crisis/trauma care [] Spiritual counseling [] Bereavement support [] Provided bereavement packet [] Provided Bible/devotional materials [] Provided toy/stuffed animal, coloring book to patient or family member [] Provided Communion [] Anointing/[place] [] Salvation [] Completed spiritual assessment [] Other: Impact on Illness or Injury [] Angry [] Fearful [] Anxious [] Often cries [] Exhaustion [] Unable to work [] Unable to attend faith [] Unable to walk/stand [] Unable to read [] Unable to drive [] Unable to eat/drink [] Unable to sleep [] Unable to be with family [] Patient intubated [] Other: Summary Time spent with patient 1 minute
[2021-03-15 10:57] LABS: SARS Covid-2 Antigen Negative (Negative)
[2021-03-15 11:05] LABS: Urine Random Chloride 12 mmol/L
[2021-03-15 11:19] LABS: Urine Random Sodium < 10 mmol/L
--- NOTE | 2021-03-15 13:39 | PC.NURSE ---
MIDLINE RIGHT arm placed by Lucas Case and Michel Zuniga. Primary nurse, Kamilla, notified.
[2021-03-15 14:21] LABS: Lactic Acid level (Lactate) 0.9 mmol/L (0.5-2.2)
[2021-03-15] MEDS: donepezil 5 MG Tablet PO (20:22)
[2021-03-16] VITALS (31 sets, daily range): BP systolic 80–112; BP diastolic 34–58; PULSE 64–88; RESP 11–23; TEMP 36.2–36.8; O2SAT 90–99
--- NOTE | 2021-03-16 01:30 | PC.NURSE ---
Low BP Patient noted to have low BP with MAP being in the upper 50's. Notified Dr. Whelan about low BP and MAP, she gave approval to use the Cheetah monitor to see if the patient would be fluid responsive. Cheetah baseline results were as follows; SVI-31, CI-2.1, HR-67. End Cheetah results showed that the patient would be fluid responsive, final SVI was 23.4%. Dr. Whelan notified about results and gave verbal orders to start a Levophed drip. Levophed drip started at 2mcg/min.
[2021-03-16] MEDS: piperacillin-tazobactam 3.375 GM in sodium chloride 0.9% (plus) 50 ML IV ×2 (02:14→10:47)
[2021-03-16] MEDS: enoxaparin 40 mg/0.4 mL Syringe SUBCUT (04:55)
[2021-03-16 05:30] LABS: Basophils # 0.1 10^3/uL (0.0-0.1); Basophils % 0.4 %; Eosinophils # 0.1 10^3/uL (0.0-0.8); Eosinophils % 0.6 %; Hematocrit 29.7 % (37.0-47.0); Hemoglobin 9.7 g/dL (11.5-15.3); Lymphocytes # 0.4 10^3/uL (0.8-4.8); Lymphocytes % 1.9 %; Mean Corpuscular HGB Conc 32.7 g/dL (30.0-36.0); Mean Corpuscular Volume 88.7 fL (81-99); Mean Platelet Volume 10.7 fL (7.4-10.4); Monocytes # 1.3 10^3/uL (0.2-0.9); Monocytes % 5.8 %; Neutrophils # 20.05 10^3/uL (1.8-7.7); Neutrophils % 88.7 %; Nucleated Red Blood Cells % 0 %; Platelet Count 165 10^3/cmm (130-400); Red Blood Count 3.35 10^6/uL (4.1-5.3); Red Cell Distribution Width 15.9 % (12.1-15.1); White Blood Count 22.6 10^3/uL (4.0-10.0)
[2021-03-16 05:45] LABS: Alanine Aminotransferase 14 U/L (0-33); Albumin Level 1.8 g/dL (3.5-5.2); Alkaline Phosphatase 109 IU/L (35-105); Anion Gap 9.1 (5-19); Aspartate Amino Transferase 14 U/L (0-32); Blood Urea Nitrogen 13 mg/dL (8-23); Calcium 6.9 mg/dL (8.5-10.5); Carbon Dioxide 27 mmol/L (22-29); Chloride 97 mmol/L (98-107); Globulin 2.1 g/dL (1.3-4.6); Glucose 83 mg/dL (65-115); Osmolality Calculated 269 mOsm/kg (285-295); Potassium 3.1 mmol/L (3.5-5.1); Sodium 130 mmol/L (136-145); Total Bilirubin 0.6 mg/dL (0.15-1.2); Total Protein 3.9 g/dL (6.6-8.7)
--- NOTE | 2021-03-16 06:13 | P.PN_ITS ---
Subjective Subjective: Interval history: Patient over seems to be improving clinically and feels better. C. difficile was tested negative and patient does have sticky nondiarrheal stools. Complains less of right-sided abdominal pain. CT scan images reviewed yesterday with Dr. Garcia revealed no evidence of herniation and it shows improvement in comparison to previous CT scan done back in 2019. There is evidence of colitis and the patient is undergoing medical management for that. Vitals/I&O/Wt Last Vital Signs Temp 97.1 F L 03/16/21 04:00 Pulse 73 03/16/21 05:44 Resp 20 H 03/16/21 05:30 BP 94/47 03/16/21 05:30 Pulse Ox 94 03/16/21 05:30 03/15/21 03/15/21 03/16/21 14:59 22:59 06:59 Intake Total 550 / 550 1180 / 1730 500 / 2230 Output Total 425 / 425 Balance 550 / 550 755 / 1305 500 / 1805 Weight last 48 hrs Weight 130 lb Physical Exam Narrative: EXAM NARRATIVE: Patient is conscious alert oriented, no apparent distress BMI 22.3 Head and neck examination PERRLA no masses no cervical lymphadenopathy no jaundice Abdomen LESS tender towards the right side of the abdomen. Nondistended soft no organomegaly guarding or rigidity/no signs of peritonitis Solis catheter in place Data : 03/16/21 05:03 03/16/21 05:03 Micro: Microbiology 03/15/21 01:50 Blood Culture - Preliminary Blood NEGATIVE TO DATE 03/15/21 01:27 Blood Culture - Preliminary Blood NEGATIVE TO DATE 03/15/21 10:00 Enteric Pathogens (PCR) - Final Stool - Stool Aspirate 03/15/21 10:00 C.difficile Toxin B Gene (PCR) - Final Stool Routine Collection A&P Assessment and plan (1) Colitis: Can advance slowly to full liquid diet Encourage patient to have mag citrate to help with bowel movement as per CT scan she does have fecal matter all the way to the small bowels We will continue to follow the trend of WBC count Once patient continues to tolerate p.o. intake can be transferred to the floor from surgical standpoint of view Correction of electrolytes per hospitalist service Thank you for consulting general surgery to participate taking care Ms. Stovall Status: Acute Attestations Medical Necessity Statement*: Continue inpatient hospitalization which will past 2 midnights for medical optimization and resuscitation with correction of electrolytes and close clinical monitoring Time Spent in Patient Care: (>than 50% of time spent in counselling and/or direct pt care on unit) . Coding Level of Care Code Acute Automation Tender for Chg Fwd Diagnoses Colitis K52.9
--- NOTE | 2021-03-16 07:42 | PM.PN ---
Subjective Subjective: Interval history: Patient was happy to be eating again and insisted on a gluten-free diet. She had one BM last night and this morning. She states that her abdominal pain has improved, and she has no nausea or vomiting. She denies any chest pain shortness of breath, palpitations, dizziness, lightheadedness. Medications: Reviewed: Yes Vitals/I&O/Wt Last Vital Signs Temp 97.1 F L 03/16/21 04:00 Pulse 73 03/16/21 05:44 Resp 20 H 03/16/21 05:30 BP 94/47 03/16/21 05:30 Pulse Ox 94 03/16/21 05:30 03/15/21 03/16/21 03/16/21 22:59 06:59 14:59 Intake Total 1180 / 1730 550 / 2280 Output Total 425 / 425 Balance 755 / 1305 550 / 1855 Weight last 48 hrs Weight 58.967 kg Physical Exam Const: COMMON NORMALS: alert GENERAL APPEARANCE: cooperative, comfortable and frail appearing NUTRITIONAL APPEARANCE: underweight ORIENTATION/CONSCIOUSNESS: Yes oriented to person HENMT: COMMON NORMALS: normocephalic, atraumatic, external ears normal and Normal external nose present HEAD & SCALP: normocephalic and atraumatic FACE & SINUS: normal facial exam NOSE: Normal external nose present EXTERNAL EAR: Yes external ears normal MOUTH: Normal oral and palatal mucosa present THROAT: posterior oropharynx normal Eye: COMMON NORMALS: Equal, round and reactive pupils present and conjunctivae normal CONJUNCTIVA: Yes conjunctivae normal PUPIL: Yes Equal, round and reactive pupils present EOM: No EOM abnormal Neck/C-Spine: COMMON NORMALS: Thyroid normal GENERAL: Yes trachea midline, No anterior neck swelling, No lymphadenopathy and No tender THYROID: Thyroid normal CAROTIDS: Yes normal carotid upstroke and No bruit Resp: EFFORT & INSPECTION: Yes able to speak in complete sentences AUSCULTATION: crackles (R. lower lobe), no rhonchi and no wheezes Cardio: COMMON NORMALS: regular rate and regular rhythm RATE: regular rate RHYTHM: regular rhythm HEART SOUNDS: no click, no gallops, no murmurs and no rubs GI: COMMON NORMALS: Soft to palpation and No hepatosplenomegaly present AUSCULTATION: Yes normoactive bowel sounds PALPATION: Yes Soft to palpation, No Tenderness to palpation present (GI), No Guarding due to palpation present (GI), No Rigid due to palpation, Yes No hepatosplenomegaly present and No Rebound tenderness present : BLADDER/KIDNEY EXAM: Yes catheter in place Extremity: GENERAL: No clubbing, No cyanosis and Yes edema (2+ pedal edema to the b/l Lower tibia) Neuro: SENSORIUM/ORIENTATION: Yes alert and Yes oriented to person CRANIAL NERVES: Yes CN normal except as noted SPEECH: speech normal GAIT: Yes Unable to assess gait SENSORY EXAM: Yes Normal double simultaneous stimulation for sensation MOTOR EXAM: 5/5 motor strength present throughout Psych: COMMON NORMALS: speech normal ATTITUDE: Yes calm and Yes engaged ACTIVITY/MOTOR BEHAVIOR: Yes appropriate eye contact SPEECH: Yes normal speech MOOD & AFFECT: Yes euthymic mood Skin: COMMON NORMALS: no rashes or lesions noted GENERAL SKIN EXAM: no rashes or lesions noted Data : 03/16/21 05:03 03/16/21 05:03 Micro: Microbiology 03/15/21 01:50 Blood Culture - Preliminary Blood NEGATIVE TO DATE 03/15/21 01:27 Blood Culture - Preliminary Blood NEGATIVE TO DATE 03/15/21 10:00 Enteric Pathogens (PCR) - Final Stool - Stool Aspirate 03/15/21 10:00 C.difficile Toxin B Gene (PCR) - Final Stool Routine Collection A&P Assessment and plan (1) Sepsis: Status: Acute Qualifiers: Sepsis type: sepsis due to unspecified organism (2) Colitis: Status: Acute (3) Hypertension: Status: Chronic Qualifiers: Hypertension type: essential hypertension Qualified Code(s): I10 - Essential (primary) hypertension (4) Hypothyroidism: Status: Chronic (5) Hypotension: Status: Acute (6) Hyponatremia: Status: Acute Ms. 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 sided back pain as well as multiple episodes of diarrhea. 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 For her back pain, she was noted to have an acute L3 compression fractures as well as other chronic compression fractures w/ moderate L3-L5 spinal stenosis. The decision was made to manage her conservatively. On presentation, her CT abd/pelvis in the ED showed Ileus, ascending colon colitis, and as noted on a previous CT abd/pelvis, a R. sided internal abdominal hernia. General surgery was consulted who noted the chronic malrotaion of the bowel. Her CXR was unremarkable. She received 2L IVF in the ED w/ improvement in her BP. #Ascending colon Colitis: F/u BCx. Continue Zosyn. 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 # Diarrhea: F/u C. diff and Enteric pathogen bacteria panel - negative. D/c'ed IVF. # Electrolyte abnormalities: replace prn. # Hyponatremia: Likely hypovolemic. F/u repeat CMP. F/u urine studies. # Hypotension: F/u TSH, cortisol level. # HTN hx: Held meds due to hypotension. #Prolonged QTc of 571: Avoid QT prolonging agents # chronic HFpEF: Hold Lasix and other meds. # s/p TAVR and hx of 3rd degree AV block s/p [place] [facility] PPM. - Continue telemonitoring. # Hypothyroidism: COntinue meds. # Dementia: Continue Donepezil # GERD: Continue PPI. # chronic b/l LE edema: Hold Lasix at this time given hypotension. # Constipation: Ordered mag citrate per Gen Surgery recs. DVT ppx: Lovenox GI ppx: Pantoprazole Attestations Medical Necessity Statement*: Patient requires continued hospitalization for chronic hypotension. Coding Level of Care Code Acute Associate Professor Of Automation for Chg Fwd Diagnoses Sepsis A41.9 Sepsis type: sepsis due to unspecified organism Colitis K52.9 Hypertension I10 Hypertension type: essential hypertension Hypothyroidism E03.9 Hypotension I95.9 Hyponatremia E87.1
[2021-03-16 07:56] LABS: Magnesium 1.1 mg/dL (1.7-2.3)
[2021-03-16] MEDS: gabapentin 100 mg Capsule PO ×3 (09:01→20:12)
[2021-03-16] MEDS: pantoprazole DR 40 mg Tablet PO (09:01)
[2021-03-16] MEDS: duloxetine 30 mg Capsule PO (09:01)
[2021-03-16] MEDS: magnesium citrate Btl 296 mL PO (09:01)
[2021-03-16] MEDS: aspirin 81 mg EC Tablet PO (09:01)
[2021-03-16] MEDS: calcitonin nasal 200 unit/spray 3.7 mL Btl 1 SPRAY NOSTRIL-AL (09:01)
[2021-03-16] MEDS: levothyroxine 112 mcg Tablet PO (09:01)
--- NOTE | 2021-03-16 09:19 | PC.CHAP ---
Pastoral Care Encounter/Spiritual Assessment Type of Contact [] Declined construction job titles visit [] Patient/Family/Request visit [] Outpatient visit [] Follow-up visit [] Physician referral [] Code/Alert [x] Routine visit [] Staff referral [] Actively dying [] Patient sleeping [] Family support [] [] Out of room [] Palliative care [] [x] Receiving care in room [] Pre-surgical visit [] Trauma [] Long length of stay [x] ICU visit [] Other: Relational/Emotional Strength [] Patient feels connected with others/family/visitors/staff [] Distress [] Loneliness/isolation [] Abandonment Spirituality of Patient [] Person of [place] [] Attends Buddhist of their [place] [] Believes in Prayer [] Reads Bible or Catholic materials [] There are Spiritual issues to be addressed Political Science Faculty Member Interventions [x] Prayer [] Active listening [] Non-anxious presence [] Spiritual/emotional support [] Crisis/trauma care [] Spiritual counseling [] Bereavement support [] Provided bereavement packet [] Provided Bible/devotional materials [] Provided toy/stuffed animal, coloring book to patient or family member [] Provided Communion [] Anointing/[place] [] Salvation [x] Completed spiritual assessment [] Other: Impact on Illness or Injury [] Angry [] Fearful [] Anxious [] Often cries [] Exhaustion [] Unable to work [] Unable to attend amish [] Unable to walk/stand [] Unable to read [] Unable to drive [] Unable to eat/drink [] Unable to sleep [] Unable to be with family [] Patient intubated [] Other: Summary Time spent with patient
--- NOTE | 2021-03-16 11:19 | PC.NUTR ---
Nutrition assessment completed due to low BMI and MST score of 2. Have spoken with nurse and dietary staff to confirm provision of gluten free and dairy free diet. Recommend to obtain current weight when possible to confirm/deny 15 lb weight loss. No dietary changes warranted at this time. See RD assessment for further details.
[2021-03-16] MEDS: acetaminophen 325 mg Tablet 650 MG PO (14:55)
[2021-03-16 15:53] LABS: Osmolality Serum 269 mOsm/kg (278-305)
[2021-03-16 15:53] LABS: Osmolality Urine 588 mOsm/kg (50-1200)
[2021-03-16] MEDS: piperacillin-tazobactam 3.375 GM in sodium chloride 0.9% (plus) 100 ML IV (18:39)
[2021-03-16] MEDS: donepezil 5 MG Tablet PO (20:12)
[2021-03-17] VITALS (49 sets, daily range): BP systolic 76–133; BP diastolic 38–67; PULSE 30–78; RESP 9–34; TEMP 35.9–36.8; O2SAT 86–100; BMI 24.0
[2021-03-17] MEDS: magnesium sulfate premix 4 GM/100 ML PREMIX IV (02:58)
[2021-03-17] MEDS: potassium chloride ER 20 mEq Tablet 40 MEQ PO (02:59)
[2021-03-17] MEDS: piperacillin-tazobactam 3.375 GM in sodium chloride 0.9% (plus) 100 ML IV ×3 (03:10→18:42)
[2021-03-17] MEDS: enoxaparin 40 mg/0.4 mL Syringe SUBCUT (05:21)
--- NOTE | 2021-03-17 06:19 | P.PN_ITS ---
Subjective Subjective: Interval history: Patient had a better night and she feels a whole lot better and denies any abdominal pain. Continues to have liquidy stool but no blood or mucus. Medications: Reviewed: Yes Vitals/I&O/Wt Last Vital Signs Temp 97.1 F L 03/17/21 04:00 Pulse 64 03/17/21 05:00 Resp 14 03/17/21 05:00 BP 104/56 03/17/21 05:00 Pulse Ox 94 03/17/21 05:00 03/16/21 03/16/21 03/17/21 14:59 22:59 06:59 Intake Total 360 / 360 150 / 510 240 / 750 Output Total 400 / 400 950 / 1350 Balance 360 / 360 -250 / 110 -710 / -600 Weight last 48 hrs Weight 140 lb 1 oz Physical Exam Narrative: EXAM NARRATIVE: Patient is conscious alert oriented, no apparent distress BMI 22.3 Abdomen non tender towards the right side of the abdomen. Nondistended soft no organomegaly guarding or rigidity/no signs of peritonitis Solis catheter in place with clear urine Data : 03/19/21 04:32 03/20/21 10:19 Micro: Microbiology 03/15/21 01:50 Blood Culture - Preliminary Blood NEGATIVE TO DATE 03/15/21 01:27 Blood Culture - Preliminary Blood NEGATIVE TO DATE A&P Assessment and plan (1) Colitis: Can advance slowly to full liquid diet if that is being tolerated well can advance thereafter as tolerated We will continue to follow the trend of WBC count Wean off Levophed Correction of electrolytes per hospitalist service Thank you for consulting general surgery to participate taking care Ms. Stovall Status: Acute Attestations Medical Necessity Statement*: Continue inpatient hospitalization passing 2 midnights for medical optimization and resuscitation with correction of electrolytes and closeer clinical monitoring Time Spent in Patient Care: (>than 50% of time spent in counselling and/or direct pt care on unit) . Coding Level of Care Code Acute Elementary Vocal Music Teacher for Magda Phelps Diagnoses Colitis K52.9
--- NOTE | 2021-03-17 07:07 | PC.NURSE ---
Shift Summary Patient had an eventful shift. She had 5 seedy brown liquid bowel movements throughout the night and ro catheter drained 950 mls of clear dark yellow urine. She has a right upper arm midline that Levophed is infusing at 2 mcg/min and a right forearm IV that is saline locked currently. She is alert and oriented x4 and had no complaints of pain all evening.
[2021-03-17 08:45] LABS: Basophils # 0.1 10^3/uL (0.0-0.1); Basophils % 0.7 %; Eosinophils % 0.1 %; Hematocrit 31.8 % (37.0-47.0); Hemoglobin 10.5 g/dL (11.5-15.3); Lymphocytes # 0.7 10^3/uL (0.8-4.8); Lymphocytes % 3.5 %; Mean Corpuscular Volume 87.8 fL (81-99); Mean Platelet Volume 10.6 fL (7.4-10.4); Monocytes % 5.2 %; Neutrophils # 16.69 10^3/uL (1.8-7.7); Neutrophils % 89.3 %; Nucleated Red Blood Cells % 0 %; Platelet Count 163 10^3/cmm (130-400); Red Blood Count 3.62 10^6/uL (4.1-5.3); Red Cell Distribution Width 15.9 % (12.1-15.1); White Blood Count 18.7 10^3/uL (4.0-10.0)
--- NOTE | 2021-03-17 08:51 | PM.PN ---
Subjective Subjective: Interval history: Overnight, the patient had persistent episodes of hypotension, and briefly required low-dose Levophed. According to the nursing staff, she had numerous BMs. She continues to be hyponatremic, but given her history of CHF, it is concerning to give her IVF. Medications: Reviewed: Yes Vitals/I&O/Wt Last Vital Signs Temp 98.1 F 03/17/21 07:45 Pulse 63 03/17/21 07:45 Resp 20 H 03/17/21 07:45 BP 114/58 03/17/21 07:45 Pulse Ox 95 03/17/21 06:30 03/16/21 03/17/21 03/17/21 22:59 06:59 14:59 Intake Total 150 / 510 240 / 750 210 / 210 Output Total 400 / 400 950 / 1350 Balance -250 / 110 -710 / -600 210 / 210 Weight last 48 hrs Weight 63.531 kg Physical Exam Const: COMMON NORMALS: alert GENERAL APPEARANCE: cooperative, comfortable and frail appearing NUTRITIONAL APPEARANCE: underweight ORIENTATION/CONSCIOUSNESS: Yes oriented to person HENMT: COMMON NORMALS: normocephalic, atraumatic, external ears normal and Normal external nose present HEAD & SCALP: normocephalic and atraumatic FACE & SINUS: normal facial exam NOSE: Normal external nose present EXTERNAL EAR: Yes external ears normal MOUTH: Normal oral and palatal mucosa present THROAT: posterior oropharynx normal Eye: COMMON NORMALS: Equal, round and reactive pupils present and conjunctivae normal CONJUNCTIVA: Yes conjunctivae normal PUPIL: Yes Equal, round and reactive pupils present EOM: No EOM abnormal Neck/C-Spine: COMMON NORMALS: Thyroid normal GENERAL: Yes trachea midline, No anterior neck swelling, No lymphadenopathy and No tender THYROID: Thyroid normal CAROTIDS: Yes normal carotid upstroke and No bruit Resp: EFFORT & INSPECTION: Yes able to speak in complete sentences AUSCULTATION: crackles (R. lower lobe), no rhonchi and no wheezes Cardio: COMMON NORMALS: regular rate and regular rhythm RATE: regular rate RHYTHM: regular rhythm HEART SOUNDS: no click, no gallops, no murmurs and no rubs GI: COMMON NORMALS: Soft to palpation and No hepatosplenomegaly present AUSCULTATION: Yes normoactive bowel sounds PALPATION: Yes Soft to palpation, No Tenderness to palpation present (GI), No Guarding due to palpation present (GI), No Rigid due to palpation, Yes No hepatosplenomegaly present and No Rebound tenderness present : BLADDER/KIDNEY EXAM: Yes catheter in place Extremity: GENERAL: No clubbing, No cyanosis and Yes edema (2+ pedal edema to the b/l Lower tibia) Neuro: SENSORIUM/ORIENTATION: Yes alert and Yes oriented to person CRANIAL NERVES: Yes CN normal except as noted SPEECH: speech normal GAIT: Yes Unable to assess gait SENSORY EXAM: Yes Normal double simultaneous stimulation for sensation MOTOR EXAM: 5/5 motor strength present throughout Psych: COMMON NORMALS: speech normal ATTITUDE: Yes calm and Yes engaged ACTIVITY/MOTOR BEHAVIOR: Yes appropriate eye contact SPEECH: Yes normal speech MOOD & AFFECT: Yes euthymic mood Skin: COMMON NORMALS: no rashes or lesions noted GENERAL SKIN EXAM: no rashes or lesions noted Data : 03/18/21 04:57 03/18/21 04:57 A&P Assessment and plan (1) Sepsis: Status: Acute Qualifiers: Sepsis type: sepsis due to unspecified organism (2) Colitis: Status: Acute (3) Hypertension: Status: Chronic Qualifiers: Hypertension type: essential hypertension Qualified Code(s): I10 - Essential (primary) hypertension (4) Hypothyroidism: Status: Chronic (5) Hypotension: Status: Acute (6) Hyponatremia: Status: Acute Ms. Mitchell is an 86yo woman w/ s/p TAVR in 2016, 3rd degree heart block s/p [place] Sci PPM in 2018,chronic HFpEF, HTN, GERD, Hx of a TIAs prior to aortic valve placment, Hx of recurrent pneumoperitoneum s/p laparoscopy, & Hypothyroidism, who presented to the ED on 03/14/2021 w/ complaints of generalized weakness, increasing abdominal & R. sided back pain as well as multiple episodes of diarrhea. 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 For her back pain, she was noted to have an acute L3 compression fractures as well as other chronic compression fractures w/ moderate L3-L5 spinal stenosis. The decision was made to manage her conservatively. On presentation, her CT abd/pelvis in the ED showed Ileus, ascending colon colitis, and as noted on a previous CT abd/pelvis, a R. sided internal abdominal hernia. General surgery was consulted who noted the chronic malrotaion of the bowel. Her CXR was unremarkable. She received 2L IVF in the ED w/ improvement in her BP. #Ascending colon Colitis: F/u BCx. Continue Zosyn. 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 # Diarrhea: F/u C. diff and Enteric pathogen bacteria panel - negative. D/c'ed IVF on 03/16 # Electrolyte abnormalities: replace prn. # Hyponatremia: Likely hypovolemic. Consulted Nephrology given concern for hyponatremia in the setting of her being able to easily go into Acute on chronic CHF. # Hypotension: Her TSH & cortisol level are wnl. # HTN hx: Held meds due to hypotension. #Prolonged QTc of 571: Avoid QT prolonging agents # chronic HFpEF: Hold Lasix and other meds. Re-initiate if she becomes vol overloaded. # s/p TAVR and hx of 3rd degree AV block s/p [place] [facility] PPM. - Continue telemonitoring. # Hypothyroidism: COntinue meds. # Dementia: Continue Donepezil # GERD: Continue PPI. # chronic b/l LE edema: Hold Lasix at this time given hypotension. # Constipation: Ordered mag citrate per Gen Surgery recs. DVT ppx: Lovenox GI ppx: Pantoprazole Attestations Medical Necessity Statement*: At the time that the patient was seen, she was still on Levophed, and needed to be weaned off Levophed. So she requires continued ICU hospitalization at this time. Critical Care Time: Critical Care Time (min): 35 Coding Level of Care Code Acute Auto Service Writer for g Fwd Diagnoses Sepsis A41.9 Sepsis type: sepsis due to unspecified organism Colitis K52.9 Hypertension I10 Hypertension type: essential hypertension Hypothyroidism E03.9 Hypotension I95.9 Hyponatremia E87.1
--- NOTE | 2021-03-17 09:00 | XR_ITS ---
WS: [id number] Portable AP upright chest, 03/17/2021 Clinical Data: Tachypnea Comparison: Portable chest, 03/15/2021. Findings: There is a 3.3 cm density in the retrocardiac region which may represent an atelectatic sara nge in the lung. This density was not present on prior chest. There is an artificial heart valve. The aortic arch and descending aorta show tortuosity. Permanent pacemaker remains in the same position. No effusions are seen. No pneumonia or pneumothorax is present. The pulmonary vascularity is not incr eased. There are monitor leads over the chest wall. XR/XR chest 1V portable [id number] Impression: 1. 3.3 cm retrocardiac density which may represent round atelectasis in the lef t lower lobe. 2. Atherosclerosis, permanent pacemaker and artificial heart valve.
[2021-03-17 09:08] LABS: Alanine Aminotransferase 14 U/L (0-33); Albumin Level 1.9 g/dL (3.5-5.2); Alkaline Phosphatase 115 IU/L (35-105); Anion Gap 10.2 (5-19); Aspartate Amino Transferase 12 U/L (0-32); Blood Urea Nitrogen 9 mg/dL (8-23); Calcium 7.1 mg/dL (8.5-10.5); Carbon Dioxide 28 mmol/L (22-29); Chloride 97 mmol/L (98-107); Globulin 2.5 g/dL (1.3-4.6); Glucose 77 mg/dL (65-115); Osmolality Calculated 269 mOsm/kg (285-295); Potassium 4.2 mmol/L (3.5-5.1); Sodium 131 mmol/L (136-145); Total Bilirubin 0.4 mg/dL (0.15-1.2); Total Protein 4.4 g/dL (6.6-8.7)
[2021-03-17 09:12] LABS: Magnesium 2.4 mg/dL (1.7-2.3); Phosphorus 3.1 mg/dL (2.5-4.5)
--- NOTE | 2021-03-17 09:16 | PC.CHAP ---
Pastoral Care Encounter/Spiritual Assessment Type of Contact [] Declined banquet supervisor visit [] Patient/Family/Request visit [] Outpatient visit [] Follow-up visit [] Physician referral [] Code/Alert [x] Routine visit [] Staff referral [] Actively dying [] Patient sleeping [] Family support [] [] Out of room [] Palliative care [] [] Receiving care in room [] Pre-surgical visit [] Trauma [] Long length of stay [x] ICU visit [] Other: Relational/Emotional Strength [] Patient feels connected with others/family/visitors/staff [] Distress [] Loneliness/isolation [] Abandonment Spirituality of Patient [] Person of [place] [] Attends Methodist of their [place] [] Believes in Prayer [] Reads Bible or Alevism materials [] There are Spiritual issues to be addressed Impersonator Character Interventions x] Prayer [x] Active listening [x] Non-anxious presence [x] Spiritual/emotional support [] Crisis/trauma care [] Spiritual counseling [] Bereavement support [] Provided bereavement packet [] Provided Bible/devotional materials [] Provided toy/stuffed animal, coloring book to patient or family member [] Provided Communion [] Anointing/[place] [] Salvation [x] Completed spiritual assessment [] Other: Impact on Illness or Injury [] Angry [] Fearful [] Anxious [] Often cries [] Exhaustion [] Unable to work [] Unable to attend mandaen [] Unable to walk/stand [] Unable to read [] Unable to drive [] Unable to eat/drink [] Unable to sleep [] Unable to be with family [] Patient intubated [] Other: Summary patient ate breakfast and slept well... assured patient she was not a pest and the staff understands her not feeling well Time spent with patient 10 min
[2021-03-17 09:18] LABS: Cortisol Random 14.95 ug/dL (2.47-19.5)
[2021-03-17 09:33] LABS: Thyroid Stimulating Hormone 4.11 uIU/mL (0.27-4.20)
[2021-03-17] MEDS: gabapentin 100 mg Capsule PO ×3 (09:38→20:12)
[2021-03-17] MEDS: duloxetine 30 mg Capsule PO (09:38)
[2021-03-17] MEDS: pantoprazole DR 40 mg Tablet PO (09:38)
[2021-03-17] MEDS: levothyroxine 112 mcg Tablet PO (09:38)
[2021-03-17] MEDS: aspirin 81 mg EC Tablet PO (09:38)
--- NOTE | 2021-03-17 09:42 | CT_ITS ---
WS: [id number] CT CHEST TECHNIQUE: Noncontrast CT of the chest with coronal and sagittal reformatted images. CLINICAL INFORMATION: Hypotension, concern for pneumonia COMPARISON: CTA chest 10 25,018 DLP: 470.[address] scans at [facility] use at least one of these dose optimization techniques: automat ed exposure control; mA and/or kV adjustment per patient size (includes targeted exams where dose is matched to clinical indication); or iterative reconstruction. FINDINGS: Moderate chronic emphysematous changes. No acute pulmonary infiltrates. No focal consolidation. Small bilateral pleural effusions with slight bibasilar atelectasis. Calcified granuloma right upper lobe. Cardiomegaly. Coronary calcification. Aortic valve replacement. Calcified right hilar nodes. Promine nt proximal main pulmonary arteries can be seen with pulmonary arterial hypertension. No axillary lym phadenopathy. Diffuse body wall anasarca. Partially visualized hepatic cyst right hepatic lobe. Hepatomegaly. Mild thoracic kyphosis. Anterior wedging in the upper thoracic spine. CT/CT chest wo con [id number] IMPRESSION: 1. Small bilateral pleural effusions. Compressive atelectasis in the lung base s. 2. No focal pneumonia. 3. Moderate chronic emphysematous changes. 4. Aortic valve replacement. Cardiac pacer. 5. Diffuse body wall anasarca. 6. Prominent proximal main pulmonary arteries can be seen with pulmonary arter ial hypertension.
--- NOTE | 2021-03-17 09:45 | P.CONIM_ITS ---
Providers/Reason For Consult Consulting Physician/Specialty*: Rashida Lockhart DO, telenephrology Reason for Consult*: Hyponatremia Attending Physician: Ngoc Jasso MD Primary Care Provider: LEAH Sims History of Present Illness History of Present Illness Aide Mitchell is a 86 year old female admitted with abdominal pain. Diagnosed with colitis. Was hypotensive, now off pressors. Moving bowels, diet being advanced. Reports chronic LE edema, wears support stockings at home. Also has back pain. Review of systems otherwise unremarkable. Meds/Allergies Home Medications and Allergies Home Medications Medication Instructions Recorded Confirmed Last Taken Type Multiple Vitamin, Womens 1 tab PO DAILY 04/14/20 03/14/21 03/14/21 History cyanocobalamin (vitamin B-12) 1,000 mcg IM Q30D 04/14/20 03/14/21 Unknown History fluticasone propionate 2 spray INTRANASAL DAILY 04/14/20 03/14/21 03/14/21 History magnesium oxide 400 mg PO DAILY 04/14/20 03/14/21 03/13/21 History aspirin 81 mg tablet,delayed 81 mg PO DAILY 05/17/20 03/14/21 03/13/21 History release pantoprazole 40 mg tablet,delayed 40 mg PO DAILY 08/18/20 03/14/21 03/14/21 History release dicyclomine 10 mg capsule 10 mg PO TID PRN 09/24/20 03/14/21 03/14/21 History donepezil 5 mg tablet 5 mg PO BEDTIME 09/24/20 03/14/21 03/13/21 History Zinc Orotate 60 mg PO DAILY 11/01/20 03/14/21 03/13/21 History calcium acetate 1 tab PO BID 11/01/20 03/14/21 03/14/21 History furosemide 80 mg PO QAM #60 tab 11/05/20 03/14/21 03/14/21 Rx levothyroxine 112 mcg PO DAILY #30 tab 11/05/20 03/14/21 03/14/21 Rx potassium chloride 20 mEq 20 meq PO BID tab 01/13/21 03/14/21 03/14/21 History tablet,extended release(part/cryst) duloxetine 30 mg PO DAILY 02/27/21 03/14/21 03/13/21 History gabapentin 100 mg PO TID 02/27/21 03/14/21 02/26/21 History calcitonin (salmon) 1 spray NOSTRIL-AL DAILY 30 Days 03/03/21 03/14/21 03/14/21 Rx #3.7 ml lactulose 10 g PO Q12H PRN 30 Days #1200 ml 03/03/21 03/14/21 Unknown Rx sennosides-docusate sodium [Stool 1 tab PO BID 30 Days #60 tab 03/03/21 03/14/21 03/14/21 Rx Softener-Laxative] [id number] 2 drp OTIC (EAR) QID 03/14/21 03/14/21 Unknown History Allergies Allergy/AdvReac Type Severity Reaction Status Date / Time codeine Allergy ADR-Abdominal Verified 01/13/21 10:14 Pain gluten Allergy ADR-Gastrointestinal Verified 03/15/21 22:23 Upset Current Medications Current Medications Generic Name Dose Route Start Last Admin Trade Name Freq PRN Reason Stop Dose Admin Acetaminophen 650 mg 03/15/21 05:20 03/16/21 14:55 Acetaminophen 325 Mg Tablet PO 650 mg Q6H PRN Administration Mild/Mod Pain Or Temp >/= 101 Aspirin 81 mg 03/15/21 09:00 03/17/21 09:38 Aspirin 81 Mg Ec Tablet PO 81 mg DAILY LINDSAY Administration Calcitonin [place] 1 spray 03/15/21 09:00 03/16/21 09:01 Calcitonin Nasal 200 Unit/[place] 3.7 Ml Btl NOSTRIL-AL 1 puff DAILY LINDSAY Administration Donepezil HCl 5 mg 03/15/21 21:00 03/16/21 20:12 Donepezil 5 Mg Tablet PO 5 mg BEDTIME LINDSAY Administration Duloxetine HCl 30 mg 03/15/21 09:00 03/17/21 09:38 Duloxetine 30 Mg Capsule PO 30 mg DAILY LINDSAY Administration Enoxaparin Sodium 40 mg 03/15/21 05:30 03/17/21 05:21 Enoxaparin 40 Mg/0.4 Ml Syringe SUBCUT 40 mg Q24H LINDSAY Administration Gabapentin 100 mg 03/15/21 09:00 03/17/21 09:38 Gabapentin 100 Mg Capsule PO 100 mg TID LINDSAY Administration Piperacillin Sod/Tazobactam 100 mls @ 25 mls/hr 03/16/21 19:00 03/17/21 08:25 Sod 3.375 gm/ Sodium Chloride IV Infused Q8H LINDSAY Infusion Protocol Norepinephrine Bitartrate 4 mg 254 mls @ 0 mls/hr 03/17/21 00:45 03/17/21 01:11 / Dextrose IV 2 mcg/min .Q0M LINDSAY 7.62 mls/hr Administration Protocol Per Protocol Levothyroxine Sodium 112 mcg 03/15/21 09:00 03/17/21 09:38 Levothyroxine 112 Mcg Tablet PO 112 mcg DAILY LINDSAY Administration Pantoprazole Sodium 40 mg 03/15/21 09:00 03/17/21 09:[address] 40 Mg Tablet PO 40 mg DAILY LINDSAY Administration PFSH Acute PFSH: Medical History Anemia iron deficiency, has been on iron injections in past, history of acute blood loss anemia also Aortic valve disease Bowel perforation History of recurrent pneumoperitoneum without symptoms, from unclear source History of echocardiogram (~10/2019) EF 55% with peak gradient 26 mmHg History of TIAs Prior to aortic valve replacement Hypertension Hypothyroidism 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 Surgical History H/O inguinal hernia repair bilateral H/O knee surgery (~2007) bilateral total knee replacement History of cataract surgery (~2017) bilateral History of esophagogastroduodenoscopy (EGD) History of laparoscopy to eval for source of pneumoperitoneum History of umbilical hernia repair 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, 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) due to aortic stenosis in 2016 23mm [place] 3 Family History Daughter Cancer Breast Social History Smoking and tobacco status: never smoked Alcohol intake: never Household members: family Housing: House Previous occupational history: Retired [employer] LO[employer] Vitals/I&O/Wt Last Vital Signs Temp 98.1 F 03/17/21 07:45 Pulse 63 03/17/21 07:45 Resp 20 H 03/17/21 07:45 BP 114/58 03/17/21 07:45 Pulse Ox 95 03/17/21 06:30 03/16/21 03/17/21 03/17/21 22:59 06:59 14:59 Intake Total 150 / 510 240 / 750 210 / 210 Output Total 400 / 400 950 / 1350 Balance -250 / 110 -710 / -600 210 / 210 Weight last 48 hrs Weight 63.531 kg Physical Exam Const: COMMON NORMALS: no acute distress Extremity: GENERAL: Yes edema Data Labs: Other Labs: urinalysis normal, except 1+ bilirubin urine sodium < 10 serum osm 269, urine osm 588 calcium 7.1, albumin 1.9, leona Ca 8.7, phos 3.7, Mg 2.4 Imaging^: CXR: Radiologist's impression: 1. 3.3 cm retrocardiac density which may represent round atelectasis in the left lower lobe. 2. Atherosclerosis, permanent pacemaker and artificial heart valve. CT Abd/Pel: Radiologist's impression: 1. Ileus. 2. Colitis of the ascending colon. 3. Fatty infiltration of the liver. 4. Mild constipation. 5. Findings consistent with a right-sided internal abdominal hernia. Echo: Radiologist's impression: 11/2020 1. This is a technically difficult study. 2. Normal left ventricular cavity size. Increased left ventricular wall thickness. Normal left ventricular systolic function. Left ventricular ejection fraction is estimated at 55%. Grade I diastolic dysfunction (abnormal relaxation filling pattern), normal to mildly elevated filling pressures. 3. TAVR bioprosthesis in situ. Peak prosthetic aortic jet velocity of 2.7 m/s, dimensionless valve index of 0.32 and AT 78 msec. Peak gradient of 31 and mean gradient of 18 mmHg. Nosignificant prosthesis aortic valve stenosis. 4. Mild mitral and tricuspid valve regurgitation. A&P Additional A&P Information Impression: 1. Mild hyponatremia, stable. Low urine sodium suggests hypovolemia, but BUN and Cr are also very low. 2. Anemia, check iron studies 3. Hypokalemia, resolved 4. Chronic edema: hypoalbuminemia, possible venous insufficiency Recommend: Discontinue IVF. Increase protein intake (add supplement). Resume support stockings. Can resume lower dose furosemide if edema worsens. Consult Attestations Medical Necessity Statement: per primary service Time Spent in Patient Care: 16 - 35 minutes Coding Level of Care Code Acute Mill Manager for Chg Fwd Exam Expanded Problem Focused
[2021-03-17 09:46] LABS: NT Pro B Type Natriuretic Pept 1358 pg/mL (0-450)
[2021-03-17] MEDS: acetaminophen 325 mg Tablet 650 MG PO (10:30)
[2021-03-17] MEDS: donepezil 5 MG Tablet PO (20:12)
[2021-03-18] VITALS (30 sets, daily range): BP systolic 86–126; BP diastolic 41–76; PULSE 68–84; RESP 15–23; TEMP 36.8–37; O2SAT 86–97
[2021-03-18] MEDS: piperacillin-tazobactam 3.375 GM in sodium chloride 0.9% (plus) 100 ML IV ×3 (04:37→21:17)
[2021-03-18] MEDS: enoxaparin 40 mg/0.4 mL Syringe SUBCUT (04:54)
[2021-03-18 05:28] LABS: Basophils # 0.1 10^3/uL (0.0-0.1); Basophils % 0.5 %; Eosinophils # 0.1 10^3/uL (0.0-0.8); Eosinophils % 0.4 %; Hematocrit 33.8 % (37.0-47.0); Hemoglobin 10.8 g/dL (11.5-15.3); Lymphocytes # 0.7 10^3/uL (0.8-4.8); Lymphocytes % 4.8 %; Mean Corpuscular Hemoglobin 28.7 pg (28.0-34.0); Mean Corpuscular Volume 89.9 fL (81-99); Mean Platelet Volume 10.8 fL (7.4-10.4); Monocytes # 0.8 10^3/uL (0.2-0.9); Monocytes % 6.2 %; Neutrophils # 11.69 10^3/uL (1.8-7.7); Neutrophils % 86.9 %; Nucleated Red Blood Cells % 0 %; Platelet Count 165 10^3/cmm (130-400); Red Blood Count 3.76 10^6/uL (4.1-5.3); White Blood Count 13.5 10^3/uL (4.0-10.0)
[2021-03-18 05:49] LABS: Alanine Aminotransferase 13 U/L (0-33); Albumin Level 1.9 g/dL (3.5-5.2); Alkaline Phosphatase 119 IU/L (35-105); Aspartate Amino Transferase 13 U/L (0-32); Blood Urea Nitrogen 9 mg/dL (8-23); Carbon Dioxide 29 mmol/L (22-29); Chloride 96 mmol/L (98-107); Ferritin 540 ng/mL (15-150); Globulin 2.3 g/dL (1.3-4.6); Glucose 66 mg/dL (65-115); Iron 17 ug/dL (37-145); Magnesium 1.9 mg/dL (1.7-2.3); Osmolality Calculated 265 mOsm/kg (285-295); Percent Saturation 17.3 % (20-50); Phosphorus 1.8 mg/dL (2.5-4.5); Sodium 129 mmol/L (136-145); Total Bilirubin 0.4 mg/dL (0.15-1.2); Total Iron Binding Capacity 98 mcg/dl; Total Protein 4.2 g/dL (6.6-8.7); Unsaturated Iron Binding 81 ug/dL (112-347)
[2021-03-18] MEDS: calcitonin nasal 200 unit/spray 3.7 mL Btl 1 SPRAY NOSTRIL-AL (08:35)
--- NOTE | 2021-03-18 08:59 | PC.SOCIAL ---
IMM UPDATE Gave patient IMM update. Provided copy of pg 2. Verbalized understanding. 03/18/21 @ 0859 Initialed, dated, timed and placed in chart.
[2021-03-18] MEDS: aspirin 81 mg EC Tablet PO (09:34)
[2021-03-18] MEDS: duloxetine 30 mg Capsule PO (09:34)
[2021-03-18] MEDS: pantoprazole DR 40 mg Tablet PO (09:34)
[2021-03-18] MEDS: levothyroxine 112 mcg Tablet PO (09:34)
[2021-03-18] MEDS: gabapentin 100 mg Capsule PO ×3 (09:34→21:17)
--- NOTE | 2021-03-18 13:18 | P.PN_ITS ---
Subjective Subjective: Interval history: complains of back pain Medications: Reviewed: Yes Vitals/I&O/Wt Last Vital Signs Temp 98.3 F 03/18/21 10:00 Pulse 84 03/18/21 12:30 Resp 23 H 03/18/21 12:30 BP 107/72 03/18/21 12:30 Pulse Ox 96 03/18/21 12:30 03/17/21 03/18/21 03/18/21 22:59 06:59 14:59 Intake Total 200 / 820.993 100 / 100 Output Total 900 / 900 Balance 200 / 820.993 -900 / -79.007 100 / 100 Weight last 48 hrs Weight 63.458 kg Weight 63.531 kg Data : 03/18/21 04:57 03/18/21 04:57 Other Labs: phos 1.8, TSAT 17%, SF 540 BNP 2435 Micro: Microbiology 03/16/21 15:20 Parasite Antigen Panel - Final Stool Routine Collection A&P Additional A&P Information Impression: 1. Mild hyponatremia, stable. Low urine sodium suggests hypovolemia, but BUN and Cr are also very low. 2. Anemia, hb stable 3. Hypophosphatemia 4. Chronic edema: hypoalbuminemia, possible venous insufficiency Recommend: Add furosemide 20 mg daily. Kphos oral. Attestations Medical Necessity Statement*: per primary service Time Spent in Patient Care: 16 - 35 minutes Coding Level of Care Code Acute Regulatory Affairs Manager for Magda Phelps
--- NOTE | 2021-03-18 13:56 | XR_ITS ---
WS: [id number] Portable AP upright chest, 03/18/2021 Clinical Data: tachypnea Comparison: Portable chest, 03/17/2021 Findings: No nodules, masses or effusions are seen. The heart is normal. The pulmonary vascularity is not increased. No pneumonia or pneumothorax is seen. The aortic arch and descending aorta are tortuo us. There is an artificial aortic valve present. There are monitor leads on the chest wall. A permane nt pacemaker remains in good position. There is a catheter which ends in the right axillary vein. XR/XR chest 1V portable [id number] Impression: Atherosclerosis and permanent pacemaker.
--- NOTE | 2021-03-18 13:56 | PM.PN ---
Subjective Subjective: Interval history: Patient had an episode of hypotension early this morning, and her blood pressures improved during the day. She complains of back pain this morning. She denies any fever, chills, numbness of breath, palpitations, dizziness, lightheadedness, CP. Medications: Reviewed: Yes Vitals/I&O/Wt Last Vital Signs Temp 98.3 F 03/18/21 10:00 Pulse 84 03/18/21 12:30 Resp 23 H 03/18/21 12:30 BP 107/72 03/18/21 12:30 Pulse Ox 96 03/18/21 12:30 03/17/21 03/18/21 03/18/21 22:59 06:59 14:59 Intake Total 200 / 820.993 100 / 100 Output Total 900 / 900 Balance 200 / 820.993 -900 / -79.007 100 / 100 Weight last 48 hrs Weight 63.458 kg Weight 63.531 kg Physical Exam Const: COMMON NORMALS: alert GENERAL APPEARANCE: cooperative, comfortable and frail appearing NUTRITIONAL APPEARANCE: underweight ORIENTATION/CONSCIOUSNESS: Yes oriented to person HENMT: COMMON NORMALS: normocephalic, atraumatic, external ears normal and Normal external nose present HEAD & SCALP: normocephalic and atraumatic FACE & SINUS: normal facial exam NOSE: Normal external nose present EXTERNAL EAR: Yes external ears normal MOUTH: Normal oral and palatal mucosa present THROAT: posterior oropharynx normal Eye: COMMON NORMALS: Equal, round and reactive pupils present and conjunctivae normal CONJUNCTIVA: Yes conjunctivae normal PUPIL: Yes Equal, round and reactive pupils present EOM: No EOM abnormal Neck/C-Spine: COMMON NORMALS: Thyroid normal GENERAL: Yes trachea midline, No anterior neck swelling, No lymphadenopathy and No tender THYROID: Thyroid normal CAROTIDS: Yes normal carotid upstroke and No bruit Resp: EFFORT & INSPECTION: Yes able to speak in complete sentences AUSCULTATION: crackles (R. lower lobe), no rhonchi and no wheezes Cardio: COMMON NORMALS: regular rate and regular rhythm RATE: regular rate RHYTHM: regular rhythm HEART SOUNDS: no click, no gallops, no murmurs and no rubs GI: COMMON NORMALS: Soft to palpation and No hepatosplenomegaly present AUSCULTATION: Yes normoactive bowel sounds PALPATION: Yes Soft to palpation, No Tenderness to palpation present (GI), No Guarding due to palpation present (GI), No Rigid due to palpation, Yes No hepatosplenomegaly present and No Rebound tenderness present : BLADDER/KIDNEY EXAM: Yes catheter in place Extremity: GENERAL: No clubbing, No cyanosis and Yes edema (2+ pedal edema to the b/l Lower tibia) Neuro: SENSORIUM/ORIENTATION: Yes alert and Yes oriented to person CRANIAL NERVES: Yes CN normal except as noted SPEECH: speech normal GAIT: Yes Unable to assess gait SENSORY EXAM: Yes Normal double simultaneous stimulation for sensation MOTOR EXAM: 5/5 motor strength present throughout Psych: COMMON NORMALS: speech normal ATTITUDE: Yes calm and Yes engaged ACTIVITY/MOTOR BEHAVIOR: Yes appropriate eye contact SPEECH: Yes normal speech MOOD & AFFECT: Yes euthymic mood Skin: COMMON NORMALS: no rashes or lesions noted GENERAL SKIN EXAM: no rashes or lesions noted Data : 03/18/21 04:57 03/18/21 04:57 Micro: Microbiology 03/16/21 15:20 Parasite Antigen Panel - Final Stool Routine Collection A&P Assessment and plan (1) Sepsis: Status: Acute Qualifiers: Sepsis type: sepsis due to unspecified organism (2) Colitis: Status: Acute (3) Hypertension: Status: Chronic Qualifiers: Hypertension type: essential hypertension Qualified Code(s): I10 - Essential (primary) hypertension (4) Hypothyroidism: Status: Chronic (5) Hypotension: Status: Acute (6) Hyponatremia: Status: Acute Ms. Mitchell is an 86yo woman w/ s/p TAVR in 2016, 3rd degree heart block s/p [place] Sci PPM in 2018,chronic HFpEF, chronic b/l LE edema, HTN, GERD, Hx of a TIAs prior to aortic valve placment, Hx of recurrent pneumoperitoneum s/p laparoscopy, & Hypothyroidism, who presented to the ED on 03/14/2021 w/ complaints of generalized weakness, increasing abdominal & R. sided back pain as well as multiple episodes of diarrhea. 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 For her back pain, she was noted to have an acute L3 compression fractures as well as other chronic compression fractures w/ moderate L3-L5 spinal stenosis. The decision was made to manage her conservatively. On presentation, her CT abd/pelvis in the ED showed Ileus, ascending colon colitis, and as noted on a previous CT abd/pelvis, a R. sided internal abdominal hernia. General surgery was consulted who noted the chronic malrotaion of the bowel. Her CXR was unremarkable. She received 2L IVF in the ED w/ improvement in her BP. On admission to the ICU, she continued to receive IVF that was later d/c'ed on 03/16 given concerns for her hx of CHF. 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 They noted constipation as well as colitis. The patient remained on Zosyn and her constipation was managed w/ a bowel regimen. Nephrology was consulted for the patient's hyponatremia and it was deemed due to hypovolemia and hypoalbuminemia. Patient's stay in the ICU was prolonged due to intermittent episodes of hypotension, such that she was given Levophed on the night of 03/16 into the AM of 03/17. Her TSH and cortisol lvls were within normal limits. On 03/18, she clinically improved, and Midodrine was improved and she was transferred out to the floor. #Ascending colon Colitis: BCx negative. Continue Zosyn. 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 # Diarrhea: C. diff and Enteric pathogen bacteria panel - negative. D/c'ed IVF on 03/16 # Electrolyte abnormalities: replace prn. # Hyponatremia: Likely hypovolemic. Consulted Nephrology given concern for hyponatremia in the setting of her being able to easily go into Acute on chronic CHF. # Hypotension: Her TSH & cortisol level are wnl. Started Midodrine # HTN hx: Held meds due to hypotension. #Prolonged QTc of 571: Avoid QT prolonging agents # chronic HFpEF: Lasix 20mg daily started on 03/19. # s/p TAVR and hx of 3rd degree AV block s/p [place] [employer] PPM. - Continue telemonitoring. # chronic b/l LE edema: deemed due to hypoalbuminemia and peripheral venous insufficiency # chronic poor appetite: Construction Safety Consultant consulted # Hypothyroidism: Continue meds. # Dementia: Continue Donepezil. # GERD: Continue PPI. # Urinary retention: Solis in place. # Constipation: Ordered mag citrate per Gen Surgery recs. DVT ppx: Lovenox GI ppx: Pantoprazole Dispo: Plan for d/c to jail early next week. Pending authorization. Attestations Medical Necessity Statement*: Patient requires hospitalization for intermittent hypotension, hyponatremia, and discharge to jail. Coding Level of Care Code Acute Speed Operator for [facility] Fwd Exam Comprehensive Diagnoses Sepsis A41.9 Sepsis type: sepsis due to unspecified organism Colitis K52.9 Hypertension I10 Hypertension type: essential hypertension Hypothyroidism E03.9 Hypotension I95.9 Hyponatremia E87.1
[2021-03-18 14:53] LABS: NT Pro B Type Natriuretic Pept 2435 pg/mL (0-450)
--- NOTE | 2021-03-18 14:56 | PC.NUTR ---
Nutrition consult received for supplement recommendations. Discussed MD recommendation for increased protein with pt, pt prefers vanilla flavor. Likes apples and pineapples. Denies questions/concerns with current diet. Recommend Ensure (vanilla) with meals for additional 9 g protein per serving and Prosource Gelatein with lunch for additional [address] assessments for further details.
[2021-03-18] MEDS: midodrine 5 mg TABLET PO ×2 (15:43→21:17)
[2021-03-18] MEDS: TRAMadol 50 mg Tablet PO (15:43)
--- NOTE | 2021-03-18 17:51 | PC.NURSE ---
Pt to CSU Report called and given to Ambika RN for pt moving to room 112-1. Pt taken to CSU by wheelchair. Pt X 2 assist was transitioned to bed. Ambika Rn at bedside to receive pt and get verbal report.
[2021-03-18] MEDS: phosphorus 250 mg Tablet 500 MG PO (18:00)
[2021-03-18 21:08] LABS: Iron 18 ug/dL (37-145)
[2021-03-18] MEDS: donepezil 5 MG Tablet PO (21:17)
[2021-03-19] VITALS (12 sets, daily range): BP systolic 80–140; BP diastolic 43–73; PULSE 64–79; RESP 14–20; TEMP 36.6–37.2; O2SAT 91–96
--- NOTE | 2021-03-19 00:15 | PC.NURSE ---
Patient c/o slight pain to left heel. Patient refused PO pain medication. Patient requested ice pack. Patient states the pain is better now.
--- NOTE | 2021-03-19 03:28 | PC.NURSE ---
Dr. Whelan notified of patient asking for something for a sore throat.
[2021-03-19] MEDS: enoxaparin 40 mg/0.4 mL Syringe SUBCUT (05:09)
[2021-03-19] MEDS: piperacillin-tazobactam 3.375 GM in sodium chloride 0.9% (plus) 100 ML IV ×2 (05:09→11:28)
[2021-03-19 06:02] LABS: Basophils % 0.5 %; Eosinophils # 0.1 10^3/uL (0.0-0.8); Eosinophils % 0.6 %; Hematocrit 33.2 % (37.0-47.0); Hemoglobin 10.3 g/dL (11.5-15.3); Lymphocytes # 0.6 10^3/uL (0.8-4.8); Lymphocytes % 7.2 %; Mean Corpuscular Hemoglobin 28.2 pg (28.0-34.0); Mean Platelet Volume 10.7 fL (7.4-10.4); Monocytes # 0.7 10^3/uL (0.2-0.9); Monocytes % 8.5 %; Neutrophils # 6.73 10^3/uL (1.8-7.7); Neutrophils % 80.6 %; Nucleated Red Blood Cells % 0 %; Platelet Count 169 10^3/cmm (130-400); Red Blood Count 3.65 10^6/uL (4.1-5.3); Red Cell Distribution Width 15.9 % (12.1-15.1); White Blood Count 8.4 10^3/uL (4.0-10.0)
[2021-03-19 06:25] LABS: Alanine Aminotransferase 12 U/L (0-33); Albumin Level 1.7 g/dL (3.5-5.2); Alkaline Phosphatase 114 IU/L (35-105); Aspartate Amino Transferase 14 U/L (0-32); Blood Urea Nitrogen 10 mg/dL (8-23); Calcium 7.2 mg/dL (8.5-10.5); Carbon Dioxide 29 mmol/L (22-29); Chloride 95 mmol/L (98-107); Globulin 2.4 g/dL (1.3-4.6); Glucose 63 mg/dL (65-115); Magnesium 1.8 mg/dL (1.7-2.3); Osmolality Calculated 267 mOsm/kg (285-295); Phosphorus 2.6 mg/dL (2.5-4.5); Sodium 130 mmol/L (136-145); Total Bilirubin 0.3 mg/dL (0.15-1.2); Total Protein 4.1 g/dL (6.6-8.7)
[2021-03-19] MEDS: acetaminophen 325 mg Tablet 650 MG PO (06:58)
[2021-03-19] MEDS: aspirin 81 mg EC Tablet PO (08:41)
[2021-03-19] MEDS: phosphorus 250 mg Tablet 500 MG PO (08:41)
[2021-03-19] MEDS: midodrine 5 mg TABLET PO ×3 (08:41→20:59)
[2021-03-19] MEDS: pantoprazole DR 40 mg Tablet PO (08:42)
[2021-03-19] MEDS: levothyroxine 112 mcg Tablet PO (08:42)
[2021-03-19] MEDS: FUROsemide 20 mg Tablet PO (08:42)
[2021-03-19] MEDS: duloxetine 30 mg Capsule PO (08:42)
[2021-03-19] MEDS: gabapentin 100 mg Capsule PO ×3 (08:42→20:59)
[2021-03-19] MEDS: calcitonin nasal 200 unit/spray 3.7 mL Btl 1 SPRAY NOSTRIL-AL (08:43)
[2021-03-19] MEDS: TRAMadol 50 mg Tablet PO (11:27)
--- NOTE | 2021-03-19 13:04 | PM.PN ---
Subjective Subjective: Interval history: I am seeing her in follow up for her low sodium. Pt feeling fine No nausea, vomiting or dirrhea Medications: Reviewed: Yes Vitals/I&O/Wt Last Vital Signs Temp 98.3 F 03/19/21 07:13 Pulse 75 03/19/21 07:13 Resp 16 03/19/21 07:13 BP 90/48 03/19/21 07:20 Pulse Ox 91 03/19/21 03:34 03/18/21 03/19/21 03/19/21 22:59 06:59 14:59 Intake Total 785 / 885 100 / 985 336 / 336 Output Total 600 / 600 750 / 1350 500 / 500 Balance 185 / 285 -650 / -365 -164 / -164 Weight last 48 hrs Weight 69.853 kg Weight 63.458 kg Physical Exam Const: COMMON NORMALS: no acute distress, patient oriented x3 and alert GENERAL APPEARANCE: cooperative ORIENTATION/CONSCIOUSNESS: Yes awake Resp: COMMON NORMALS: clear to auscultation bilaterally AUSCULTATION: clear to auscultation bilaterally Cardio: COMMON NORMALS: S1 normal heart sound present and S2 normal heart sound present HEART SOUNDS: S1 normal heart sound present and S2 normal heart sound present GI: AUSCULTATION: Yes normoactive bowel sounds Extremity: GENERAL: Yes edema Neuro: COMMON NORMALS: patient oriented x3 SENSORIUM/ORIENTATION: Yes alert Skin: COMMON NORMALS: no rashes or lesions noted GENERAL SKIN EXAM: no rashes or lesions noted Data : 03/19/21 04:32 03/19/21 04:32 A&P Assessment and plan (1) Hyponatremia: Sodium level staying stable, will sign off, please call if any questions Status: Acute Attestations Medical Necessity Statement*: hyponatremia Coding Level of Care Code Acute Supervisor Prop Making for [facility] [employer] Diagnoses Hyponatremia E87.1
--- NOTE | 2021-03-19 14:22 | PM.PN ---
Subjective Subjective: Interval history: Patient is endorsing feeling tired and lethargic, her systolic blood pressure has been ranging between 80 to 90s, normal TSH and cortisol level noted Ascending colitis stool cultures negative Patient tolerating her diet Vitals/I&O/Wt Last Vital Signs Temp 97.9 F 03/19/21 11:55 Pulse 64 03/19/21 11:55 Resp 14 03/19/21 11:55 BP 95/54 03/19/21 11:55 Pulse Ox 91 03/19/21 11:55 03/18/21 03/19/21 03/19/21 22:59 06:59 14:59 Intake Total 785 / 885 100 / 985 336 / 336 Output Total 600 / 600 750 / 1350 500 / 500 Balance 185 / 285 -650 / -365 -164 / -164 Weight last 48 hrs Weight 69.853 kg Weight 63.458 kg Data : 03/19/21 04:32 03/19/21 04:32 A&P Assessment and plan (1) Hyponatremia: Status: Acute (2) Hypotension: Status: Acute (3) Colitis: Status: Acute (4) Anasarca: Status: Acute (5) Anorexia: Status: Acute Additional A&P Information Ascending colon colitis Stool and blood cultures have been negative She has stayed afebrile, C. difficile panel negative Switch to Cipro and Flagyl p.o. and discontinue IV antibiotic Improved leukocytosis Patient is passing flatus, decreased bowel movement secondary to poor p.o. intake, tolerating her GI soft diet General surgery recommendations appreciated Hyponatremia: Nephro recommendations appreciated, sodium has stayed stable no active neurological signs Hypotension: Secondary to polypharmacy and poor p.o. intake Normal TSH and cortisol level Currently on midodrine Antihypertensive held Preserved ejection fraction heart failure without acute exacerbation I will keep Lasix on hold secondary to low blood pressure Prolonged QTC avoiding QT prolonging medications keep Zofran use limited if she becomes nauseous Anorexia: We will follow up with dietitian recommendations, I would avoid adding mirtazapine considering her age and side effects Dementia: Continue donepezil Urinary retention: Voiding trial today Back pain with vertebral fracture Dr. De Paz recommended conservative management with outpatient follow-up, she was given intranasal calcitonin, opioid regimen for her back pain DVT prophylaxis Lovenox Disposition: long term placement pending authorization as per case management Attestations Medical Necessity Statement*: Anticipating discharge to a [facility] once accepted Time Spent in Patient Care: 30mins Coding Level of Care Code Acute Laborer Tree Tapping for Magda Fwj[employer] Diagnoses Hyponatremia E87.1 Hypotension I95.9 Colitis K52.9 Anasarca R60.1 Anorexia R63.0
[2021-03-19] MEDS: metroNIDAZOLE 500 MG Tablet PO ×2 (15:00→20:59)
[2021-03-19] MEDS: ciprofloxacin 500 mg Tablet PO (20:59)
[2021-03-19] MEDS: donepezil 5 MG Tablet PO (21:00)
[2021-03-19] MEDS: guaiFENesin-dextromethorphan UDC 10 mL 5 ML PO (22:27)
[2021-03-20] VITALS (12 sets, daily range): BP systolic 90–113; BP diastolic 49–65; PULSE 62–97; RESP 12–21; TEMP 36.6–37.1; O2SAT 89–97
[2021-03-20] MEDS: TRAMadol 50 mg Tablet PO (04:29)
[2021-03-20] MEDS: enoxaparin 40 mg/0.4 mL Syringe SUBCUT (04:30)
[2021-03-20] MEDS: acetaminophen 325 mg Tablet 650 MG PO (06:20)
--- NOTE | 2021-03-20 06:24 | PC.NURSE ---
NURSE NOTE: PT C/O COUGH FOR X2 DAYS. NOTIFIED DR. TOUSSAINT AND RECEIVED ORDERS FOR ROBITUSSIN DM. MEDICATION GIVEN ORDERED. SEE CHART FOR ORDER DETAILS.
[2021-03-20] MEDS: guaiFENesin-dextromethorphan UDC 10 mL 5 ML PO (08:51)
[2021-03-20] MEDS: midodrine 5 mg TABLET PO ×3 (08:52→21:17)
[2021-03-20] MEDS: duloxetine 30 mg Capsule PO (08:52)
[2021-03-20] MEDS: gabapentin 100 mg Capsule PO ×3 (08:52→21:17)
[2021-03-20] MEDS: aspirin 81 mg EC Tablet PO (08:52)
[2021-03-20] MEDS: levothyroxine 112 mcg Tablet PO (08:52)
[2021-03-20] MEDS: pantoprazole DR 40 mg Tablet PO (08:52)
[2021-03-20] MEDS: ciprofloxacin 500 mg Tablet PO ×2 (08:53→21:17)
[2021-03-20] MEDS: calcitonin nasal 200 unit/spray 3.7 mL Btl 1 SPRAY NOSTRIL-AL (08:53)
[2021-03-20] MEDS: metroNIDAZOLE 500 MG Tablet PO ×3 (08:53→21:17)
[2021-03-20 11:07] LABS: Basophils # 0.1 10^3/uL (0.0-0.1); Basophils % 0.7 %; Eosinophils # 0.1 10^3/uL (0.0-0.8); Eosinophils % 0.6 %; Hematocrit 37.2 % (37.0-47.0); Lymphocytes # 0.8 10^3/uL (0.8-4.8); Lymphocytes % 9.7 %; Mean Corpuscular HGB Conc 32.3 g/dL (30.0-36.0); Mean Corpuscular Volume 89.9 fL (81-99); Monocytes # 0.5 10^3/uL (0.2-0.9); Monocytes % 5.7 %; Neutrophils # 6.79 10^3/uL (1.8-7.7); Nucleated Red Blood Cells % 0 %; Platelet Count 161 10^3/cmm (130-400); Red Blood Count 4.14 10^6/uL (4.1-5.3); Red Cell Distribution Width 15.9 % (12.1-15.1); White Blood Count 8.4 10^3/uL (4.0-10.0)
[2021-03-20 11:25] LABS: Alanine Aminotransferase 12 U/L (0-33); Albumin Level 1.9 g/dL (3.5-5.2); Alkaline Phosphatase 120 IU/L (35-105); Anion Gap 9.3 (5-19); Aspartate Amino Transferase 15 U/L (0-32); Blood Urea Nitrogen 10 mg/dL (8-23); Calcium 6.9 mg/dL (8.5-10.5); Carbon Dioxide 29 mmol/L (22-29); Chloride 90 mmol/L (98-107); Globulin 2.7 g/dL (1.3-4.6); Glucose 147 mg/dL (65-115); Osmolality Calculated 262 mOsm/kg (285-295); Potassium 3.3 mmol/L (3.5-5.1); Sodium 125 mmol/L (136-145); Total Bilirubin 0.3 mg/dL (0.15-1.2); Total Protein 4.6 g/dL (6.6-8.7)
--- NOTE | 2021-03-20 12:27 | PC.SOCIAL ---
IMM Updated Updated pt on Pg 2 IMM. No questions voiced. Provided pt a copy. Initialed, dated, & timed copy in chart.
--- NOTE | 2021-03-20 13:57 | USCV_ITS ---
Stephen Aide Age: 86 Gender: F : 1935 Exam Date: 03/20/2021 14:43 Ordering Phys: Ying Wright MD Technologist: Rosalinda Ríos Exam Location: [facility] [place] Indication: Swelling HISTORY: Lower extremity swelling. PROCEDURES: Comparison: 11-01-2020. Venous duplex imaging was performed in bilateral lower extremities. The following venous structures were evaluated: common femoral vein, profunda vein, proximal portion of the greater saphenous vein, superficial femoral vein, and the popliteal vein. In addition, the posterior tibial and peroneal trunk were evaluated. Serial compression, augmentation maneuvers, and spectral Doppler flow evaluation were performed. FINDINGS: No evidence of DVT seen in any vessel visualized at this time. Calf edema noted, bilaterally. Echolucent areas bilaterally in the subcutaneous tissue CONCLUSIONS No evidence of DVT in the above-mentioned identifiable veins. Features of fluid retention/edema bilaterally. Dr Ilir Simpson MD [facility] (Electronically Signed) Final Date: 20 March 2021 19:31 S
--- NOTE | 2021-03-20 13:57 | XRR_ITS ---
PROCEDURE INFORMATION: Exam: XR Chest Exam date and time: 03/20/2021 1:57 PM Age: 86 years old Clinical indication: Shortness of breath; Additional info: SOB TECHNIQUE: Imaging protocol: XR of the chest. Views: 1 view. COMPARISON: CR XR chest 1V portable [id number] 03/18/2021 2:27 PM FINDINGS: Tubes, catheters and devices: Intact dual lead left subclavian pacemaker. Lungs: Mild atelectasis in the left lung base. Calcified granuloma in the right lung. No consolidation. Pleural spaces: Unremarkable. No pleural effusion. No pneumothorax. Heart/Mediastinum: Unremarkable. No cardiomegaly. Bones/joints: Unremarkable. Soft tissues: Right midline with tip in the inferior right axilla. XR/XR chest 1V portable [id number] IMPRESSION: 1. No acute finding.
[2021-03-20] MEDS: albumin 12.5 GM/250 ML VIAL IV (14:48)
--- NOTE | 2021-03-20 15:14 | P.PN_ITS ---
Subjective Subjective: Interval history: Patient was laying supine when entered the room, patient endorsed coughing spells last night, this morning I have requested chest x-ray, lower extremity Dopplers, added salt tablets and gave her 250 cc bolus, her systolic blood pressure is ranging between 90 to 95 mmHg, added albumin as well Vitals/I&O/Wt Last Vital Signs Temp 98.7 F 03/20/21 12:05 Pulse 64 03/20/21 12:05 Resp 14 03/20/21 12:05 BP 109/55 03/20/21 12:05 Pulse Ox 89 L 03/20/21 12:05 03/20/21 03/20/21 03/20/21 06:59 14:59 22:59 Intake Total 470 / 470 Output Total 400 / 1350 100 / 100 Balance -400 / -707.333 370 / 370 Weight last 48 hrs Weight 68.209 kg Weight 69.853 kg Physical Exam Narrative: EXAM NARRATIVE: Elderly female Pleasant and cooperative Daughter at the bedside Saturating well on room air No active chest pain, S1, S2 Abdomen soft bowel sounds present Lower extremity 2+ pitting edema bilaterally pedal edema Bilateral diminished breath sounds with mild rhonchi and crackles at the bases otherwise no acute respiratory distress No cyanosis gangrene or ulcer Appropriate mood and affect No neurological deficits Data : 03/19/21 04:32 03/20/21 10:19 Micro: Microbiology 03/15/21 01:50 Blood Culture - Final Blood NO GROWTH AFTER 5 DAYS 03/15/21 01:27 Blood Culture - Final Blood NO GROWTH AFTER 5 DAYS A&P Assessment and plan (1) Anorexia: Status: Acute (2) Hyponatremia: Status: Acute (3) Hypotension: Status: Acute (4) Colitis: Status: Acute Additional A&P Information Ascending colon colitis: Improving Cultures without any growth C. difficile panel negative Currently on p.o. antibiotics Cipro and Flagyl Patient is feeling better today try to eat her breakfast however still endorsing anorexia Her diet has been advanced Nonproductive cough Requested chest x-ray this morning, avoid fluids Check lower extremity Doppler to rule out DVT Hyponatremia: Patient is endorsing feeling lethargic and fatigued and not able to participate for physical activity because of back pain, nephro recommendations appreciated, I will give her salt tablets today Persistent hypotension: I would add albumin Avoid fluid bolus because of peripheral extremity swelling No signs of sepsis, TSH cortisol level normal Avoid QTC prolonging medication Dementia: Continue donepezil Urinary retention: Patient did well with voiding trial yesterday Solis catheter has been removed DVT prophylaxis: Lovenox Disposition to care home awaiting acceptance Attestations Medical Necessity Statement*: Continue medical management for persistent hypertension awaiting placement to care home Time Spent in Patient Care: 30 minutes Coding Level of Care Code Acute Engineering Lecturer for g Fwd Diagnoses Anorexia R63.0 Hyponatremia E87.1 Hypotension I95.9 Colitis K52.9
[2021-03-20 15:15] LABS: Slide Review Slide Review Perform
[2021-03-20] MEDS: sodium chloride 1 gm Tablet PO (16:34)
[2021-03-20] MEDS: potassium chloride oral liq 20 mEq/15 mL UDC 40 MEQ PO (16:43)
[2021-03-20] MEDS: mirtazapine 15 mg Tablet PO (21:17)
[2021-03-20] MEDS: donepezil 5 MG Tablet PO (21:17)
[2021-03-21] VITALS (14 sets, daily range): BP systolic 85–121; BP diastolic 50–60; PULSE 65–84; RESP 11–20; TEMP 36.6–37.3; O2SAT 84–97
[2021-03-21] MEDS: enoxaparin 40 mg/0.4 mL Syringe SUBCUT (05:44)
[2021-03-21 07:37] LABS: Hematocrit 33.9 % (37.0-47.0); Hemoglobin 11.3 g/dL (11.5-15.3); Mean Corpuscular HGB Conc 33.3 g/dL (30.0-36.0); Mean Corpuscular Hemoglobin 29.1 pg (28.0-34.0); Mean Corpuscular Volume 87.4 fL (81-99); Mean Platelet Volume 10.8 fL (7.4-10.4); Platelet Count 154 10^3/cmm (130-400); Red Blood Count 3.88 10^6/uL (4.1-5.3); Red Cell Distribution Width 15.9 % (12.1-15.1); White Blood Count 7.2 10^3/uL (4.0-10.0)
[2021-03-21 08:08] LABS: Blood Urea Nitrogen 6 mg/dL (8-23); Carbon Dioxide 30 mmol/L (22-29); Chloride 94 mmol/L (98-107); Glucose 59 mg/dL (65-115); Osmolality Calculated 263 mOsm/kg (285-295); Sodium 129 mmol/L (136-145)
[2021-03-21 08:35] LABS: Slide Review Slide Review Perform
[2021-03-21 08:38] LABS: Absolute Neutrophil 6.5 10^3/cmm (1.4-6.5); Absolute Segmented Neutrophil 4.4 10/cmm (1.6-7.1); Band Neutrophils Absolute 2.1 10^3/cmm (0.0-1.2); Eosinophils 0 %; Lymphocytes 7 %; Lymphocytes Absolute 0.5 10^3/cmm (1.2-3.4); Monocytes Absolute 0.2 10^3/cmm (0.1-0.6); Platelet Estimate Normal (Normal); Segmented Neutrophils 61 %; Total Cells Counted 100 (0-100)
[2021-03-21 08:49] LABS: Anion Gap 8.6 (5-19); Potassium 3.6 mmol/L (3.5-5.1)
[2021-03-21] MEDS: gabapentin 100 mg Capsule PO ×3 (09:41→20:15)
[2021-03-21] MEDS: levothyroxine 112 mcg Tablet PO (09:42)
[2021-03-21] MEDS: aspirin 81 mg EC Tablet PO (09:42)
[2021-03-21] MEDS: duloxetine 30 mg Capsule PO (09:42)
[2021-03-21] MEDS: midodrine 5 mg TABLET PO ×3 (09:42→20:15)
[2021-03-21] MEDS: ciprofloxacin 500 mg Tablet PO ×2 (09:42→20:15)
[2021-03-21] MEDS: metroNIDAZOLE 500 MG Tablet PO ×3 (09:42→20:15)
[2021-03-21] MEDS: pantoprazole DR 40 mg Tablet PO (09:42)
[2021-03-21] MEDS: sodium chloride 1 gm Tablet PO ×2 (09:42→19:25)
[2021-03-21] MEDS: ipratropium-albuterol 3 mL Neb INHALATION ×2 (11:37→21:00)
[2021-03-21] MEDS: calcitonin nasal 200 unit/spray 3.7 mL Btl 1 SPRAY NOSTRIL-AL (12:22)
--- NOTE | 2021-03-21 16:41 | PM.PN ---
Subjective Subjective: Interval history: Patient is endorsing feeling same as yesterday, still experiencing cough, chest x-ray unremarkable no signs of DVT blood pressure improved after getting albumin, chest x-ray unremarkable, pending insurance approval for her rehab placement Vitals/I&O/Wt Last Vital Signs Temp 98.6 F 03/21/21 16:00 Pulse 78 03/21/21 16:00 Resp 16 03/21/21 16:00 BP 107/58 03/21/21 16:00 Pulse Ox 88 L 03/21/21 16:00 03/21/21 03/21/21 03/21/21 06:59 14:59 22:59 Intake Total 150 / 1110 250 / 250 Balance 150 / 1010 250 / 250 Weight last 48 hrs Weight 67.812 kg Weight 68.209 kg Physical Exam Narrative: EXAM NARRATIVE: Patient was eating breakfast when I entered the room Experiencing dry hacking cough Saturating well on room air No active chest pain, S1, S2 Abdomen soft bowel sounds present Lower extremity 2+ pitting edema bilaterally pedal edema Bilateral diminished breath sounds with mild rhonchi and crackles at the bases otherwise no acute respiratory distress No cyanosis gangrene or ulcer Appropriate mood and affect No neurological deficits Data : 03/21/21 07:02 03/21/21 07:02 A&P Assessment and plan (1) Anorexia: Status: Acute (2) Hypotension: Status: Acute (3) Sepsis: Status: Acute Qualifiers: Sepsis type: sepsis due to unspecified organism (4) Colitis: Status: Acute Additional A&P Information Ascending colon colitis: Resolved Cultures without any growth C. difficile panel negative Continue p.o. antibiotic Tolerating diet Nonproductive cough Would use Robitussin, Mucomyst, chest x-ray without any signs of pneumonia or signs of pleural effusion Hyponatremia: With her salt tablets sodium today 129, her p.o. intake has improved anticipating further improvement Persistent hypotension: blood pressure improved, systolic blood pressure 107mmhg, she has severe hypoalbuminemia Avoid fluid bolus because of peripheral extremity swelling No signs of sepsis, TSH cortisol level normal Avoid QTC prolonging medication DNR/DNI Lovenox for DVT prophylaxis Potassium repleted Consistent carb diet Attestations Medical Necessity Statement*: Anticipating discharge tomorrow Time Spent in Patient Care: 30mins Coding Level of Care Code Acute Refining Engineer for g Fwd Diagnoses Anorexia R63.0 Hypotension I95.9 Sepsis A41.9 Sepsis type: sepsis due to unspecified organism Colitis K52.9
[2021-03-21] MEDS: donepezil 5 MG Tablet PO (20:15)
[2021-03-21] MEDS: mirtazapine 15 mg Tablet PO (20:15)
[2021-03-21] MEDS: acetylcysteine 200 mg/mL SDV 4 mL 100 MG INHALATION (20:59)
[2021-03-22] VITALS (17 sets, daily range): BP systolic 101–152; BP diastolic 54–76; PULSE 60–87; RESP 12–31; TEMP 36.5–37; O2SAT 90–98
--- NOTE | 2021-03-22 01:39 | PC.NURSE ---
Patient was drowsy and hard to arouse. When patient was aroused, neuro assessment done and was WNL. Patient states, I'm just tired.
--- NOTE | 2021-03-22 01:46 | PC.NURSE ---
Patient has been incontinent of urine.
--- NOTE | 2021-03-22 02:47 | PC.NURSE ---
Patient is currently resting in bed with eyes closed. Will monitor.
[2021-03-22] MEDS: enoxaparin 40 mg/0.4 mL Syringe SUBCUT (04:10)
--- NOTE | 2021-03-22 04:24 | PC.NURSE ---
Patient's oxygen saturation drooped to mid to high 80s while sleeping. Patient seemed to be breathing through mouth. RT placed oxymask on patient. Current oxygen saturation is 93 percent.
[2021-03-22 05:23] LABS: Anion Gap 9.3 (5-19); Blood Urea Nitrogen 4 mg/dL (8-23); Calcium 7.1 mg/dL (8.5-10.5); Carbon Dioxide 31 mmol/L (22-29); Chloride 94 mmol/L (98-107); Glucose 78 mg/dL (65-115); Osmolality Calculated 268 mOsm/kg (285-295); Potassium 3.3 mmol/L (3.5-5.1); Sodium 131 mmol/L (136-145)
[2021-03-22] MEDS: potassium chloride ER 20 mEq Tablet 40 MEQ PO (08:31)
[2021-03-22] MEDS: gabapentin 100 mg Capsule PO ×3 (08:32→19:43)
[2021-03-22] MEDS: pantoprazole DR 40 mg Tablet PO (08:32)
[2021-03-22] MEDS: ciprofloxacin 500 mg Tablet PO (08:32)
[2021-03-22] MEDS: sodium chloride 1 gm Tablet PO ×2 (08:32→17:10)
[2021-03-22] MEDS: midodrine 5 mg TABLET PO ×3 (08:32→19:43)
[2021-03-22] MEDS: levothyroxine 112 mcg Tablet PO (08:32)
[2021-03-22] MEDS: metroNIDAZOLE 500 MG Tablet PO ×2 (08:32→15:48)
[2021-03-22] MEDS: aspirin 81 mg EC Tablet PO (08:32)
[2021-03-22] MEDS: duloxetine 30 mg Capsule PO (08:33)
[2021-03-22] MEDS: calcitonin nasal 200 unit/spray 3.7 mL Btl 1 SPRAY NOSTRIL-AL (08:33)
[2021-03-22] MEDS: acetylcysteine 200 mg/mL SDV 4 mL 100 MG INHALATION (09:33)
[2021-03-22] MEDS: ipratropium-albuterol 3 mL Neb INHALATION (09:34)
[2021-03-22] MEDS: TRAMadol 50 mg Tablet PO ×2 (09:41→22:05)
--- NOTE | 2021-03-22 11:06 | USCV_ITS ---
Stephen Aide Age: 86 Gender: F : 1935 Exam Date: 03/22/2021 15:45 Ordering Phys: Ying Wright MD Technologist: Jayleen Laughlin Exam Location: [facility] – [place] Indication: RUE SWELLING HISTORY: Upper extremity swelling. PROCEDURES: The following venous structures were evaluated: internal jugular vein, subclavian vein, axillary vein, and brachial veins. In addition, the radial vein and ulnar vein. Serial compression, augmentation maneuvers, and spectral Doppler flow evaluation were performed. FINDINGS: Acute, occlusive DVT seen in right Brachial vein with vascular catheter also present. The remaining veins are negative. Right Cephalic vein not seen on today's exam CONCLUSIONS Right upper extremity deep venous thrombosis involving the basilic vein. Dr. Beulah Nagy DO (Electronically Signed) Final Date: 22 March 2021 16:36 S
[2021-03-22 11:13] LABS: SARS Covid-2 Antigen Positive (Negative)
--- NOTE | 2021-03-22 11:42 | PC.SOCIAL ---
IMM Update Pg.2 of IMM updated and reviewed with patient, who verbalized understanding. Copy provided.
--- NOTE | 2021-03-22 13:33 | PC.NURSE ---
[facility]came [facility] at 1300.dr holguin notified.pt's daughter notified.pt placed on isolation.
--- NOTE | 2021-03-22 17:57 | PM.PN ---
Subjective Subjective: Interval history: COVID-19 was sent as screening for assisted which came back positive, hypokalemia repleted, for right arm swelling Doppler was requested which came back positive for DVT She has a midline in right arm Currently at her home O2 level of 3 L saturating well Given her Lasix 20 mg p.o. Vitals/I&O/Wt Last Vital Signs Temp 97.9 F 03/22/21 16:00 Pulse 68 03/22/21 16:00 Resp 19 H 03/22/21 16:00 BP 105/71 03/22/21 16:00 Pulse Ox 97 03/22/21 16:00 03/22/21 03/22/21 03/22/21 06:59 14:59 22:59 Intake Total 100 / 700 660 / 660 Balance 100 / 700 660 / 660 Weight last 48 hrs Weight 67.54 kg Weight 67.812 kg Physical Exam Narrative: EXAM NARRATIVE: Patient was sleeping at the time I entered the room Endorsed feeling extremely lethargic still complaining of cough however able to produce sputum now which is clear Afebrile saturating well on 3 to nasal cannula No respiratory accessory muscle usage Has not been able to get out of bed on her own Complaining of back pain on movement S1, S2 sinus rhythm Congestive heart failure with bilateral lower extremity edema right foot swollen as compared to left EOMI, PERRLA no neurological deficits Right arm swollen, midline in place Data : 03/21/21 07:02 03/22/21 04:49 A&P Assessment and plan (1) DVT (deep venous thrombosis): Status: Acute (2) Anorexia: Status: Acute (3) Hyponatremia: Status: Acute (4) Hypotension: Status: Acute (5) Sepsis: Status: Acute Qualifiers: Sepsis type: sepsis due to unspecified organism (6) Colitis: Status: Acute (7) COVID-19: Status: Acute Additional A&P Information COVID-19 pneumonia Start Decadron, she is around her baseline oxygen requirement of 2 to 3 L, I would avoid adding remdesivir for now Ventolin I will change her room and also test her neighbor as well Active complaint of lethargy and fatigue Acute right arm DVT secondary to midline Start Lovenox therapeutic dose I would keep her midline in place to avoid progression of the clot, reviewed literature as well Hypotension: Improved after getting albumin continue midodrine, normal TSH and cortisol level CHF exacerbation: I will give her 1 dose of Lasix 20 mg p.o., I would avoid putting it as maintenance therapy because of hypotension Sepsis: Resolved Ascending colitis: Resolved patient had a bowel movement today, discontinue ciprofloxacin and Flagyl on 03/22 Disposition: SNF Patient has severe back pain due to vertebral fracture which has limited her mobility She has not been able to get out of her bed Consistent carb diet We will put her on low-dose sliding scale because of her poor appetite, currently getting mirtazapine for her anorexia DNR/DNI Guarded prognosis with higher mortality morbidity Attestations Medical Necessity Statement*: Awaiting placement to assisted currently need treatment for COVID-19 and DVT of right arm Time Spent in Patient Care: 30mins Coding Level of Care Code Acute Associate Professor Of Chemistry for [facility] Fwd Diagnoses DVT (deep venous thrombosis) I82.409 Anorexia R63.0 Hyponatremia E87.1 Hypotension I95.9 Sepsis A41.9 Sepsis type: sepsis due to unspecified organism Colitis K52.9 COVID-19 U07.1
[2021-03-22] MEDS: FUROsemide 20 mg Tablet PO (19:16)
[2021-03-22] MEDS: potassium chloride oral liq 20 mEq/15 mL UDC 40 MEQ PO (19:17)
[2021-03-22] MEDS: enoxaparin 80 mg/0.8 mL Syringe 70 MG SUBCUT (19:17)
[2021-03-22] MEDS: donepezil 5 MG Tablet PO (19:43)
[2021-03-22] MEDS: mirtazapine 15 mg Tablet PO (19:43)
[2021-03-22 21:50] LABS: Glucose Point of Care 105 mg/dL (70-110)
--- NOTE | 2021-03-22 22:03 | PC.NURSE ---
Patient has frequent incontinent episodes in bed. Patient was assisted to bedside commode with 2 assist and voided. 200 mL.
[2021-03-23] VITALS (14 sets, daily range): BP systolic 103–131; BP diastolic 59–75; PULSE 63–101; RESP 7–27; TEMP 36.6–36.7; O2SAT 89–98
--- NOTE | 2021-03-23 02:52 | PC.NURSE ---
Patient is currently resting with eyes closed. Will monitor.
[2021-03-23] MEDS: enoxaparin 80 mg/0.8 mL Syringe 70 MG SUBCUT ×2 (05:22→18:25)
--- NOTE | 2021-03-23 05:36 | USCV_ITS ---
Stephen Aide Age: 86 Gender: F : 1935 Exam Date: 03/23/2021 06:38 Ordering Phys: Silvia Gipson MD Technologist: ALYSSIA [place] [facility] [place]: RLE SWELLING HISTORY: Lower extremity swelling. PROCEDURES: Venous duplex imaging was performed in only the right lower extremity. The following venous structures were evaluated: common femoral vein, profunda vein, proximal portion of the greater saphenous vein, superficial femoral vein, and the popliteal vein. In addition, the posterior tibial and peroneal trunk were evaluated. Serial compression, augmentation maneuvers, and spectral Doppler flow evaluation were performed. FINDINGS: Normal 2-D Doppler and augmentation and compressibility throughout the lower extremity venous structures. Additional imaging through the proximal calf veins also reveals no thrombus. Limited evaluation of the greater saphenous vein is patent with no thrombus. CONCLUSIONS No DVT right lower extremity. Dr. Beulah Nagy DO (Electronically Signed) Final Date: 23 March 2021 07:42 S
--- NOTE | 2021-03-23 05:37 | PC.NURSE ---
Patient has increased swelling to right foot compared to earlier in shift. Dr. Gipson notified. Ordered to get venous duplex of right lower extremity.
[2021-03-23 06:24] LABS: Basophils # 0.1 10^3/uL (0.0-0.1); Basophils % 0.9 %; Eosinophils % 0.2 %; Hematocrit 35.1 % (37.0-47.0); Hemoglobin 11.2 g/dL (11.5-15.3); Lymphocytes # 0.8 10^3/uL (0.8-4.8); Mean Corpuscular HGB Conc 31.9 g/dL (30.0-36.0); Mean Corpuscular Hemoglobin 28.7 pg (28.0-34.0); Mean Platelet Volume 9.9 fL (7.4-10.4); Monocytes # 0.2 10^3/uL (0.2-0.9); Monocytes % 3.4 %; Neutrophils # 5.24 10^3/uL (1.8-7.7); Neutrophils % 81.6 %; Nucleated Red Blood Cells % 0 %; Platelet Count 136 10^3/cmm (130-400); Red Cell Distribution Width 16.4 % (12.1-15.1); White Blood Count 6.4 10^3/uL (4.0-10.0)
[2021-03-23 06:53] LABS: Glucose Point of Care 63 mg/dL (70-110)
[2021-03-23 07:00] LABS: Procalcitonin 0.11 ng/mL (0-0.5)
[2021-03-23 07:12] LABS: Anion Gap 8.1 (5-19); Blood Urea Nitrogen 3 mg/dL (8-23); C Reactive Protein 65.9 mg/L (0.0-4.9); Calcium 7.1 mg/dL (8.5-10.5); Carbon Dioxide 34 mmol/L (22-29); Chloride 95 mmol/L (98-107); Glucose 69 mg/dL (65-115); Magnesium 1.3 mg/dL (1.7-2.3); Osmolality Calculated 271 mOsm/kg (285-295); Potassium 4.1 mmol/L (3.5-5.1); Sodium 133 mmol/L (136-145)
[2021-03-23 07:56] LABS: Slide Review Slide Review Perform
[2021-03-23] MEDS: aspirin 81 mg EC Tablet PO (09:04)
[2021-03-23] MEDS: duloxetine 30 mg Capsule PO (09:04)
[2021-03-23] MEDS: dexamethasone 4 mg Tablet 6 MG PO (09:04)
[2021-03-23] MEDS: sodium chloride 1 gm Tablet PO (09:04)
[2021-03-23] MEDS: potassium chloride ER 20 mEq Tablet 40 MEQ PO (09:04)
[2021-03-23] MEDS: pantoprazole DR 40 mg Tablet PO (09:04)
[2021-03-23] MEDS: midodrine 5 mg TABLET PO ×3 (09:05→19:58)
[2021-03-23] MEDS: levothyroxine 112 mcg Tablet PO (09:05)
[2021-03-23] MEDS: gabapentin 100 mg Capsule PO ×3 (09:05→19:58)
[2021-03-23] MEDS: calcitonin nasal 200 unit/spray 3.7 mL Btl 1 SPRAY NOSTRIL-AL (09:07)
--- NOTE | 2021-03-23 09:58 | PC.CHAP ---
Pastoral Care Encounter/Spiritual Assessment Type of Contact [] Declined fraternity house cook visit [] Patient/Family/Request visit [] Outpatient visit [] Follow-up visit [] Physician referral [] Code/Alert [x] Routine visit [] Staff referral [] Actively dying [] Patient sleeping [] Family support [] [] Out of room [] Palliative care [] [] Receiving care in room [] Pre-surgical visit [] Trauma [] Long length of stay [] ICU visit [x] Other: quarantined Relational/Emotional Strength [] Patient feels connected with others/family/visitors/staff [] Distress [] Loneliness/isolation [] Abandonment Spirituality of Patient [] Person of [place]id[place] [] Attends Yazidi of their [place] [] Believes in Prayer [] Reads Bible or Gnosticism materials [] There are Spiritual issues to be addressed 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 Interventions [x] Prayer [] Active listening [] Non-anxious presence [] Spiritual/emotional support [] Crisis/trauma care [] Spiritual counseling [] Bereavement support [] Provided bereavement packet [] Provided Bible/devotional materials [] Provided toy/stuffed animal, coloring book to patient or family member [] Provided Communion [] Anointing/[place] [] Salvation [x] Completed spiritual assessment [] Other: Impact on Illness or Injury [] Angry [] Fearful [] Anxious [] Often cries [] Exhaustion [] Unable to work [] Unable to attend presybeterian [] Unable to walk/stand [] Unable to read [] Unable to drive [] Unable to eat/drink [] Unable to sleep [] Unable to be with family [] Patient intubated [] Other: Summary Time spent with patient
[2021-03-23 11:34] LABS: Glucose Point of Care 86 mg/dL (70-110)
--- NOTE | 2021-03-23 14:24 | PM.PN ---
Subjective Subjective: Interval history: Patient still has not been able to get out of bed I have requested physical therapy to work with her for at least 30 minutes a day and increase as she is able to tolerate with goal of at least 1 an hour She ate her breakfast about 60% Sodium today 133 Blood pressure has been stable She is on her home regimen of 2 L nasal cannula at the time of my evaluation Her oxygen requirement has not worsened, She was given Lasix yesterday and she experienced multiple episodes of incontinence Vitals/I&O/Wt Last Vital Signs Temp 98.0 F 03/23/21 08:00 Pulse 69 03/23/21 12:00 Resp 7 L 03/23/21 12:00 BP 117/68 03/23/21 12:00 Pulse Ox 95 03/23/21 08:12 03/22/21 03/23/21 03/23/21 22:59 06:59 14:59 Intake Total 360 / 1020 300 / 1320 Balance 360 / 1020 300 / 1320 Weight last 48 hrs Weight 66.134 kg Weight 67.54 kg Physical Exam Narrative: EXAM NARRATIVE: Patient was laying in her bed with her breakfast tray at the bedside Saturating well on 2 L Not complaining of active shortness of breath however distressed because of her dry hacking cough S1, S2 with signs of congestive heart failure with bilateral lower extremity edema greater than left Abdomen soft no signs of peritonitis 2+ pitting edema of right foot Awake alert oriented x3 GCS 15 EOMI, PERRLA Right arm swollen as compared to left with midline in place Data : 03/23/21 06:15 03/23/21 06:15 A&P Assessment and plan (1) COVID-19: Status: Acute (2) DVT (deep venous thrombosis): Status: Acute (3) Anorexia: Status: Acute (4) Hyponatremia: Status: Acute (5) Hypotension: Status: Acute (6) Sepsis: Status: Acute Qualifiers: Sepsis type: sepsis due to unspecified organism (7) Colitis: Status: Acute Additional A&P Information COVID-19 pneumonia Currently saturating well on 2 L nasal cannula, oxygen requirement has not changed, I will not start remdesivir, would use Decadron only for now, Acute right arm DVT secondary to midline On therapeutic dose of Lovenox, would not remove midline for now to avoid progression of the clot Hypotension: Secondary to poor p.o. intake and hypoalbuminemia Continue midodrine CHF exacerbation: Experienced multiple episodes of urine incontinence after getting Lasix yesterday, clinically looks fluid overloaded, I will give her next dose of Lasix tomorrow Sepsis: Resolved Ascending colitis: Resolved finished IV and p.o. antibiotic regimen Disposition: SNF once able to work with physical therapy Patient has severe back pain due to vertebral fracture which has limited her mobility, goal is to keep her pain minimal and have her work with physical therapy Consistent carb diet We will put her on low-dose sliding scale because of her poor appetite, currently getting mirtazapine for her anorexia DNR/DNI Guarded prognosis with higher mortality morbidity Attestations Medical Necessity Statement*: Continue medical management for COVID-19 pneumonia, hypertension, vertebral fracture Time Spent in Patient Care: 30mins Coding Level of Care Code Acute Creasing And Cutting Press 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
[2021-03-23 16:56] LABS: Glucose Point of Care 119 mg/dL (70-110)
[2021-03-23] MEDS: ascorbic acid 500 mg Tablet PO (18:25)
[2021-03-23] MEDS: magnesium oxide 400 mg tablet PO (18:25)
[2021-03-23] MEDS: ipratropium-albuterol 3 mL Neb INHALATION (19:46)
[2021-03-23] MEDS: mirtazapine 15 mg Tablet PO (19:58)
[2021-03-23] MEDS: donepezil 5 MG Tablet PO (19:59)
[2021-03-23] MEDS: TRAMadol 50 mg Tablet PO (20:01)
[2021-03-23 20:27] LABS: Glucose Point of Care 109 mg/dL (70-110)
--- NOTE | 2021-03-23 23:54 | PC.NURSE ---
Triny-care done for patient and Aloe vesta applied to patients vaginal area.
[2021-03-24] VITALS (11 sets, daily range): BP systolic 107–138; BP diastolic 50–76; PULSE 60–76; RESP 12–19; TEMP 36.5–36.9; O2SAT 90–100
--- NOTE | 2021-03-24 04:57 | PC.NURSE ---
Update given to daughter Kim [phone]
[2021-03-24] MEDS: enoxaparin 80 mg/0.8 mL Syringe 70 MG SUBCUT ×2 (05:49→18:38)
[2021-03-24 07:07] LABS: C Reactive Protein 56.7 mg/L (0.0-4.9); Sodium 130 mmol/L (136-145)
[2021-03-24] MEDS: FUROsemide 20 mg Tablet PO (09:23)
[2021-03-24] MEDS: gabapentin 100 mg Capsule PO ×3 (09:23→21:04)
[2021-03-24] MEDS: levothyroxine 112 mcg Tablet PO (09:24)
[2021-03-24] MEDS: ascorbic acid 500 mg Tablet PO ×2 (09:24→18:38)
[2021-03-24] MEDS: duloxetine 30 mg Capsule PO (09:24)
[2021-03-24] MEDS: pantoprazole DR 40 mg Tablet PO (09:24)
[2021-03-24] MEDS: aspirin 81 mg EC Tablet PO (09:24)
[2021-03-24] MEDS: midodrine 5 mg TABLET PO ×3 (09:24→21:04)
[2021-03-24] MEDS: potassium chloride ER 20 mEq Tablet 40 MEQ PO (09:25)
[2021-03-24] MEDS: magnesium oxide 400 mg tablet PO ×2 (09:25→18:38)
[2021-03-24] MEDS: dexamethasone 4 mg Tablet 6 MG PO (09:25)
--- NOTE | 2021-03-24 10:05 | PC.SOCIAL ---
IMM Update Page 2 of [facility] updated w/ PT. over the phone. Pt. verbalized understanding.
[2021-03-24 11:40] LABS: Glucose Point of Care 140 mg/dL (70-110)
[2021-03-24] MEDS: TRAMadol 50 mg Tablet PO ×2 (13:09→23:04)
--- NOTE | 2021-03-24 14:35 | PM.PN ---
Subjective Subjective: Interval history: No overnight events, patient worked for more than an hour with occupational therapist today to work with physical therapy later currently saturating well on 2 L nasal cannula had 1 bowel movement, no dysuria still endorsing anorexia and cough Vitals/I&O/Wt Last Vital Signs Temp 98.2 F 03/24/21 12:00 Pulse 73 03/24/21 12:00 Resp 17 03/24/21 12:00 BP 107/53 03/24/21 12:00 Pulse Ox 96 03/24/21 12:00 03/23/21 03/24/21 03/24/21 22:59 06:59 14:59 Intake Total 75 / 75 720 / 720 Output Total 375 / 375 500 / 875 150 / 150 Balance -300 / -300 -500 / -800 570 / 570 Weight last 48 hrs Weight 65.862 kg Weight 66.134 kg Physical Exam Narrative: EXAM NARRATIVE: Patient was laying comfortably in her bed saturating well on 2 L nasal cannula EOMI, PERRLA No neurological deficit Hypervolemic with CHF exacerbation, S1, S2 no murmur appreciated Soft abdomen No acute respiratory distress No joint swelling or cellulitis noted Pedal edema 2+ Data : 03/23/21 06:15 03/24/21 06:25 A&P Assessment and plan (1) COVID-19: Status: Acute (2) DVT (deep venous thrombosis): Status: Acute (3) Anorexia: Status: Acute (4) Hyponatremia: Status: Acute (5) Hypotension: Status: Acute (6) Sepsis: Status: Acute Qualifiers: Sepsis type: sepsis due to unspecified organism (7) Colitis: Status: Acute Additional A&P Information COVID-19 pneumonia Patient saturating well at 2-week nasal cannula not a candidate to receive remdesivir continue Decadron Right arm DVT: On therapeutic Lovenox dose CHF exacerbation: Lasix p.o. low-dose maintenance regimen initiated Hypotension: Improved after albumin administration Normal TSH and cortisol level Continue midodrine Sepsis: Resolved Ascending colitis resolved Disposition: SNF work with the occupational therapist for more than an hour today to work with physical therapy later Consistent carb diet Mirtazapine anorexia DNR/DNI Attestations Medical Necessity Statement*: Patient to work with physical therapist today, made good clinical progress, Time Spent in Patient Care: (>than 50% of time spent in counselling and/or direct pt care on unit). 20mins Coding Level of Care Code Acute Assistant Site Manager for [employer] Fwd Diagnoses COVID-19 U07.1 DVT (deep venous thrombosis) I82.409 Anorexia R63.0 Hyponatremia E87.1 Hypotension I95.9 Sepsis A41.9 Sepsis type: sepsis due to unspecified organism Colitis K52.9
[2021-03-24 16:48] LABS: Glucose Point of Care 114 mg/dL (70-110)
[2021-03-24 20:50] LABS: Glucose Point of Care 129 mg/dL (70-110)
[2021-03-24] MEDS: donepezil 5 MG Tablet PO (21:04)
[2021-03-24] MEDS: mirtazapine 15 mg Tablet PO (21:04)
--- NOTE | 2021-03-24 21:12 | PC.NURSE ---
Patient requests that granddaughter Renetta Willis and daughters Kim Mitchell and Kaelyn Mitchell all be on her PHI form so that we can give information to them. Registration notified.
--- NOTE | 2021-03-24 23:51 | PC.NURSE ---
Patient was assisted to bedside commode with one assist and voided. Patient states, I know I'm gonna pee the bed when I fall asleep. I don't know why I don't wake up when I need to go. Patient is currently resting in bed with eyes closed. Will monitor.
--- NOTE | 2021-03-24 23:58 | PC.NURSE ---
Addendum entered by Lulú Wilhelm RN 03/25/21 04:32: Addendum entered in error. Original note is on the correct patient. Addendum entered by Lulú Wilhelm RN 03/25/21 04:31: Entered on incorrect patient. Original Note: RT placed patient on 2 L NC earlier in shift. Patient is currently on 4 L NC on 89 percent.
[2021-03-25] VITALS (11 sets, daily range): BP systolic 101–139; BP diastolic 67–85; PULSE 60–82; RESP 12–20; TEMP 36.3–36.7; O2SAT 90–95
--- NOTE | 2021-03-25 04:30 | PC.NURSE ---
Patient had one incontinent episode of bowel and one incontinent episode of urine.
[2021-03-25] MEDS: enoxaparin 80 mg/0.8 mL Syringe 70 MG SUBCUT ×2 (04:53→18:20)
[2021-03-25 06:30] LABS: Glucose Point of Care 60 mg/dL (70-110)
[2021-03-25] MEDS: magnesium oxide 400 mg tablet PO (08:44)
[2021-03-25] MEDS: midodrine 5 mg TABLET PO ×3 (08:44→19:52)
[2021-03-25] MEDS: pantoprazole DR 40 mg Tablet PO (08:44)
[2021-03-25] MEDS: dexamethasone 4 mg Tablet 6 MG PO (08:44)
[2021-03-25] MEDS: aspirin 81 mg EC Tablet PO (08:44)
[2021-03-25] MEDS: ascorbic acid 500 mg Tablet PO ×2 (08:44→18:20)
[2021-03-25] MEDS: levothyroxine 112 mcg Tablet PO (08:45)
[2021-03-25] MEDS: FUROsemide 20 mg Tablet PO (08:45)
[2021-03-25] MEDS: potassium chloride ER 20 mEq Tablet 40 MEQ PO (08:45)
[2021-03-25] MEDS: gabapentin 100 mg Capsule PO ×3 (08:45→19:53)
[2021-03-25] MEDS: duloxetine 30 mg Capsule PO (08:45)
[2021-03-25] MEDS: TRAMadol 50 mg Tablet PO (11:23)
[2021-03-25 12:20] LABS: C Reactive Protein 43.1 mg/L (0.0-4.9); Lactate Dehydrogenase 249 U/L (135-214); Sodium 128 mmol/L (136-145)
[2021-03-25 12:41] LABS: Glucose Point of Care 83 mg/dL (70-110)
--- NOTE | 2021-03-25 13:27 | PM.PN ---
Subjective Subjective: Interval history: Patient was seen and examined this morning, he was requiring 45 L of oxygen to keep her saturation above 90% however she stated that her energy level is same as yesterday her coughing has not improved, she has not eaten her breakfast because of anorexia, she works with physical therapy and Occupational Therapy for about an hour yesterday Vitals/I&O/Wt Last Vital Signs Temp 98.1 F 03/25/21 07:44 Pulse 71 03/25/21 10:06 Resp 20 H 03/25/21 10:06 BP 139/72 03/25/21 07:44 Pulse Ox 95 03/25/21 10:06 03/24/21 03/25/21 03/25/21 22:59 06:59 14:59 Intake Total 360 / 1080 300 / 1380 118 / 118 Output Total 200 / 200 Balance 360 / 930 300 / 1230 -82 / -82 Weight last 48 hrs Weight 63.684 kg Weight 65.862 kg Physical Exam Narrative: EXAM NARRATIVE: She was laying comfortably with 5 L nasal cannula to keep saturation above 90% Awake alert oriented x3 very pleasant and cooperative during my evaluation Bilateral lower extremity edema right greater than left With mild wrinkling noted around left foot Chest congestion on lung auscultation with mild rhonchi at the bases S1, S2 GCS 15 no neurological deficit Abdomen soft bowel sounds sluggish Data : 03/23/21 06:15 03/25/21 11:40 A&P Assessment and plan (1) COVID-19: Status: Acute (2) DVT (deep venous thrombosis): Status: Acute (3) Anorexia: Status: Acute (4) Hyponatremia: Status: Acute (5) Hypotension: Status: Acute (6) Sepsis: Status: Acute Qualifiers: Sepsis type: sepsis due to unspecified organism (7) Colitis: Status: Acute Additional A&P Information 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 intake, I discontinue her salt tablets for 24 hours and her sodium level has gone down, she might need long-term salt tablet regimen CHF exacerbation with bilateral lower extremity edema: Continue low-dose Lasix for now blood pressure is stable Sepsis: Resolved Colitis: Resolved DNR/DNI Regular diet DVT prophylaxis on therapeutic dose of Lovenox Work with PT and OT for an hour yesterday Awaiting acceptance at detention probably on Sunday, I have called insurance company to expedite her authorization today, awaiting response Attestations Medical Necessity Statement*: Anticipating discharge to detention on Sunday Time Spent in Patient Care: 30mins Coding Level of Care Code Acute [employer] Supervisor for Magda Phelps Diagnoses COVID-19 U07.1 DVT (deep venous thrombosis) I82.409 Anorexia R63.0 Hyponatremia E87.1 Hypotension I95.9 Sepsis A41.9 Sepsis type: sepsis due to unspecified organism Colitis K52.9
--- NOTE | 2021-03-25 13:33 | XR_ITS ---
WS: [id number] Portable AP upright chest, 03/25/2021 Clinical Data: Worsening hypoxia Comparison: None. Findings: No nodules, masses or effusions are seen. The heart is normal. The pulmonary vascularity is not increased. No pneumonia or pneumothorax is seen. The 2-lead pacemaker with generator overlying t he left chest remains the same. The aortic arch shows calcification and tortuosity. There is a surgic al stent overlying the T12 vertebral body. Monitor leads are on the chest wall. XR/XR chest 1V portable [id number] Impression: Atherosclerosis.
[2021-03-25] MEDS: oxyCODONE 5 mg IR Tab/Cap PO (13:54)
[2021-03-25 13:58] LABS: ABG PCO2 51.9 mmHg (35-45); ABG PH Result 7.49 (7.35-7.45); Arterial Blood Gas Hematocrit 38.1 % (37-47); Base Excess ABG 14.2 mmol/L (-2.0-2.0); Blood Gas Allen Test Pos; Blood Gas Sample Site Radial, left; Blood Gas Sample Type Arterial; HCO3 ABG 39.7 mmol/L (22-26)
[2021-03-25 13:59] LABS: Blood Gas Operator Identificat MONRO; Oxygen Device ROOM AIR
[2021-03-25] MEDS: remdesivir 100 MG in sodium chloride 0.9% (100 ml) 100 ML IV (15:52)
[2021-03-25 18:14] LABS: Glucose Point of Care 115 mg/dL (70-110)
[2021-03-25] MEDS: sodium chloride 1 gm Tablet PO (18:20)
[2021-03-25] MEDS: donepezil 5 MG Tablet PO (19:53)
[2021-03-25] MEDS: mirtazapine 15 mg Tablet PO (19:53)
[2021-03-25 20:22] LABS: Glucose Point of Care 169 mg/dL (70-110)
--- NOTE | 2021-03-25 21:54 | PC.NURSE ---
Patient did not have right forearm IV upon my arrival on shift. Patient only has right arm mid-line. Dr. Wright states okay to use midline.
[2021-03-26] VITALS (13 sets, daily range): BP systolic 98–127; BP diastolic 55–86; PULSE 60–87; RESP 14–23; TEMP 36.4–36.7; O2SAT 90–98
[2021-03-26] MEDS: oxyCODONE 5 mg IR Tab/Cap PO ×2 (01:04→10:11)
[2021-03-26] MEDS: enoxaparin 80 mg/0.8 mL Syringe 70 MG SUBCUT ×2 (04:18→18:08)
--- NOTE | 2021-03-26 04:24 | PC.NURSE ---
Patient's linen's are currently clean and dry. Will monitor for incontinence. Patient voided once in bedside commode and did not have any incontinent episodes so far throughout night.
--- NOTE | 2021-03-26 04:26 | PC.NURSE ---
Patient was up to chair and slept in chair until midnight. Patient did not want to lay down in bed until midnight, stating it feels good to my back to get out of that bed. Patient c/o right heel pain earlier in shift relieved by PRN Oxy.
--- NOTE | 2021-03-26 06:11 | PC.NURSE ---
Patient is currently resting in bed with eyes closed. Will monitor.
--- NOTE | 2021-03-26 06:16 | PC.NURSE ---
Two lab staff attempt to get AM labs on patient with no success. Midline will not draw blood for RN. Unable to obtain AM labs.
[2021-03-26 06:35] LABS: Glucose Point of Care 68 mg/dL (70-110)
[2021-03-26] MEDS: dexamethasone 4 mg Tablet 6 MG PO (09:19)
[2021-03-26] MEDS: pantoprazole DR 40 mg Tablet PO (09:19)
[2021-03-26] MEDS: ascorbic acid 500 mg Tablet PO ×2 (09:19→18:07)
[2021-03-26] MEDS: aspirin 81 mg EC Tablet PO (09:19)
[2021-03-26] MEDS: levothyroxine 112 mcg Tablet PO (09:19)
[2021-03-26] MEDS: potassium chloride ER 20 mEq Tablet 40 MEQ PO (09:19)
[2021-03-26] MEDS: FUROsemide 20 mg Tablet PO (09:20)
[2021-03-26] MEDS: sodium chloride 1 gm Tablet PO ×2 (09:20→18:07)
[2021-03-26] MEDS: gabapentin 100 mg Capsule PO ×3 (09:20→20:26)
[2021-03-26] MEDS: duloxetine 30 mg Capsule PO (09:20)
[2021-03-26] MEDS: midodrine 5 mg TABLET PO ×3 (09:20→20:26)
[2021-03-26] MEDS: guaiFENesin-dextromethorphan UDC 10 mL 5 ML PO (10:11)
[2021-03-26 11:10] LABS: Basophils # 0.1 10^3/uL (0.0-0.1); Basophils % 0.7 %; Hematocrit 35.1 % (37.0-47.0); Hemoglobin 11.5 g/dL (11.5-15.3); Lymphocytes # 0.7 10^3/uL (0.8-4.8); Lymphocytes % 9.4 %; Mean Corpuscular HGB Conc 32.8 g/dL (30.0-36.0); Mean Corpuscular Hemoglobin 29.3 pg (28.0-34.0); Mean Corpuscular Volume 89.3 fL (81-99); Mean Platelet Volume 10.7 fL (7.4-10.4); Monocytes # 0.2 10^3/uL (0.2-0.9); Neutrophils # 6.04 10^3/uL (1.8-7.7); Neutrophils % 85.1 %; Nucleated Red Blood Cells % 0 %; Platelet Count 164 10^3/cmm (130-400); Red Blood Count 3.93 10^6/uL (4.1-5.3); Red Cell Distribution Width 16.2 % (12.1-15.1); White Blood Count 7.1 10^3/uL (4.0-10.0)
[2021-03-26 11:37] LABS: Glucose Point of Care 77 mg/dL (70-110)
[2021-03-26 11:43] LABS: Anion Gap 9.9 (5-19); Blood Urea Nitrogen 9 mg/dL (8-23); Calcium 7.1 mg/dL (8.5-10.5); Carbon Dioxide 32 mmol/L (22-29); Chloride 90 mmol/L (98-107); Glucose 77 mg/dL (65-115); Osmolality Calculated 261 mOsm/kg (285-295); Potassium 4.9 mmol/L (3.5-5.1); Sodium 127 mmol/L (136-145)
--- NOTE | 2021-03-26 12:30 | PC.SOCIAL ---
IMM UPDATE Gave patient's daughter IMM update. She verbalized understanding. 03/26/21 @ 0862. Initialed, dated, timed and placed in chart.
--- NOTE | 2021-03-26 13:28 | P.PN_ITS ---
Subjective Subjective: Interval history: Patient today is requiring 4 L of nasal cannula to keep O2 saturation above 90% No overnight events she has been afebrile sodium 127 still endorsing poor p.o. intake working with her physical therapist Did work for more than an hour with OT and PT yesterday She was sitting at the bedside when I entered the room, Vitals/I&O/Wt Last Vital Signs Temp 98.1 F 03/26/21 11:53 Pulse 67 03/26/21 11:53 Resp 22 H 03/26/21 11:53 BP 119/63 03/26/21 11:53 Pulse Ox 90 03/26/21 11:53 03/25/21 03/26/21 03/26/21 22:59 06:59 14:59 Intake Total 350 / 468 300 / 768 240 / 240 Output Total 300 / 500 250 / 250 Balance 50 / -32 300 / 268 -10 / -10 Weight last 48 hrs Weight 66.406 kg Weight 63.684 kg Physical Exam Narrative: EXAM NARRATIVE: Frail elderly female was sitting at the bedside saturating well on 4 L nasal cannula No active chest pain or shortness of breath Bibasilar rhonchi no acute respite distress S1, S2 no murmur appreciated Abdomen soft nontender bowels are present Lower extremity 2+ pitting edema bilaterally Right arm midline in place with mild swelling no active drainage EOMI, PERRLA no neurological deficits Data : 03/26/21 10:33 03/26/21 10:33 A&P Assessment and plan (1) COVID-19: Status: Acute (2) DVT (deep venous thrombosis): Status: Acute (3) Anorexia: Status: Acute (4) Hyponatremia: Status: Acute (5) Hypotension: Status: Acute (6) Sepsis: Status: Acute Qualifiers: Sepsis type: sepsis due to unspecified organism (7) Colitis: Status: Acute Additional A&P Information Acute on chronic hypoxic respite failure secondary to COVID-19 Currently requiring 4 L nasal cannula I would add remdesivir along steroids Not a candidate of interleukin-6 inhibitor CRP not above 75 Patient endorsing feeling better Right arm DVT secondary to catheter related Catheter not to be removed to avoid progression of clot Anorexia: On mirtazapine Hypotension secondary to poor p.o. intake continue salt tablets, Hypertension: Improved after albumin Sepsis, resolved Colitis: Resolved DNR/DNI Regular diet DVT prophylaxis not indicated currently on therapeutic Lovenox Attestations Medical Necessity Statement*: Awaiting placement Time Spent in Patient Care: 15-30mins Coding Level of Care Code Acute Surgical Garment Inspector for Chg Fwd Diagnoses COVID-19 U07.1 DVT (deep venous thrombosis) I82.409 Anorexia R63.0 Hyponatremia E87.1 Hypotension I95.9 Sepsis A41.9 Sepsis type: sepsis due to unspecified organism Colitis K52.9
[2021-03-26] MEDS: remdesivir 100 MG in sodium chloride 0.9% (100 ml) 100 ML IV (13:35)
[2021-03-26 17:41] LABS: Glucose Point of Care 92 mg/dL (70-110)
[2021-03-26 20:06] LABS: Glucose Point of Care 107 mg/dL (70-110)
[2021-03-26] MEDS: mirtazapine 15 mg Tablet PO (20:25)
[2021-03-26] MEDS: donepezil 5 MG Tablet PO (20:26)
[2021-03-27] VITALS (11 sets, daily range): BP systolic 99–143; BP diastolic 53–69; PULSE 60–99; RESP 15–27; TEMP 36.4–36.7; O2SAT 91–97; BMI 25.1
[2021-03-27] MEDS: enoxaparin 80 mg/0.8 mL Syringe 70 MG SUBCUT ×2 (06:57→18:20)
[2021-03-27 07:03] LABS: Glucose Point of Care 68 mg/dL (70-110)
[2021-03-27] MEDS: aspirin 81 mg EC Tablet PO (09:29)
[2021-03-27] MEDS: potassium chloride ER 20 mEq Tablet 40 MEQ PO (09:29)
[2021-03-27] MEDS: guaiFENesin-dextromethorphan UDC 10 mL 5 ML PO (09:29)
[2021-03-27] MEDS: ascorbic acid 500 mg Tablet PO ×2 (09:32→18:21)
[2021-03-27] MEDS: gabapentin 100 mg Capsule PO ×3 (09:32→21:25)
[2021-03-27] MEDS: sodium chloride 1 gm Tablet PO ×2 (09:32→18:21)
[2021-03-27] MEDS: duloxetine 30 mg Capsule PO (09:32)
[2021-03-27] MEDS: oxyCODONE 5 mg IR Tab/Cap PO (09:33)
[2021-03-27] MEDS: FUROsemide 20 mg Tablet PO (09:33)
[2021-03-27] MEDS: dexamethasone 4 mg Tablet 6 MG PO (09:33)
[2021-03-27] MEDS: midodrine 5 mg TABLET PO ×3 (09:33→21:25)
[2021-03-27] MEDS: levothyroxine 112 mcg Tablet PO (09:34)
[2021-03-27] MEDS: pantoprazole DR 40 mg Tablet PO (09:34)
[2021-03-27 11:42] LABS: Bilirubin Urine Neg (Negative); Blood Urine Trace (Negative); Glucose Urine UA Norm (Normal); Ketones Urine 1+ (Negative); Nitrate Urine Negative (Negative); Protein Urine Neg (Negative); Sulfosalicylic Acid Urine Negative (Negative); Urine Appearance SL Hazy (CLEAR); Urine Color Yellow (Yellow); pH Urine 8 (5-7)
[2021-03-27 11:43] LABS: Add Urine Culture? No; Add Urine Microscopic? YES; Bacteria Urine TRACE /hpf; Leukocyte Esterase Urine Negative (Negative); Urobilinogen Urine Norm (Negative)
--- NOTE | 2021-03-27 12:06 | PM.PN ---
Subjective Subjective: Interval history: Patient was seen and examined this morning, no overnight events, today she is requiring 4 to 5 L of nasal cannula to keep O2 saturation above 90% however she is able to work with OT and PT Able to get up and eat her breakfast however does not eat much This morning blood sugar 68 and was a bit somnolent, Vitals/I&O/Wt Last Vital Signs Temp 97.7 F 03/27/21 03:45 Pulse 99 03/27/21 10:08 Resp 24 H 03/27/21 10:08 BP 124/60 03/27/21 03:45 Pulse Ox 92 03/27/21 10:08 03/26/21 03/27/21 03/27/21 22:59 06:59 14:59 Intake Total 360 / 700 Balance 360 / 450 Weight last 48 hrs Weight 66.406 kg Weight 66.406 kg Physical Exam Narrative: EXAM NARRATIVE: Frail elderly female was very somnolent this morning patient stated that she wanted to sleep S1-S2 with signs of volume overload bilateral lower extremity edema 2+ Bilateral bibasilar rhonchi noted currently saturating well on 5 L nasal cannula Soft abdomen bowel sounds present Right arm midline with mild swelling without any tenderness or redness Lower extremity without any cellulitis however significant edema which has not improved Data : 03/26/21 10:33 03/26/21 10:33 A&P Assessment and plan (1) COVID-19: Status: Acute (2) DVT (deep venous thrombosis): Status: Acute (3) Anorexia: Status: Acute (4) Hyponatremia: Status: Acute (5) Hypotension: Status: Acute (6) Sepsis: Status: Acute Qualifiers: Sepsis type: sepsis due to unspecified organism (7) Colitis: Status: Acute Additional A&P Information Acute hypoxic restaurant failure secondary to COVID-19 pneumonia Currently on steroids and remdesivir regimen not a candidate of interleukin-6 inhibitor CRP not above 75 Her O2 requirement is fluctuating between 3 L at rest and 4 to 5 L on ambulation No acute shortness of breath or chest pain no active diarrhea Right arm catheter related DVT currently on therapeutic dose of Lovenox No active signs of tenderness or cellulitis around the catheter site We will plan to take out the catheter before discharge Anorexia: Not significant improvement on mirtazapine blood sugar low will give 1 amp of D50 today Hypotension improved on albumin ANNE MARIE, sepsis and colitis: Resolved DNR/DNI Regular diet DVT prophylaxis on therapeutic dose of Lovenox Awaiting placement Attestations Medical Necessity Statement*: Awaiting placement Time Spent in Patient Care: less than 15 minutes Coding Level of Care Code Acute Support Services Coordinator for g Fwd Diagnoses COVID-19 U07.1 DVT (deep venous thrombosis) I82.409 Anorexia R63.0 Hyponatremia E87.1 Hypotension I95.9 Sepsis A41.9 Sepsis type: sepsis due to unspecified organism Colitis K52.9
[2021-03-27] MEDS: dextrose 50% syringe 50 mL 25 ML IVP (12:45)
[2021-03-27] MEDS: remdesivir 100 MG in sodium chloride 0.9% (100 ml) 100 ML IV (12:47)
--- NOTE | 2021-03-27 14:11 | PC.NUTR ---
Nutrition reassessment: Noted order for vanilla Ensure with meals has fallen off of diet order once again when diet changed to Regular on 03/25/21--have added Ensure back to order. Spoke with pt regarding meal preferences/tolerance with appropriate adjustments made to diet information. See full RD assessments for further details.
[2021-03-27 14:57] LABS: Glucose Point of Care 75 mg/dL (70-110)
--- NOTE | 2021-03-27 19:36 | PC.NURSE ---
pt has been incontinent of urine off and on today.back pain with activity such as turning or getting up to c.blood sugars have been running on low side due to poor appetite.1/2 amp of d -50 given iv as ordered. appetite improved slightly near end of shift..eating 1 icecream,1 pudding,1 ensure.blood sugar increased to 186.
[2021-03-27 20:53] LABS: Glucose Point of Care 171 mg/dL (70-110)
[2021-03-27] MEDS: mirtazapine 15 mg Tablet PO (21:25)
[2021-03-27] MEDS: donepezil 5 MG Tablet PO (21:25)
[2021-03-28] VITALS (13 sets, daily range): BP systolic 105–131; BP diastolic 56–69; PULSE 63–783; RESP 17–24; TEMP 35.7–37.1; O2SAT 86–98
[2021-03-28 05:43] LABS: Sodium 134 mmol/L (136-145)
[2021-03-28] MEDS: enoxaparin 80 mg/0.8 mL Syringe 70 MG SUBCUT ×2 (06:04→17:52)
--- NOTE | 2021-03-28 07:00 | PC.NURSE ---
Late Entry Bedside report received from [facility]. Patient is A & O. C/O loose stools, no C/O of pain. Got patient up to bedside commode and changed linens. Patient voices no other needs at this time.
[2021-03-28] MEDS: duloxetine 30 mg Capsule PO (08:13)
[2021-03-28] MEDS: levothyroxine 112 mcg Tablet PO (08:13)
[2021-03-28] MEDS: ascorbic acid 500 mg Tablet PO ×2 (08:13→17:52)
[2021-03-28] MEDS: potassium chloride ER 20 mEq Tablet 40 MEQ PO (08:13)
[2021-03-28] MEDS: gabapentin 100 mg Capsule PO ×3 (08:13→20:45)
[2021-03-28] MEDS: dexamethasone 4 mg Tablet 6 MG PO (08:13)
[2021-03-28] MEDS: pantoprazole DR 40 mg Tablet PO (08:13)
[2021-03-28] MEDS: FUROsemide 20 mg Tablet PO (08:13)
[2021-03-28] MEDS: sodium chloride 1 gm Tablet PO ×2 (08:13→17:52)
[2021-03-28] MEDS: aspirin 81 mg EC Tablet PO (08:13)
[2021-03-28] MEDS: midodrine 5 mg TABLET PO ×3 (08:13→20:44)
--- NOTE | 2021-03-28 08:31 | PC.NURSE ---
Addendum entered by Bryon Jara RN 03/28/21 18:57: Late Entry Removed O2 sensor from patients forehead and applied to right ring finger. Patient's O2 stat is now at 100% Original Note: informed nurse O2 was low
[2021-03-28 12:19] LABS: Glucose Point of Care 122 mg/dL (70-110)
[2021-03-28 13:12] LABS: Glucose Point of Care 186 mg/dL (70-110)
--- NOTE | 2021-03-28 13:21 | PM.PN ---
Subjective Subjective: Interval history: No events overnight sodium 134 today hemodynamically stable Vitals/I&O/Wt Last Vital Signs Temp 97.9 F 03/28/21 08:00 Pulse 94 03/28/21 10:00 Resp 20 H 03/28/21 10:00 BP 131/66 03/28/21 08:00 Pulse Ox 92 03/28/21 10:00 03/27/21 03/28/21 03/28/21 22:59 06:59 14:59 Intake Total 480 / 1060 240 / 240 Output Total 300 / 700 300 / 1000 Balance 180 / 360 -300 / 60 215 / 215 Weight last 48 hrs Weight 62.959 kg Weight 66.406 kg Physical Exam Narrative: EXAM NARRATIVE: elderly female S1-S2 with signs of volume overload bilateral lower extremity edema 2+ Bilateral bibasilar rhonchi noted currently saturating well on 5 L nasal cannula Soft abdomen bowel sounds present Right arm midline with mild swelling without any tenderness or redness Lower extremity without any cellulitis No acute respiratory distress Malnourished frail-appearing Data : 03/26/21 10:33 03/28/21 04:56 A&P Assessment and plan (1) COVID-19: Status: Acute (2) DVT (deep venous thrombosis): Status: Acute (3) Anorexia: Status: Acute (4) Hyponatremia: Status: Acute (5) Hypotension: Status: Acute (6) Sepsis: Status: Acute Qualifiers: Sepsis type: sepsis due to unspecified organism (7) Colitis: Status: Acute Additional A&P Information Acute hypoxic restaurant failure secondary to COVID-19 pneumonia Saturating well on 5 L nasal cannula Continue Decadron and remdesivir Right arm catheter related DVT currently on therapeutic dose of Lovenox No active signs of tenderness or cellulitis around the catheter site We will plan to take out the catheter before discharge Anorexia: Discontinue mirtazapine, patient has been very somnolent in the morning time during my evaluation Hypotension improved on albumin, normotensive ANNE MARIE, sepsis and colitis: Resolved DNR/DNI Regular diet DVT prophylaxis on therapeutic dose of Lovenox Expedited appeal started with [employer] Attestations Medical Necessity Statement*: Anticipating discharge once she is accepted at a long term Time Spent in Patient Care: less than 15 minutes Coding Level of Care Code Acute Facility Maintenance Technician for Chg Fwd Diagnoses COVID-19 U07.1 DVT (deep venous thrombosis) I82.409 Anorexia R63.0 Hyponatremia E87.1 Hypotension I95.9 Sepsis A41.9 Sepsis type: sepsis due to unspecified organism Colitis K52.9
[2021-03-28] MEDS: remdesivir 100 MG in sodium chloride 0.9% (100 ml) 100 ML IV (15:04)
[2021-03-28 17:11] LABS: Glucose Point of Care 165 mg/dL (70-110)
--- NOTE | 2021-03-28 17:17 | PC.SOCIAL ---
IMM Update Pg.2 of IMM updated and reviewed with patient, who verbalized understanding. Copy provided.
[2021-03-28 20:32] LABS: Glucose Point of Care 148 mg/dL (70-110)
[2021-03-28] MEDS: oxyCODONE 5 mg IR Tab/Cap PO (20:45)
[2021-03-28] MEDS: donepezil 5 MG Tablet PO (20:45)
[2021-03-29] VITALS (14 sets, daily range): BP systolic 109–148; BP diastolic 57–79; PULSE 60–94; RESP 16–27; TEMP 36.3–36.7; O2SAT 89–95
[2021-03-29] MEDS: enoxaparin 80 mg/0.8 mL Syringe 70 MG SUBCUT (06:25)
[2021-03-29 06:45] LABS: Glucose Point of Care 80 mg/dL (70-110)
[2021-03-29] MEDS: aspirin 81 mg EC Tablet PO (09:06)
[2021-03-29] MEDS: pantoprazole DR 40 mg Tablet PO (09:06)
[2021-03-29] MEDS: dexamethasone 4 mg Tablet 6 MG PO (09:06)
[2021-03-29] MEDS: duloxetine 30 mg Capsule PO (09:06)
[2021-03-29] MEDS: gabapentin 100 mg Capsule PO ×3 (09:06→22:11)
[2021-03-29] MEDS: sodium chloride 1 gm Tablet PO ×2 (09:06→18:44)
[2021-03-29] MEDS: midodrine 5 mg TABLET PO ×3 (09:06→22:11)
[2021-03-29] MEDS: potassium chloride ER 20 mEq Tablet 40 MEQ PO (09:06)
[2021-03-29] MEDS: levothyroxine 112 mcg Tablet PO (09:06)
[2021-03-29] MEDS: FUROsemide 20 mg Tablet PO (09:06)
[2021-03-29] MEDS: ascorbic acid 500 mg Tablet PO ×2 (09:06→18:44)
[2021-03-29] MEDS: dextrose 50% syringe 50 mL 25 ML IVP (09:18)
--- NOTE | 2021-03-29 09:23 | PC.NURSE ---
Pt stated that she felt funny, nurse checked her blood sugar and it was 56. Pt became drowsy and less responsive, notified physician and instructed to give d50 prn. ROSANNE Armenta pushed D50, will recheck blood sugar in 15min and continue to monitor.
[2021-03-29 11:01] LABS: Glucose Point of Care 118 mg/dL (70-110)
[2021-03-29] MEDS: remdesivir 100 MG in sodium chloride 0.9% (100 ml) 100 ML IV (12:39)
--- NOTE | 2021-03-29 13:54 | P.PN_ITS ---
Subjective Subjective: Interval history: This morning noticed hypoglycemia which was treated, no overnight events currently requiring 5 L of nasal cannula to keep saturation above 92% Vitals/I&O/Wt Last Vital Signs Temp 98.1 F 03/29/21 12:00 Pulse 94 03/29/21 12:35 Resp 20 H 03/29/21 12:35 BP 112/59 03/29/21 12:00 Pulse Ox 90 03/29/21 12:35 03/28/21 03/29/21 03/29/21 22:59 06:59 14:59 Intake Total 340 / 820 360 / 360 Balance 340 / 795 360 / 360 Weight last 48 hrs Weight 62.596 kg Weight 62.959 kg Physical Exam Narrative: EXAM NARRATIVE: S1-S2 with signs of volume overload bilateral lower extremity edema 2+ Bilateral bibasilar rhonchi noted currently saturating well on 5 L nasal cannula Soft abdomen bowel sounds present Right arm midline with mild swelling without any tenderness or redness Lower extremity without any cellulitis No acute respiratory distress elderly female malnourished frail-appearing Data : 03/26/21 10:33 03/28/21 04:56 A&P Assessment and plan (1) COVID-19: Status: Acute (2) DVT (deep venous thrombosis): Status: Acute (3) Anorexia: Status: Acute (4) Hyponatremia: Status: Acute (5) Hypotension: Status: Acute (6) Sepsis: Status: Acute Qualifiers: Sepsis type: sepsis due to unspecified organism (7) Colitis: Status: Acute Additional A&P Information Hypoxic respiratory failure due to COVID-19 currently saturating well on 5 L nasal cannula Finished remdesivir regimen, Decadron 2 more doses left, Right arm catheter-related DVT: To be removed before discharge Change Lovenox to Eliquis today Hyponatremia: Sodium 134 continue salt tablets This is secondary to poor p.o. intake Anorexia: Mirtazapine discontinued ANNE MARIE, colitis, resolved DNR/DNI Currently on Eliquis Regular diet Awaiting placement Attestations Medical Necessity Statement*: Awaiting placement Time Spent in Patient Care: less than 15 minutes Coding Level of Care Code Acute Shipwright Supervisor for [facility] Fwd Diagnoses COVID-19 U07.1 DVT (deep venous thrombosis) I82.409 Anorexia R63.0 Hyponatremia E87.1 Hypotension I95.9 Sepsis A41.9 Sepsis type: sepsis due to unspecified organism Colitis K52.9
[2021-03-29 17:50] LABS: Glucose Point of Care 101 mg/dL (70-110)
[2021-03-29 19:05] LABS: Glucose Point of Care 56 mg/dL (70-110)
[2021-03-29 19:05] LABS: Glucose Point of Care 89 mg/dL (70-110)
[2021-03-29 20:33] LABS: Glucose Point of Care 119 mg/dL (70-110)
[2021-03-29] MEDS: apixaban 5 mg Tablet PO (22:11)
[2021-03-29] MEDS: donepezil 5 MG Tablet PO (22:11)
[2021-03-30 04:00] VITALS: BP 137/71; PULSE 72; RESP 23; TEMP 36.6; O2SAT 90
[2021-03-30 04:45] VITALS: PULSE 60
[2021-03-30] MEDS: TRAMadol 50 mg Tablet PO (05:47)
[2021-03-30 06:06] LABS: Blood Urea Nitrogen 10 mg/dL (8-23); Calcium 7.5 mg/dL (8.5-10.5); Carbon Dioxide 36 mmol/L (22-29); Chloride 95 mmol/L (98-107); Glucose 66 mg/dL (65-115); Osmolality Calculated 275 mOsm/kg (285-295); Sodium 134 mmol/L (136-145)
[2021-03-30] MEDS: acetaminophen 325 mg Tablet 650 MG PO (06:09)
[2021-03-30 06:10] VITALS: PULSE 120; O2SAT 84
[2021-03-30 06:10] LABS: Anion Gap 7.8 (5-19); Potassium 4.8 mmol/L (3.5-5.1)
--- NOTE | 2021-03-30 06:48 | XR_ITS ---
WS: [id number] XR chest 1V portable [id number] REASON FOR EXAM: acute respiratory distress FINDINGS: Suboptimal examination with the portion of the left chest excluded from the radiograph. Patient also significantly rotated. There does not appear to be significant interval change compared to 03/25/2021. There is been aortic v alve replacement and there is heavy calcification in the mitral valve annulus. The heart size is norm al. No definite acute pulmonary parenchymal or pleural abnormality. XR/XR chest 1V portable [id number] IMPRESSION: Cannot identify interval change however recommend repeat examination with ivanna r positioning.
--- NOTE | 2021-03-30 06:50 | PC.NURSE ---
NURSING NOTE: AT APPROXIMATELY 0530 TODAY, PT'S 02 SATURATION DROPPED TO 82% AND SUSTAINED FOR APPROXIMATELY 20 TO 30 MINUTES THEN DROPPED TO 79%. DR. TOUSSAINT NOTIFIED AT THIS TIME AND ORDERS RECEIVED FOR HEATED HI FLOW NC AND THEN SWITCED TO BIPAP. PT'S DAUGHTER LOVE NOTIFED PER THIS NURSE AND INFORMED OF ALL OF THE ABOVE. DR. TOUSSAINT SPOKE WITH DAUGHTER AT THIS TIME AND RECEIVED REQUEST PER DAUGHTER TO MAKE PT COMFORT CARE AT 0650 THIS MORNING.
[2021-03-30] MEDS: LORazepam 2 mg/mL INJ 1 mL 1 MG IVP (06:58)
[2021-03-30] MEDS: FUROsemide 10 mg/mL SDV 2mL 20 MG IVP (06:59)
--- NOTE | 2021-03-30 07:00 | PM.EVENT ---
Event Note Event Note: Called by RN at around 6:45 AM today to report the patient developing respiratory distress. Overnight she had escalating oxygen requirements, moving up to heated high flow, saturating 70% while on the heated high flow therefore switched to BiPAP this morning. Patient does not want to keep BiPAP on. She states it is extremely uncomfortable and claustrophobic. Given Ativan and morphine to help with air hunger. After this patient,, keeping BiPAP on, saturation transiently at 92%. Called patient's daughter to update her about the events. Daughter reiterated that the patient is DNR/DNI and she does not want any uncomfortable measures. She wants to come visit her, however given current Covid restrictions this was not possible. I explained in detail that the only exceptions at this point are both for palliative and comfort care measures. Daughter stated that she would like to make patient comfort care and be at patient's bedside. Additionally stated that she did not want any aggressive interventions, she would like to be comfortable, there is to be no further escalation in care from here on. Patient may be transitioned from BiPAP back to oxygen via nasal cannula in keeping with her comfort care directives. All updates discussed with her primary treating doctor Dr. Wright for follow up with morning team.
[2021-03-30 07:01] VITALS: RESP 11; O2SAT 90
[2021-03-30 08:00] VITALS: BP 95/62; PULSE 83; RESP 24; TEMP 36.6; O2SAT 100
--- NOTE | 2021-03-30 08:58 | PC.CHAP ---
Pastoral Care Encounter/Spiritual Assessment Type of Contact [] Declined combination welder visit [] Patient/Family/Request visit [] Outpatient visit [] Follow-up visit [] Physician referral [] Code/Alert [x] Routine visit [] Staff referral [] Actively dying [] Patient sleeping [] Family support [] [] Out of room [] Palliative care [] [] Receiving care in room [] Pre-surgical visit [] Trauma [] Long length of stay [] ICU visit [x] Other: patient placed on comfort care this AM... ventilator ...family notified Relational/Emotional Strength [] Patient feels connected with others/family/visitors/staff [] Distress [] Loneliness/isolation [] Abandonment Spirituality of Patient [] Person of [place] [] Attends Taoist of their [place] [] Believes in Prayer [] Reads Bible or Yazdanism materials [] There are Spiritual issues to be addressed Cotton Converter Interventions [x] Prayer [] Active listening [] Non-anxious presence [] Spiritual/emotional support [] Crisis/trauma care [] Spiritual counseling [] Bereavement support [] Provided bereavement packet [] Provided Bible/devotional materials [] Provided toy/stuffed animal, coloring book to patient or family member [] Provided Communion [] Anointing/[place] [] Salvation [x] Completed spiritual assessment [] Other: Impact on Illness or Injury [] Angry [] Fearful [] Anxious [] Often cries [] Exhaustion [] Unable to work [] Unable to attend faith [] Unable to walk/stand [] Unable to read [] Unable to drive [] Unable to eat/drink [] Unable to sleep [] Unable to be with family [] Patient intubated [] Other: Summary Time spent with patient
--- NOTE | 2021-03-30 09:28 | PC.SOCIAL ---
IMM update: pg 2 of IMM not updated pt. transitioning to comfort measures
[2021-03-30] MEDS: morphine 10 mg/0.5 mL oral liq UD 5 MG PO ×5 (10:26→21:29)
--- NOTE | 2021-03-30 10:49 | PC.NURSE ---
pt is on comfort care now, physician instructed to hold all PO meds.
--- NOTE | 2021-03-30 16:42 | PC.NURSE ---
Patient requested to sit in a chair patient assisted to chair and she began to take off her non re-breather patient asked why she didn't want to wear it patient states i just want to take it off for a little while This nurse asked her to put it back on after a bit and patient refused patient provided with Nasal cannula at 5 L patient is sitting up in chair no s/s of distress
--- NOTE | 2021-03-30 16:45 | P.PN_ITS ---
Subjective Subjective: Interval history: Comfort measures initiated this morning, daughter at the bedside, She is considering home with home hospice Currently Ms. Mitchell is on nonrebreather mask Vitals/I&O/Wt Last Vital Signs Temp 97.8 F 03/30/21 08:00 Pulse 83 03/30/21 08:00 Resp 24 H 03/30/21 08:00 BP 95/62 03/30/21 08:00 Pulse Ox 100 03/30/21 08:00 03/30/21 03/30/21 03/30/21 06:59 14:59 22:59 Intake Total 150 / 730 Balance 150 / 730 Weight last 48 hrs Weight 62.596 kg Weight 62.596 kg Physical Exam Narrative: EXAM NARRATIVE: Frail elderly female Tachypneic with air hunger on nonrebreather mask S1, S2 tachycardia Diminished airflow bilaterally with crackles Soft abdomen Volume overloaded with bilateral lower extremity edema Catheter to be removed from right arm Patient is awake and alert able to communicate Data : 03/26/21 10:33 03/30/21 04:53 A&P Assessment and plan (1) Comfort measures only status: Status: Acute (2) COVID-19: Status: Acute (3) DVT (deep venous thrombosis): Status: Acute (4) Anorexia: Status: Acute (5) Hyponatremia: Status: Acute (6) Hypotension: Status: Acute (7) Sepsis: Status: Acute Qualifiers: Sepsis type: sepsis due to unspecified organism (8) Colitis: Status: Acute Additional A&P Information Comfort measures only Patient was admitted for management of sepsis secondary to ascending colitis which improved gradually and she finished regimen of p.o. antibiotics, however in the hospital she was diagnosed with COVID-19 pneumonia, her oxygen requirement has been getting worse, her functional status did not improve significantly, she struggled to get out of the bed, PT tried to work with her for 1-hour in last 72 hours, she is remained hypotensive initially, required nephro consult for hyponatremia as well, I started her on salt tablets and gave her albumin which corrected her sodium and improved her blood pressure. Today she was made comfort care because of worsening of her clinical status and persistent hypoxia on 100% FiO2 on BiPAP. goals of care were discussed with the patient and her daughter. They are considering home with home hospice. regional facilities manager updated Discontinue Decadron and remdesivir We will keep on liquid morphine and Ativan and oxygen to decrease air hunger and distress Goals of care: Changed to comfort measures only Attestations 2 Medical Necessity Statement*: Comfort measure Time Spent in Patient Care: less than 15 minutes Coding Level of Care Code Acute Hydraulic Rockbreaker Operator for g Fwd Diagnoses Comfort measures only status Z51.5 COVID-19 U07.1 DVT (deep venous thrombosis) I82.409 Anorexia R63.0 Hyponatremia E87.1 Hypotension I95.9 Sepsis A41.9 Sepsis type: sepsis due to unspecified organism Colitis K52.9
[2021-03-31] MEDS: morphine 10 mg/0.5 mL oral liq UD 5 MG PO ×2 (06:23→15:20)
--- NOTE | 2021-03-31 12:57 | PC.NURSE ---
Patient reports multiple areas pain in back and right hip patient offered pain medication several times through out shift patient refuses stating i need to Think patient repositioned several time this shift and is comfortable for a bit
--- NOTE | 2021-03-31 15:35 | PC.NURSE ---
patient has woke up very uncomfortable stating i need help when asked what she needed help with she stated I need help with my mind and mood this nurse offered pain meds to help with pain she declined then the daughter spoke with her and she did take the pain meds however is still asking for something for her mind call placed to Dr Wright with patient reports okayed to give PRN ativan at this time
[2021-03-31] MEDS: LORazepam 2 mg/mL INJ 1 mL IM (15:39)
--- NOTE | 2021-03-31 18:13 | P.PN_ITS ---
Subjective Subjective: Interval history: Patient is on comfort care, family and patient agreed for placement to long-term with hospice at [place] with [facility] service Vitals/I&O/Wt Last Vital Signs Temp 97.8 F 03/30/21 08:00 Pulse 83 03/30/21 08:00 Resp 24 H 03/30/21 08:00 BP 95/62 03/30/21 08:00 Pulse Ox 100 03/30/21 08:00 03/31/21 03/31/21 03/31/21 06:59 14:59 22:59 Intake Total 140 / 140 Balance 140 / 140 Weight last 48 hrs Weight 61.28 kg Weight 62.596 kg Physical Exam Narrative: EXAM NARRATIVE: On nasal cannula Somnolent and lethargic Complaining of back pain She does wake up and make her needs known she complained of back pain and said she needed a pain killer Daughter at the bedside Soft abdomen Volume overloaded Data : 03/26/21 10:33 03/30/21 04:53 A&P Assessment and plan (1) Comfort measures only status: Status: Acute Additional A&P Information Comfort measures were pursued yesterday for her worsening hypoxia secondary to COVID-19 pneumonia with underlying multiple comorbid conditions including poor p.o. intake, lethargy, fatigue compression fracture, she will be transferred to [place] long-term with hospice [address] [place] [address] tomorrow a.m. Attestations Medical Necessity Statement*: Hospice Time Spent in Patient Care: less than 15 minutes Coding Level of Care Code Acute Payroll Accountant for Magda Fwjelly Diagnoses Comfort measures only status Z51.5
--- NOTE | 2021-03-31 21:02 | PC.NURSE ---
Patient is currently resting in bed with eyes closed, with respirations. Will monitor.
--- NOTE | 2021-04-01 00:40 | PC.NURSE ---
Patient is currently resting with eyes closed. Will monitor.
--- NOTE | 2021-04-01 02:38 | PC.NURSE ---
Patient is resting with eyes closed. Patient's linen's are currently clean and dry. Patient has not voided any urine so far this shift. Patient does not appear to be in any pain. Patient has respirations. Patient does not respond to voice or touch. Will continue to monitor.
--- NOTE | 2021-04-01 04:33 | PC.NURSE ---
Patient had incontinent episode and was cleaned with 2 assist. Patient awaken slightly when turned. Patient was asked if she is in any pain and stated, no.
--- NOTE | 2021-04-01 10:06 | PC.SOCIAL ---
IMM UPDATE pg2 of IMM reviewed w/ Porfirio Mitchell (daughter) & copy placed in chart.
--- NOTE | 2021-04-01 11:46 | PM.DCS ---
Discharge Providers Date of Admission: 03/15/21 06:15 Date of Discharge: April 01, 2021 Attending Provider at Admission: Valerie Whelan MD Attending Provider at Discharge: Ying Wright MD Primary Care Provider: LEAH Sims Diagnoses at Discharge Discharge Diagnosis (1) Comfort measures only status: Status: Acute Reason for Visit Reason for Visit: Back pain, diarrhea Hospital Course Hospital Course Patient was admitted for management of sepsis secondary to ascending colitis for which she was treated with IV antibiotics initially, general surgery was consulted who managed her conservatively, her symptoms improved and sepsis resolved she was position to p.o. antibiotics, however during her hospitalization she started complaining of dry cough, she was tested positive for COVID-19, her appetite did not improve at all which made her very dehydrated and hyponatremic, she had recent compression fracture of her spine as well which made her ambulation very limited however she tried to work with physical therapy for about an hour for about 4 to 5 days but her shortness of breath and hypoxia was not improving, she was requiring BiPAP FiO2 100% for about 2 days. She was complaining of extreme lethargy fatigue, anorexia. She was awake and alert and coherent. Decided to pursue comfort measures. Daughter was in agreement. She will be transferred to [place] with [address] [place] [address] hospice service. Physical Exam Narrative: EXAM NARRATIVE: somnolent and lethargic Complaining of back pain She does wake up and make her needs known she complained of back pain and said she needed a pain killer Daughter at the bedside Soft abdomen Volume overloaded Discharge Data Data Completed and Pending: Completed Studies During Hospitalization Category Date Time Status CT abdomen pelvis wo con [id number] Urge nt Cat Scan 03/14/21 20:[address] chest wo con [id number] Routine Cat Scan 03/17/21 09:42 Completed XR chest 1V almita ble [id number] Routine Exams 03/17/21 09:00 Completed XR chest 1V almita ble [id number] Stat Exams 03/15/21 05:20 Completed XR chest 1V almita ble [id number] Stat Exams 03/18/21 13:56 Completed XR chest 1V almita ble [id number] Stat Exams 03/20/21 13:57 Completed XR chest 1V almita ble [id number] Stat Exams 03/25/21 13:33 Completed XR chest 1V almita ble [id number] Stat Exams 03/30/21 06:48 [place] [id number] Routin e Ultrasound 03/20/21 13:57 [place] [id number] Routin e Ultrasound 03/22/21 11:06 Completed US venous duplex lower extremity RT [CV venous duplex Ultrasound 03/23/21 05:36 [place] [id number]] Rout ine Vitals: Last Vital Signs Temp 97.8 F 03/30/21 08:00 Pulse 83 03/30/21 08:00 Resp 24 H 03/30/21 08:00 BP 95/62 03/30/21 08:00 Pulse Ox 100 03/30/21 08:00 Discharge Plan Discharge Patient Disposition: Xfer Other Condition: Critical Prescriptions: New lorazepam 2 mg/mL Solution 2 mg IM Q1H PRN (Reason: Air Hunger) Qty: 1 RF: 0 morphine concentrate 10 mg/0.5 mL Syringe 5 mg PO Q2H PRN (Reason: Pain) Qty: 1 RF: 0 Discontinued aspirin [Adult Aspirin Regimen] 81 mg tablet,delayed release (DR/EC) 81 mg PO DAILY RF: 0 dicyclomine 10 mg capsule 10 mg PO TID PRN (Reason: Abdominal Discomfort) RF: 0 donepezil 5 mg tablet 5 mg PO BEDTIME RF: 0 pantoprazole 40 mg tablet,delayed release (DR/EC) 40 mg PO DAILY RF: 0 magnesium oxide 400 mg (241.3 mg magnesium) tablet 400 mg PO DAILY RF: 0 cyanocobalamin (vitamin B-12) 1,000 mcg/mL solution 1,000 mcg IM Q30D RF: 0 fluticasone propionate 50 mcg/actuation spray,suspension 2 spray INTRANASAL DAILY RF: 0 Multiple Vitamin, Womens Tablet 1 tab PO DAILY RF: 0 Zinc Orotate 60 mg PO DAILY RF: 0 calcium acetate 1 tab PO BID RF: 0 levothyroxine 112 mcg Tablet 112 mcg PO DAILY Qty: 30 RF: 0 furosemide 40 mg tablet 80 mg PO QAM Qty: 60 RF: 0 potassium chloride 20 mEq tablet,ER particles/crystals 20 meq PO BID RF: 0 duloxetine 30 mg capsule,delayed release(DR/EC) 30 mg PO DAILY RF: 0 gabapentin 100 mg Capsule 100 mg PO TID RF: 0 sennosides-docusate sodium [Stool Softener-Laxative] 8.6-50 mg Tablet 1 tab PO BID 30 Days Qty: 60 RF: 0 lactulose 20 gram/30 mL Solution 10 g PO Q12H PRN (Reason: consitpation) 30 Days Qty: 1200 RF: 0 calcitonin (salmon) 200 unit/actuation [place],Non-Aerosol 1 spray nostril-al DAILY 30 Days Qty: 3.7 RF: 0 euaycudl-fkzgxabpa-MC 3.5-10,000-1 mg/mL-unit/mL-% drops,suspension 2 drp otic (ear) QID RF: 0 Discharge Orders: Discharge Order (Routine); Ordered 04/01/21 Ordered By: Ying Wright Referrals: Chasity Cruz FNP [Primary Care Provider] - Discharge Diet: Regular Discharge Activity: Bedrest Patient Instructions: Opioid Safety Discharge Attestations Time Spent in Discharge Care*: less than 30 min Quality Metrics Clinical Quality Measures During this hospital stay, did patient experience: None Coding Level of Care Code Acute Chg FW DC note Diagnoses Comfort measures only status Z51.5
--- NOTE | 2021-04-01 11:56 | PC.CHAP ---
Pastoral Care Encounter/Spiritual Assessment Type of Contact [] Declined children teacher visit [] Patient/Family/Request visit [] Outpatient visit [xxx] Follow-up visit [] Physician referral [] Code/Alert [] Routine visit [] Staff referral [] Actively dying [] Patient sleeping [] Family support [] [] Out of room [] Palliative care [] [] Receiving care in room [] Pre-surgical visit [] Trauma [xx] Long length of stay [] ICU visit [xx] Other: Patient in Isolation Relational/Emotional Strength [] Patient feels connected with others/family/visitors/staff [] Distress [] Loneliness/isolation [] Abandonment Spirituality of Patient [] Person of [place] [] Attends Mormonism of their [place] [] Believes in Prayer [] Reads Bible or Moravian materials [] There are Spiritual issues to be addressed Merchant Patroller Interventions [] Prayer [] Active listening [] Non-anxious presence [] Spiritual/emotional support [] Crisis/trauma care [] Spiritual counseling [] Bereavement support [] Provided bereavement packet [] Provided Bible/devotional materials [] Provided toy/stuffed animal, coloring book to patient or family member [] Provided Communion [] Anointing/[place] [] Salvation [] Completed spiritual assessment [] Other: Impact on Illness or Injury [] Angry [] Fearful [] Anxious [] Often cries [] Exhaustion [] Unable to work [] Unable to attend latter-day [] Unable to walk/stand [] Unable to read [] Unable to drive [] Unable to eat/drink [] Unable to sleep [] Unable to be with family [] Patient intubated [] Other: Summary Time spent with patient
[2021-04-01 12:01] VITALS: PULSE 62; RESP 20; TEMP 36.2
[2021-04-01] MEDS: morphine 10 mg/0.5 mL oral liq UD 5 MG PO ×2 (12:37→15:07)
--- NOTE | 2021-04-01 12:51 | PC.NURSE ---
miedline IV port removed, intact, from patient's right upper arm without difficulty. 2x2's and coban dressing applied,
== END 2021-04-01 15:10 | disposition hospice, inpatient (51) | DRG 871 ==
LOC: ER 03-15 03:33 → ICU 03-15 07:13 → CSU 03-18 17:06 → ICU 03-18 17:06
PROVIDERS: Family Medicine; Internal Medicine; Admitting Provider Student in an Organized Health Care Education/Training Program; Emergency Provider Emergency Medicine; PCP Nurse Practitioner; Visit Provider Internal Medicine
DX: A41.9 Sepsis, unspecified organism (principal); U07.1 COVID-19; J12.82 Pneumonia due to coronavirus disease 2019; I50.33 Acute on chronic diastolic (congestive) heart failure; J96.01 Acute respiratory failure with hypoxia; S32.039A Unspecified fracture of third lumbar vertebra, initial encounter for closed fracture; E87.1 Hypo-osmolality and hyponatremia; T82.818A Embolism due to vascular prosthetic devices, implants and grafts, initial encounter; I11.0 Hypertensive heart disease with heart failure; G89.29 Other chronic pain; Z95.0 Presence of cardiac pacemaker; K21.9 Gastro-esophageal reflux disease without esophagitis; K59.00 Constipation, unspecified; K52.9 Noninfective gastroenteritis and colitis, unspecified; D50.9 Iron deficiency anemia, unspecified; Z86.73 Personal history of transient ischemic attack (TIA), and cerebral infarction without residual deficits; E03.9 Hypothyroidism, unspecified; Z96.653 Presence of artificial knee joint, bilateral; K46.9 Unspecified abdominal hernia without obstruction or gangrene; I95.9 Hypotension, unspecified; M25.552 Pain in left hip; M25.551 Pain in right hip; F03.90 Unspecified dementia, unspecified severity, without behavioral disturbance, psychotic disturbance, mood disturbance, and anxiety; M48.061 Spinal stenosis, lumbar region without neurogenic claudication; X58.XXXA Exposure to other specified factors, initial encounter; Z79.82 Long term (current) use of aspirin; E86.0 Dehydration; Z51.5 Encounter for palliative care; F40.240 Claustrophobia; E16.2 Hypoglycemia, unspecified; E87.6 Hypokalemia; Z66 Do not resuscitate; Y82.9 Unspecified medical devices associated with adverse incidents; Y92.239 Unspecified place in hospital as the place of occurrence of the external cause
CPT/HCPCS: 36415; 36416; 36569; 36592; 36600; 71045; 71250; 74176; 80048; 80053; 81001; 81003; 82436; 82533; 82728; 82803; 82962; 83540; 83550; 83605; 83615; 83690; 83735; 83880; 83930; 83935; 84100; 84145; 84295; 84300; 84443; 85007; 85025; 86140; 87040; 87426; 87493; 87506; 93005; 93970; 93971; 94640; 94660; 96365; 96367; 96372; 97110; 97116; 97162; 97166; 97530; 97535; 99285; J1650; J1815; J1940; J2060; J2543; J3370; J3475; J7030; J7040; J7050; J7608; J8540; P9041; Q3014; Q9967